=== PATIENT | female | born 1935 | race Caucasian/White ===

== ENCOUNTER 2017-06-25 13:22 | Inpatient (IN) | payer OTHER, MEDICARE ==
[~2017-06-25] VITALS: Ht 165.1 cm; Wt 55.3 kg
[2017-06-25] VITALS (9 sets, daily range): BP systolic 138–202; BP diastolic 65–139; PULSE 56–83; RESP 16–28; TEMP 90.7–97.2; O2SAT 93–99
[~2017-06-25 13:22] MED LIST: ALPR.25 PO; ASPI81 PO; CHLO10 PO; FOLI1 PO; HYDR-3133 PO; LOTE10TA PO; PROP20TA3 PO; SENN8.6T15 PO; SIMV20TA OR; THIA100T PO
[2017-06-25] MEDS ORDERED: SODIUM CHLOR 0.9% 1000 ML INJ 1,000 ML IV SCH (13:44)
[2017-06-25] MEDS ORDERED: DEXTROSE 50% IN WATER 50 ML VIAL(D50) IV PUSH PRN (13:45)
--- NOTE | 2017-06-25 13:46 | PD ---
HPI Chief Complaint: Altered Mental Status Time Seen by Provider: 13:38 Travel History International Travel<30 days: No Contact w/Intl Traveler<30days: No Traveled to known affect area: No History of Present Illness HPI 81-year-old female with history of hypertension, presents emergency department for evaluation of altered mental status worsening over the last 2 days. Patient 's family states she is having difficult time speaking. She is not acting herself. She seems to be more tired than usual. Patient is slow to answer my questions, however she tells me that she thinks that she feels good. Denies any pain. Denies any other focal deficits or weakness. PFSH Past Medical History Hypertension: Yes Social History Alcohol Use: Yes Tobacco Use: No Allergies-Medications (Allergen,Severity, Reaction): Coded Allergies: No Known Allergies (Unverified , 06/25/17) Reported Meds & Prescriptions Reported Meds & Active Scripts Active Reported Aspirin 81 Mg Chew 81 Mg CHEW DAILY Propranolol (Propranolol HCl) 20 Mg Tab 20 Mg PO TID Review of Systems Except as stated in HPI: all other systems reviewed are Neg Physical Exam Narrative GENERAL: Well-nourished female patient, appears in no acute distress. She is very slow to move or respond to my questions. SKIN: Focused skin assessment warm/cool HEAD: Atraumatic. Normocephalic. EYES: Pupils equal and round. No scleral icterus. No injection or drainage. ENT: No nasal bleeding or discharge. Mucous membranes pink and moist. NECK: Trachea midline. No JVD. CARDIOVASCULAR: Regular rate and rhythm. RESPIRATORY: No accessory muscle use. Diminished to auscultation. Breath sounds equal bilaterally. GASTROINTESTINAL: Abdomen soft, non-tender, nondistended. Hepatic and splenic margins not palpable. MUSCULOSKELETAL: No obvious deformities. No clubbing. No cyanosis. No edema. NEUROLOGICAL: Awake and alert. No obvious cranial nerve deficits. Motor grossly within normal limits. Normal speech. Data Data Last Documented VS Vital Signs Date Time Temp Pulse Resp B/P (MAP) Pulse Ox O2 Delivery O2 Flow Rate FiO2 06/25/17 14:39 91.6 58 18 171/81 (111) 96 Room Air Orders Orders Electrocardiogram (06/25/17 13:44) Complete Blood Count With Diff (06/25/17 13:44) Comprehensive Metabolic Panel (06/25/17 13:44) Creatine Kinase (Cpk) (3/30/18 13:44) Prothrombin Time / Inr (Pt) (06/25/17 13:44) Act Partial Throm Time (Ptt) (06/25/17 13:44) Troponin I (06/25/17 13:44) Thyroid Stimulating Hormone (06/25/17 13:44) Urinalysis - C+S If Indicated (06/25/17 13:44) Lactic Acid Sepsis Protocol (06/25/17 13:44) Blood Culture (06/25/17 13:44) Chest, Single Ap (06/25/17 13:44) Ct Brain W/O Iv Contrast(Rout) (06/25/17 13:44) Blood Glucose (06/25/17 13:44) Ecg Monitoring (06/25/17 13:44) Iv Access Insert/Monitor (06/25/17 13:44) Cath For Specimen (06/25/17 13:44) Oximetry (06/25/17 13:44) Sodium Chloride 0.9% Flush (Ns Flush) (06/25/17 13:45) Sodium Chlor 0.9% 1000 Ml Inj (Ns 1000 M (06/25/17 13:44) Drug Screen, Random Urine (06/25/17 13:44) Alcohol (Ethanol) (06/25/17 13:44) Bedside Glucose Q15M (06/25/17 13:44) Hypoglycemia 70 Mg/Dl Or < (06/25/17 13:44) Dextrose 50% In Brooke (Vial) Inj (D50w (Vi (06/25/17 13:45) Insert Temp Sensing Rene Cath (06/25/17 14:21) Vancomycin Inj (Vancomycin Inj) (06/25/17 14:56) Cefepime Inj (Maxipime Inj) (06/25/17 14:56) Labs Laboratory Tests Test 06/25/17 14:15 White Blood Count 6.3 TH/MM3 Red Blood Count 4.23 MIL/MM3 Hemoglobin 13.3 GM/DL Hematocrit 40.7 % Mean Corpuscular Volume 96.1 FL Mean Corpuscular Hemoglobin 31.5 PG Mean Corpuscular Hemoglobin Concent 32.7 % Red Cell Distribution Width 16.0 % Platelet Count 207 TH/MM3 Mean Platelet Volume 9.1 FL Neutrophils (%) (Auto) 83.1 % Lymphocytes (%) (Auto) 13.5 % Monocytes (%) (Auto) 2.8 % Eosinophils (%) (Auto) 0.1 % Basophils (%) (Auto) 0.5 % Neutrophils # (Auto) 5.2 TH/MM3 Lymphocytes # (Auto) 0.9 TH/MM3 Monocytes # (Auto) 0.2 TH/MM3 Eosinophils # (Auto) 0.0 TH/MM3 Basophils # (Auto) 0.0 TH/MM3 CBC Comment DIFF FINAL Differential Comment Prothrombin Time 10.4 SEC Prothromb Time International Ratio 1.0 RATIO Activated Partial Thromboplast Time 22.2 SEC Urine Color YELLOW Urine Turbidity HAZY Urine pH 5.0 Urine Specific [place] 1.011 Urine Protein TRACE mg/dL Urine Glucose (UA) TRACE mg/dL Urine Ketones 10 mg/dL Urine Occult Blood TRACE Urine Nitrite NEG Urine Bilirubin NEG Urine Urobilinogen LESS THAN 2.0 MG/DL Urine Leukocyte Esterase TRACE Urine RBC 2 /hpf Urine WBC 1 /hpf Urine Squamous Epithelial Cells 5 /hpf Urine Bacteria RARE /hpf Urine Hyaline Casts 27 /lpf Urine Mucus FEW /lpf Microscopic Urinalysis Comment CATH-CULT NOT IND Blood Urea Nitrogen 16 MG/DL Creatinine 0.74 MG/DL Random Glucose 30 MG/DL Total Protein 7.7 GM/DL Albumin 3.8 GM/DL Calcium Level 9.6 MG/DL Alkaline Phosphatase 57 U/L Aspartate Amino Transf (AST/SGOT) 136 U/L Alanine Aminotransferase (ALT/SGPT) 67 U/L Total Bilirubin 0.8 MG/DL Sodium Level 133 MEQ/L Potassium Level 4.7 MEQ/L Chloride Level 101 MEQ/L Carbon Dioxide Level 14.5 MEQ/L Anion Gap 18 MEQ/L Estimat Glomerular Filtration Rate 75 ML/MIN Lactic Acid Level 3.4 mmol/L Total Creatine Kinase 72 U/L Troponin I LESS THAN 0.02 NG/ML Thyroid Stimulating Hormone 3rd Gen 0.681 uIU/ML Urine Opiates Screen NEG Urine Barbiturates Screen NEG Urine Amphetamines Screen NEG Urine Benzodiazepines Screen NEG Urine Cocaine Screen NEG Urine Cannabinoids Screen NEG Ethyl Alcohol Level 105 MG/DL MDM Medical Decision Making Medical Screen Exam Complete: Yes Emergency Medical Condition: Yes Medical Record Reviewed: Yes Differential Diagnosis CVA versus electrolyte abnormality versus UTI versus sepsis versus mood disorder Narrative Course 81-year-old female presents emergency department for evaluation of altered mental status. Patient is slow to answer my questions however she does have clear speech. Her skin is very cool to touch. Patient is hypothermic here in the emergency department. Bear hugger is applied. Temp sensing Rene catheter was placed. Patient is also hypoglycemic with a blood glucose of 40 on fingerstick. She is given dextrose IV. Septic workup is initiated. Laboratory Tests Test 06/25/17 14:15 White Blood Count 6.3 TH/MM3 Red Blood Count 4.23 MIL/MM3 Hemoglobin 13.3 GM/DL Hematocrit 40.7 % Mean Corpuscular Volume 96.1 FL Mean Corpuscular Hemoglobin 31.5 PG Mean Corpuscular Hemoglobin Concent 32.7 % Red Cell Distribution Width 16.0 % Platelet Count 207 TH/MM3 Mean Platelet Volume 9.1 FL Neutrophils (%) (Auto) 83.1 % Lymphocytes (%) (Auto) 13.5 % Monocytes (%) (Auto) 2.8 % Eosinophils (%) (Auto) 0.1 % Basophils (%) (Auto) 0.5 % Neutrophils # (Auto) 5.2 TH/MM3 Lymphocytes # (Auto) 0.9 TH/MM3 Monocytes # (Auto) 0.2 TH/MM3 Eosinophils # (Auto) 0.0 TH/MM3 Basophils # (Auto) 0.0 TH/MM3 CBC Comment DIFF FINAL Differential Comment Prothrombin Time 10.4 SEC Prothromb Time International Ratio 1.0 RATIO Activated Partial Thromboplast Time 22.2 SEC Urine Color YELLOW Urine Turbidity HAZY Urine pH 5.0 Urine Specific [place] 1.011 Urine Protein TRACE mg/dL Urine Glucose (UA) TRACE mg/dL Urine Ketones 10 mg/dL Urine Occult Blood TRACE Urine Nitrite NEG Urine Bilirubin NEG Urine Urobilinogen LESS THAN 2.0 MG/DL Urine Leukocyte Esterase TRACE Urine RBC 2 /hpf Urine WBC 1 /hpf Urine Squamous Epithelial Cells 5 /hpf Urine Bacteria RARE /hpf Urine Hyaline Casts 27 /lpf Urine Mucus FEW /lpf Microscopic Urinalysis Comment CATH-CULT NOT IND Blood Urea Nitrogen 16 MG/DL Creatinine 0.74 MG/DL Random Glucose 30 MG/DL Total Protein 7.7 GM/DL Albumin 3.8 GM/DL Calcium Level 9.6 MG/DL Alkaline Phosphatase 57 U/L Aspartate Amino Transf (AST/SGOT) 136 U/L Alanine Aminotransferase (ALT/SGPT) 67 U/L Total Bilirubin 0.8 MG/DL Sodium Level 133 MEQ/L Potassium Level 4.7 MEQ/L Chloride Level 101 MEQ/L Carbon Dioxide Level 14.5 MEQ/L Anion Gap 18 MEQ/L Estimat Glomerular Filtration Rate 75 ML/MIN Lactic Acid Level 3.4 mmol/L Total Creatine Kinase 72 U/L Troponin I LESS THAN 0.02 NG/ML Thyroid Stimulating Hormone 3rd Gen 0.681 uIU/ML Urine Opiates Screen NEG Urine Barbiturates Screen NEG Urine Amphetamines Screen NEG Urine Benzodiazepines Screen NEG Urine Cocaine Screen NEG Urine Cannabinoids Screen NEG Ethyl Alcohol Level 105 MG/DL CBC is without acute concern. CMP is with mild hyponatremia 133, patient's blood glucose on labs is 30, however recheck after dextrose the blood glucose has increased. Patient's liver enzymes are elevated. She has a lactic acidosis of 3.4. Urinalysis is hazy with 10 ketones, trace occult blood, trace leukocyte esterase, rare bacteria, few mucus. Patient was given cefepime and vancomycin IV. Last Impressions Head CT [id number]/[id number] Signed Impressions: Service Date/Time: Sunday, June 25, 2017 15:12 - CONCLUSION: Negative noncontrast CT Nabor Metz MD Chest X-Ray [id number]/[id number] Signed Impressions: Service Date/Time: Sunday, June 25, 2017 14:19 - CONCLUSION: 1. Mild streaky opacity at the left lung base which may represent atelectasis or scarring. Nabor Metz MD Toxicology results EtOH of 105. This could have something to do with patients altered mental status, however family is not at bedside to see if she consumes alcohol regularly. Due to patient's hypoglycemia and hypothermia with a lactic acidosis, patient will be admitted for further evaluation. Sepsis Criteria SIRS Criteria (2 or more): Temp > 100.9 or < 96.8, RR > 20 or PaCO2 < 32 Severe Sepsis (+one): Lactate >2 Diagnosis Primary Impression: Altered mental status Qualified Codes: R41.82 - Altered mental status, unspecified Additional Impressions: Hypoglycemia Hypothermia Qualified Codes: T68.XXXA - Hypothermia, initial encounter Alcohol intoxication Qualified Codes: F10.929 - Alcohol use, unspecified with intoxication, unspecified Admitting Information Admitting Physician Requests: Admit Condition: Stable Iveth Pina 30, 2018 13:46
[2017-06-25] MEDS: SODIUM CHLORIDE 0.9% FLUSH 10 ML FLUSH IV FLUSH PRN ×2 (13:58→21:49)
[2017-06-25] MEDS ORDERED: PROP20TA3 PO (14:04)
[2017-06-25] MEDS ORDERED: ASPI-516 CHEW (14:04)
[2017-06-25 14:31] LABS: AUTOMATED NEUTROPHIL # 5.2 TH/MM3 (1.8-7.7); BASOPHIL % 0.5 % (0.0-2.0); EOSINOPHIL % 0.1 % (0.0-4.0); HEMATOCRIT 40.7 % (35.0-46.0); HEMOGLOBIN 13.3 GM/DL (11.6-15.3); LYMPH % 13.5 % (9.0-44.0); LYMPHOCYTE # 0.9 TH/MM3 (1.0-4.8); MEAN CELL VOLUME 96.1 FL (80.0-100.0); MEAN CORPUSCULAR HEMOGLOBIN 31.5 PG (27.0-34.0); MEAN CORPUSCULAR HGB CONC 32.7 % (32.0-36.0); MEAN PLATELET VOLUME 9.1 FL (7.0-11.0); MONO % 2.8 % (0.0-8.0); MONOCYTE # 0.2 TH/MM3 (0-0.9); NEUT % 83.1 % (16.0-70.0); PLATELET COUNT 207 TH/MM3 (150-450); RED BLOOD COUNT 4.23 MIL/MM3 (4.00-5.30); WHITE BLOOD COUNT 6.3 TH/MM3 (4.0-11.0)
[2017-06-25 14:37] LABS: BACTERIA, URINE RARE /hpf; BILIRUBIN, URINE NEG (NEG); BLOOD, URINE TRACE (NEG); GLUCOSE,URINE TRACE mg/dL (NEG); HYALINE CAST, URINE 27 /lpf (RARE); KETONE, URINE 10 mg/dL (NEG); MUCUS URINE FEW /lpf (OCC); NITRITE,URINE NEG (NEG); SQUAMOUS EPITHELIAL CELL URINE 5 /hpf (0-5); URINE COLOR YELLOW (YELLW/STRAW); URINE LEUKOCYTE ESTERASE TRACE (NEG)
[2017-06-25 14:50] LABS: PROTHROMBIN TIME - PATIENT 10.4 SEC (9.8-11.6)
[2017-06-25 14:51] LABS: LACTIC ACID SEPSIS PROTOCOL 3.4 mmol/L (0.4-2.0)
[2017-06-25] MEDS ORDERED: CEFEPIME INJ 2,000 MG in SODIUM CHLORIDE 0.9% INJ 100 ML IV STA (14:56)
[2017-06-25] MEDS ORDERED: VANCOMYCIN INJ 1,000 MG in SODIUM CHLOR 0.9% 250 ML INJ 250 ML IV STA (14:56)
--- NOTE | 2017-06-25 15:00 | RADRPT ---
EXAM DATE/TIME: 06/25/2017 14:19 [facility] COMPARISON: No previous studies available for comparison. INDICATIONS : Syncope. Low blood sugar per family. MEDICAL HISTORY : None. SURGICAL HISTORY : None. ENCOUNTER: Initial ACUITY: 1 day PAIN SCORE: 0/10 LOCATION: Bilateral chest FINDINGS: A single AP portable erect view of the chest was obtained and demonstrates patchy opacity at the left lung base but no consolidation. Ossification is noted in the mitral valve annulus. There are atheros clerotic calcifications. The right lung is clear. The heart size is within normal limits the bony tho rax is intact. CONCLUSION: 1. Mild streaky opacity at the left lung base which may represent atelectasis or scarring. Nabor Metz MD on June 25, 2017 at 14:55 Board Certified Radiologist. This report was verified electronically.
[2017-06-25 15:09] LABS: ALBUMIN 3.8 GM/DL (3.4-5.0); ALKALINE PHOSPHATASE 57 U/L (45-117); ALT (GPT) 67 U/L (10-53); AST (GOT) 136 U/L (15-37); BICARBONATE 14.5 MEQ/L (21.0-32.0); BLOOD UREA NITROGEN 16 MG/DL (7-18); CALCIUM 9.6 MG/DL (8.5-10.1); CHLORIDE 101 MEQ/L (98-107); CREATININE 0.74 MG/DL (0.50-1.00); GLOMERULAR FILTRATION RATE 75 ML/MIN (>89); SODIUM (NA) 133 MEQ/L (136-145); TOTAL BILIRUBIN ADULT 0.8 MG/DL (0.2-1.0); TOTAL PROTEIN 7.7 GM/DL (6.4-8.2); TROPONIN I LESS THAN 0.02 NG/ML (0.02-0.05)
--- NOTE | 2017-06-25 15:28 | RADRPT ---
EXAM DATE/TIME: 06/25/2017 15:12 [facility] COMPARISON: No previous studies available for comparison. INDICATIONS : Syncope. Lethargic. RADIATION DOSE: 56.41 CTDIvol (mGy) MEDICAL HISTORY : None SURGICAL HISTORY : None. ENCOUNTER: Initial ACUITY: 1 day PAIN SCALE: 2/10 LOCATION: cranial TECHNIQUE: Multiple contiguous axial images were obtained of the head. Using automated exposure control and adj ustment of the mA and/or kV according to patient size, radiation dose was kept as low as reasonably a chievable to obtain optimal diagnostic quality images. DICOM format image data is available electro nically for review and comparison. FINDINGS: CEREBRUM: The ventricles are normal for age with mild to moderate atrophic change. No evidence of midline shift , mass lesion, hemorrhage or acute infarction. No extra-axial fluid collections are seen. POSTERIOR FOSSA: The cerebellum and brainstem are intact. The 4th ventricle is midline. The cerebellopontine angle i s unremarkable. EXTRACRANIAL: The visualized portion of the orbits is intact. SKULL: The calvaria is intact. No evidence of skull fracture. CONCLUSION: Negative noncontrast CT Nabor Metz MD on June 25, 2017 at 15:24 Board Certified Radiologist. This report was verified electronically.
[2017-06-25 15:34] LABS: GLUCOSE,RANDOM 30 MG/DL (74-106)
[2017-06-25] MEDS ORDERED: ENALAPRILAT 1.25 MG/ML VIAL IV PUSH PRN (18:00)
[2017-06-25] MEDS ORDERED: VANCOMYCIN INJ 850 MG in SODIUM CHLOR 0.9% 250 ML INJ 250 ML IV SCH (18:00)
[2017-06-25] MEDS ORDERED: MORPHINE SULFATE 2 MG/ML SYRINGE IV PUSH PRN (18:00)
[2017-06-25] MEDS ORDERED: hydrALAZINE HCL 20 MG/ML VIAL IV PUSH PRN (18:00)
[2017-06-25] MEDS ORDERED: Vancomycin Consult Pharmacy 1 EA OTHER SCH (18:00)
[2017-06-25] MEDS ORDERED: LORazepam 2 MG TAB PO PRN (18:00)
[2017-06-25] MEDS ORDERED: NALOXONE HCL 0.4 MG/ML AMP IV PUSH PRN (18:00)
[2017-06-25] MEDS ORDERED: LORazepam 2 MG/ML VIAL IV PUSH PRN ×4 (18:00)
[2017-06-25] MEDS ORDERED: SENNOSIDES 8.6 MG TAB PO PRN (18:00)
[2017-06-25] MEDS ORDERED: ACETAMINOPHEN/HYDROcodone 325 MG/7.5 MG TAB PO PRN (18:00)
[2017-06-25] MEDS ORDERED: MAGNESIUM HYDROXIDE SUSP 30 ML CUP PO PRN (18:00)
[2017-06-25] MEDS ORDERED: ACETAMINOPHEN 325 MG TAB PO PRN (18:00)
[2017-06-25] MEDS ORDERED: ACETAMINOPHEN/HYDROcodone 325 MG/5 MG TAB PO PRN (18:00)
[2017-06-25] MEDS ORDERED: ONDANSETRON HCL 4 MG/2 ML VIAL IVP PRN (18:00)
[2017-06-25] MEDS ORDERED: FLUMAZENIL 0.5 MG/5 ML VIAL IV PUSH PRN (18:00)
[2017-06-25] MEDS ORDERED: LORazepam 1 MG TAB PO PRN (18:00)
--- NOTE | 2017-06-25 18:05 | HHI.HP ---
[facility] Kong New MD Admission Diagnosis AMS; HYPOGLYCEMIA; HYPOTHERMIA; LACTIC ACIDOSIS Diagnoses: Chief Complaint: I am feeling cold Travel History International Travel<30 Days: No Contact w/Intl Traveler <30 Da: No Traveled to Known Affected Are: No History of Present Illness 81 years old female presented to the ED With worsening mental status over the last 2 days with some difficulty speaking and not acting herself, in ED she was found to have hypothermia and severe hypoglycemia BG 30, temperature 91 Fahrenheit, also she was found to have lactic acidosis above 3 along with alcohol intoxication 105. Patient was laying in bed she was able to answer questions, she is originally [place] speaker, I am assuming she has been sneaking alcohol drinking because she called her water vodka. Family were not at the bedside, in general patient is not a good historian, she reported feeling cold, denied cough diarrhea, denied smoking or drinking alcohol but I am not sure how reliable is this. Patient has history of hypertension. Patient was given a dose of cefepime and Vanco, a liter of IV fluid and she was given an amp of D50 Review of Systems ROS Limitations: Poor Historian Past Family Social History Past Medical History Hypertension Past Surgical History Unobtainable Allergies: Coded Allergies: No Known Allergies (Unverified , 06/25/17) Family History Unobtainable Social History Patient denied tobacco or alcohol or drug habits however her urine toxic screen positive for the low alcohol 105 Physical Exam Vital Signs Vital Signs Date Time Temp Pulse Resp B/P (MAP) Pulse Ox O2 Delivery O2 Flow Rate FiO2 06/25/17 17:42 96.3 68 18 172/139 (150) 99 Room Air 06/25/17 14:39 91.6 58 18 171/81 (111) 96 Room Air 06/25/17 14:19 90.7 57 18 157/75 (102) 96 Room Air 06/25/17 14:18 90.7 06/25/17 13:56 60 28 140/65 (90) 93 Room Air 06/25/17 13:52 95 Room Air 06/25/17 13:50 63 24 96 06/25/17 13:33 95.7 56 16 202/95 (130) 96 Physical Exam GENERAL: This is a frail elderly lady who is awake alert SKIN: No rashes, warm and dry HEAD: Atraumatic. Normocephalic. EYES: Pupils equal round and reactive. Extraocular motions intact. No scleral icterus. ENT: Nose without bleeding, or drainage, Airway patent. NECK: Trachea midline. Supple CARDIOVASCULAR: Regular rate and rhythm without murmurs, gallops, or rubs. RESPIRATORY: Fair air entry bilaterally. No wheezes, rales, or rhonchi. GASTROINTESTINAL: Abdomen soft, non-tender, nondistended. Positive bowel sounds MUSCULOSKELETAL: Extremities without clubbing, cyanosis, or edema. Pedal pulses appreciated NEUROLOGICAL: Awake and alert. Moves all extremity. She is a gentleman speaker , she seems to be able to answer questions no significant neurological focal deficit Laboratory Laboratory Tests Test 06/25/17 14:15 06/25/17 17:10 White Blood Count 6.3 Red Blood Count 4.23 Hemoglobin 13.3 Hematocrit 40.7 Mean Corpuscular Volume 96.1 Mean Corpuscular Hemoglobin 31.5 Mean Corpuscular Hemoglobin Concent 32.7 Red Cell Distribution Width 16.0 Platelet Count 207 Mean Platelet Volume 9.1 Neutrophils (%) (Auto) 83.1 Lymphocytes (%) (Auto) 13.5 Monocytes (%) (Auto) 2.8 Eosinophils (%) (Auto) 0.1 Basophils (%) (Auto) 0.5 Neutrophils # (Auto) 5.2 Lymphocytes # (Auto) 0.9 Monocytes # (Auto) 0.2 Eosinophils # (Auto) 0.0 Basophils # (Auto) 0.0 CBC Comment DIFF FINAL Differential Comment Prothrombin Time 10.4 Prothromb Time International Ratio 1.0 Activated Partial Thromboplast Time 22.2 Urine Color YELLOW Urine Turbidity HAZY Urine pH 5.0 Urine Specific [place] 1.011 Urine Protein TRACE Urine Glucose (UA) TRACE Urine Ketones 10 Urine Occult Blood TRACE Urine Nitrite NEG Urine Bilirubin NEG Urine Urobilinogen LESS THAN 2.0 Urine Leukocyte Esterase TRACE Urine RBC 2 Urine WBC 1 Urine Squamous Epithelial Cells 5 Urine Bacteria RARE Urine Hyaline Casts 27 Urine Mucus FEW Microscopic Urinalysis Comment CATH-CULT NOT IND Blood Urea Nitrogen 16 Creatinine 0.74 Random Glucose 30 Total Protein 7.7 Albumin 3.8 Calcium Level 9.6 Alkaline Phosphatase 57 Aspartate Amino Transf (AST/SGOT) 136 Alanine Aminotransferase (ALT/SGPT) 67 Total Bilirubin 0.8 Sodium Level 133 Potassium Level 4.7 Chloride Level 101 Carbon Dioxide Level 14.5 Anion Gap 18 Estimat Glomerular Filtration Rate 75 Lactic Acid Level 3.4 Total Creatine Kinase 72 Troponin I LESS THAN 0.02 Thyroid Stimulating Hormone 3rd Gen 0.681 Urine Opiates Screen NEG Urine Barbiturates Screen NEG Urine Amphetamines Screen NEG Urine Benzodiazepines Screen NEG Urine Cocaine Screen NEG Urine Cannabinoids Screen NEG Ethyl Alcohol Level 105 Date/Time Source Procedure Growth Status 06/25/17 14:15 Blood Peripheral Aerobic Blood Culture Pending Received 06/25/17 14:15 Blood Peripheral Anaerobic Blood Culture Pending Received Result Diagram: 06/25/17 1415 06/25/17 1415 Imaging Last Impressions Head CT 06/25/17 1344 Signed Impressions: Service Date/Time: Sunday, June 25, 2017 15:12 - CONCLUSION: Negative noncontrast CT Nabor Metz MD Chest X-Ray 06/25/17 1344 Signed Impressions: Service Date/Time: Sunday, June 25, 2017 14:19 - CONCLUSION: 1. Mild streaky opacity at the left lung base which may represent atelectasis or scarring. MD Iram Wallacei VTE Risk Assessment Irami VTE Risk Assessment: Mod/High Risk (score >= 2) Caprini Risk Assessment Model Point Value = 1 Point Value = 2 Point Value = 3 Point Value = 5 Age 41-60 Minor surgery BMI > 25 kg/m2 Swollen legs Varicose veins or History of unexplained or recurrent spontaneous Oral contraceptives or hormone replacement Sepsis (< 1 month) Serious lung disease, including pneumonia (< 1 month) Abnormal pulmonary function Acute myocardial infarction Congestive heart failure (< 1 month) History of inflammatory bowel disease Medical patient at bed rest Age 61-74 Arthroscopic surgery Major open surgery (> 45 min) Laparoscopic surgery (> 45 min) Malignancy Confined to bed (> 72 hours) Immobilizing plaster cast Central venous access Age >= 75 History of VTE Family history of VTE Factor V Leiden Prothrombin [id number] Lupus anticoagulant Anticardiolipin antibodies Elevated serum homocysteine Heparin-induced thrombocytopenia Other congenital or acquired thrombophilia Stroke (< 1 month) Elective arthroplasty Hip, pelvis, or leg fracture Acute spinal cord injury (< 1 month) Prophylaxis Regimen Total Risk Factor Score Risk Level Prophylaxis Regimen 0-1 Low Early ambulation 2 Moderate Order ONE of the following: *Sequential Compression Device (SCD) *Heparin 5000 units SQ BID 3-4 Higher Order ONE of the following medications: *Heparin 5000 units SQ TID *Enoxaparin/Lovenox 40 mg SQ daily (WT < 150 kg, CrCl > 30 mL/min) *Enoxaparin/Lovenox 30 mg SQ daily (WT < 150 kg, CrCl > 10-29 mL/min) *Enoxaparin/Lovenox 30 mg SQ BID (WT < 150 kg, CrCl > 30 mL/min) AND/OR *Sequential Compression Device (SCD) 5 or more Highest Order ONE of the following medications: *Heparin 5000 units SQ TID (Preferred with Epidurals) *Enoxaparin/Lovenox 40 mg SQ daily (WT < 150 kg, CrCl > 30 mL/min) *Enoxaparin/Lovenox 30 mg SQ daily (WT < 150 kg, CrCl > 10-29 mL/min) *Enoxaparin/Lovenox 30 mg SQ BID (WT < 150 kg, CrCl > 30 mL/min) AND *Sequential Compression Device (SCD) Assessment and Plan Assessment and Plan Difficulty speaking hypothermia Severe hypoglycemia Lactic acidosis Anion gap metabolic acidosis possibly mixed acid-base Transaminitis consistent with alcoholism Hypertensive emergency Bradycardia Hyponatremia Bandemia no leukocytosis Alcohol intoxication atrial alcohol 105 DVT prophylaxis Plan: Admit to ICU with close monitoring Patient received 1 L of IV fluid in ED with 1 dose of cefepime and Vanco broad- spectrum Continue with D5 normal saline maintenance at 125 I will give another 2 L of normal saline BMP monitoring every 6 hours Peripheral warming blanket Apply hypoglycemic protocol 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 In the case of services not specified as inpatient-only, they are appropriately provided as inpatient services in accordance with the 2-midnight benchmark. Estimated LOS (days): 3 days is the estimated time the patient will need to remain in the hospital, assuming treatment plan goals are met and no additional complications. Post-Hospital Plan: [facility] Ruddy Allen MD Jun 25, 2017 18:05
[2017-06-25] MEDS ORDERED: DEXT 5%-NACL 0.45% 1000 ML INJ 1,000 ML IV SCH (18:15)
[2017-06-25] MEDS ORDERED: SODIUM CHLOR 0.9% 1000 ML INJ 1,000 ML IV ONE ×2 (18:15)
[2017-06-25] MEDS: SODIUM BICARBONATE 8.4% INJ 50 MEQ in DEXT 5%-NACL 0.45% 1000 ML INJ 1,000 ML IV SCH (21:49)
[2017-06-25] MEDS: DOCUSATE SODIUM 50 MG/SENNA 8.6 MG TAB PO SCH (21:50)
[2017-06-25] MEDS: HEPARIN SODIUM - SQ 10,000 UNITS/ML VIAL SQ SCH (21:50)
[2017-06-25] MEDS: amLODIPine BESYLATE 5 MG TAB PO SCH (21:50)
[2017-06-25 22:34] LABS: BICARBONATE 17.1 MEQ/L (21.0-32.0); CALCIUM 7.8 MG/DL (8.5-10.1); CREATININE 0.57 MG/DL (0.50-1.00)
[2017-06-26] VITALS (7 sets, daily range): BP systolic 99–141; BP diastolic 48–80; PULSE 73–101; RESP 18; TEMP 97.4–99.7; O2SAT 93–97
[2017-06-26] MEDS: SODIUM BICARBONATE 8.4% INJ 50 MEQ in DEXT 5%-NACL 0.45% 1000 ML INJ 1,000 ML IV SCH ×2 (05:00→13:33)
[2017-06-26] MEDS: HEPARIN SODIUM - SQ 10,000 UNITS/ML VIAL SQ SCH ×2 (05:58→13:33)
[2017-06-26] MEDS ORDERED: CEFEPIME INJ 1,000 MG in SODIUM CHLORIDE 0.9% INJ 100 ML IV SCH (06:00)
[2017-06-26 06:28] LABS: AUTOMATED NEUTROPHIL # 6.3 TH/MM3 (1.8-7.7); BASOPHIL % 0.4 % (0.0-2.0); EOSINOPHIL % 0.3 % (0.0-4.0); HEMATOCRIT 33.7 % (35.0-46.0); HEMOGLOBIN 11.2 GM/DL (11.6-15.3); LYMPH % 11.8 % (9.0-44.0); LYMPHOCYTE # 0.9 TH/MM3 (1.0-4.8); MEAN CELL VOLUME 95.6 FL (80.0-100.0); MEAN CORPUSCULAR HEMOGLOBIN 31.6 PG (27.0-34.0); MEAN CORPUSCULAR HGB CONC 33.1 % (32.0-36.0); MEAN PLATELET VOLUME 9.3 FL (7.0-11.0); MONO % 6.3 % (0.0-8.0); MONOCYTE # 0.5 TH/MM3 (0-0.9); NEUT % 81.2 % (16.0-70.0); PLATELET COUNT 166 TH/MM3 (150-450); RED BLOOD COUNT 3.53 MIL/MM3 (4.00-5.30); RED CELL DISTRIBUTION WIDTH 15.5 % (11.6-17.2); WHITE BLOOD COUNT 7.8 TH/MM3 (4.0-11.0)
[2017-06-26 06:55] LABS: ALBUMIN 2.9 GM/DL (3.4-5.0); BICARBONATE 21.1 MEQ/L (21.0-32.0); CALCIUM 8.3 MG/DL (8.5-10.1); CREATININE 0.77 MG/DL (0.50-1.00); DIRECT BILIRUBIN ADULT 0.2 MG/DL (0.0-0.2); INDIRECT BILIRUBIN 0.8 MG/DL (0.0-0.8); TOTAL PROTEIN 5.9 GM/DL (6.4-8.2)
--- NOTE | 2017-06-26 08:29 | HHI.PR ---
Subjective Remarks The patient feels better she is back at her baseline. Says she has essential tremors for a long time she takes propranolol, she was also told alcohol is helping with the tremors. However says she is not drinking much alcohol. She would like to go home. She also says she has a scar in her left lower lung that was followed with a chest x-ray as outpatient and did not show any enlargement. She denies having any chest pain or shortness of breath. No fever or chills. She is not coughing. She is back at her baseline and she wants to go home. at bedside very supportive. Says she has a walker at home however she does very well and uses salt in the walker. Remove Rene. Objective Vitals Vital Signs Date Time Temp Pulse Resp B/P (MAP) Pulse Ox O2 Delivery O2 Flow Rate FiO2 06/26/17 08:25 96 21 06/26/17 08:18 99.7 86 18 118/56 (76) 95 06/26/17 04:00 97.4 73 18 141/70 (93) 97 06/26/17 01:22 86 18 100/50 (67) 93 06/26/17 00:00 98.7 84 18 99/48 (65) 96 06/25/17 23:49 83 06/25/17 18:54 06/25/17 18:13 97.2 74 20 138/67 (90) 98 Room Air 06/25/17 17:42 96.3 68 18 172/139 (150) 99 Room Air 06/25/17 14:39 91.6 58 18 171/81 (111) 96 Room Air 06/25/17 14:19 90.7 57 18 157/75 (102) 96 Room Air 06/25/17 14:18 90.7 06/25/17 13:56 60 28 140/65 (90) 93 Room Air 06/25/17 13:52 95 Room Air 06/25/17 13:50 63 24 96 06/25/17 13:33 95.7 56 16 202/95 (130) 96 I/O 06/25/17 06/25/17 06/25/17 06/26/17 06/26/17 06/26/17 07:00 15:00 23:00 07:00 15:00 23:00 Intake Total 1100 ml 2703 ml Output Total 200 ml Balance 1100 ml 2503 ml Intake IV Total 1100 ml 2703 ml Output Urine Total 200 ml Result Diagram: 06/26/17 0519 06/26/17 0519 Imaging Last Impressions Head CT 06/25/17 1344 Signed Impressions: Service Date/Time: Sunday, June 25, 2017 15:12 - CONCLUSION: Negative noncontrast CT Nabor Metz MD Chest X-Ray 06/25/17 1344 Signed Impressions: Service Date/Time: Sunday, June 25, 2017 14:19 - CONCLUSION: 1. Mild streaky opacity at the left lung base which may represent atelectasis or scarring. Nabor Metz MD Objective Remarks GENERAL: This is a frail elderly lady who is awake alert SKIN: No rashes, warm and dry HEAD: Atraumatic. Normocephalic. EYES: Pupils equal round and reactive. Extraocular motions intact. No scleral icterus. ENT: Nose without bleeding, or drainage, Airway patent. NECK: Trachea midline. Supple CARDIOVASCULAR: Regular rate and rhythm without murmurs, gallops, or rubs. RESPIRATORY: Fair air entry bilaterally. No wheezes, rales, or rhonchi. GASTROINTESTINAL: Abdomen soft, non-tender, nondistended. Positive bowel sounds MUSCULOSKELETAL: Extremities without clubbing, cyanosis, or edema. Pedal pulses appreciated NEUROLOGICAL: Awake and alert. Moves all extremity. She is a gentleman speaker , she seems to be able to answer questions no significant neurological focal deficit A/P Assessment and Plan Difficulty speaking, resolved back at baseline Hypothermia resolved Severe hypoglycemia. Resolved Lactic acidosis. Resolved Anion gap metabolic acidosis possibly mixed acid-base. Resolved Transaminitis consistent with alcoholism. Counseled extensively regarding alcohol use Hypertensive emergency Bradycardia, secondary to use of propranolol, decreased dose Hyponatremia Bandemia no leukocytosis Alcohol intoxication atrial alcohol 105 on admission. History of essential tremors taking propanolol 20 mg 3 times a day however noted bradycardic, will decrease propranolol to 20 mg twice a day. Patient was also advised not to drink alcohol for essential tremors. She expressed understanding. 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 Patient says she has a scar in her left lower lung and was followed as outpatient with chest x-rays by her doctor and was told did not increase in size. She is asymptomatic. Heparin for DVT prophylaxis Patient improved significantly and she is back at her baseline. She has a history of essential tremors takes propranolol and says sometimes she is medicating herself with alcohol. Advised not to consume alcohol to treat essential tremors. She was also noted bradycardic due to high dose of propranolol use. Decrease propranolol to 20 mg twice daily. Patient is back at her baseline. She wants to go home. PT recommends no pain no PT as outpatient or at home. at bedside. Patient is discharged home in stable condition to follow- up with PCP and consultants as outpatient. Makenzie Prince MD Jun 26, 2017 08:29
[2017-06-26] MEDS: DOCUSATE SODIUM 50 MG/SENNA 8.6 MG TAB PO SCH (08:57)
[2017-06-26] MEDS: amLODIPine BESYLATE 5 MG TAB PO SCH (08:57)
[2017-06-26] MEDS ORDERED: ASPIRIN 81 MG CHEW TAB CHEW SCH (09:00)
[2017-06-26] MEDS ORDERED: AMLO5 PO (11:06)
[2017-06-26] MEDS ORDERED: PROP20TA3 PO (11:06)
--- NOTE | 2017-06-26 11:06 | HHI.DS ---
Discharge Summary Admission Date Jun 25, 2017 at 16:40 Discharge Date: Jun 26, 2017 Admitting Diagnosis AMS; HYPOGLYCEMIA; HYPOTHERMIA; LACTIC ACIDOSIS (1) Alcohol intoxication ICD Code: F10.929 - Alcohol use, unspecified with intoxication, unspecified Status: Acute (2) Hypoglycemia ICD Code: E16.2 - Hypoglycemia, unspecified Status: Acute (3) Hypothermia ICD Code: T68.XXXA - Hypothermia, initial encounter Status: Acute (4) Altered mental status ICD Code: R41.82 - Altered mental status, unspecified Status: Acute Procedures No procedures Brief History - From Admission 81 years old female presented to the ED With worsening mental status over the last 2 days with some difficulty speaking and not acting herself, in ED she was found to have hypothermia and severe hypoglycemia BG 30, temperature 91 Fahrenheit, also she was found to have lactic acidosis above 3 along with alcohol intoxication 105. Patient was laying in bed she was able to answer questions, she is originally [place] speaker, I am assuming she has been sneaking alcohol drinking because she called her water vodka. Family were not at the bedside, in general patient is not a good historian, she reported feeling cold, denied cough diarrhea, denied smoking or drinking alcohol but I am not sure how reliable is this. Patient has history of hypertension. Patient was given a dose of cefepime and Vanco, a liter of IV fluid and she was given an amp of D50 CBC/BMP: 06/26/17 0519 06/26/17 0519 Significant Findings Laboratory Tests Test 06/25/17 14:15 06/25/17 17:10 06/25/17 21:36 06/26/17 05:19 Neutrophils (%) (Auto) 83.1 % (16.0-70.0) 81.2 % (16.0-70.0) Lymphocytes # (Auto) 0.9 TH/MM3 (1.0-4.8) 0.9 TH/MM3 (1.0-4.8) Activated Partial Thromboplast Time 22.2 SEC (24.3-30.1) Urine Turbidity HAZY (CLEAR) Urine Ketones 10 mg/dL (NEG) Urine Occult Blood TRACE (NEG) Urine Leukocyte Esterase TRACE (NEG) Urine Bacteria RARE /hpf (NONE) Urine Mucus FEW /lpf (OCC) Random Glucose 30 MG/DL (74-106) 187 MG/DL (74-106) Aspartate Amino Transf (AST/SGOT) 136 U/L (15-37) 57 U/L (15-37) Alanine Aminotransferase (ALT/SGPT) 67 U/L (10-53) Sodium Level 133 MEQ/L (136-145) Carbon Dioxide Level 14.5 MEQ/L (21.0-32.0) 17.1 MEQ/L (21.0-32.0) Anion Gap 18 MEQ/L (5-15) Estimat Glomerular Filtration Rate 75 ML/MIN (>89) 72 ML/MIN (>89) Lactic Acid Level 3.4 mmol/L (0.4-2.0) 3.6 mmol/L (0.4-2.0) Troponin I LESS THAN 0.02 NG/ML Ethyl Alcohol Level 105 MG/DL (0-5) Calcium Level 7.8 MG/DL (8.5-10.1) 8.3 MG/DL (8.5-10.1) Chloride Level 109 MEQ/L (98-107) Red Blood Count 3.53 MIL/MM3 (4.00-5.30) Hemoglobin 11.2 GM/DL (11.6-15.3) Hematocrit 33.7 % (35.0-46.0) Total Protein 5.9 GM/DL (6.4-8.2) Albumin 2.9 GM/DL (3.4-5.0) Alkaline Phosphatase 40 U/L (45-117) Imaging Last Impressions Head CT 06/25/171343 Signed Impressions: Service Date/Time: Sunday, June 25, 2017 15:12 - CONCLUSION: Negative noncontrast CT Nabor Metz MD Chest X-Ray 06/25/171343 Signed Impressions: Service Date/Time: Sunday, June 25, 2017 14:19 - CONCLUSION: 1. Mild streaky opacity at the left lung base which may represent atelectasis or scarring. Nabor Metz MD PE at Discharge GENERAL: This is a frail elderly lady who is awake alert SKIN: No rashes, warm and dry HEAD: Atraumatic. Normocephalic. EYES: Pupils equal round and reactive. Extraocular motions intact. No scleral icterus. ENT: Nose without bleeding, or drainage, Airway patent. NECK: Trachea midline. Supple CARDIOVASCULAR: Regular rate and rhythm without murmurs, gallops, or rubs. RESPIRATORY: Fair air entry bilaterally. No wheezes, rales, or rhonchi. GASTROINTESTINAL: Abdomen soft, non-tender, nondistended. Positive bowel sounds MUSCULOSKELETAL: Extremities without clubbing, cyanosis, or edema. Pedal pulses appreciated NEUROLOGICAL: Awake and alert. Moves all extremity. She is a gentleman speaker , she seems to be able to answer questions no significant neurological focal deficit Hospital Course Difficulty speaking, resolved back at baseline Hypothermia resolved Severe hypoglycemia. Resolved Lactic acidosis. Resolved Anion gap metabolic acidosis possibly mixed acid-base. Resolved Transaminitis consistent with alcoholism. Counseled extensively regarding alcohol use Hypertensive emergency Bradycardia, secondary to use of propranolol, decreased dose Hyponatremia Bandemia no leukocytosis Alcohol intoxication atrial alcohol 105 on admission. History of essential tremors taking propanolol 20 mg 3 times a day however noted bradycardic, will decrease propranolol to 20 mg twice a day. Patient was also advised not to drink alcohol for essential tremors. She expressed understanding. 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 Patient says she has a scar in her left lower lung and was followed as outpatient with chest x-rays by her doctor and was told did not increase in size. She is asymptomatic. Heparin for DVT prophylaxis Patient improved significantly and she is back at her baseline. She has a history of essential tremors takes propranolol and says sometimes she is medicating herself with alcohol. Advised not to consume alcohol to treat essential tremors. She was also noted bradycardic due to high dose of propranolol use. Decrease propranolol to 20 mg twice daily. Patient is back at her baseline. She wants to go home. PT recommends no pain no PT as outpatient or at home. at bedside. Patient is discharged home in stable condition to follow- up with PCP and consultants as outpatient. Pt Condition on Discharge: Stable Discharge Disposition: Discharge Home Discharge Time: > 30 minutes Discharge Instructions DIET: Follow Instructions for: Heart Healthy Diet Activities you can perform: Regular-No Restrictions Follow up Referrals: PCP Follow-up - 2-3 Days New Medications: Amlodipine (Norvasc) 5 Mg Tab 5 MG PO DAILY for Blood Pressure Management, #30 TAB Changed Medications: Propranolol (Propranolol) 20 Mg Tab 20 MG PO BID for essential tremors , #90 TAB 0 Refills (Changed from: TID) Continued Medications: Aspirin (Aspirin) 81 Mg Chew 81 MG CHEW DAILY, TAB 0 Refills Makenzie Prince MD Jun 26, 2017 11:06
--- NOTE | 2017-06-26 13:57 | EKG ---
Date Performed: 06/25/2017 Time Performed: 14:02:45 PTAGE: 81 years EKG: SINUS BRADYCARDIA INFERIOR MYOCARDIAL INFARCTION ABNORMAL ECG NO PREVIOUS TRACING DOCTOR: Dhruv Lomeli Interpretating Date/Time 06/26/2017 13:56:30
--- NOTE | 2017-06-26 14:40 | EKG ---
Date Performed: 06/26/2017 Time Performed: 00:08:44 PTAGE: 81 years EKG: Sinus rhythm Inferior infarct - age undetermined Anterolateral ST-T changes are nonspecific Abnormal ECG Since PREVIOUS TRACING , no significant change noted PREVIOUS TRACIN06/25/2017 14.02 DOCTOR: Dhruv Lomeli Interpretating Date/Time 06/26/2017 14:39:43
[2017-06-26] MEDS ORDERED: VANCOMYCIN 1,000 MG/NS 250 ML IV SCH ×2 (15:00)
[2017-06-29] MEDS ORDERED: PHARMACY ORDERED LAB ONE (14:45)
== END 2017-06-26 16:44 | disposition home or self-care (01) | DRG 897 ==
LOC: NEPE 13:22 → MERGE 16:40 → NEDA 16:40 → N05B 19:03
PROVIDERS: ADMIT Hospitalist; ATTEND Hospitalist
DX: F10.229 Alcohol dependence with intoxication, unspecified (principal); E87.2 Acidosis; T68.XXXA Hypothermia, initial encounter; I16.1 Hypertensive emergency; E87.1 Hypo-osmolality and hyponatremia; I10 Essential (primary) hypertension; E16.2 Hypoglycemia, unspecified; G25.0 Essential tremor; R74.0 Nonspecific elevation of levels of transaminase and lactic acid dehydrogenase [LDH]; R00.1 Bradycardia, unspecified; D72.825 Bandemia; Y90.5 Blood alcohol level of 100-119 mg/100 ml; X58.XXXA Exposure to other specified factors, initial encounter
CPT/HCPCS: 70450; 71045; 80048; 80053; 80076; 80307; 81001; 82550; 82948; 83605; 83690; 84443; 84484; 85025; 85610; 85730; 87040; 93005; 96361; 96365; 96368; 96375; J0692; J1644; J3370; J7030; J7050; P9612

== ENCOUNTER 2018-02-17 19:37 | Inpatient (IN) ==
--- NOTE | 2018-02-17 19:56 | ED ---
HPI General Chief Complaint: Fall Stated Complaint: Back Pain/Fall Time Seen by Provider: 02/17/18 19:46 Source: patient and RN notes reviewed Mode of arrival: EMS Limitations: physical limitation History of Present Illness HPI Narrative: The patient is an 82-year-old female with a past medical history significant for hypertension that was brought in by EMS for evaluation after she experienced a fall around 3:30 PM today. On arrival also evaluated the patient appears that she is not crossing the midline and she has a fixed gaze to the right. She appears confused and her left side is more ataxic on the left upper extremity and cannot see on the left visual field. Pt stated to the Neurologist in CT scanner that she fell yesterday. Family friends are here reporting that they went to check on her around 4:00 and she has stated that she has just fallen in the bathroom 5 minutes prior to arrival. Her also reported that she was sleeping yesterday all day and spent most of the day laying in bed today. Friends that I arrived stated that when they saw her around 4:00 she had told him that she just had fallen in the bathroom and she was laying on her right side and her left leg was hanging off the bed. She was seen by her primary in the beginning of the week because she was not feeling well and she was started on 2 new blood pressure medications because of labile hypertension. Patient is complaining of left hip pain and low back pain Onset (ago): unknown Location: Reports other (Fixed gaze to the right) History of same: No Severity: severe Context: Reports sudden onset On Anticoagulants: No Associated symptoms: Reports confusion; Denies headaches Related Data Home Medications Medication Instructions Recorded Confirmed amlodipine 5 mg PO DAILY 02/17/18 02/17/18 buspirone 5 mg PO DAILY 02/17/18 02/17/18 propranolol 20 mg PO DAILY 02/17/18 02/17/18 Allergies Allergy/AdvReac Type Severity Reaction Status Date / Time No Known Allergies Allergy Uncoded 05/09/12 18:20 Review of Systems ROS: all other systems reviewed are negative PMFSH History History Provided By: Patient, Family Member and Friend Medical History Medical History Anxiety (Acute) Essential hypertension (Acute) Hyperlipidemia (Acute) Medical history unknown (Acute) Throat cancer (Acute) Surgical History Surgical History H/O neck surgery (Acute) Family History Family History Other No pertinent family history Social History Social History Substance History: No History of Abuse Second Hand Smoke Exposure: No Smoking Status: Never smoker How Often Do You Have a Drink Containing Alcohol: Monthly or less Recent Travel in [facility] within the Last 8 Weeks: No Recent Out of Country Travel within the Last 8 Weeks: No Exam Narrative Exam Narrative: GENERAL: Alert and oriented in no distress well-nourished well- developed. SKIN: Focused skin assessment warm/dry. Poor turgor HEAD: Atraumatic. Normocephalic. EYES: Pupils equal and round. No scleral icterus. No injection or drainage. ENT: No nasal bleeding or discharge. Mucous membranes pink and moist. NECK: Trachea midline. No JVD. CARDIOVASCULAR: Regular rate and rhythm. No murmur appreciated. RESPIRATORY: No accessory muscle use. Clear to auscultation. Breath sounds equal bilaterally. GASTROINTESTINAL: Abdomen soft, non-tender, nondistended. Hepatic and splenic margins not palpable. MUSCULOSKELETAL: No obvious deformities. No clubbing. No cyanosis. No edema. NEUROLOGICAL: Patient alert and oriented with fixed gaze to the right no crossing midline. No dysarthria. Cranial nerves otherwise intact. PSYCHIATRIC: Appropriate mood and affect; insight and judgment normal. Neuro General: alert, awake and oriented x3 Cognition: normal cognition Speech: speech normal Motor: strength not 5/5 throughout and other Sensory Exam: lower extremity left light-touch abnormal in the entire distribution and pin-prick abnormal in the entire distribution and decreased DTR's: Rt Brachioradialis: 0, Lt Brachioradialis: 0, Rt Patellar: 0 and Lt Patellar: 0 Plantar Reflexes: Downgoing: bilateral Course Reevaluation(s) Reevaluation #1: Patient is still in the CT suite. Her arrived and we spoke with him with Dr. Hanley neurology online communications specialist. It is unsure exactly what was the onset of her symptoms. Patient has been laying in bed yesterday and today for most of the day she had a fall prior to 4 PM she has been laying in bed since then. She is not on any blood thinners. Time: 20:33 Consultations Consultation #1: Dr Hanley Neuro Cell Feed Department Supervisor recommends CTA Head and Neck Time: 19:58 Initial Documented Vital Signs Temperature 97.0 F L 02/17/18 19:52 Pulse Rate 70 02/17/18 19:52 Respiratory Rate 16 02/17/18 19:52 Blood Pressure 100/50 L 02/17/18 19:52 Pulse Oximetry 99 02/17/18 19:52 Last Documented Vital Signs Temperature 96.8 F L 02/18/18 00:00 Pulse Rate 79 02/18/18 01:30 Respiratory Rate 20 02/18/18 01:30 Blood Pressure 129/58 L 02/18/18 01:30 Pulse Oximetry 100 02/18/18 01:30 Critical Care Time Critical Care Time: Yes Total Critical Care Time: 30 Attestation: Aggregate critical care time was 30 minutes. Time to perform other separately billable procedures was not included in the critical care time. My time did not include minutes spent treating any other patients simultaneously or on activities that did not directly contribute to the patient's treatment. The services I provided to this patient were to treat and/or prevent clinically significant deterioration that could result in: I provided critical care services requiring my management, as noted below: Chart data review, documentation time, medication orders and management, vital sign assessments/reviewing monitor data, ordering and reviewing lab tests, ordering and interpreting/reviewing x-rays and diagnostic studies, care of the patient and discussion of the patient with the admitting physicians. NIH Stroke Scale NIH Stroke Scale Level of Consciousness: 0-Alert Orientation Questions: 0-Answers both correct Responds to Commands: 0-Both tasks correct Gaze Eye Movement: 1-Partial gaze palsy Visual [place]: 1-Partial hemianopia Facial Movement: 0-Normal Motor Functions Arm LEFT: 1-Drift before 10 seconds Motor Functions Arm RIGHT: 0-No drift Motor Functions Leg LEFT: 2-Falls before 5 seconds Motor Functions Leg RIGHT: 0-No drift Limb Ataxia: 1-Ataxia in one limb Sensory Loss: 1-Mild sensory loss Best Language: 0-Normal Articulation: 0-Normal Extinction or Inattention Sensory: 1-Loss 1 sensory modality Total: 8 Quality Measure Queries Stroke Symptom Onset Unknown: No Comment Thrombolytic Contraindications: Unknown onset. Medical Decision Making MDM Narrative Medical decision making narrative: Patient with what appears to be CVA with M2 branch occluded 1 cm distal to the bifurcation. She also has a troponin of 0.35 without complaints of chest pain and EKG not suggestive of acute ischemia. It appears that during her fall she also suffered a left intertrochanteric fracture. Neurology was consulted saw the patient at bedside. She is not a TPA candidate. Also as per neurology not a TPA candidate for any invasive procedure at this time. Instructions were to start on heparin without boluses admitted to the ICU consult orthopedic surgery aspirin 325 p.o. and head of bed flat. Patient is alert and oriented able to protect airway. Hemodynamically stable. She had an episode of hypotension while in the CT suite which was addressed with a liter of fluid bolus. Denies any chest pain shortness of breath. Admitted to the left hip pain for which she is on p.o. narcotics. Patient placed in the ICU. Medical Screen Exam Complete: Yes Emergency Medical Condition: Yes Lab Data Lab results reviewed: Yes I reviewed the patient's lab results. Result diagrams: 02/17/18 19:57 02/17/18 19:57 Lab Results 02/17/18 02/17/18 02/17/18 Range/Units 19:57 19:57 19:57 WBC 13.9 H (4.0-11.0) th/mm3 RBC 3.45 L (4.00-5.30) mil/mm3 Hgb 11.2 L (11.6-15.3) gm/dL POC Hgb (Calc) (11.6-15.3) g/dL Hct 32.4 L (35.0-46.0) % POC Hct (35-46.0) % MCV 93.9 (80.0-100.0) fL MCH 32.6 (27.0-34.0) pg MCHC 34.7 (32.0-36.0) % RDW 14.5 (11.6-17.2) % Plt Count 164 (150-450) th/mm3 MPV 8.9 (7.0-11.0) fL Neut % (Auto) 88.6 H (16.0-70.0) % Lymph % (Auto) 6.1 L (9.0-44.0) % [place] % (Auto) 4.5 (0.0-8.0) % Eos % (Auto) 0.2 (0.0-4.0) % Baso % (Auto) 0.6 (0.0-2.0) % Neut # (Auto) 12.3 H (1.8-7.7) th/mm3 Lymph # (Auto) 0.8 L (1.0-4.8) th/mm3 [place] # (Auto) 0.6 (0.0-0.9) th/mm3 Eos # (Auto) 0.0 (0.0-0.4) th/mm3 Baso # (Auto) 0.1 (0.0-0.2) th/mm3 WBC Differential . Differential Comment Auto diff final ESR (0-30) mm/hr PT 11.4 (9.8-11.6) sec INR 1.1 Ratio APTT 26.0 (23.4-31.7) sec POC Sodium (137-144) mmol/L Sodium 131 L (136-145) meq/L POC Potassium (3.6-5.0) mmol/L Potassium 4.6 (3.5-5.1) meq/L POC Chloride (102-111) mmol/L Chloride 98 (98-107) meq/L Carbon Dioxide 19.5 L (21.0-32.0) meq/L Anion Gap 14 (5-15) meq/L POC BUN (5-21) mg/dL BUN 17 (7-18) mg/dL Creatinine 0.87 (0.50-1.00) mg/dL POC Creatinine (0.6-1.3) mg/dL Estimated GFR 62 L (>89) mL/min POC Glucose (68-110) mg/dL Random Glucose 147 H (74-106) mg/dL Calcium 8.8 (8.5-10.1) mg/dL Phosphorus (2.5-4.9) mg/dL Magnesium (1.5-2.5) mg/dL Total Creatine Kinase 106 (26-192) U/L CK-MB (CK-2) 3.4 (0.5-3.6) ng/mL Troponin I 0.35 H (0.02-0.05) ng/mL Vitamin B12 (193-986) pg/mL TSH (0.358-3.740) uIU/mL Free T4 (0.76-1.46) ng/dL Urine Color (Yellw/Straw) Urine Clarity (Clear) Urine pH (5.0-8.5) Ur Specific [place] (1.002-1.035) Urine Protein (Neg-Trace) mg/dL Urine Glucose (UA) (Negative) mg/dL Urine Ketones (Negative) mg/dL Urine Occult Blood (Negative) Urine Nitrate (Negative) Urine Bilirubin (Negative) Urine Urobilinogen (Less than 2) mg/dL Ur Leukocyte Esterase (Negative) Urine RBC (0-3) /hpf Urine WBC (0-5) /hpf Ur Squamous Epith Cells (0-5) /hpf Urine Mucus (Occasional) /lpf Micro UA Comment Ur Microscopic Review Urine Culture Comments Nasal Screen MRSA (PCR) (Negative) Urine Opiates Screen (Neg) Ur Barbiturates Screen (Neg) Ur Amphetamines Screen (Neg) U Benzodiazepines Scrn (Neg) Urine Cocaine Screen (Neg) U Cannabinoids Screen (Neg) Blood Type Blood Type Recheck Antibody Screen 02/17/18 02/17/18 02/17/18 Range/Units 19:57 19:57 19:57 WBC (4.0-11.0) th/mm3 RBC (4.00-5.30) mil/mm3 Hgb (11.6-15.3) gm/dL POC Hgb (Calc) 11.6 (11.6-15.3) g/dL Hct (35.0-46.0) % POC Hct 34.0 L (35-46.0) % MCV (80.0-100.0) fL MCH (27.0-34.0) pg MCHC (32.0-36.0) % RDW (11.6-17.2) % Plt Count (150-450) th/mm3 MPV (7.0-11.0) fL Neut % (Auto) (16.0-70.0) % Lymph % (Auto) (9.0-44.0) % [place] % (Auto) (0.0-8.0) % Eos % (Auto) (0.0-4.0) % Baso % (Auto) (0.0-2.0) % Neut # (Auto) (1.8-7.7) th/mm3 Lymph # (Auto) (1.0-4.8) th/mm3 [place] # (Auto) (0.0-0.9) th/mm3 Eos # (Auto) (0.0-0.4) th/mm3 Baso # (Auto) (0.0-0.2) th/mm3 WBC Differential Differential Comment ESR 6 (0-30) mm/hr PT (9.8-11.6) sec INR Ratio APTT (23.4-31.7) sec POC Sodium 131 L (137-144) mmol/L Sodium (136-145) meq/L POC Potassium 4.7 (3.6-5.0) mmol/L Potassium (3.5-5.1) meq/L POC Chloride 98 L (102-111) mmol/L Chloride (98-107) meq/L Carbon Dioxide (21.0-32.0) meq/L Anion Gap (5-15) meq/L POC BUN 16 (5-21) mg/dL BUN (7-18) mg/dL Creatinine (0.50-1.00) mg/dL POC Creatinine 0.8 (0.6-1.3) mg/dL Estimated GFR (>89) mL/min POC Glucose 148 H (68-110) mg/dL Random Glucose (74-106) mg/dL Calcium (8.5-10.1) mg/dL Phosphorus (2.5-4.9) mg/dL Magnesium (1.5-2.5) mg/dL Total Creatine Kinase (26-192) U/L CK-MB (CK-2) (0.5-3.6) ng/mL Troponin I (0.02-0.05) ng/mL Vitamin B12 (193-986) pg/mL TSH (0.358-3.740) uIU/mL Free T4 (0.76-1.46) ng/dL Urine Color (Yellw/Straw) Urine Clarity (Clear) Urine pH (5.0-8.5) Ur Specific [place] (1.002-1.035) Urine Protein (Neg-Trace) mg/dL Urine Glucose (UA) (Negative) mg/dL Urine Ketones (Negative) mg/dL Urine Occult Blood (Negative) Urine Nitrate (Negative) Urine Bilirubin (Negative) Urine Urobilinogen (Less than 2) mg/dL Ur Leukocyte Esterase (Negative) Urine RBC (0-3) /hpf Urine WBC (0-5) /hpf Ur Squamous Epith Cells (0-5) /hpf Urine Mucus (Occasional) /lpf Micro UA Comment Ur Microscopic Review Urine Culture Comments Nasal Screen MRSA (PCR) (Negative) Urine Opiates Screen (Neg) Ur Barbiturates Screen (Neg) Ur Amphetamines Screen (Neg) U Benzodiazepines Scrn (Neg) Urine Cocaine Screen (Neg) U Cannabinoids Screen (Neg) Blood Type O Positive Blood Type Recheck Required Antibody Screen Negative 02/17/18 02/17/18 02/17/18 Range/Units 19:57 23:25 23:25 WBC (4.0-11.0) th/mm3 RBC (4.00-5.30) mil/mm3 Hgb (11.6-15.3) gm/dL POC Hgb (Calc) (11.6-15.3) g/dL Hct (35.0-46.0) % POC Hct (35-46.0) % MCV (80.0-100.0) fL MCH (27.0-34.0) pg MCHC (32.0-36.0) % RDW (11.6-17.2) % Plt Count (150-450) th/mm3 MPV (7.0-11.0) fL Neut % (Auto) (16.0-70.0) % Lymph % (Auto) (9.0-44.0) % [place] % (Auto) (0.0-8.0) % Eos % (Auto) (0.0-4.0) % Baso % (Auto) (0.0-2.0) % Neut # (Auto) (1.8-7.7) th/mm3 Lymph # (Auto) (1.0-4.8) th/mm3 [place] # (Auto) (0.0-0.9) th/mm3 Eos # (Auto) (0.0-0.4) th/mm3 Baso # (Auto) (0.0-0.2) th/mm3 WBC Differential Differential Comment ESR (0-30) mm/hr PT (9.8-11.6) sec INR Ratio APTT (23.4-31.7) sec POC Sodium (137-144) mmol/L Sodium (136-145) meq/L POC Potassium (3.6-5.0) mmol/L Potassium (3.5-5.1) meq/L POC Chloride (102-111) mmol/L Chloride (98-107) meq/L Carbon Dioxide (21.0-32.0) meq/L Anion Gap (5-15) meq/L POC BUN (5-21) mg/dL BUN (7-18) mg/dL Creatinine (0.50-1.00) mg/dL POC Creatinine (0.6-1.3) mg/dL Estimated GFR (>89) mL/min POC Glucose (68-110) mg/dL Random Glucose (74-106) mg/dL Calcium (8.5-10.1) mg/dL Phosphorus (2.5-4.9) mg/dL Magnesium (1.5-2.5) mg/dL Total Creatine Kinase (26-192) U/L CK-MB (CK-2) (0.5-3.6) ng/mL Troponin I (0.02-0.05) ng/mL Vitamin B12 514 (193-986) pg/mL TSH 5.320 H (0.358-3.740) uIU/mL Free T4 0.93 (0.76-1.46) ng/dL Urine Color Yellow (Yellw/Straw) Urine Clarity Clear (Clear) Urine pH 5.0 (5.0-8.5) Ur Specific [place] Greater than 1.060 H (1.002-1.035) Urine Protein Negative (Neg-Trace) mg/dL Urine Glucose (UA) Negative (Negative) mg/dL Urine Ketones 20 (Negative) mg/dL Urine Occult Blood Negative (Negative) Urine Nitrate Negative (Negative) Urine Bilirubin Negative (Negative) Urine Urobilinogen Less than 2 (Less than 2) mg/dL Ur Leukocyte Esterase Negative (Negative) Urine RBC 1 (0-3) /hpf Urine WBC Less than 1 (0-5) /hpf Ur Squamous Epith Cells 1 (0-5) /hpf Urine Mucus Few H (Occasional) /lpf Micro UA Comment Cath-culture not ind Ur Microscopic Review Not Reportable Urine Culture Comments Cath-cult not ind Nasal Screen MRSA (PCR) (Negative) Urine Opiates Screen Pos H (Neg) Ur Barbiturates Screen Neg (Neg) Ur Amphetamines Screen Neg (Neg) U Benzodiazepines Scrn Neg (Neg) Urine Cocaine Screen Neg (Neg) U Cannabinoids Screen Neg (Neg) Blood Type Blood Type Recheck Antibody Screen 02/18/18 02/18/18 02/18/18 Range/Units 00:24 00:32 00:32 WBC (4.0-11.0) th/mm3 RBC (4.00-5.30) mil/mm3 Hgb (11.6-15.3) gm/dL POC Hgb (Calc) (11.6-15.3) g/dL Hct (35.0-46.0) % POC Hct (35-46.0) % MCV (80.0-100.0) fL MCH (27.0-34.0) pg MCHC (32.0-36.0) % RDW (11.6-17.2) % Plt Count (150-450) th/mm3 MPV (7.0-11.0) fL Neut % (Auto) (16.0-70.0) % Lymph % (Auto) (9.0-44.0) % [place] % (Auto) (0.0-8.0) % Eos % (Auto) (0.0-4.0) % Baso % (Auto) (0.0-2.0) % Neut # (Auto) (1.8-7.7) th/mm3 Lymph # (Auto) (1.0-4.8) th/mm3 [place] # (Auto) (0.0-0.9) th/mm3 Eos # (Auto) (0.0-0.4) th/mm3 Baso # (Auto) (0.0-0.2) th/mm3 WBC Differential Differential Comment ESR (0-30) mm/hr PT (9.8-11.6) sec INR Ratio APTT 35.8 H D (23.4-31.7) sec POC Sodium (137-144) mmol/L Sodium (136-145) meq/L POC Potassium (3.6-5.0) mmol/L Potassium (3.5-5.1) meq/L POC Chloride (102-111) mmol/L Chloride (98-107) meq/L Carbon Dioxide (21.0-32.0) meq/L Anion Gap (5-15) meq/L POC BUN (5-21) mg/dL BUN (7-18) mg/dL Creatinine (0.50-1.00) mg/dL POC Creatinine (0.6-1.3) mg/dL Estimated GFR (>89) mL/min POC Glucose 140 H (68-110) mg/dL Random Glucose (74-106) mg/dL Calcium (8.5-10.1) mg/dL Phosphorus 3.2 (2.5-4.9) mg/dL Magnesium 1.7 (1.5-2.5) mg/dL Total Creatine Kinase (26-192) U/L CK-MB (CK-2) (0.5-3.6) ng/mL Troponin I 0.28 H (0.02-0.05) ng/mL Vitamin B12 (193-986) pg/mL TSH (0.358-3.740) uIU/mL Free T4 (0.76-1.46) ng/dL Urine Color (Yellw/Straw) Urine Clarity (Clear) Urine pH (5.0-8.5) Ur Specific [place] (1.002-1.035) Urine Protein (Neg-Trace) mg/dL Urine Glucose (UA) (Negative) mg/dL Urine Ketones (Negative) mg/dL Urine Occult Blood (Negative) Urine Nitrate (Negative) Urine Bilirubin (Negative) Urine Urobilinogen (Less than 2) mg/dL Ur Leukocyte Esterase (Negative) Urine RBC (0-3) /hpf Urine WBC (0-5) /hpf Ur Squamous Epith Cells (0-5) /hpf Urine Mucus (Occasional) /lpf Micro UA Comment Ur Microscopic Review Urine Culture Comments Nasal Screen MRSA (PCR) (Negative) Urine Opiates Screen (Neg) Ur Barbiturates Screen (Neg) Ur Amphetamines Screen (Neg) U Benzodiazepines Scrn (Neg) Urine Cocaine Screen (Neg) U Cannabinoids Screen (Neg) Blood Type Blood Type Recheck Antibody Screen 02/18/18 Range/Units 00:32 WBC (4.0-11.0) th/mm3 RBC (4.00-5.30) mil/mm3 Hgb (11.6-15.3) gm/dL POC Hgb (Calc) (11.6-15.3) g/dL Hct (35.0-46.0) % POC Hct (35-46.0) % MCV (80.0-100.0) fL MCH (27.0-34.0) pg MCHC (32.0-36.0) % RDW (11.6-17.2) % Plt Count (150-450) th/mm3 MPV (7.0-11.0) fL Neut % (Auto) (16.0-70.0) % Lymph % (Auto) (9.0-44.0) % [place] % (Auto) (0.0-8.0) % Eos % (Auto) (0.0-4.0) % Baso % (Auto) (0.0-2.0) % Neut # (Auto) (1.8-7.7) th/mm3 Lymph # (Auto) (1.0-4.8) th/mm3 [place] # (Auto) (0.0-0.9) th/mm3 Eos # (Auto) (0.0-0.4) th/mm3 Baso # (Auto) (0.0-0.2) th/mm3 WBC Differential Differential Comment ESR (0-30) mm/hr PT (9.8-11.6) sec INR Ratio APTT (23.4-31.7) sec POC Sodium (137-144) mmol/L Sodium (136-145) meq/L POC Potassium (3.6-5.0) mmol/L Potassium (3.5-5.1) meq/L POC Chloride (102-111) mmol/L Chloride (98-107) meq/L Carbon Dioxide (21.0-32.0) meq/L Anion Gap (5-15) meq/L POC BUN (5-21) mg/dL BUN (7-18) mg/dL Creatinine (0.50-1.00) mg/dL POC Creatinine (0.6-1.3) mg/dL Estimated GFR (>89) mL/min POC Glucose (68-110) mg/dL Random Glucose (74-106) mg/dL Calcium (8.5-10.1) mg/dL Phosphorus (2.5-4.9) mg/dL Magnesium (1.5-2.5) mg/dL Total Creatine Kinase (26-192) U/L CK-MB (CK-2) (0.5-3.6) ng/mL Troponin I (0.02-0.05) ng/mL Vitamin B12 (193-986) pg/mL TSH (0.358-3.740) uIU/mL Free T4 (0.76-1.46) ng/dL Urine Color (Yellw/Straw) Urine Clarity (Clear) Urine pH (5.0-8.5) Ur Specific [place] (1.002-1.035) Urine Protein (Neg-Trace) mg/dL Urine Glucose (UA) (Negative) mg/dL Urine Ketones (Negative) mg/dL Urine Occult Blood (Negative) Urine Nitrate (Negative) Urine Bilirubin (Negative) Urine Urobilinogen (Less than 2) mg/dL Ur Leukocyte Esterase (Negative) Urine RBC (0-3) /hpf Urine WBC (0-5) /hpf Ur Squamous Epith Cells (0-5) /hpf Urine Mucus (Occasional) /lpf Micro UA Comment Ur Microscopic Review Urine Culture Comments Nasal Screen MRSA (PCR) Not detected (Negative) Urine Opiates Screen (Neg) Ur Barbiturates Screen (Neg) Ur Amphetamines Screen (Neg) U Benzodiazepines Scrn (Neg) Urine Cocaine Screen (Neg) U Cannabinoids Screen (Neg) Blood Type Blood Type Recheck Antibody Screen Imaging Data Radiologist's impression: Head CT 02/17/18 19:51 CONCLUSION: 1. No bleed or evidence of an acute ischemic event. 2. Mild chronic white matter changes. Report was called by [Dr. Murillo to Dr. Mcarthur at 8:13 PM ] Head CTA 02/17/18 19:56 CONCLUSION: Focal occlusion distally in the right middle cerebral artery distribution as described. Report was called by [ ] Neck CTA 02/17/18 19:56 CONCLUSION: 1. Bilateral carotid bifurcation atherosclerosis. Associated short segment 30% or less narrowing of the proximal right internal carotid artery. No associated narrowing on the left. No hemodynamically significant stenoses are demonstrated. 2. Patent vertebrobasilar system. CT CAD 02/17/18 20:08 CONCLUSION: RAPID analysis as above. Focal right temporoparietal cortical and subcortical ischemia. The decision for consideration of therapy is multi factorial and multi disciplinary relying on subjective and objective clinical data. This data is not construed or intended to be the sole determinant of treatment eligibility. Hip X-Ray 02/17/18 21:01 CONCLUSION: Acute comminuted intertrochanteric fracture of the left femur as described. ECG Data Attestation: I personally reviewed and interpreted this ECG as follows: Interpretation: Sinus rhythm [address]-T wave abnormalities. Normal axis. [place] interval 154 ms. QTc 459 ms. No signs of acute ischemia Discharge Plan Discharge Disposition Patient Disposition: 30 Still Patient Discharge Condition Condition: Critical Discharge Details Diagnosis: Right-sided cerebrovascular accident (CVA), Fracture, intertrochanteric, left femur Physicians Team ED Provider: Reji Wood Primary Care Provider: UNKNOWN, Attending Provider: Rajesh Brock Other Providers: Angel Carrillo ; Dhruv Hanley ; Donald Coreas ; Dex,Dex Status ED Status: Left Department Discharge Information Discharge Date/Time: 02/17/18 23:01
--- NOTE | 2018-02-17 20:18 | CT ---
EXAM DATE: 02/17/2018 8:10 PM EST AGE/SEX: 82 years / Female INDICATIONS: Stroke alert, visual changes today. CLINICAL DATA: This is the patient's initial encounter. Patient reports that signs and symptoms have been present for 1 day and indicates a pain score of 7/10. MEDICAL/SURGICAL HISTORY: Non-responsive. Non-responsive. RADIATION DOSE: 56.35 CTDI (mGy) COMPARISON: . TECHNIQUE: CT of the head without contrast. Using automated exposure control and adjustment of the mA and/or kV according to patient size, radiation dose was kept as low as reasonably achievable to ob tain optimal diagnostic quality images. DICOM format image data is available electronically for revi ew and comparison. FINDINGS: Cerebrum: The ventricles are normal for age. No evidence of midline shift, mass lesion, hemorrhage or acute infarction. No extraaxial fluid collections are seen. Mild, chronic appearing low-attenuati on seen in the periventricular white matter Posterior Fossa: The cerebellum and brainstem are intact. The 4th ventricle is midline. The cerebe llopontine angle is unremarkable. Extracranial: The visualized portion of the orbits is intact. Skull: The calvaria is intact. No evidence of skull fracture. CONCLUSION: 1. No bleed or evidence of an acute ischemic event. 2. Mild chronic white matter changes. Report was called by [Dr. Murillo to Dr. Mcarthur at 8:13 PM ] Electronically signed by: Chris Murillo MD 02/17/2018 8:16 PM EST
[2018-02-17 20:26] LABS: Baso # (Auto) 0.1 th/mm3 (0.0-0.2); Baso % (Auto) 0.6 % (0.0-2.0); Eos % (Auto) 0.2 % (0.0-4.0); Hematocrit 32.4 % (35.0-46.0); Hemoglobin 11.2 gm/dL (11.6-15.3); Lymph # (Auto) 0.8 th/mm3 (1.0-4.8); Lymph % (Auto) 6.1 % (9.0-44.0); Mean Corpuscular HGB Conc 34.7 % (32.0-36.0); Mean Corpuscular Hemoglobin 32.6 pg (27.0-34.0); Mean Corpuscular Volume 93.9 fL (80.0-100.0); Mean Platelet Volume 8.9 fL (7.0-11.0); Mono # (Auto) 0.6 th/mm3 (0.0-0.9); Mono % (Auto) 4.5 % (0.0-8.0); Neut # (Auto) 12.3 th/mm3 (1.8-7.7); Neut % (Auto) 88.6 % (16.0-70.0); Platelet Count 164 th/mm3 (150-450); Red Blood Count 3.45 mil/mm3 (4.00-5.30); Red Cell Distribution Width 14.5 % (11.6-17.2); White Blood Count 13.9 th/mm3 (4.0-11.0)
[2018-02-17 20:36] LABS: INR 1.1 Ratio; Prothrombin Time 11.4 sec (9.8-11.6)
[2018-02-17] MEDS ORDERED: Sod Chloride 0.9% Inj 1,000 ML IV.SIG ONE (20:37)
--- NOTE | 2018-02-17 20:45 | MB ---
cc: Dhruv Hanley MD DATE: 02/17/2018 REASON FOR CONSULTATION: Stroke alert. HISTORY OF PRESENT ILLNESS: An 82-year-old right-handed woman who has been totally healthy except some kind of cancer remotely. She says she fell yesterday. The story is a little bit confusing. Friends had come over to bring them dinner at 4 o'clock this afternoon and noted that she was apparently looking over to the left and possibly weak on the left side, hanging her leg off to the left. She came in as a stroke alert was called, because initially she came in as back pain, but then turns out the ER doctor noted that she could not see to the left. It is unclear when that started. According to the friends, 2 days ago she was at the doctor's office, had some high blood pressure at that time. She herself denies any headache, chest pain or palpitations. She denied any hypertension, diabetes, hypercholesterolemia, RI, CABG, cardiac arrhythmia, atrial fibrillation, Coumadin, blood thinners, aspirin, renal, hepatic or pulmonary disease, thyroid disease, lupus, ulcer, seizure or stroke. She was seen in May in the [facility] for hypoglycemia, hypothermia, lactic acidosis. Sugar was 30. Temperature was 91. Alcohol was 105. She was apparently admitted to the ICU, at least from a note that has been scanned in, and discharged the next day, improved significantly. She had a history of essential tremors on propranolol. She had been medicating herself with alcohol. They decreased her propranolol to 20 mg twice a day. SOCIAL HISTORY: Nonsmoker or drinker, lives with her . FAMILY HISTORY: Negative for cancer, seizure or stroke. MEDICATIONS: At home, medications are propranolol BuSpar and amlodipine. PHYSICAL EXAMINATION: General: On exam today, afebrile, blood pressure 100/50, respirations 16, pulse 70. Sinus rhythm via the tele. NECK: There are no carotid bruits. HEART: Regular rate and rhythm. I did not detect a murmur. NEUROLOGIC: Pupils are equal. She has a preference for rightward gaze, but can get all the way over to the left. She has got a left homonymous hemianopsia. Face is symmetric with decreased sensation on the left. Tongue was midline. She got left-sided neglect, but moves both upper extremities well. 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 Toes downgoing bilaterally. DTRs absent throughout. Pinprick seem diminished on the left compared to the right face, arm, and leg. She is awake and alert. She knew the month. She gives a good history. She is fluent. She is not aphasic. LABORATORY DATA: CBC was normal in May. Urine drug screen was negative at that time. UA was basically negative. BMP was normal in May. Today's labs are pending. LFTs mildly increased. TSH normal. Coags normal. CAT scan of the brain today preliminary negative. Some diffuse atrophy. No hemorrhage. Calcifications seen in the ventricles bilaterally. CTA and CT perfusion are pending. IMPRESSION: Certainly a stroke, but the time of onset is unclear. Waiting for the to get here to get a better history. Evidently, she may have been in bed most of the day yesterday, so it is unclear how long ago this occurred. Current NIH stroke scale is 5. ADDENDUM: The CTA does not show any definite stenosis. There is some what may be diminished flow distally in the right MCA around the trifurcation. I wait for the official report. The perfusion scan is done. The results are pending. I talked to the . She has not been feeling well for 2 days, was mainly in bed for the last 2 days, was watching some TV, was up earlier, but mainly in her bedroom and had fallen in the bathroom sometime between 4:00 and 7:00 and so , it is really unclear. She was not herself, according to him, for the last 2 days and it is unclear considering this was primarily a vision change and what time the stroke actually started. As such, we did not give her tPA. It is unclear to me even if it happened in the last 24 hours or if it started sometime or what time it could have started yesterday considering it is 9:00 at night. I did talk with Dr. Coleman, who looked at the CTA and he said that there is a M2 branch clot with a small core infarct and a large area of penumbra. We will start her on IV Heparin, IV fluids, keep her head of bed flat, blood pressure up, but he did not feel she was an intraarterial case either. MD PATRIA Rust/agusto , 08:23 PM , 08:32 PM TRISTEN
[2018-02-17 20:50] LABS: Anion Gap 14 meq/L (5-15); Blood Urea Nitrogen 17 mg/dL (7-18); Calcium 8.8 mg/dL (8.5-10.1); Carbon Dioxide 19.5 meq/L (21.0-32.0); Chloride 98 meq/L (98-107); Glomerular Filtration Rate 62 mL/min (>89); Glucose,Random 147 mg/dL (74-106); Potassium 4.6 meq/L (3.5-5.1); Sodium 131 meq/L (136-145)
[2018-02-17 20:54] LABS: Creatine Kinase 106 U/L (26-192); Troponin I 0.35 ng/mL (0.02-0.05)
--- NOTE | 2018-02-17 21:05 | CT ---
EXAM DATE: 02/17/2018 8:55 PM EST AGE/SEX: 82 years / Female INDICATIONS: Stroke alert, visual changes today. CLINICAL DATA: This is the patient's initial encounter. Patient reports that signs and symptoms have been present for 1 day and indicates a pain score of Nonresponsive. MEDICAL/SURGICAL HISTORY: Non-responsive. Non-responsive. RADIATION DOSE: 9.54 CTDI (mGy) ; Combined studies COMPARISON: [facility] [place], CT CEREBRAL PERF W CONTRAST W 3D, 02/17/2018. . TECHNIQUE: Volumetric scanning was performed using a multi-row detector CT scanner during bolus infu gale of 60 ml Visipaque 320 (iodixanol) nonionic water-soluble contrast as a cumulative dose for mul tiple exams. The data was post processed with a variety of visualization algorithms including full volume maximum intensity projection, multi-planar sliding thin slab reformation, curved planar reform ation, and surface rendering techniques. Using automated exposure control and adjustment of the mA a nd/or kV according to patient size, radiation dose was kept as low as reasonably achievable to obtain optimal diagnostic quality images. DICOM format image data is available electronically for review a nd comparison. FINDINGS: M2 branch of the right middle cerebral artery is occluded approximately 1 cm distal to the bifurcatio n, series 303 image 14. There is an associated ischemic area of the right temporoparietal region tera uring approximately 3.3 x 4.8 cm in size. No other evidence of vessel occlusion. CONCLUSION: Focal occlusion distally in the right middle cerebral artery distribution as described. Report was called by [ ] Electronically signed by: Chris Murillo MD 02/17/2018 9:03 PM EST
[2018-02-17 21:06] LABS: Creatine Kinase MB 3.4 ng/mL (0.5-3.6)
--- NOTE | 2018-02-17 21:07 | CT ---
EXAM DATE: 02/17/2018 9:02 PM EST AGE/SEX: 82 years / Female INDICATIONS: Stroke alert, visual changes today. CLINICAL DATA: This is the patient's initial encounter. Patient reports that signs and symptoms have been present for 1 day and indicates a pain score of Nonresponsive. MEDICAL/SURGICAL HISTORY: Non-responsive. Non-responsive. RADIATION DOSE: 217.64 CTDI (mGy) COMPARISON: [facility], CTA HEAD W CONTRAST W 3D, 02/17/2018. . TECHNIQUE: CT of the head after intravenous administration of 40 ml Visipaque 320 (iodixanol) nonio betsy water-soluble contrast as a single exam dose. Using automated exposure control and adjustment of the mA and/or kV according to patient size, radiation dose was kept as low as reasonably achievable to obtain optimal diagnostic quality images. DICOM format image data is available electronically for review and comparison. FINDINGS: 1. CBF (<30%) Volume (ml): 16 2. Perfusion (Tmax>6.0s) Volume (ml): 216 3. Mismatch Volume (ml) (Tmax>6.0 - CBF): 200. Mismatch ratio is 13.5 CONCLUSION: RAPID analysis as above. Focal right temporoparietal cortical and subcortical ischemia. The decision for consideration of therapy is multi factorial and multi disciplinary relying on subjec tive and objective clinical data. This data is not construed or intended to be the sole determinant of treatment eligibility. Electronically signed by: Chris Murillo MD 02/17/2018 9:05 PM EST
--- NOTE | 2018-02-17 21:18 | CT ---
EXAM DATE: 02/17/2018 9:11 PM EST AGE/SEX: 82 years / Female INDICATIONS: Stroke alert, visual changes today. CLINICAL DATA: This is the patient's initial encounter. Patient reports that signs and symptoms have been present for 1 day and indicates a pain score of Nonresponsive. MEDICAL/SURGICAL HISTORY: Non-responsive. Non-responsive. RADIATION DOSE: 9.54 CTDI (mGy) ; Combined studies COMPARISON: [facility], CT SOFT TISSUE NECK W AND W/O CONTRAST, 01/07/2017. . TECHNIQUE: Volumetric scanning was performed using a multirow detector CT scanner during bolus infus ion of 60 ml Visipaque 320 (iodixanol) nonionic water-soluble contrast as a cumulative dose for mult iple exams. The data was postprocessed with a variety of visualization algorithms including full-vo lume maximum intensity projection, multiplanar sliding thin-slab reformation, curved-planar reformati on, and surface-rendering techniques. Using automated exposure control and adjustment of the mA and/ or kV according to patient size, radiation dose was kept as low as reasonably achievable to obtain op timal diagnostic quality images. DICOM format image data is available electronically for review and comparison. Percent stenosis is calculated using the diameter of the stenotic region over the diameter of the nor mal distal internal carotid artery. FINDINGS: Aortic Arch: There is a three-vessel origin of the great vessels from the aorta. The arch is athero sclerotic No evidence of ostial narrowing Right Carotid: The common carotid artery is intact. Short segment plaque contributes to 30% or less narrowing of the bulb and proximal internal carotid artery. The external carotid artery is intact. Left Carotid: The common carotid artery is intact. Mild atherosclerotic plaque involves the bulb and proximal internal carotid artery without measurable narrowing. The internal carotid artery lumen is smooth without stenosis. The external carotid artery is intact. Vertebrals: The vertebral arteries have a symmetric diameter. No stenotic lesions are seen. CONCLUSION: 1. Bilateral carotid bifurcation atherosclerosis. Associated short segment 30% or less narrowing of the proximal right internal carotid artery. No associated narrowing on the left. No hemodynamically s ignificant stenoses are demonstrated. 2. Patent vertebrobasilar system. Electronically signed by: Chris Murillo MD 02/17/2018 9:17 PM EST
[2018-02-17] MEDS: Sod Chloride 0.9% Inj 1,000 ML IV.CONT SCH ×2 (21:24→21:42)
--- NOTE | 2018-02-17 21:30 | XR ---
EXAM DATE: 02/17/2018 9:23 PM EST AGE/SEX: 82 years / Female INDICATIONS: Left hip pain, fell CLINICAL DATA: This is the patient's initial encounter. Patient reports that signs and symptoms have been present for 1 day and indicates a pain score of Nonresponsive. MEDICAL/SURGICAL HISTORY: Non-responsive. Non-responsive. COMPARISON: No prior exams available for comparison. FINDINGS: There is a comminuted intertrochanteric fracture of the left femur. There is medial displacement of t he lesser trochanteric fracture fragment. Displacement is otherwise minimal. Left femoral head is int act. No subluxation. Bony pelvis is intact. CONCLUSION: Acute comminuted intertrochanteric fracture of the left femur as described. Electronically signed by: Chris Murillo MD 02/17/2018 9:29 PM EST
[2018-02-17] MEDS ORDERED: Aspirin 325 MG Tablet PO ONE (21:32)
[2018-02-17] MEDS ORDERED: Bisacodyl 10 MG Supp RECTAL PRN (21:34)
[2018-02-17] MEDS ORDERED: Acetaminophen 325 MG Tablet PO PRN (21:34)
[2018-02-17] MEDS ORDERED: Magnesium Sulfate Inj 2 GM in Sodium Chlor 0.9% Inj 96 ML IV.SIG PRN (21:40)
[2018-02-17] MEDS ORDERED: Potassium Chloride 25 MEQ Effervescent Tablet PO PRN (21:40)
[2018-02-17] MEDS ORDERED: Magnesium Oxide 400 MG Tablet PO PRN (21:40)
[2018-02-17] MEDS ORDERED: Sodium Phosphate Inj 30 MMOL in Sodium Chlor 0.9% Inj 250 ML IV.SIG PRN (21:40)
[2018-02-17] MEDS ORDERED: Potassium Phosphate 500 MG Soluble Tablet PO PRN ×2 (21:40)
[2018-02-17] MEDS ORDERED: Potassium Chlor 40 mEq Premix 40 MEQ/100 ML PIGGYBACK IV.SIG PRN ×2 (21:40)
[2018-02-17] MEDS ORDERED: Potassium Chlor 20 mEq Premix 20 MEQ/100 ML PIGGYBACK IV.SIG PRN ×2 (21:40)
[2018-02-17] MEDS ORDERED: Potassium Phosphate Inj 30 MMOL in Sodium Chlor 0.9% Inj 250 ML IV.SIG PRN (21:40)
[2018-02-17] MEDS ORDERED: Dextrose 50% in Water 50 ML Vial IV.PUSH PRN (21:40)
[2018-02-17] MEDS ORDERED: Magnesium Sulfate Inj 4 GM in Sodium Chlor 0.9% Inj 92 ML IV.SIG PRN (21:40)
[2018-02-17] MEDS: Heparin Drip 25,000 UNIT/250 ML BAG IV.CONT PRN (21:41)
[2018-02-17] MEDS: Morphine Sulfate Inj 2 MG/ML Vial IV.PUSH PRN ×2 (21:43→22:28)
[2018-02-17] MEDS ORDERED: niCARdipine Inj 25 MG in Sodium Chlor 0.9% Inj 240 ML IV.CONT PRN (22:00)
--- NOTE | 2018-02-17 22:01 | P.HPCC ---
History of Present Illness Service: Critical care medicine Primary Care Physician: UNKNOWN Chief Complaint: Status post fall, does not track to the left past midline. History of Present Illness: This is an 82-year-old female. Polish speaking understanding Citizen Of [place]. Date of admission 02/17/2003 past medical includes hypertension, hyperlipidemia, anxiety and low back pain. 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 Patient was seen by her primary care physician on Wednesday according to she was a "stroke waiting to happen". She is currently on propranolol 10 mg and amlodipine 5 mg daily. She is on buspirone 5 mg daily for anxiety. Today, she is brought in by EMS to [facility] status post fall 3:30 PM today. On arrival also evaluated the patient appears that she is not crossing the midline and she has a fixed gaze to the right. She appears confused and her left side is more ataxic on the left upper extremity and cannot see on the left visual field. According to record, family friends are here reporting that they went to check on her around 4:00 and she has stated that she has just fallen in the bathroom 5 minutes prior to arrival. Her also reported that she was sleeping yesterday all day. CT brain revealed no acute intracranial findings. CT Angi0 of the brain revealed M2 branch occluded 1 cm distally to the bifurcation. CT CT revealed right temporoparietal CVA acute. Due to the unknown timing of the stroke she was not considered to be a candidate for stent retrieval. She started on a heparin drip currently at 700 units an hour/lie flat and given aspirin 300 mg p.o. daily. Neurology/Dr. Hanley is following. MRI brain in a.m. 02/18. Patient has a acute comminuted left intertrochanteric fracture. She will be followed by orthopedics and they have been notified. Troponin is slightly elevated 0.35. EKG is currently pending. Echocardiogram is been ordered. - Diagnosis (1) Right-sided cerebrovascular accident (CVA) (2) Essential hypertension (3) Hyperlipidemia (4) Hyperglycemia (5) Hyponatremia (6) Elevated troponin (7) Leukocytosis (8) Fracture, intertrochanteric, left femur Review of Systems unobtainable due to mental condition PMF - History History Provided By: Patient - Medical History Medical History: Medical History (Last Updated 02/17/18 @ 21:58 by Rajesh Brock MD) Anxiety Essential hypertension Hyperlipidemia Medical history unknown Throat cancer - Surgical History Surgical History: Surgical History (Last Updated 02/17/18 @ 21:58 by Rajesh Brock MD) H/O neck surgery - Family History Family History: Family History (Last Updated 02/17/18 @ 21:59 by Rajesh Brock MD) Other No pertinent family history - Tobacco History Second Hand Smoke Exposure: No Tobacco Use In Past 30 Days: No Smoking Status: Never smoker - Alcohol History How Often Do You Have a Drink Containing Alcohol: Monthly or less - Substance Use History Substance History: No History of Abuse - Travel History Recent Travel in the [place] Within the Last 8 Weeks: No Recent Travel Out of the Country Within the Last 8 Weeks: No - Immunization History Tetanus Immunization: <5 Years Hx Influenza Vaccine This Season: Unable to Assess Medications and Allergies Active Medications: Active Medications Acetaminophen (Tylenol) 650 mg PO Q6H PRN PRN Reason: FEVER Hydrocodone Bitart/Acetaminophen ([place] 5/325) 1 tab PO Q4H PRN PRN Reason: PAIN SCALE 1 TO 5 Al Hydroxide/Mg Hydroxide (Milk Of Lora Liq) 30 ml PO Q12H PRN PRN Reason: Mild Constipation Albuterol (Albuterol Neb (Isidoro)) 2.5 mg NEB Q2HR NEB PRN PRN Reason: SHORTNESS OF BREATH/WHEEZING Albuterol (Duoneb Neb (Prn)) 1 ampul NEB Q4HR NEB ISIDORO Aspirin (Aspirin) 325 mg PO DAILY ISIDORO Aspirin (Aspirin Chew) 81 mg PO DAILY ISIDORO Bisacodyl (Dulcolax Supp) 10 mg RECTAL DAILY PRN PRN Reason: SEVERE CONSITIPATION Chlorhexidine Gluconate (Chlorhexidine 2% Cloth) 3 pack TOPICAL DAILY@0400 ISIDORO Stop: 02/23/18 03:59 Chlorhexidine Gluconate (Chlorhexidine 2% Cloth) 3 pack TOPICAL DAILY@0400 PRN PRN Reason: Extra cloth needed Stop: 02/23/18 03:59 Dextrose (D50w Vial) 50 ml IV.PUSH UNSCH PRN PRN Reason: PER HYPOGLYCEMIA PROTOCOL Glucagon (Glucagon Inj) 1 mg OTHER PRN PRN PRN Reason: for Hypoglycemia Protocol Sodium Chloride (Ns Inj) 1,000 mls @ 70 mls/hr IV.CONT .[id number] [facility] Last Admin: 02/17/18 21:24 Dose: Not Given Heparin Sodium/Dextrose (Heparin/D5w 25,000 U/250 Ml) 25,000 unit in 250 mls @ 0 mls/hr IV.CONT TITRATE PRN; Protocol PRN Reason: Per Protocol Last Admin: 02/17/18 21:41 Dose: 700 units/hr, 7 mls/hr Sodium Chloride (Ns Inj) 1,000 mls @ 100 mls/hr IV.CONT .Q10H [facility] Last Admin: 02/17/18 21:42 Dose: 100 mls/hr Magnesium Sulfate 4 gm/ Sodium (Chloride) 100 mls @ 50 mls/hr IV.SIG UNSCH PRN PRN Reason: For Magnesium 0.9 - 1.1 mg/dL Magnesium Sulfate 2 gm/ Sodium (Chloride) 100 mls @ 50 mls/hr IV.SIG UNSCH PRN PRN Reason: For Magnesium 1.2 - 1.6 mg/dL Potassium Chloride (Kcl 40 Meq Premix Inj) 40 meq in 100 mls @ 25 mls/hr IV.SIG Q2H PRN PRN Reason: For Potassium 2.8 - 3.2 mEq/L Potassium Chloride (Kcl 20 Meq Premix Inj) 20 meq in 100 mls @ 50 mls/hr IV.SIG Q2H PRN PRN Reason: For Potassium 3.3 - 3.5 mEq/L Potassium Chloride (Kcl 20 Meq Premix Inj) 20 meq in 100 mls @ 50 mls/hr IV.SIG Q2H PRN PRN Reason: For Potassium 2.8 - 3.2 mEq/L Potassium Phosphate 30 mmol/ (Sodium Chloride) 260 mls @ 42 mls/hr IV.SIG UNSCH PRN PRN Reason: SEE LABEL COMMENTS Sodium Phosphate 30 mmol/ (Sodium Chloride) 260 mls @ 42 mls/hr IV.SIG UNSCH PRN PRN Reason: For Phosphorus < 2.5 mg/dL Potassium Chloride (Kcl 40 Meq Premix Inj) 40 meq in 100 mls @ 25 mls/hr IV.SIG UNSCH PRN PRN Reason: For Potassium 3.3 - 3.5 mEq/L Nicardipine HCl 25 mg/ Sodium (Chloride) 250 mls @ 50 mls/hr IV.CONT TITRATE PRN; Protocol PRN Reason: Per Protocol Insulin Aspart (Novolog Insulin Correctional Sugar Inj) 0 unit SQ Q6HR ISIDORO; Protocol Labetalol HCl (Trandate Inj) 10 mg IV.PUSH Q2H PRN PRN Reason: For SBP > 220 or DBP > 120 Lactulose (Lactulose Liq) 30 ml PO DAILY PRN PRN Reason: SEVERE CONSITIPATION Magnesium Oxide (Mag-Ox) 800 mg PO UNSCH PRN PRN Reason: For Magnesium 1.2 - 1.6 mg/dL Morphine Sulfate (Morphine Inj) 2 mg IV.PUSH Q2H PRN PRN Reason: PAIN SCALE 6 TO 10 Ondansetron HCl (Zofran Inj) 4 mg IV.PUSH Q6H PRN PRN Reason: NAUSEA OR VOMITING Pantoprazole Sodium (Protonix Inj) 40 mg IV.PUSH DAILY ISIDORO Potassium Bicarb/Potassium Chloride (K-Lyte Cl Eff) 50 meq PO UNSCH PRN PRN Reason: For Potassium 3.3 - 3.5 mEq/L Potassium Phosphate (K-Phos Original) 2,000 mg PO Q4H PRN PRN Reason: Phosphorus Less Than 2.5 mg/dL Potassium Phosphate (K-Phos Original) 2,000 mg PO UNSCH PRN PRN Reason: SEE LABEL COMMENTS Pravastatin Sodium (Pravachol) 40 mg PO HS ISIDORO Senna/Docusate Sodium (Janice-Colace) 1 tab PO BID [facility] Sennosides (Senokot) 17.2 mg PO Q12H PRN PRN Reason: Moderate Constipation Sodium Chloride (Ns Flush) 2 ml IV.FLUSH PRN PRN PRN Reason: FLUSH AFTER USING IV ACCESS Sodium Chloride (Ns Flush) 2 ml IV.FLUSH BID [facility] Sodium Chloride (Ns Flush) 2 ml IV.FLUSH PRN PRN PRN Reason: FLUSH AFTER USING IV ACCESS Allergies Allergy/AdvReac Type Severity Reaction Status Date / Time No Known Allergies Allergy Uncoded 05/09/12 18:20 Home Medications Medication Instructions Recorded Confirmed Type amlodipine 5 mg PO DAILY 02/17/18 02/17/18 History buspirone 5 mg PO DAILY 02/17/18 02/17/18 History propranolol 20 mg PO DAILY 02/17/18 02/17/18 History Results - Labs CBC & Chem 7: 02/17/18 19:57 02/17/18 19:57 Labs: Short CBC 02/17/18 Range/Units 19:57 WBC 13.9 H (4.0-11.0) th/mm3 Hgb 11.2 L (11.6-15.3) gm/dL Hct 32.4 L (35.0-46.0) % Plt Count 164 (150-450) th/mm3 [facility] 02/17/18 19:57 Sodium 131 L Potassium 4.6 Chloride 98 Carbon Dioxide 19.5 L BUN 17 Creatinine 0.87 Calcium 8.8 Cardiac Enzymes 02/17/18 Range/Units 19:57 Total Creatine Kinase 106 (26-192) U/L CK-MB (CK-2) 3.4 (0.5-3.6) ng/mL Troponin I 0.35 H (0.02-0.05) ng/mL - Imaging Impressions Head CT 02/17/18 19:51 CONCLUSION: 1. No bleed or evidence of an acute ischemic event. 2. Mild chronic white matter changes. Report was called by [Dr. Murillo to Dr. Mcarthur at 8:13 PM ] Head CTA 02/17/18 19:56 CONCLUSION: Focal occlusion distally in the right middle cerebral artery distribution as described. Report was called by [ ] Neck CTA 02/17/18 19:56 CONCLUSION: 1. Bilateral carotid bifurcation atherosclerosis. Associated short segment 30% or less narrowing of the proximal right internal carotid artery. No associated narrowing on the left. No hemodynamically significant stenoses are demonstrated. 2. Patent vertebrobasilar system. CT CAD 02/17/18 20:08 CONCLUSION: RAPID analysis as above. Focal right temporoparietal cortical and subcortical ischemia. The decision for consideration of therapy is multi factorial and multi disciplinary relying on subjective and objective clinical data. This data is not construed or intended to be the sole determinant of treatment eligibility. Hip X-Ray 02/17/18 21:01 CONCLUSION: Acute comminuted intertrochanteric fracture of the left femur as described. Exam Vital signs: Vital Signs 02/17/18 19:52 02/17/18 20:03 02/17/18 20:35 Temperature 97.0 F L Pulse Rate 70 62 Respiratory Rate 16 14 Blood Pressure 100/50 L 77/51 L Pulse Oximetry 99 99 98 02/17/18 20:42 02/17/18 21:27 Temperature Pulse Rate 64 70 Respiratory Rate 14 16 Blood Pressure 128/63 151/67 H Pulse Oximetry 98 99 Intake & Output 02/17/18 02/17/18 02/18/18 06:59 18:59 06:59 Intake Total 1000 / 1000 Balance 1000 / 1000 Weight 58.967 kg Intake: IV 1000 / 1000 NS Inj 1,000 ML @ Wide Open IV. 1000 / 1000 SIG BOLUS ONE Rx#:[id number] - Constitutional no acute distress - Routine HEENT Exam Head: Present: normocephalic, atraumatic Eye: Present: EOMI, PERRL. Absent: exophthalmos, proptosis ENT: Present: mucous membranes moist - Routine Neck Exam Present: supple, full ROM. Absent: JVD - Routine Chest/Breast/Axilla Exam Chest wall: Absent: tenderness Breast: Absent: tenderness Axillae: Absent: lymphadenopathy - Routine Respiratory Exam Present: CTA bilaterally. Absent: accessory muscle use - Routine Cardiovascular Exam Present: RRR, S1, S2. Absent: murmur - Routine Abdominal Exam Present: soft, normoactive bowel sounds - Routine Extremities Exam Absent: cyanosis, clubbing, edema - Routine Skin Exam Present: intact - Routine Neurological Exam Present: alert, oriented X3, sensory deficit, motor deficit. Absent: CN II-XII intact - Detailed Neurological Exam Brainstem reflexes: Present corneal reflex, Present gag reflex Visual frank: Present: left visual field cut Speech: Present: expressive aphasia Neuro motor strength exam: LUE 4/5, RUE 5/5 Cerebellar function: Abnormal finger to nose, Abnormal heel to de dios, Abnormal left Romberg, Abnormal left central ataxia, Abnormal left dysmetria, Abnormal left dysdiadochokinesia Sensory: Abnormal left lower extremity light touch, Abnormal left lower extremity pin prick DTR: 2+: biceps (L), biceps (R), patellar (L), patellar (R) Septic Shock Reassessment Septic shock perfusion: reassessment completed Caprini VTE Risk Assessment Caprini VTE Risk Assessment: Moderate/High Risk (score >= 2) Caprini Risk Assessment Model: Point Value = 1 Point Value = 2 Point Value = 3 Point Value = 5 Age 41-60 Minor surgery BMI > 25 kg/m2 Swollen legs Varicose veins or History of unexplained or recurrent spontaneous Oral contraceptives or hormone replacement Sepsis (< 1 month) Serious lung disease, including pneumonia (< 1 month) Abnormal pulmonary function Acute myocardial infarction Congestive heart failure (< 1 month) History of inflammatory bowel disease Medical patient at bed rest Age 61-74 Arthroscopic surgery Major open surgery (> 45 min) Laparoscopic surgery (> 45 min) Malignancy Confined to bed (> 72 hours) Immobilizing plaster cast Central venous access Age >= 75 History of VTE Family history of VTE Factor V Leiden Prothrombin [id number] Lupus anticoagulant Anticardiolipin antibodies Elevated serum homocysteine Heparin-induced thrombocytopenia Other congenital or acquired thrombophilia Stroke (< 1 month) Elective arthroplasty Hip, pelvis, or leg fracture Acute spinal cord injury (< 1 month) Prophylaxis Regimen: Total Risk Factor Score Risk Level Prophylaxis Regimen 0-1 Low Early ambulation 2 Moderate Order ONE of the following: *Sequential Compression Device (SCD) *Heparin 5000 units SQ BID 3-4 Higher Order ONE of the following medications: *Heparin 5000 units SQ TID *Enoxaparin/Lovenox 40 mg SQ daily (WT < 150 kg, CrCl > 30 mL/min) *Enoxaparin/Lovenox 30 mg SQ daily (WT < 150 kg, CrCl > 10-29 mL/min) *Enoxaparin/Lovenox 30 mg SQ BID (WT < 150 kg, CrCl > 30 mL/min) AND/OR *Sequential Compression Device (SCD) 5 or more Highest Order ONE of the following medications: *Heparin 5000 units SQ TID (Preferred with Epidurals) *Enoxaparin/Lovenox 40 mg SQ daily (WT < 150 kg, CrCl > 30 mL/min) *Enoxaparin/Lovenox 30 mg SQ daily (WT < 150 kg, CrCl > 10-29 mL/min) *Enoxaparin/Lovenox 30 mg SQ BID (WT < 150 kg, CrCl > 30 mL/min) AND *Sequential Compression Device (SCD) Assessment and Plan - Problem List (1) Right-sided cerebrovascular accident (CVA) Code(s): I63.9 - Cerebral infarction, unspecified Status: Acute (2) Essential hypertension Code(s): I10 - Essential (primary) hypertension Status: Chronic (3) Hyperlipidemia Code(s): E78.5 - Hyperlipidemia, unspecified Status: Chronic (4) Hyperglycemia Code(s): R73.9 - Hyperglycemia, unspecified Status: Acute (5) Hyponatremia Code(s): E87.1 - Hypo-osmolality and hyponatremia Status: Acute (6) Elevated troponin Code(s): R74.8 - Abnormal levels of other serum enzymes Status: Acute (7) Leukocytosis Code(s): D72.829 - Elevated white blood cell count, unspecified Status: Acute (8) Fracture, intertrochanteric, left femur Code(s): S72.142A - Displaced intertrochanteric fracture of left femur, initial encounter for closed fracture Status: Acute - Assessment and Plan Plan: Neuro/Psych: Acute right temporal parietal CVA Occlusion of the M2 branch MCA CT brain on admission no acute intracranial findings. CT angiogram revealed an M2 branch occluded [address] CAD revealed right temporal CVA acute. Size is approximately 3 x [address] Hanley/neurology recommended aspirin and heparin drip. Head of bed flat. MRI of brain in a.m. 02/18 PT/OT/ST evaluate and treat Acetaminophen 650 mg p.o. every 6 hours as needed fever Hydrocodone/acetaminophen 325/5 1 tablet every 4 hours as needed pain 1-5 Morphine sulfate 2 mg IV every 2 hours. Pain 6 - 10 CV: Essential hypertension Hyperlipidemia Elevated troponin Currently on as needed labetalol/nicardipine drip to maintain systolic blood pressure less than 20/diastolic pressure less than 120 Medications are amlodipine 5 mg daily propanolol 20 mg daily. Started on pravastatin 40 mg daily for dyslipidemia. Lipid panel pending EKG pending. Initial troponin 0 0.35. Every 6 hours x2 ordered. Echocardiogram ordered. Resp: Nasal cannula to maintain saturations greater than or equal to 92% Incentive spirometry while awake Albuterol/ipratropium aerosols every 4 hours with albuterol aerosols every 2 hours as needed dyspnea Lung hyperinflation protocol GI: Currently n.p.o. status Pantoprazole for GI prophylaxis Docusate sodium/senna 1 tablet twice daily for bowel regimen : Straight catheterization as needed Endo: Acute hyperglycemia Sliding scale insulin aspart insulin Accu-Cheks every 6 hours to maintain euglycemia/low regimen Check TSH Check hemoglobin A1c Renal: Creatinine currently within normal limits Monitor urine output Accurate I's and O's Heme: Leukocytosis/acute Monitor CBC daily. Follow trends. No indication for transfusion of blood products at this time. ID: Monitor for signs and symptomatology infection MSK: Acute comminuted IT fracture left femur Chronic Low back pain Lumbar spine imaging currently pending X-ray of the hip revealed acute comminuted IT fracture of the left femur. Nondisplaced. Orthopedics consultation FEN: Hyponatremia/acute Replace electrolytes as clinically indicated per ICU electrolyte protocol Access -Utilize peripheral IV. Central line if indicated Prophylaxis -GI -pantoprazole -DVT -SCD/heparin drip Level 3 H&P Code Status: Full code Discussed Condition With: /son/patient. ED physician. Care plan discussed and all questions answered. (3) Hyperlipidemia Qualifiers: Hyperlipidemia type: unspecified Qualified Code(s): E78.5 - Hyperlipidemia, unspecified (7) Leukocytosis Qualifiers: Leukocytosis type: unspecified Qualified Code(s): D72.829 - Elevated white blood cell count, unspecified (8) Fracture, intertrochanteric, left femur Qualifiers: Encounter type: initial encounter Fracture type: closed Fracture alignment: nondisplaced Qualified Code(s): S72.145A - Nondisplaced intertrochanteric fracture of left femur, initial encounter for closed fracture
[2018-02-17 22:19] LABS: Free T4 (Free Thyroxine) 0.93 ng/dL (0.76-1.46); Thyroid Stimulating Hormone 5.32 uIU/mL (0.358-3.740)
[2018-02-18 00:09] LABS: Amphetamine Screen,Urine Neg (Neg); Barbiturate Screen,Urine Neg (Neg); Cannabinoid Screen,Urine Neg (Neg); Cocaine Screen,Urine Neg (Neg); Opiate Screen,Urine Pos (Neg)
[2018-02-18 00:14] LABS: Bilirubin,Urine Negative (Negative); Clarity,Urine Clear (Clear); Color,Urine Yellow (Yellw/Straw); Glucose,Urine (UA) Negative (Negative); Leukocyte Esterase,Urine Negative (Negative); Mucus,Urine Few /lpf (Occasional); Nitrite,Urine Negative (Negative); Squamous Epithelial Cell,Urine 1 /hpf (0-5)
[2018-02-18 01:02] LABS: Troponin I 0.28 ng/mL (0.02-0.05)
[2018-02-18 01:06] LABS: Phosphorus 3.2 mg/dL (2.5-4.9)
[2018-02-18 01:07] LABS: Magnesium 1.7 mg/dL (1.5-2.5)
[2018-02-18] MEDS: Insulin NovoLOG Aspart Correctional Sugar Inj SQ SCH ×5 (01:10→23:50)
[2018-02-18] MEDS: Morphine Sulfate Inj 2 MG/ML Vial IV.PUSH PRN ×2 (02:02→08:58)
[2018-02-18] MEDS ORDERED: Chlorhexidine Gluconate 2% 1 Pack (2 Cloths) TOPICAL PRN (04:00)
[2018-02-18] MEDS: Acetaminophen Inj 650 MG/65 ML VIAL IV.SIG SCH ×4 (04:00→21:17)
[2018-02-18] MEDS: Chlorhexidine Gluconate 2% 1 Pack (2 Cloths) TOPICAL SCH (05:43)
[2018-02-18] MEDS ORDERED: Aspirin 325 MG Tablet PO SCH (09:00)
[2018-02-18] MEDS: Senna/Docusate Sodium 8.6/50 MG Tablet PO SCH ×2 (09:01→21:19)
--- NOTE | 2018-02-18 09:35 | P.PNNEU ---
Subjective Subjective Comments: sr Active Medications: Active Medications Acetaminophen (Tylenol) 650 mg PO Q6H PRN PRN Reason: FEVER Hydrocodone Bitart/Acetaminophen ([place] 5/325) 1 tab PO Q4H PRN PRN Reason: PAIN SCALE 1 TO 5 Al Hydroxide/Mg Hydroxide (Milk Of Magnfabrice Liq) 30 ml PO Q12H PRN PRN Reason: Mild Constipation Albuterol (Albuterol Neb (Prn)) 2.5 mg NEB Q2HR NEB PRN PRN Reason: SHORTNESS OF BREATH/WHEEZING Albuterol (Duoneb Neb (Isidoro)) 1 ampul NEB Q4HR NEB [facility] Last Admin: 02/18/18 07:38 Dose: 1 ampul Aspirin (Aspirin Chew) 81 mg PO DAILY [facility] Last Admin: 02/18/18 09:00 Dose: Not Given Bisacodyl (Dulcolax Supp) 10 mg RECTAL DAILY PRN PRN Reason: SEVERE CONSITIPATION Buspirone HCl (Buspar) 5 mg PO DAILY [facility] Last Admin: 02/18/18 09:00 Dose: Not Given Chlorhexidine Gluconate (Chlorhexidine 2% Cloth) 3 pack TOPICAL DAILY@0400 [facility] Stop: 02/23/18 03:59 Last Admin: 02/18/18 05:43 Dose: 3 pack Chlorhexidine Gluconate (Chlorhexidine 2% Cloth) 3 pack TOPICAL DAILY@0400 PRN PRN Reason: Extra cloth needed Stop: 02/23/18 03:59 Dextrose (D50w Vial) 50 ml IV.PUSH UNSCH PRN PRN Reason: PER HYPOGLYCEMIA PROTOCOL Glucagon (Glucagon Inj) 1 mg OTHER PRN PRN PRN Reason: for Hypoglycemia Protocol Sodium Chloride (Ns Inj) 1,000 mls @ 70 mls/hr IV.CONT .[id number] [facility] Last Admin: 02/17/18 21:24 Dose: Not Given Heparin Sodium/Dextrose (Heparin/D5w 25,000 U/250 Ml) 25,000 unit in 250 mls @ 0 mls/hr IV.CONT TITRATE PRN; Protocol PRN Reason: Per Protocol Last Titration: 02/18/18 01:11 Dose: 80,000 units/hr, 800 mls/hr Sodium Chloride (Ns Inj) 1,000 mls @ 100 mls/hr IV.CONT .Q10H [facility] Last Admin: 02/17/18 21:42 Dose: 100 mls/hr Magnesium Sulfate 4 gm/ Sodium (Chloride) 100 mls @ 50 mls/hr IV.SIG UNSCH PRN PRN Reason: For Magnesium 0.9 - 1.1 mg/dL Magnesium Sulfate 2 gm/ Sodium (Chloride) 100 mls @ 50 mls/hr IV.SIG UNSCH PRN PRN Reason: For Magnesium 1.2 - 1.6 mg/dL Potassium Chloride (Kcl 40 Meq Premix Inj) 40 meq in 100 mls @ 25 mls/hr IV.SIG Q2H PRN PRN Reason: For Potassium 2.8 - 3.2 mEq/L Potassium Chloride (Kcl 20 Meq Premix Inj) 20 meq in 100 mls @ 50 mls/hr IV.SIG Q2H PRN PRN Reason: For Potassium 3.3 - 3.5 mEq/L Potassium Chloride (Kcl 20 Meq Premix Inj) 20 meq in 100 mls @ 50 mls/hr IV.SIG Q2H PRN PRN Reason: For Potassium 2.8 - 3.2 mEq/L Potassium Phosphate 30 mmol/ (Sodium Chloride) 260 mls @ 42 mls/hr IV.SIG UNSCH PRN PRN Reason: SEE LABEL COMMENTS Sodium Phosphate 30 mmol/ (Sodium Chloride) 260 mls @ 42 mls/hr IV.SIG UNSCH PRN PRN Reason: For Phosphorus < 2.5 mg/dL Potassium Chloride (Kcl 40 Meq Premix Inj) 40 meq in 100 mls @ 25 mls/hr IV.SIG UNSCH PRN PRN Reason: For Potassium 3.3 - 3.5 mEq/L Nicardipine HCl 25 mg/ Sodium (Chloride) 250 mls @ 50 mls/hr IV.CONT TITRATE PRN; Protocol PRN Reason: Per Protocol Acetaminophen (Ofirmev Inj) 650 mg in 65 mls @ 400 mls/hr IV.SIG Q6H [facility] Stop: 02/18/18 21:10 Last Admin: 02/18/18 08:58 Dose: 400 mls/hr Insulin Aspart (Novolog Insulin Correctional Sugar Inj) 0 unit SQ Q6HR [place]ID[place]O; Protocol Last Admin: 02/18/18 06:01 Dose: 1 unit Labetalol HCl (Trandate Inj) 10 mg IV.PUSH Q2H PRN PRN Reason: For SBP > 220 or DBP > 120 Lactulose (Lactulose Liq) 30 ml PO DAILY PRN PRN Reason: SEVERE CONSITIPATION Magnesium Oxide (Mag-Ox) 800 mg PO UNSCH PRN PRN Reason: For Magnesium 1.2 - 1.6 mg/dL Morphine Sulfate (Morphine Inj) 1 mg IV.PUSH Q2H PRN PRN Reason: PAIN SCALE 6 TO 10 Last Admin: 02/18/18 08:58 Dose: 1 mg Ondansetron HCl (Zofran Inj) 4 mg IV.PUSH Q6H PRN PRN Reason: NAUSEA OR VOMITING Pantoprazole Sodium (Protonix Inj) 40 mg IV.PUSH DAILY [facility] Potassium Bicarb/Potassium Chloride (K-Lyte Cl Eff) 50 meq PO UNSCH PRN PRN Reason: For Potassium 3.3 - 3.5 mEq/L Potassium Phosphate (K-Phos Original) 2,000 mg PO Q4H PRN PRN Reason: Phosphorus Less Than 2.5 mg/dL Potassium Phosphate (K-Phos Original) 2,000 mg PO UNSCH PRN PRN Reason: SEE LABEL COMMENTS Pravastatin Sodium (Pravachol) 40 mg PO [facility] Senna/Docusate Sodium (Janice-Colace) 1 tab PO BID [facility] Last Admin: 02/18/18 09:01 Dose: Not Given Sennosides (Senokot) 17.2 mg PO Q12H PRN PRN Reason: Moderate Constipation Sodium Chloride (Ns Flush) 2 ml IV.FLUSH BID [facility] Last Admin: 02/18/18 09:00 Dose: 2 ml Sodium Chloride (Ns Flush) 2 ml IV.FLUSH PRN PRN PRN Reason: FLUSH AFTER USING IV ACCESS Allergies/Adverse Reactions: Allergies Allergy/AdvReac Type Severity Reaction Status Date / Time No Known Allergies Allergy Uncoded 05/09/12 18:20 Physical Exam Vital signs: Vital Signs 02/17/18 19:52 02/17/18 20:03 02/17/18 20:35 Temperature 97.0 F L Pulse Rate 70 62 Respiratory Rate 16 14 Blood Pressure 100/50 L 77/51 L Pulse Oximetry 99 99 98 02/17/18 20:42 02/17/18 21:27 02/17/18 22:52 Temperature Pulse Rate 64 70 71 Respiratory Rate 14 16 Blood Pressure 128/63 151/67 H 137/59 L Pulse Oximetry 98 99 99 11/22/18 22:58 02/17/18 23:00 02/17/18 23:30 Temperature 97 F L Pulse Rate 70 75 Respiratory Rate 16 27 H 21 Blood Pressure 126/58 L 126/58 L Pulse Oximetry 99 100 02/18/18 00:00 02/18/18 00:09 02/18/18 00:30 Temperature 96.8 F L Pulse Rate 73 75 74 Respiratory Rate 15 18 14 Blood Pressure 130/63 Pulse Oximetry 98 99 98 02/18/18 01:00 02/18/18 01:30 02/18/18 02:00 Temperature Pulse Rate 74 79 77 Respiratory Rate 11 L 20 23 Blood Pressure 114/53 L 129/58 L 128/60 Pulse Oximetry 98 100 99 02/18/18 02:30 02/18/18 03:00 02/18/18 03:30 Temperature Pulse Rate 77 81 78 Respiratory Rate 16 15 15 Blood Pressure 107/56 L 143/64 H 140/63 Pulse Oximetry 98 98 96 02/18/18 04:00 02/18/18 04:30 02/18/18 05:00 Temperature 97.7 F Pulse Rate 82 82 84 Respiratory Rate 21 13 16 Blood Pressure 161/66 H 152/67 H 149/63 H Pulse Oximetry 98 98 99 02/18/18 05:30 02/18/18 06:00 02/18/18 06:30 Temperature Pulse Rate 86 86 93 H Respiratory Rate 17 16 38 H Blood Pressure 148/62 H 127/60 126/60 Pulse Oximetry 99 98 99 02/18/18 07:41 Temperature Pulse Rate 88 Respiratory Rate 16 Blood Pressure Pulse Oximetry 99 Intake & Output 02/17/18 02/18/18 02/18/18 18:59 06:59 18:59 Intake Total 1125 / 1125 Output Total 500 / 500 Balance 625 / 625 Weight 57.2 kg Intake: IV 1065 / 1065 Ofirmev Inj 650 mg In 65 ml @ 65 / 65 400 mls/hr IV.SIG Q6H ISID[place] Rx#: [id number] NS Inj 1,000 ML @ Wide Open IV. 1000 / 1000 SIG BOLUS ONE Rx#:[id number] Oral 60 / 60 Output: Urine Amount (Catheter) 500 / 500 Straight 500 / 500 Other: Weight On Admission 57.2 kg Narrative: eyes to r cannot tel me fingers number to r moves rue rle well the left leg can berry picker but arm seems weak 4-/5 and left neglects some will not open eyes - Urinary Catheter Management Straight Cath placed during this visit: no Objective Laboratory Results - last 24 hr 02/17/18 02/17/18 02/17/18 19:57 19:57 19:57 WBC 13.9 H RBC 3.45 L Hgb 11.2 L POC Hgb (Calc) Hct 32.4 L POC Hct MCV 93.9 MCH 32.6 MCHC 34.7 RDW 14.5 Plt Count 164 MPV 8.9 Neut % (Auto) 88.6 H Lymph % (Auto) 6.1 L [place] % (Auto) 4.5 Eos % (Auto) 0.2 Baso % (Auto) 0.6 Neut # (Auto) 12.3 H Lymph # (Auto) 0.8 L [place] # (Auto) 0.6 Eos # (Auto) 0.0 Baso # (Auto) 0.1 WBC Differential . Differential Comment Auto diff final ESR PT 11.4 INR 1.1 APTT 26.0 POC Sodium Sodium 131 L POC Potassium Potassium 4.6 POC Chloride Chloride 98 Carbon Dioxide 19.5 L Anion Gap 14 POC BUN BUN 17 Creatinine 0.87 POC Creatinine Estimated GFR 62 L POC Glucose Random Glucose 147 H Calcium 8.8 Phosphorus Magnesium Total Creatine Kinase 106 CK-MB (CK-2) 3.4 Troponin I 0.35 H Vitamin B12 TSH Free T4 Urine Color Urine Clarity Urine pH Ur Specific [place] Urine Protein Urine Glucose (UA) Urine Ketones Urine Occult Blood Urine Nitrate Urine Bilirubin Urine Urobilinogen Ur Leukocyte Esterase Urine RBC Urine WBC Ur Squamous Epith Cells Urine Mucus Micro UA Comment Ur Microscopic Review Urine Culture Comments Nasal Screen MRSA (PCR) Urine Opiates Screen Ur Barbiturates Screen Ur Amphetamines Screen U Benzodiazepines Scrn Urine Cocaine Screen U Cannabinoids Screen Blood Type Blood Type Recheck Antibody Screen 02/17/18 02/17/18 02/17/18 19:57 19:57 19:57 WBC RBC Hgb POC Hgb (Calc) 11.6 Hct POC Hct 34.0 L MCV MCH MCHC RDW Plt Count MPV Neut % (Auto) Lymph % (Auto) [place] % (Auto) Eos % (Auto) Baso % (Auto) Neut # (Auto) Lymph # (Auto) [place] # (Auto) Eos # (Auto) Baso # (Auto) WBC Differential Differential Comment ESR 6 PT INR APTT POC Sodium 131 L Sodium POC Potassium 4.7 Potassium POC Chloride 98 L Chloride Carbon Dioxide Anion Gap POC BUN 16 BUN Creatinine POC Creatinine 0.8 Estimated GFR POC Glucose 148 H Random Glucose Calcium Phosphorus Magnesium Total Creatine Kinase CK-MB (CK-2) Troponin I Vitamin B12 TSH Free T4 Urine Color Urine Clarity Urine pH Ur Specific [place] Urine Protein Urine Glucose (UA) Urine Ketones Urine Occult Blood Urine Nitrate Urine Bilirubin Urine Urobilinogen Ur Leukocyte Esterase Urine RBC Urine WBC Ur Squamous Epith Cells Urine Mucus Micro UA Comment Ur Microscopic Review Urine Culture Comments Nasal Screen MRSA (PCR) Urine Opiates Screen Ur Barbiturates Screen Ur Amphetamines Screen U Benzodiazepines Scrn Urine Cocaine Screen U Cannabinoids Screen Blood Type O Positive Blood Type Recheck Required Antibody Screen Negative 02/17/18 02/17/18 02/17/18 19:57 23:25 23:25 WBC RBC Hgb POC Hgb (Calc) Hct POC Hct MCV MCH MCHC RDW Plt Count MPV Neut % (Auto) Lymph % (Auto) [place] % (Auto) Eos % (Auto) Baso % (Auto) Neut # (Auto) Lymph # (Auto) [place] # (Auto) Eos # (Auto) Baso # (Auto) WBC Differential Differential Comment ESR PT INR APTT POC Sodium Sodium POC Potassium Potassium POC Chloride Chloride Carbon Dioxide Anion Gap POC BUN BUN Creatinine POC Creatinine Estimated GFR POC Glucose Random Glucose Calcium Phosphorus Magnesium Total Creatine Kinase CK-MB (CK-2) Troponin I Vitamin B12 514 TSH 5.320 H Free T4 0.93 Urine Color Yellow Urine Clarity Clear Urine pH 5.0 Ur Specific [place] Greater than 1.060 H Urine Protein Negative Urine Glucose (UA) Negative Urine Ketones 20 Urine Occult Blood Negative Urine Nitrate Negative Urine Bilirubin Negative Urine Urobilinogen Less than 2 Ur Leukocyte Esterase Negative Urine RBC 1 Urine WBC Less than 1 Ur Squamous Epith Cells 1 Urine Mucus Few H Micro UA Comment Cath-culture not ind Ur Microscopic Review Not Reportable Urine Culture Comments Cath-cult not ind Nasal Screen MRSA (PCR) Urine Opiates Screen Pos H Ur Barbiturates Screen Neg Ur Amphetamines Screen Neg U Benzodiazepines Scrn Neg Urine Cocaine Screen Neg U Cannabinoids Screen Neg Blood Type Blood Type Recheck Antibody Screen 02/18/18 02/18/18 02/18/18 00:24 00:32 00:32 WBC RBC Hgb POC Hgb (Calc) Hct POC Hct MCV MCH MCHC RDW Plt Count MPV Neut % (Auto) Lymph % (Auto) [place] % (Auto) Eos % (Auto) Baso % (Auto) Neut # (Auto) Lymph # (Auto) [place] # (Auto) Eos # (Auto) Baso # (Auto) WBC Differential Differential Comment ESR PT INR APTT 35.8 H D POC Sodium Sodium POC Potassium Potassium POC Chloride Chloride Carbon Dioxide Anion Gap POC BUN BUN Creatinine POC Creatinine Estimated GFR POC Glucose 140 H Random Glucose Calcium Phosphorus 3.2 Magnesium 1.7 Total Creatine Kinase CK-MB (CK-2) Troponin I 0.28 H Vitamin B12 TSH Free T4 Urine Color Urine Clarity Urine pH Ur Specific [place] Urine Protein Urine Glucose (UA) Urine Ketones Urine Occult Blood Urine Nitrate Urine Bilirubin Urine Urobilinogen Ur Leukocyte Esterase Urine RBC Urine WBC Ur Squamous Epith Cells Urine Mucus Micro UA Comment Ur Microscopic Review Urine Culture Comments Nasal Screen MRSA (PCR) Urine Opiates Screen Ur Barbiturates Screen Ur Amphetamines Screen U Benzodiazepines Scrn Urine Cocaine Screen U Cannabinoids Screen Blood Type Blood Type Recheck Antibody Screen 02/18/18 02/18/18 00:32 05:54 WBC RBC Hgb POC Hgb (Calc) Hct POC Hct MCV MCH MCHC RDW Plt Count MPV Neut % (Auto) Lymph % (Auto) [place] % (Auto) Eos % (Auto) Baso % (Auto) Neut # (Auto) Lymph # (Auto) [place] # (Auto) Eos # (Auto) Baso # (Auto) WBC Differential Differential Comment ESR PT INR APTT POC Sodium Sodium POC Potassium Potassium POC Chloride Chloride Carbon Dioxide Anion Gap POC BUN BUN Creatinine POC Creatinine Estimated GFR POC Glucose 195 H Random Glucose Calcium Phosphorus Magnesium Total Creatine Kinase CK-MB (CK-2) Troponin I Vitamin B12 TSH Free T4 Urine Color Urine Clarity Urine pH Ur Specific [place] Urine Protein Urine Glucose (UA) Urine Ketones Urine Occult Blood Urine Nitrate Urine Bilirubin Urine Urobilinogen Ur Leukocyte Esterase Urine RBC Urine WBC Ur Squamous Epith Cells Urine Mucus Micro UA Comment Ur Microscopic Review Urine Culture Comments Nasal Screen MRSA (PCR) Not detected Urine Opiates Screen Ur Barbiturates Screen Ur Amphetamines Screen U Benzodiazepines Scrn Urine Cocaine Screen U Cannabinoids Screen Blood Type Blood Type Recheck Antibody Screen Review/Management - Review/Management Plan: imp r mca cva some worse overnoc had large penumbra at risk and robb still does left hip fx unfortunately time of onset too uncertain for tpa yest keep ivf and bp up hob down iv hep on ? mi? have cards see fu echo
[2018-02-18] MEDS ORDERED: Gadobutrol PF 2 MMOL/2 ML Vial (for RAD) IV.SIG ONE (09:37)
--- NOTE | 2018-02-18 10:08 | MR ---
EXAM DATE: 02/18/2018 9:59 AM EST AGE/SEX: 82 years / Female INDICATIONS: Left sided weakness. CLINICAL DATA: This is the patient's subsequent encounter. Patient reports that signs and symptoms h ave been present for 2 days and indicates a pain score of 0/10. MEDICAL/SURGICAL HISTORY: Hypertension. throat cancer Hysterectomy. throat surgery COMPARISON: [facility] [place], CTA HEAD W CONTRAST W 3D, 02/17/2018. . TECHNIQUE: Multiplanar, multisequence examination of the brain was performed without and with 5.5 ml Gadavist (gadobutrol) contrast as a single exam dose. FINDINGS: There is restricted diffusion involving a significant portion of the right temporoparietal and occipi shannon cortex. There is early T2 prolongation indicating parenchymal edema. There are scattered punctate areas of microhemorrhage, including within the infarct in tissue. There is no abnormal parenchymal c ontrast enhancement at present. No evidence of brain mass. 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 Early edema. Electronically signed by: Chris Castro MD 02/18/2018 10:07 AM EST
--- NOTE | 2018-02-18 10:13 | CT ---
EXAM DATE: 02/18/2018 10:05 AM EST AGE/SEX: 82 years / Female INDICATIONS: Back pain. CLINICAL DATA: This is the patient's initial encounter. Patient reports that signs and symptoms have been present for 2 days and indicates a pain score of 10/10. MEDICAL/SURGICAL HISTORY: Stroke. None. RADIATION DOSE: 22.41 CTDI (mGy) COMPARISON: [facility], CT CHEST W AND W/O CONTRAST, 01/07/2017. . TECHNIQUE: Contiguous axial images were acquired with a multirow detector CT scanner without contras t. Multiplanar reconstructions in the sagittal and coronal plane were also performed. Using automate d exposure control and adjustment of the mA and/or kV according to patient size, radiation dose was k ept as low as reasonably achievable to obtain optimal diagnostic quality images. DICOM format image data is available electronically for review and comparison. FINDINGS: Lumbar spine alignment is satisfactory. There is no evidence of lumbar spine fracture. There is an ol d compressive injury at T11. There are degenerative changes present throughout the lumbar spine with disc space narrowing most notably at L4-L5 and L5-S1. Small endplate osteophytes noted. There also mo derate arthritic changes in the posterior facet joints of the low lumbar spine. There is mild broad d orsal disc protrusion at L3-4 contributing to a mild degree of concentric canal stenosis. There is no evidence of paraspinal mass or hematoma. CONCLUSION: Degenerative changes in the lumbar spine. No acute bony findings. Electronically signed by: Chris Castro MD 02/18/2018 10:11 AM EST
[2018-02-18] MEDS: Pantoprazole Inj 40 MG Vial IV.PUSH SCH (10:54)
[2018-02-18 10:56] LABS: ABG Base Excess -16.5 mmol/L (-2-2); ABG PCO2 29 mmHg (38-42); ABG PO2 119 mmHg (61-120)
--- NOTE | 2018-02-18 11:22 | P.PNNEU ---
Subjective Subjective Comments: just had a left sided sz face and left arm obtunded after that but seems a little better now plan [facility] ct r/o bleed eeg Active Medications: Active Medications Acetaminophen (Tylenol) 650 mg PO Q6H PRN PRN Reason: FEVER Hydrocodone Bitart/Acetaminophen ([place] 5/325) 1 tab PO Q4H PRN PRN Reason: PAIN SCALE 1 TO 5 Last Admin: 02/18/18 10:17 Dose: 1 tab Al Hydroxide/Mg Hydroxide (Milk Of Lora Lideclan) 30 ml PO Q12H PRN PRN Reason: Mild Constipation Albuterol (Albuterol Neb (Prn)) 2.5 mg NEB Q2HR NEB PRN PRN Reason: SHORTNESS OF BREATH/WHEEZING Albuterol (Duoneb Neb (Isidoro)) 1 ampul NEB Q4HR NEB [facility] Last Admin: 02/18/18 07:38 Dose: 1 ampul Aspirin (Aspirin Chew) 81 mg PO DAILY [facility] Last Admin: 02/18/18 09:00 Dose: Not Given Bisacodyl (Dulcolax Supp) 10 mg RECTAL DAILY PRN PRN Reason: SEVERE CONSITIPATION Buspirone HCl (Buspar) 5 mg PO DAILY [facility] Last Admin: 02/18/18 09:00 Dose: Not Given Chlorhexidine Gluconate (Chlorhexidine 2% Cloth) 3 pack TOPICAL DAILY@0400 [facility] Stop: 02/23/18 03:59 Last Admin: 02/18/18 05:43 Dose: 3 pack Chlorhexidine Gluconate (Chlorhexidine 2% Cloth) 3 pack TOPICAL DAILY@0400 PRN PRN Reason: Extra cloth needed Stop: 02/23/18 03:59 Dextrose (D50w Vial) 50 ml IV.PUSH UNSCH PRN PRN Reason: PER HYPOGLYCEMIA PROTOCOL Glucagon (Glucagon Inj) 1 mg OTHER PRN PRN PRN Reason: for Hypoglycemia Protocol Sodium Chloride (Ns Inj) 1,000 mls @ 70 mls/hr IV.CONT .[id number] [facility] Last Admin: 02/17/18 21:24 Dose: Not Given Heparin Sodium/Dextrose (Heparin/D5w 25,000 U/250 Ml) 25,000 unit in 250 mls @ 0 mls/hr IV.CONT TITRATE PRN; Protocol PRN Reason: Per Protocol Last Titration: 02/18/18 01:11 Dose: 80,000 units/hr, 800 mls/hr Sodium Chloride (Ns Inj) 1,000 mls @ 100 mls/hr IV.CONT .Q10H ISID[place]O Last Admin: 02/17/18 21:42 Dose: 100 mls/hr Magnesium Sulfate 4 gm/ Sodium (Chloride) 100 mls @ 50 mls/hr IV.SIG UNSCH PRN PRN Reason: For Magnesium 0.9 - 1.1 mg/dL Magnesium Sulfate 2 gm/ Sodium (Chloride) 100 mls @ 50 mls/hr IV.SIG UNSCH PRN PRN Reason: For Magnesium 1.2 - 1.6 mg/dL Potassium Chloride (Kcl 40 Meq Premix Inj) 40 meq in 100 mls @ 25 mls/hr IV.SIG Q2H PRN PRN Reason: For Potassium 2.8 - 3.2 mEq/L Potassium Chloride (Kcl 20 Meq Premix Inj) 20 meq in 100 mls @ 50 mls/hr IV.SIG Q2H PRN PRN Reason: For Potassium 3.3 - 3.5 mEq/L Potassium Chloride (Kcl 20 Meq Premix Inj) 20 meq in 100 mls @ 50 mls/hr IV.SIG Q2H PRN PRN Reason: For Potassium 2.8 - 3.2 mEq/L Potassium Phosphate 30 mmol/ (Sodium Chloride) 260 mls @ 42 mls/hr IV.SIG UNSCH PRN PRN Reason: SEE LABEL COMMENTS Sodium Phosphate 30 mmol/ (Sodium Chloride) 260 mls @ 42 mls/hr IV.SIG UNSCH PRN PRN Reason: For Phosphorus < 2.5 mg/dL Potassium Chloride (Kcl 40 Meq Premix Inj) 40 meq in 100 mls @ 25 mls/hr IV.SIG UNSCH PRN PRN Reason: For Potassium 3.3 - 3.5 mEq/L Nicardipine HCl 25 mg/ Sodium (Chloride) 250 mls @ 50 mls/hr IV.CONT TITRATE PRN; Protocol PRN Reason: Per Protocol Acetaminophen (Ofirmev Inj) 650 mg in 65 mls @ 400 mls/hr IV.SIG Q6H ISIDORO Stop: 02/18/18 21:10 Last Infusion: 02/18/18 09:08 Dose: Infused Insulin Aspart (Novolog Insulin Correctional Sugar Inj) 0 unit SQ Q6HR ISIDORO; Protocol Last Admin: 02/18/18 06:01 Dose: 1 unit Labetalol HCl (Trandate Inj) 10 mg IV.PUSH Q2H PRN PRN Reason: For SBP > 220 or DBP > 120 Lactulose (Lactulose Liq) 30 ml PO DAILY PRN PRN Reason: SEVERE CONSITIPATION Magnesium Oxide (Mag-Ox) 800 mg PO UNSCH PRN PRN Reason: For Magnesium 1.2 - 1.6 mg/dL Morphine Sulfate (Morphine Inj) 1 mg IV.PUSH Q2H PRN PRN Reason: PAIN SCALE 6 TO 10 Last Admin: 02/18/18 08:58 Dose: 1 mg Ondansetron HCl (Zofran Inj) 4 mg IV.PUSH Q6H PRN PRN Reason: NAUSEA OR VOMITING Pantoprazole Sodium (Protonix Inj) 40 mg IV.PUSH DAILY [facility] Last Admin: 02/18/18 10:54 Dose: 40 mg Potassium Bicarb/Potassium Chloride (K-Lyte Cl Eff) 50 meq PO UNSCH PRN PRN Reason: For Potassium 3.3 - 3.5 mEq/L Potassium Phosphate (K-Phos Original) 2,000 mg PO Q4H PRN PRN Reason: Phosphorus Less Than 2.5 mg/dL Potassium Phosphate (K-Phos Original) 2,000 mg PO UNSCH PRN PRN Reason: SEE LABEL COMMENTS Pravastatin Sodium (Pravachol) 40 mg PO [facility] Senna/Docusate Sodium (Janice-Colace) 1 tab PO BID [facility] Last Admin: 02/18/18 09:01 Dose: Not Given Sennosides (Senokot) 17.2 mg PO Q12H PRN PRN Reason: Moderate Constipation Sodium Chloride (Ns Flush) 2 ml IV.FLUSH BID [facility] Last Admin: 02/18/18 09:00 Dose: 2 ml Sodium Chloride (Ns Flush) 2 ml IV.FLUSH PRN PRN PRN Reason: FLUSH AFTER USING IV ACCESS Allergies/Adverse Reactions: Allergies Allergy/AdvReac Type Severity Reaction Status Date / Time No Known Allergies Allergy Uncoded 05/09/12 18:20 Physical Exam Vital signs: Vital Signs 02/17/18 19:52 02/17/18 20:03 02/17/18 20:35 Temperature 97.0 F L Pulse Rate 70 62 Respiratory Rate 16 14 Blood Pressure 100/50 L 77/51 L Pulse Oximetry 99 99 98 02/17/18 20:42 02/17/18 21:27 02/17/18 22:52 Temperature Pulse Rate 64 70 71 Respiratory Rate 14 16 Blood Pressure 128/63 151/67 H 137/59 L Pulse Oximetry 98 99 99 02/17/18 22:58 02/17/18 23:00 02/17/18 23:30 Temperature 97 F L Pulse Rate 70 75 Respiratory Rate 16 27 H 21 Blood Pressure 126/58 L 126/58 L Pulse Oximetry 99 100 02/18/18 00:00 02/18/18 00:09 02/18/18 00:30 Temperature 96.8 F L Pulse Rate 73 75 74 Respiratory Rate 15 18 14 Blood Pressure 130/63 Pulse Oximetry 98 99 98 02/18/18 01:00 02/18/18 01:30 02/18/18 02:00 Temperature Pulse Rate 74 79 77 Respiratory Rate 11 L 20 23 Blood Pressure 114/53 L 129/58 L 128/60 Pulse Oximetry 98 100 99 02/18/18 02:30 02/18/18 03:00 02/18/18 03:30 Temperature Pulse Rate 77 81 78 Respiratory Rate 16 15 15 Blood Pressure 107/56 L 143/64 H 140/63 Pulse Oximetry 98 98 96 02/18/18 04:00 02/18/18 04:30 02/18/18 05:00 Temperature 97.7 F Pulse Rate 82 82 84 Respiratory Rate 21 13 16 Blood Pressure 161/66 H 152/67 H 149/63 H Pulse Oximetry 98 98 99 02/18/18 05:30 02/18/18 06:00 02/18/18 06:30 Temperature Pulse Rate 86 86 93 H Respiratory Rate 17 16 38 H Blood Pressure 148/62 H 127/60 126/60 Pulse Oximetry 99 98 99 02/18/18 07:41 02/18/18 08:00 02/18/18 09:00 Temperature Pulse Rate 88 88 88 Respiratory Rate 16 16 Blood Pressure Pulse Oximetry 99 100 02/18/18 09:13 Temperature Pulse Rate Respiratory Rate 20 Blood Pressure Pulse Oximetry Intake & Output 02/17/18 02/18/18 02/18/18 18:59 06:59 18:59 Intake Total 1125 / 1125 65 / 65 Output Total 500 / 500 Balance 625 / 625 65 / 65 Weight 57.2 kg Intake: IV 1065 / 1065 Ofirmev Inj 650 mg In 65 ml @ 65 / 65 400 mls/hr IV.SIG Q6H ISIDORO Rx#: [id number] NS Inj 1,000 ML @ Wide Open IV. 1000 / 1000 SIG BOLUS ONE Rx#:[id number] Oral 60 / 60 Output: Urine Amount (Catheter) 500 / 500 Straight 500 / 500 Other: Weight On Admission 57.2 kg - Urinary Catheter Management Straight Cath placed during this visit: no Objective Laboratory Results - last 24 hr 02/17/18 02/17/18 02/17/18 19:57 19:57 19:57 WBC 13.9 H RBC 3.45 L Hgb 11.2 L POC Hgb (Calc) Hct 32.4 L POC Hct MCV 93.9 MCH 32.6 MCHC 34.7 RDW 14.5 Plt Count 164 MPV 8.9 Neut % (Auto) 88.6 H Lymph % (Auto) 6.1 L [place] % (Auto) 4.5 Eos % (Auto) 0.2 Baso % (Auto) 0.6 Neut # (Auto) 12.3 H Lymph # (Auto) 0.8 L [place] # (Auto) 0.6 Eos # (Auto) 0.0 Baso # (Auto) 0.1 WBC Differential . Differential Comment Auto diff final ESR PT 11.4 INR 1.1 APTT 26.0 Puncture Site Patient Temperature O2 Saturation ABG pH ABG pCO2 ABG pO2 ABG HCO3 ABG O2 Content ABG Base Excess ABG Methemoglobin Hector Test Hemoglobin Carboxyhemoglobin O2 Delivery Device Liter Flow Critical Value POC Sodium Sodium 131 L POC Potassium Potassium 4.6 POC Chloride Chloride 98 Carbon Dioxide 19.5 L Anion Gap 14 POC BUN BUN 17 Creatinine 0.87 POC Creatinine Estimated GFR 62 L POC Glucose Random Glucose 147 H Calcium 8.8 Phosphorus Magnesium Total Creatine Kinase 106 CK-MB (CK-2) 3.4 Troponin I 0.35 H Vitamin B12 TSH Free T4 Urine Color Urine Clarity Urine pH Ur Specific [place] Urine Protein Urine Glucose (UA) Urine Ketones Urine Occult Blood Urine Nitrate Urine Bilirubin Urine Urobilinogen Ur Leukocyte Esterase Urine RBC Urine WBC Ur Squamous Epith Cells Urine Mucus Micro UA Comment Ur Microscopic Review Urine Culture Comments Nasal Screen MRSA (PCR) Urine Opiates Screen Ur Barbiturates Screen Ur Amphetamines Screen U Benzodiazepines Scrn Urine Cocaine Screen U Cannabinoids Screen Blood Type Blood Type Recheck Antibody Screen 02/17/18 02/17/18 02/17/18 19:57 19:57 19:57 WBC RBC Hgb POC Hgb (Calc) 11.6 Hct POC Hct 34.0 L MCV MCH MCHC RDW Plt Count MPV Neut % (Auto) Lymph % (Auto) [place] % (Auto) Eos % (Auto) Baso % (Auto) Neut # (Auto) Lymph # (Auto) [place] # (Auto) Eos # (Auto) Baso # (Auto) WBC Differential Differential Comment ESR 6 PT INR APTT Puncture Site Patient Temperature O2 Saturation ABG pH ABG pCO2 ABG pO2 ABG HCO3 ABG O2 Content ABG Base Excess ABG Methemoglobin Hector Test Hemoglobin Carboxyhemoglobin O2 Delivery Device Liter Flow Critical Value POC Sodium 131 L Sodium POC Potassium 4.7 Potassium POC Chloride 98 L Chloride Carbon Dioxide Anion Gap POC BUN 16 BUN Creatinine POC Creatinine 0.8 Estimated GFR POC Glucose 148 H Random Glucose Calcium Phosphorus Magnesium Total Creatine Kinase CK-MB (CK-2) Troponin I Vitamin B12 TSH Free T4 Urine Color Urine Clarity Urine pH Ur Specific [place] Urine Protein Urine Glucose (UA) Urine Ketones Urine Occult Blood Urine Nitrate Urine Bilirubin Urine Urobilinogen Ur Leukocyte Esterase Urine RBC Urine WBC Ur Squamous Epith Cells Urine Mucus Micro UA Comment Ur Microscopic Review Urine Culture Comments Nasal Screen MRSA (PCR) Urine Opiates Screen Ur Barbiturates Screen Ur Amphetamines Screen U Benzodiazepines Scrn Urine Cocaine Screen U Cannabinoids Screen Blood Type O Positive Blood Type Recheck Required Antibody Screen Negative 02/17/18 02/17/18 02/17/18 19:57 23:25 23:25 WBC RBC Hgb POC Hgb (Calc) Hct POC Hct MCV MCH MCHC RDW Plt Count MPV Neut % (Auto) Lymph % (Auto) [place] % (Auto) Eos % (Auto) Baso % (Auto) Neut # (Auto) Lymph # (Auto) [place]win # (Auto) Eos # (Auto) Baso # (Auto) WBC Differential Differential Comment ESR PT INR APTT Puncture Site Patient Temperature O2 Saturation ABG pH ABG pCO2 ABG pO2 ABG HCO3 ABG O2 Content ABG Base Excess ABG Methemoglobin Hector Test Hemoglobin Carboxyhemoglobin O2 Delivery Device Liter Flow Critical Value POC Sodium Sodium POC Potassium Potassium POC Chloride Chloride Carbon Dioxide Anion Gap POC BUN BUN Creatinine POC Creatinine Estimated GFR POC Glucose Random Glucose Calcium Phosphorus Magnesium Total Creatine Kinase CK-MB (CK-2) Troponin I Vitamin B12 514 TSH 5.320 H Free T4 0.93 Urine Color Yellow Urine Clarity Clear Urine pH 5.0 Ur Specific [place] Greater than 1.060 H Urine Protein Negative Urine Glucose (UA) Negative Urine Ketones 20 Urine Occult Blood Negative Urine Nitrate Negative Urine Bilirubin Negative Urine Urobilinogen Less than 2 Ur Leukocyte Esterase Negative Urine RBC 1 Urine WBC Less than 1 Ur Squamous Epith Cells 1 Urine Mucus Few H Micro UA Comment Cath-culture not ind Ur Microscopic Review Not Reportable Urine Culture Comments Cath-cult not ind Nasal Screen MRSA (PCR) Urine Opiates Screen Pos H Ur Barbiturates Screen Neg Ur Amphetamines Screen Neg U Benzodiazepines Scrn Neg Urine Cocaine Screen Neg U Cannabinoids Screen Neg Blood Type Blood Type Recheck Antibody Screen 02/18/18 02/18/18 02/18/18 00:24 00:32 00:32 WBC RBC Hgb POC Hgb (Calc) Hct POC Hct MCV MCH MCHC RDW Plt Count MPV Neut % (Auto) Lymph % (Auto) [place] % (Auto) Eos % (Auto) Baso % (Auto) Neut # (Auto) Lymph # (Auto) [place]win # (Auto) Eos # (Auto) Baso # (Auto) WBC Differential Differential Comment ESR PT INR APTT 35.8 H D Puncture Site Patient Temperature O2 Saturation ABG pH ABG pCO2 ABG pO2 ABG HCO3 ABG O2 Content ABG Base Excess ABG Methemoglobin Hector Test Hemoglobin Carboxyhemoglobin O2 Delivery Device Liter Flow Critical Value POC Sodium Sodium POC Potassium Potassium POC Chloride Chloride Carbon Dioxide Anion Gap POC BUN BUN Creatinine POC Creatinine Estimated GFR POC Glucose 140 H Random Glucose Calcium Phosphorus 3.2 Magnesium 1.7 Total Creatine Kinase CK-MB (CK-2) Troponin I 0.28 H Vitamin B12 TSH Free T4 Urine Color Urine Clarity Urine pH Ur Specific [place] Urine Protein Urine Glucose (UA) Urine Ketones Urine Occult Blood Urine Nitrate Urine Bilirubin Urine Urobilinogen Ur Leukocyte Esterase Urine RBC Urine WBC Ur Squamous Epith Cells Urine Mucus Micro UA Comment Ur Microscopic Review Urine Culture Comments Nasal Screen MRSA (PCR) Urine Opiates Screen Ur Barbiturates Screen Ur Amphetamines Screen U Benzodiazepines Scrn Urine Cocaine Screen U Cannabinoids Screen Blood Type Blood Type Recheck Antibody Screen 02/18/18 02/18/18 02/18/18 00:32 05:54 10:50 WBC RBC Hgb POC Hgb (Calc) Hct POC Hct MCV MCH MCHC RDW Plt Count MPV Neut % (Auto) Lymph % (Auto) [place] % (Auto) Eos % (Auto) Baso % (Auto) Neut # (Auto) Lymph # (Auto) [place] # (Auto) Eos # (Auto) Baso # (Auto) WBC Differential Differential Comment ESR PT INR APTT Puncture Site Left radial Patient Temperature 98.6 O2 Saturation 95 ABG pH 7.18 L* ABG pCO2 29 L ABG pO2 119 ABG HCO3 10 L* ABG O2 Content 10.8 L ABG Base Excess -16.5 L ABG Methemoglobin 1.2 Hector Test Present Hemoglobin 7.9 L* Carboxyhemoglobin 1.1 O2 Delivery Device Nasal cannula Liter Flow 2.00 Critical Value Yes POC Sodium Sodium POC Potassium Potassium POC Chloride Chloride Carbon Dioxide Anion Gap POC BUN BUN Creatinine POC Creatinine Estimated GFR POC Glucose 195 H Random Glucose Calcium Phosphorus Magnesium Total Creatine Kinase CK-MB (CK-2) Troponin I Vitamin B12 TSH Free T4 Urine Color Urine Clarity Urine pH Ur Specific [place] Urine Protein Urine Glucose (UA) Urine Ketones Urine Occult Blood Urine Nitrate Urine Bilirubin Urine Urobilinogen Ur Leukocyte Esterase Urine RBC Urine WBC Ur Squamous Epith Cells Urine Mucus Micro UA Comment Ur Microscopic Review Urine Culture Comments Nasal Screen MRSA (PCR) Not detected Urine Opiates Screen Ur Barbiturates Screen Ur Amphetamines Screen U Benzodiazepines Scrn Urine Cocaine Screen U Cannabinoids Screen Blood Type Blood Type Recheck Antibody Screen Review/Management - Review/Management Plan: imp r mca cva some worse overnoc had large penumbra at risk and robb still does left hip fx unfortunately time of onset too uncertain for tpa yest keep ivf and bp up hob down iv hep on ? mi? have cards see fu echo
[2018-02-18 11:37] LABS: Hematocrit 25.3 % (35.0-46.0); Hemoglobin 8.5 gm/dL (11.6-15.3); Mean Corpuscular HGB Conc 33.4 % (32.0-36.0); Mean Corpuscular Hemoglobin 32.9 pg (27.0-34.0); Mean Corpuscular Volume 98.4 fL (80.0-100.0); Mean Platelet Volume 8.9 fL (7.0-11.0); Platelet Count 111 th/mm3 (150-450); Red Blood Count 2.57 mil/mm3 (4.00-5.30); Red Cell Distribution Width 14.4 % (11.6-17.2); White Blood Count 11.2 th/mm3 (4.0-11.0)
--- NOTE | 2018-02-18 11:52 | OTSOAPIP ---
[place] [facility] REQUESTS TO HOLD DUE TO STAT CT SCAN SECONDARY TO SEIZURE. WILL REATTEMPT ONCE MD HAS REVIEWED. Therapist: Anne Lopez Signature on file
[2018-02-18 11:56] LABS: Chol/HDL Ratio 1.74 Ratio; HDL Cholesterol 87.8 mg/dL (40.0-60.0); Troponin I 0.21 ng/mL (0.02-0.05)
--- NOTE | 2018-02-18 12:20 | CT ---
EXAM DATE: 02/18/2018 12:06 PM EST AGE/SEX: 82 years / Female INDICATIONS: Intracranial hemorrhage, seizure today CLINICAL DATA: This is the patient's initial encounter. Patient reports that signs and symptoms have been present for 3 days and indicates a pain score of Nonresponsive. MEDICAL/SURGICAL HISTORY: Hypertension. Carcinoma, head and neck. Anxiety, . Neck surgery RADIATION DOSE: 41.09 CTDI (mGy) [place] [facility] [place] W 3D, 02/17/2018. . TECHNIQUE: CT of the head without contrast. Using automated exposure control and adjustment of the mA and/or kV according to patient size, radiation dose was kept as low as reasonably achievable to ob tain optimal diagnostic quality images. DICOM format image data is available electronically for revi ew and comparison. FINDINGS: Cerebrum: A discrete area of hypodensity with sulcal effacement has developed in the right temporal and occipital lobes. This corresponds to an acute nonhemorrhagic infarct. Size of the infarct is slig htly greater than that seen on patient perfusion imaging which indicated a core predominantly involvi ng the temporal lobe. There is no shift of midline structures. Left surgical history is unremarkable. Posterior Fossa: The cerebellum and brainstem are intact. The 4th ventricle is midline. The cerebe llopontine angle is unremarkable. Extracranial: The visualized portion of the orbits is intact. Skull: The calvaria is intact. No evidence of skull fracture. CONCLUSION: 1. 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 2. No evidence of hemorrhage or significant mass effect. . Electronically signed by: Tito Whaley MD 02/18/2018 12:19 PM EST
[2018-02-18 12:40] LABS: Hemoglobin A1c 5.7 % (4.3-6.0)
[2018-02-18] MEDS: levETIRAcetam 1000mg/100mL Inj 100 ML IV.SIG SCH (13:00)
[2018-02-18] MEDS: Sod Chloride 0.9% Inj 1,000 ML IV.CONT SCH ×3 (13:00→19:19)
--- NOTE | 2018-02-18 14:10 | P.PNCC ---
Subjective Subjective Remarks/Hospital Course: 02/17: This is an 82-year-old female. Uzbek speaking understanding Dominican. Date of admission 02/17/2003 past medical includes hypertension, hyperlipidemia, anxiety and low back pain. 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 Patient was seen by her primary care physician on Wednesday according to she was a "stroke waiting to happen". She is currently on propranolol 10 mg and amlodipine 5 mg daily. She is on buspirone 5 mg daily for anxiety. Today, she is brought in by EMS to [facility] post fall 3:30 PM today. On arrival also evaluated the patient appears that she is not crossing the midline and she has a fixed gaze to the right. She appears confused and her left side is more ataxic on the left upper extremity and cannot see on the left visual field. According to record, family friends are here reporting that they went to check on her around 4:00 and she has stated that she has just fallen in the bathroom 5 minutes prior to arrival. Her also reported that she was sleeping yesterday all day. CT brain revealed no acute intracranial findings. CT Angi0 of the brain revealed M2 branch occluded 1 cm distally to the bifurcation. CT CT revealed right temporoparietal CVA acute. Due to the unknown timing of the stroke she was not considered to be a candidate for stent retrieval. She started on a heparin drip currently at 700 units an hour/lie flat and given aspirin 300 mg p.o. daily. Neurology/Dr. Hanley is following. MRI brain in a.m. 02/18. Patient has a acute comminuted left intertrochanteric fracture. She will be followed by orthopedics and they have been notified. Troponin is slightly elevated 0.35. EKG is currently pending. Echocardiogram is been ordered. 02/18: Resting comfortably in bed. Had a seizure earlier. Follows commands. Opens her mouth and sticks out her tongue. Keeping her eyes closed. Objective Vital Signs / I&O: Vital Signs 02/17/18 19:52 02/17/18 20:03 02/17/18 20:35 Temperature 97.0 F L Pulse Rate 70 62 Respiratory Rate 16 14 Blood Pressure 100/50 L 77/51 L Pulse Oximetry 99 99 98 02/17/18 20:42 02/17/18 21:27 02/17/18 22:52 Temperature Pulse Rate 64 70 71 Respiratory Rate 14 16 Blood Pressure 128/63 151/67 H 137/59 L Pulse Oximetry 98 99 99 02/17/18 22:58 02/17/18 23:00 02/17/18 23:30 Temperature 97 F L Pulse Rate 70 75 Respiratory Rate 16 27 H 21 Blood Pressure 126/58 L 126/58 L Pulse Oximetry 99 100 02/18/18 00:00 02/18/18 00:09 02/18/18 00:30 Temperature 96.8 F L Pulse Rate 73 75 74 Respiratory Rate 15 18 14 Blood Pressure 130/63 Pulse Oximetry 98 99 98 02/18/18 01:00 02/18/18 01:30 02/18/18 02:00 Temperature Pulse Rate 74 79 77 Respiratory Rate 11 L 20 23 Blood Pressure 114/53 L 129/58 L 128/60 Pulse Oximetry 98 100 99 02/18/18 02:30 02/18/18 03:00 02/18/18 03:30 Temperature Pulse Rate 77 81 78 Respiratory Rate 16 15 15 Blood Pressure 107/56 L 143/64 H 140/63 Pulse Oximetry 98 98 96 02/18/18 04:00 02/18/18 04:30 02/18/18 05:00 Temperature 97.7 F Pulse Rate 82 82 84 Respiratory Rate 21 13 16 Blood Pressure 161/66 H 152/67 H 149/63 H Pulse Oximetry 98 98 99 02/18/18 05:30 02/18/18 06:00 02/18/18 06:30 Temperature Pulse Rate 86 86 93 H Respiratory Rate 17 16 38 H Blood Pressure 148/62 H 127/60 126/60 Pulse Oximetry 99 98 99 02/18/18 07:00 02/18/18 07:30 02/18/18 07:41 Temperature Pulse Rate 94 H 80 88 Respiratory Rate 38 H 14 16 Blood Pressure 124/59 L 121/58 L Pulse Oximetry 100 99 99 02/18/18 08:00 02/18/18 08:30 02/18/18 09:00 Temperature Pulse Rate 92 H 87 94 H Respiratory Rate 26 H 33 H Blood Pressure 99/49 L 81/42 L Pulse Oximetry 99 99 99 02/18/18 09:08 02/18/18 09:12 02/18/18 09:13 Temperature Pulse Rate 90 89 Respiratory Rate 20 Blood Pressure 81/44 L Pulse Oximetry 99 100 02/18/18 09:55 02/18/18 10:00 02/18/18 10:41 Temperature Pulse Rate 85 87 Respiratory Rate 29 H Blood Pressure 108/55 L 102/49 L Pulse Oximetry 72 L 82 L 02/18/18 10:59 02/18/18 11:00 02/18/18 11:14 Temperature Pulse Rate 83 87 87 Respiratory Rate 81 H 140 H Blood Pressure 94/52 L 86/44 L Pulse Oximetry 88 L 90 L 90 L 02/18/18 11:29 02/18/18 11:44 02/18/18 11:51 Temperature Pulse Rate 83 86 86 Respiratory Rate 123 H 136 H 12 Blood Pressure 86/51 L 90/52 L Pulse Oximetry 85 L 95 89 L 02/18/18 11:59 02/18/18 12:00 02/18/18 12:14 Temperature 99.6 F Pulse Rate 88 86 Respiratory Rate 16 Blood Pressure 95/53 L 95/53 L 88/48 L Pulse Oximetry 94 L 90 L 02/18/18 12:29 Temperature Pulse Rate 83 Respiratory Rate Blood Pressure 83/44 L Pulse Oximetry 88 L Intake & Output 02/17/18 02/18/18 02/18/18 18:59 06:59 18:59 Intake Total 1125 / 1125 1065 / 1065 Output Total 500 / 500 Balance 625 / 625 1065 / 1065 Weight 57.2 kg Intake: IV 1065 / 1065 1065 / 1065 NS Inj 1,000 ML @ 100 mls/hr IV 1000 / 1000 .CONT .Q10H K[facility]ALL Rx#:[id number] Ofirmev Inj 650 mg In 65 ml @ 65 / 65 65 / 65 400 mls/hr IV.SIG Q6H KENDALL Rx#: [id number] NS Inj 1,000 ML @ Wide Open IV. 1000 / 1000 SIG BOLUS ONE Rx#:[id number] Oral 60 / 60 Output: Urine Amount (Catheter) 500 / 500 Straight 500 / 500 Other: Weight On Admission 57.2 kg Result Diagrams: 02/18/18 11:25 02/17/18 19:57 Objective Remarks: HEENT/Neuro: No pallor or icterus, tongue moist, MICHAEL, drowsy, arousable. Occasionally responds by answering yes or no. Opens her mouth, sticks her tongue out. Right approximately weakness. Limited mobility left lower extremity secondary to hip fracture. Neck: No JVD Chest/pulmonary: CTA bilaterally Cardiovascular: S1-S2 regular no gallop or murmur GI/abdomen: Soft, nontender, bowel sounds present Extremities: Warm bilaterally, no edema Assessment and Plan - Problem List (1) Right-sided cerebrovascular accident (CVA) Code(s): I63.9 - Cerebral infarction, unspecified Status: Acute (2) Essential hypertension Code(s): I10 - Essential (primary) hypertension Status: Chronic (3) Hyperlipidemia Code(s): E78.5 - Hyperlipidemia, unspecified Status: Chronic (4) Hyperglycemia Code(s): R73.9 - Hyperglycemia, unspecified Status: Acute (5) Hyponatremia Code(s): E87.1 - Hypo-osmolality and hyponatremia Status: Acute (6) Elevated troponin Code(s): R74.8 - Abnormal levels of other serum enzymes Status: Acute (7) Leukocytosis Code(s): D72.829 - Elevated white blood cell count, unspecified Status: Acute (8) Fracture, intertrochanteric, left femur Code(s): S72.142A - Displaced intertrochanteric fracture of left femur, initial encounter for closed fracture Status: Acute - Assessment and Plan Plan: Neuro/Psych: Acute right temporal parietal CVA Occlusion of the M2 branch MCA CT brain on admission no acute intracranial findings. CT angiogram revealed an M2 branch occluded [address] CAD revealed right temporal CVA acute. Size is approximately 3 x [address] Hanley/neurology recommended aspirin and heparin drip. Head of bed flat. MRI of brain in a.m. 02/18 PT/OT/ST evaluate and treat Acetaminophen 650 mg p.o. every 6 hours as needed fever Hydrocodone/acetaminophen 325/5 1 tablet every 4 hours as needed pain 1-5 Morphine sulfate 2 mg IV every 2 hours. Pain 6 - 10 CV: Essential hypertension Hyperlipidemia Elevated troponin Currently on as needed labetalol/nicardipine drip to maintain systolic blood pressure less than 20/diastolic pressure less than 120 Medications are amlodipine 5 mg daily propanolol 20 mg daily. Started on pravastatin 40 mg daily for dyslipidemia. Lipid panel pending EKG pending. Initial troponin 0 0.35. Every 6 hours x2 ordered. Echocardiogram ordered. Cardiology consulted. On anticoagulation with heparin. Continue aspirin Resp: Nasal cannula to maintain saturations greater than or equal to 92% Incentive spirometry while awake Albuterol/ipratropium aerosols every 4 hours with albuterol aerosols every 2 hours as needed dyspnea Lung hyperinflation protocol GI: Currently n.p.o. status Pantoprazole for GI prophylaxis Docusate sodium/senna 1 tablet twice daily for bowel regimen : Straight catheterization as needed Endo: Acute hyperglycemia Sliding scale insulin aspart insulin Accu-Cheks every 6 hours to maintain euglycemia/low regimen Check TSH Check hemoglobin A1c Renal: Creatinine currently within normal limits Monitor urine output Accurate I's and O's Heme: Leukocytosis/acute Monitor CBC daily. Follow trends. No indication for transfusion of blood products at this time. ID: Monitor for signs and symptomatology infection MSK: Acute comminuted IT fracture left femur Chronic Low back pain Lumbar spine imaging currently pending X-ray of the hip revealed acute comminuted IT fracture of the left femur. Nondisplaced. Orthopedics consultation-discussed with Dr. Berger. Deferred surgery for hip fracture to Wednesday following discussion with Dr. Hanley due to acute stroke/ seizure. FEN: Hyponatremia/acute Replace electrolytes as clinically indicated per ICU electrolyte protocol Access -Utilize peripheral IV. Central line if indicated Prophylaxis -GI -pantoprazole -DVT -SCD/heparin drip (3) Hyperlipidemia Qualifiers: Hyperlipidemia type: unspecified Qualified Code(s): E78.5 - Hyperlipidemia, unspecified (7) Leukocytosis Qualifiers: Leukocytosis type: unspecified Qualified Code(s): D72.829 - Elevated white blood cell count, unspecified (8) Fracture, intertrochanteric, left femur Qualifiers: Encounter type: initial encounter Fracture type: closed Fracture alignment: nondisplaced Qualified Code(s): S72.145A - Nondisplaced intertrochanteric fracture of left femur, initial encounter for closed fracture
--- NOTE | 2018-02-18 15:39 | MB ---
cc: ,Chandler Carrillo DATE: 02/18/2018 REQUESTING PHYSICIAN: CONSULTING PHYSICIAN: Chandler Carrillo MD HISTORY OF PRESENT ILLNESS: Mrs. Urban is an 82-year-old female with a past medical history significant for hypertension. She sustained a fall around 3:30 on , resulting in a left intertrochanteric femur fracture. The fall was unwitnessed and occurred in the bathroom. She was surrounded by family members. She [place] [facility] [place] Evaluation to date has been significant for a middle cerebral artery cerebrovascular accident. On my evaluation at bedside, the patient is resting comfortably. She is arousable. She is not oriented to person, place or time. Her son is at bedside who assists with obtaining the HPI. REVIEW OF SYSTEMS: Unable to obtain secondary to altered mental status. PAST MEDICAL HISTORY: Significant for hypertension. PAST SURGICAL HISTORY: History of cervical neck surgery. FAMILY HISTORY: Noncontributory. MEDICATIONS: Per hospitalist chart. ALLERGIES: NO KNOWN DRUG ALLERGIES. SOCIAL HISTORY: Social alcohol use. Denies tobacco use. PHYSICAL EXAMINATION: GENERAL: She is somnolent, resting comfortably in bed. She is not oriented to person, place or time. MUSCULOSKELETAL: Focused evaluation of the left lower extremity demonstrates a positive log roll of the hip. There is no tenderness to palpation about the knee, ankle or foot. Sensory exam cannot be determined, given the patient's current altered mental status. She does have gross motor movement of the left lower extremity with positive EHL/FHL. Screening evaluation of the right lower and bilateral upper extremities demonstrates no evidence of pain with passive range of motion of the joints. IMAGING: Two views of the left hip demonstrate a comminuted intertrochanteric femur fracture on the left. ASSESSMENT: An 82-year-old female, status post fall with a left intertrochanteric femur fracture. [place] [facility] [place] for workup of cerebrovascular accident involving the right middle cerebral artery. PLAN: I had a thorough discussion with her son at bedside regarding our recommendations for a left hip open reduction internal fixation with intramedullary nail implant. Given that the patient is unable to sign consent, consent will be obtained from her next of kin, which is her . Relative risks, benefits and expected postoperative course of surgical management were reviewed. We will await medical clearance pending treatment for a CVA. She is currently on a heparin drip. We will await neurology and primary team recommendations regarding when to pause the heparin in order to take care of her left femur. Nonweightbearing to left lower to the left lower extremity in the interim. Orthopedic surgery to continue to follow the patient's progress and will await medical clearance and plan for left hip open reduction internal fixation at the earliest available surgical opportunity. Chandler Carrillo MD, CM/agusto/clemente , 01:13 PM , 01:22 PM
--- NOTE | 2018-02-18 16:10 | ECHRPT ---
Indication: CVA/TIA CONCLUSIONS Technically difficult study, difficult to confirm findings Normal left ventricular size. Wall thickness is normal. There is normal left ventricular size and the ejection fraction is 60-65%. The left atrial size is mildly dilated. No atrial level shunt is demonstrated by color flow Doppler interrogation. BP: / HR: Rhythm: Sinus MEASUREMENTS (Male / Female) Normal Values Technical Quality:Very technically difficult study 2D ECHO LV Diastolic Diameter PLAX 2.6 cm 4.2 - 5.9 / 3.9 - 5.3 cm LV Systolic Diameter PLAX 1.9 cm IVS Diastolic Thickness 1.0 cm 0.6 - 1.0 / 0.6 - 0.9 cm LVPW Diastolic Thickness 1.0 cm 0.6 - 1.0 / 0.6 - 0.9 cm LV Relative Wall Thickness 0.7 RV Internal Dim ED PLAX 2.0 cm LVOT Diameter 1.9 cm Aortic Root Diameter 3.3 cm DOPPLER AV Peak Velocity 193.0 cm/s AV Peak Gradient 14.9 mmHg AV Mean Gradient 7.0 mmHg AV Velocity Time Integral 29.1 cm LVOT Peak Velocity 189.0 cm/s LVOT Peak Gradient 14.3 mmHg LVOT Velocity Time Integral 22.0 cm AV Area Cont Eq vti 2.1 cm AV Area Cont Eq pk 2.8 cm PV Peak Velocity 145.0 cm/s PV Peak Gradient 8.4 mmHg FINDINGS LEFT VENTRICLE Normal left ventricular size. Wall thickness is normal. The left ventricular systolic function is normal with an estimated ejection fraction in the range of 60-65%. RIGHT VENTRICLE Normal right ventricular size and systolic function. LEFT ATRIUM The left atrial size is mildly dilated. RIGHT ATRIUM The right atrial size is normal. ATRIAL SEPTUM No atrial level shunt is demonstrated by color flow Doppler interrogation. PULMONARY VALVE No pulmonary valve regurgitation or stenosis. VESSELS The inferior vena cava is normal in size. PERICARDIUM No pericardial effusion. Michele Cummings MD, FACC, FSCAI (Electronically Signed) Final Date:18 February 2018 16:09
--- NOTE | 2018-02-18 17:56 | MB ---
cc: Patric Dunbar MD DATE: 02/18/2018 REASON FOR CONSULTATION: Evaluation of elevated troponin. HISTORY OF PRESENT ILLNESS: This is an 82-year-old white female with history of hypertension, elevated cholesterol, and essential tremor. She was brought in for a right middle cerebral artery stroke. Troponin has gone from 0.35 to 0.28 to 0.21. The patient right now is somnolent and I cannot obtain any history from her as to whether she has had any chest pain. She has chronic inferior Q-waves on her EKG that are not that pronounced. She had a normal nuclear stress test here 01/07/2011 when she had that same EKG. She also has a left femur fracture. She had been seen by neurology as well as orthopedic surgery. PAST MEDICAL HISTORY: Includes anxiety, hypertension, hyperlipidemia, throat cancer, status post surgery, and radiation therapy. PAST SURGICAL HISTORY: Includes neck surgery. SOCIAL HISTORY: There is no definite history of alcohol abuse, but she has had 2 admissions with an elevated alcohol level, but not this time. REVIEW OF SYSTEMS: Unobtainable. PHYSICAL EXAMINATION: GENERAL: Elderly white female. She is supine in bed. She is somnolent. NECK: Negative for bruits or JVD. CARDIAC: Shows normal S1, S2. Regular rate and rhythm with a 1/6 systolic ejection murmur. ABDOMEN: Soft. EXTREMITIES: Reveal intact distal pulses with no edema. LABORATORY DATA: EKG shows sinus rhythm with small Q-waves inferiorly and a QT corrected at 456 Msec. Echo has limited views, but shows preserved LV systolic function. IMPRESSION: Troponin was elevated on admission as declining. The values are indeterminate. She has an abnormal EKG, but it is unchanged from her old tracings. Her overall LV function is preserved. She is being treated with aspirin and IV heparin. RECOMMENDATIONS: Conservative management for her heart condition at the present time. She is already on anticoagulation. Blood pressure is low and she is not receiving any antihypertensives at the present time. Patric Dunbar MD VEW/anne-marie , 04:37 PM , 04:44 PM
--- NOTE | 2018-02-18 19:59 | ECG ---
Date Performed: 02/17/2018 Time Performed: 21:55:31 PTAGE: 82 years EKG: Sinus rhythm POSSIBLE OLD INFERIOR MYOCARDIAL INFARCTION Compared to previous tracing, ST ABNORMALITIES RESOLVED ABNORMAL ECG PREVIOUS TRACING : 06/26/2017 00.08 DOCTOR: Patric Dunbar Interpretating Date/Time 02/18/2018 19:58:29
--- NOTE | 2018-02-18 20:09 | MG ---
cc: Dhruv Hanley MD ELECTROENCEPHALOGRAM NUMBER: [id number]. CLINICAL HISTORY: Right MCA infarct, seizure. DESCRIPTION: Diffuse 7 Hz slowing is noted. Slight attenuation seen over the right temporal head leads compared to the left. I do not, however, see any epileptiform or seizure activity coming out of the right temporal lobe. Hyperventilation not performed. Photic stimulation performed without significant posterior driving. IMPRESSION: Generally unremarkable electroencephalogram. No epileptiform or seizure activity. Mild attenuation in the area of the stroke. Dhruv Hanley MD DJM/ts , 07:14 PM , 07:18 PM
[2018-02-19] MEDS: levETIRAcetam 1000mg/100mL Inj 100 ML IV.SIG SCH ×2 (00:03→13:00)
[2018-02-19] MEDS: Heparin Drip 25,000 UNIT/250 ML BAG IV.CONT PRN (02:41)
[2018-02-19 04:07] LABS: Mean Corpuscular HGB Conc 33.6 % (32.0-36.0); Mean Corpuscular Hemoglobin 32.6 pg (27.0-34.0); Mean Corpuscular Volume 97.2 fL (80.0-100.0); Platelet Count 94 th/mm3 (150-450); Red Blood Count 1.79 mil/mm3 (4.00-5.30); Red Cell Distribution Width 13.9 % (11.6-17.2); White Blood Count 13.5 th/mm3 (4.0-11.0)
[2018-02-19] MEDS: Sod Chloride 0.9% Inj 1,000 ML IV.CONT SCH ×4 (04:27→15:38)
[2018-02-19 04:42] LABS: Alanine Aminotransferase 62 U/L (10-53); Albumin 2.7 g/dL (3.4-5.0); Alkaline Phosphatase 32 U/L (45-117); Anion Gap 12 meq/L (5-15); Aspartate Aminotransferase 146 U/L (15-37); Blood Urea Nitrogen 31 mg/dL (7-18); Calcium 7.8 mg/dL (8.5-10.1); Carbon Dioxide 18.9 meq/L (21.0-32.0); Chloride 104 meq/L (98-107); Glomerular Filtration Rate 28 mL/min (>89); Glucose,Random 170 mg/dL (74-106); Sodium 135 meq/L (136-145); Total Protein 4.9 g/dL (6.4-8.2)
[2018-02-19 04:47] LABS: Hematocrit 17.4 % (35.0-46.0); Hemoglobin 5.8 gm/dL (11.6-15.3)
[2018-02-19] MEDS: Chlorhexidine Gluconate 2% 1 Pack (2 Cloths) TOPICAL SCH (07:54)
--- NOTE | 2018-02-19 08:32 | P.PNCA ---
Subjective Interval history: not talking this AM Medications and Allergies Active Medications: Active Medications Acetaminophen (Tylenol) 650 mg PO Q6H PRN PRN Reason: FEVER Hydrocodone Bitart/Acetaminophen (Brimson 5/325) 1 tab PO Q4H PRN PRN Reason: PAIN SCALE 1 TO 5 Last Admin: 02/18/18 10:17 Dose: 1 tab Al Hydroxide/Mg Hydroxide (Milk Of Magnfabrice Liq) 30 ml PO Q12H PRN PRN Reason: Mild Constipation Albuterol (Albuterol Neb (Prn)) 2.5 mg NEB Q2HR NEB PRN PRN Reason: SHORTNESS OF BREATH/WHEEZING Albuterol (Duoneb Neb (Isidoro)) 1 ampul NEB Q4HR NEB [facility] Last Admin: 02/19/18 03:17 Dose: 1 ampul Aspirin (Aspirin Chew) 81 mg PO DAILY [facility] Last Admin: 02/18/18 09:00 Dose: Not Given Bisacodyl (Dulcolax Supp) 10 mg RECTAL DAILY PRN PRN Reason: SEVERE CONSITIPATION Buspirone HCl (Buspar) 5 mg PO DAILY [facility] Last Admin: 02/18/18 09:00 Dose: Not Given Chlorhexidine Gluconate (Chlorhexidine 2% Cloth) 3 pack TOPICAL DAILY@0400 [facility] Stop: 02/23/18 03:59 Last Admin: 02/19/18 07:54 Dose: Not Given Chlorhexidine Gluconate (Chlorhexidine 2% Cloth) 3 pack TOPICAL DAILY@0400 PRN PRN Reason: Extra cloth needed Stop: 02/23/18 03:59 Dextrose (D50w Vial) 50 ml IV.PUSH UNSCH PRN PRN Reason: PER HYPOGLYCEMIA PROTOCOL Glucagon (Glucagon Inj) 1 mg OTHER PRN PRN PRN Reason: for Hypoglycemia Protocol Sodium Chloride (Ns Inj) 1,000 mls @ 70 mls/hr IV.CONT .[id number] [facility] Last Admin: 02/19/18 07:53 Dose: Not Given Heparin Sodium/Dextrose (Heparin/D5w 25,000 U/250 Ml) 25,000 unit in 250 mls @ 0 mls/hr IV.CONT TITRATE PRN; Protocol PRN Reason: Per Protocol Last Titration: 02/19/18 06:00 Dose: 500 units/hr, 5 mls/hr Sodium Chloride (Ns Inj) 1,000 mls @ 100 mls/hr IV.CONT .Q10H [place] Last Admin: 02/19/18 04:27 Dose: Not Given Magnesium Sulfate 4 gm/ Sodium (Chloride) 100 mls @ 50 mls/hr IV.SIG UNSCH PRN PRN Reason: For Magnesium 0.9 - 1.1 mg/dL Magnesium Sulfate 2 gm/ Sodium (Chloride) 100 mls @ 50 mls/hr IV.SIG UNSCH PRN PRN Reason: For Magnesium 1.2 - 1.6 mg/dL Potassium Chloride (Kcl 40 Meq Premix Inj) 40 meq in 100 mls @ 25 mls/hr IV.SIG Q2H PRN PRN Reason: For Potassium 2.8 - 3.2 mEq/L Potassium Chloride (Kcl 20 Meq Premix Inj) 20 meq in 100 mls @ 50 mls/hr IV.SIG Q2H PRN PRN Reason: For Potassium 3.3 - 3.5 mEq/L Potassium Chloride (Kcl 20 Meq Premix Inj) 20 meq in 100 mls @ 50 mls/hr IV.SIG Q2H PRN PRN Reason: For Potassium 2.8 - 3.2 mEq/L Potassium Phosphate 30 mmol/ (Sodium Chloride) 260 mls @ 42 mls/hr IV.SIG UNSCH PRN PRN Reason: SEE LABEL COMMENTS Sodium Phosphate 30 mmol/ (Sodium Chloride) 260 mls @ 42 mls/hr IV.SIG UNSCH PRN PRN Reason: For Phosphorus < 2.5 mg/dL Potassium Chloride (Kcl 40 Meq Premix Inj) 40 meq in 100 mls @ 25 mls/hr IV.SIG UNSCH PRN PRN Reason: For Potassium 3.3 - 3.5 mEq/L Nicardipine HCl 25 mg/ Sodium (Chloride) 250 mls @ 50 mls/hr IV.CONT TITRATE PRN; Protocol PRN Reason: Per Protocol Levetiracetam (Keppra 1000 Mg/100 Ml Premix) 100 mls @ 400 mls/hr IV.SIG Q12H [place]O Last Infusion: 02/19/18 00:18 Dose: Infused Insulin Aspart (Novolog Insulin Correctional Sugar Inj) 0 unit SQ Q6HR ISIDORO; Protocol Last Admin: 02/18/18 23:50 Dose: 3 unit Labetalol HCl (Trandate Inj) 10 mg IV.PUSH Q2H PRN PRN Reason: For SBP > 220 or DBP > 120 Lactulose (Lactulose Liq) 30 ml PO DAILY PRN PRN Reason: SEVERE CONSITIPATION Magnesium Oxide (Mag-Ox) 800 mg PO UNSCH PRN PRN Reason: For Magnesium 1.2 - 1.6 mg/dL Morphine Sulfate (Morphine Inj) 1 mg IV.PUSH Q2H PRN PRN Reason: PAIN SCALE 6 TO 10 Last Admin: 02/18/18 08:58 Dose: 1 mg Ondansetron HCl (Zofran Inj) 4 mg IV.PUSH Q6H PRN PRN Reason: NAUSEA OR VOMITING Pantoprazole Sodium (Protonix Inj) 40 mg IV.PUSH DAILY [facility] Last Admin: 02/18/18 10:54 Dose: 40 mg Potassium Bicarb/Potassium Chloride (K-Lyte Cl Eff) 50 meq PO UNSCH PRN PRN Reason: For Potassium 3.3 - 3.5 mEq/L Potassium Phosphate (K-Phos Original) 2,000 mg PO Q4H PRN PRN Reason: Phosphorus Less Than 2.5 mg/dL Potassium Phosphate (K-Phos Original) 2,000 mg PO UNSCH PRN PRN Reason: SEE LABEL COMMENTS Pravastatin Sodium (Pravachol) [address] [facility] Last Admin: 02/18/18 21:19 Dose: Not Given Senna/Docusate Sodium (Janice-Colace) 1 tab PO BID [facility] Last Admin: 02/18/18 21:19 Dose: Not Given Sennosides (Senokot) 17.2 mg PO Q12H PRN PRN Reason: Moderate Constipation Sodium Chloride (Ns Flush) 2 ml IV.FLUSH BID [facility] Last Admin: 02/18/18 21:19 Dose: Not Given Sodium Chloride (Ns Flush) 2 ml IV.FLUSH PRN PRN PRN Reason: FLUSH AFTER USING IV ACCESS Allergies Allergy/AdvReac Type Severity Reaction Status Date / Time No Known Allergies Allergy Uncoded 05/09/12 18:20 Home Medications Medication Instructions Recorded Confirmed Type amlodipine 5 mg PO DAILY 02/17/18 02/17/18 History buspirone 5 mg PO DAILY 02/17/18 02/17/18 History propranolol 20 mg PO DAILY 02/17/18 02/17/18 History Physical Exam Vital signs: Vital Signs 02/18/18 08:30 02/18/18 09:00 02/18/18 09:08 Temperature Pulse Rate 87 94 H 90 Respiratory Rate 33 H Blood Pressure 99/49 L 81/42 L 81/44 L Pulse Oximetry 99 99 99 02/18/18 09:12 02/18/18 09:13 02/18/18 09:55 Temperature Pulse Rate 89 Respiratory Rate 20 Blood Pressure 108/55 L Pulse Oximetry 100 02/18/18 10:00 02/18/18 10:41 02/18/18 10:59 Temperature Pulse Rate 85 87 83 Respiratory Rate 29 H Blood Pressure 102/49 L 94/52 L Pulse Oximetry 72 L 82 L 88 L 02/18/18 11:00 02/18/18 11:14 02/18/18 11:29 Temperature Pulse Rate 87 87 83 Respiratory Rate 81 H 140 H 123 H Blood Pressure 86/44 L 86/51 L Pulse Oximetry 90 L 90 L 85 L 02/18/18 11:44 02/18/18 11:51 02/18/18 11:59 Temperature Pulse Rate 86 86 Respiratory Rate 136 H 12 Blood Pressure 90/52 L 95/53 L Pulse Oximetry 95 89 L 02/18/18 12:00 02/18/18 12:14 02/18/18 12:29 Temperature 99.6 F Pulse Rate 88 86 83 Respiratory Rate 16 Blood Pressure 95/53 L 88/48 L 83/44 L Pulse Oximetry 94 L 90 L 88 L 02/18/18 12:44 02/18/18 12:59 02/18/18 13:00 Temperature Pulse Rate 84 86 86 Respiratory Rate 23 20 18 Blood Pressure 97/50 L 88/47 L Pulse Oximetry 70 L 77 L 78 L 02/18/18 13:14 02/18/18 13:29 02/18/18 13:44 Temperature Pulse Rate 83 81 84 Respiratory Rate 23 16 20 Blood Pressure 93/44 L 88/49 L 92/44 L Pulse Oximetry 96 02/18/18 13:59 02/18/18 14:00 02/18/18 14:14 Temperature Pulse Rate 83 84 81 Respiratory Rate 16 21 17 Blood Pressure 88/50 L 88/45 L Pulse Oximetry 02/18/18 14:29 02/18/18 14:44 02/18/18 14:59 Temperature Pulse Rate 83 85 95 H Respiratory Rate 17 20 41 H Blood Pressure 98/50 L 91/46 L 70/47 L Pulse Oximetry 92 L 96 93 L 02/18/18 15:00 02/18/18 15:02 02/18/18 15:14 Temperature Pulse Rate 97 H 89 80 Respiratory Rate 33 H 33 H 14 Blood Pressure 108/51 L 101/44 L Pulse Oximetry 98 98 76 L 02/18/18 15:29 02/18/18 15:44 02/18/18 15:47 Temperature Pulse Rate 88 86 93 H Respiratory Rate 17 15 20 Blood Pressure 91/46 L 88/40 L 94/49 L Pulse Oximetry 86 L 89 L 02/18/18 15:59 02/18/18 16:00 02/18/18 18:59 Temperature 98.9 F Pulse Rate 92 H 91 H 89 Respiratory Rate 19 19 13 Blood Pressure 93/47 L 93/47 L 92/44 L Pulse Oximetry 95 94 L 95 02/18/18 19:00 02/18/18 19:14 02/18/18 19:29 Temperature Pulse Rate 88 90 93 H Respiratory Rate 13 15 16 Blood Pressure 98/47 L 94/46 L Pulse Oximetry 94 L 95 95 02/18/18 19:44 02/18/18 19:46 02/18/18 19:59 Temperature Pulse Rate 97 H 99 H 93 H Respiratory Rate 24 24 16 Blood Pressure 98/47 L 92/43 L Pulse Oximetry 93 L 97 95 02/18/18 20:00 02/18/18 20:14 02/18/18 20:29 Temperature 99.0 F Pulse Rate 95 H 99 H 96 H Respiratory Rate 17 20 16 Blood Pressure 100/50 L 102/52 L 103/50 L Pulse Oximetry 94 L 89 L 88 L 02/18/18 20:41 02/18/18 21:00 02/18/18 21:30 Temperature Pulse Rate 107 H 101 H 101 H Respiratory Rate 20 19 17 Blood Pressure 89/45 L 99/51 L 92/49 L Pulse Oximetry 90 L 90 L 92 L 02/18/18 22:00 02/18/18 22:30 02/18/18 23:00 Temperature Pulse Rate 101 H 104 H 102 H Respiratory Rate 17 19 13 Blood Pressure 100/50 L 92/48 L 99/52 L Pulse Oximetry 97 99 100 02/18/18 23:22 02/18/18 23:30 02/19/18 00:00 Temperature Pulse Rate 98 H 98 H 103 H Respiratory Rate 18 15 14 Blood Pressure 102/49 L 116/56 L Pulse Oximetry 99 97 02/19/18 00:30 02/19/18 01:00 02/19/18 01:30 Temperature Pulse Rate 110 H 105 H 106 H Respiratory Rate 17 17 15 Blood Pressure 99/49 L 111/54 L 99/55 L Pulse Oximetry 94 L 94 L 95 02/19/18 02:00 02/19/18 02:30 02/19/18 02:32 Temperature Pulse Rate 108 H 111 H 111 H Respiratory Rate 14 27 H 30 H Blood Pressure 92/55 L 83/49 L 79/43 L Pulse Oximetry 97 97 97 02/19/18 02:33 02/19/18 02:34 02/19/18 03:00 Temperature Pulse Rate 111 H 112 H 118 H Respiratory Rate 35 H 34 H 39 H Blood Pressure 76/41 L 109/55 L 104/51 L Pulse Oximetry 98 96 95 02/19/18 03:17 02/19/18 04:00 02/19/18 08:11 Temperature 98.9 F 98 F Pulse Rate 101 H 102 H 113 H Respiratory Rate 16 26 H Blood Pressure 92/44 L 98/56 L Pulse Oximetry 95 Intake & Output 02/18/18 02/19/18 02/19/18 18:59 06:59 18:59 Intake Total 1290 / 1290 415 / 415 0 / 0 Output Total 500 / 500 Balance 790 / 790 415 / 415 0 / 0 Weight 61.8 kg Intake: IV 1230 / 1230 415 / 415 Heparin/D5W 25,000 U/250 mL 25, 250 / 250 000 unit In 250 ml @ Per Protocol IV.CONT TITRATE PRN Rx #:[id number] NS Inj 1,000 ML @ 100 mls/hr IV 1000 / 1000 .CONT .Q10H ISIDORO Rx#:[id number] Ofirmev Inj 650 mg In 65 ml @ 130 / 130 65 / 65 400 mls/hr IV.SIG Q6H [place]ID[place]O Rx#: [id number] Keppra 1000 mg/100 mL Premix 100 / 100 100 / 100 100 ML @ 400 mls/hr IV.SIG Q12H [place]O Rx#:[id number] Oral 60 / 60 Intake (Blood Product) Amt 0 / 0 Rbc As-3 Leukoreduced Unit 0 / 0 [id number] Output: Urine Amount (Catheter) 500 / 500 Straight 500 / 500 Other: # Incontinent Voids 3 Narrative: lethargic Very anemic, mild increased HR but not in acute distress. transfusion ongoing Chest clear anteriorly CV S1S2 RRR 1/6 ENRICO no edema - Urinary Catheter Management Straight Cath placed during this visit: no Results 02/19/18 03:50 02/19/18 03:50 Cardiac Enzymes 02/17/18 02/18/18 02/18/18 Range/Units 19:57 00:32 11:25 AST (15-37) U/L CK-MB (CK-2) 3.4 (0.5-3.6) ng/mL Troponin I 0.35 H 0.28 H 0.21 H (0.02-0.05) ng/mL 02/19/18 Range/Units 03:50 AST 146 H (15-37) U/L CK-MB (CK-2) (0.5-3.6) ng/mL Troponin I (0.02-0.05) ng/mL Coagulation 02/17/18 02/18/18 02/18/18 Range/Units 19:57 00:32 11:25 PT 11.4 (9.8-11.6) sec APTT 26.0 35.8 H D 60.6 H D (23.4-31.7) sec 02/18/18 02/19/18 Range/Units 21:59 03:50 PT (9.8-11.6) sec APTT 69.7 H 100.3 H* D (23.4-31.7) sec Lipids 02/18/18 Range/Units 11:25 Triglycerides 72 (42-150) mg/dL Cholesterol 153 (120-200) mg/dL HDL Cholesterol 87.8 H (40.0-60.0) mg/dL Cholesterol/HDL Ratio 1.74 Ratio CBC 02/17/18 02/18/18 02/19/18 Range/Units 19:57 11:25 03:50 WBC 13.9 H 11.2 H 13.5 H (4.0-11.0) th/mm3 RBC 3.45 L 2.57 L 1.79 L (4.00-5.30) mil/mm3 Hgb 11.2 L 8.5 L D 5.8 L* D (11.6-15.3) gm/dL Hct 32.4 L 25.3 L 17.4 L* (35.0-46.0) % Plt Count 164 111 L D 94 L (150-450) th/mm3 Neut # (Auto) 12.3 H (1.8-7.7) th/mm3 Lymph # (Auto) 0.8 L (1.0-4.8) th/mm3 Yell # (Auto) 0.6 (0.0-0.9) th/mm3 Eos # (Auto) 0.0 (0.0-0.4) th/mm3 Baso # (Auto) 0.1 (0.0-0.2) th/mm3 Comprehensive Metabolic Panel 02/17/18 02/19/18 Range/Units 19:57 03:50 Sodium 131 L 135 L (136-145) meq/L Potassium 4.6 4.0 (3.5-5.1) meq/L Chloride 98 104 (98-107) meq/L Carbon Dioxide 19.5 L 18.9 L (21.0-32.0) meq/L BUN 17 31 H (7-18) mg/dL Creatinine 0.87 1.74 H (0.50-1.00) mg/dL Calcium 8.8 7.8 L D (8.5-10.1) mg/dL AST 146 H (15-37) U/L ALT 62 H (10-53) U/L Alkaline Phosphatase 32 L (45-117) U/L Total Protein 4.9 L (6.4-8.2) g/dL Albumin 2.7 L (3.4-5.0) g/dL Intake and Output 02/18/18 02/19/18 02/19/18 22:59 06:59 14:59 Intake Total 375 / 375 100 / 100 0 / 0 Output Total 500 / 500 Balance -125 / -125 100 / 100 0 / 0 Intake: IV 315 / 315 100 / 100 Heparin/D5W 25,000 U/250 mL 25, 250 / 250 000 unit In 250 ml @ Per Protocol IV.CONT TITRATE PRN Rx #:[id number] Ofirmev Inj 650 mg In 65 ml @ 65 / 65 400 mls/hr IV.SIG Q6H [place] Rx#: [id number] Keppra 1000 mg/100 mL Premix 100 / 100 100 ML @ 400 mls/hr IV.SIG Q12H [place] Rx#:[id number] Oral 60 / 60 Intake (Blood Product) Amt 0 / 0 Rbc As-3 Leukoreduced Unit 0 / 0 [id number] Output: Urine Amount (Catheter) 500 / 500 Straight 500 / 500 Other: # Incontinent Voids 3 Weight 61.8 kg - Imaging and Cardiology Imaging: Impressions Head CT 02/17/18 19:51 CONCLUSION: 1. No bleed or evidence of an acute ischemic event. 2. Mild chronic white matter changes. Report was called by [Dr. Murillo to Dr. Mcarthur at 8:13 PM ] Head CTA 02/17/18 19:56 CONCLUSION: Focal occlusion distally in the right middle cerebral artery distribution as described. Report was called by [ ] Neck CTA 02/17/18 19:56 CONCLUSION: 1. Bilateral carotid bifurcation atherosclerosis. Associated short segment 30% or less narrowing of the proximal right internal carotid artery. No associated narrowing on the left. No hemodynamically significant stenoses are demonstrated. 2. Patent vertebrobasilar system. CT CAD 02/17/18 20:08 CONCLUSION: RAPID analysis as above. Focal right temporoparietal cortical and subcortical ischemia. The decision for consideration of therapy is multi factorial and multi disciplinary relying on subjective and objective clinical data. This data is not construed or intended to be the sole determinant of treatment eligibility. Hip X-Ray 02/17/18 21:01 CONCLUSION: Acute comminuted intertrochanteric fracture of the left femur as described. Lumbar Spine CT 02/18/18 00:02 CONCLUSION: Degenerative changes in the lumbar spine. No acute bony findings. Head CT 02/18/18 11:19 CONCLUSION: 1. 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 2. No evidence of hemorrhage or significant mass effect. . Head MRI 02/18/18 20:22 CONCLUSION: Subacute right hemispheric infarction with scattered punctate areas of microhemorrhage. Early edema. Assessment and Plan - Assessment (1) Anemia Code(s): D64.9 - Anemia, unspecified Status: Acute Plan: IV heparin per Dr. Hanley (2) Right-sided cerebrovascular accident (CVA) Code(s): I63.9 - Cerebral infarction, unspecified Status: Acute (3) Elevated troponin Code(s): R74.8 - Abnormal levels of other serum enzymes Status: Acute Plan: Most likely from CVA. Repeat EKG but no evidence so far of NM
[2018-02-19] MEDS: Insulin NovoLOG Aspart Correctional Sugar Inj SQ SCH ×3 (08:39→18:05)
[2018-02-19] MEDS: Senna/Docusate Sodium 8.6/50 MG Tablet PO SCH ×3 (08:40→20:20)
[2018-02-19] MEDS: Pantoprazole Inj 40 MG Vial IV.PUSH SCH (08:40)
--- NOTE | 2018-02-19 08:54 | P.PNCC ---
Subjective Subjective Remarks/Hospital Course: 02/17: This is an 82-year-old female. English speaking understanding [place]. Date of admission 02/17/2003 past medical includes hypertension, hyperlipidemia, anxiety and low back pain. 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 Patient was seen by her primary care physician on Wednesday according to she was a "stroke waiting to happen". She is currently on propranolol 10 mg and amlodipine 5 mg daily. She is on buspirone 5 mg daily for anxiety. Today, she is brought in by EMS to [facility] post fall 3:30 PM today. On arrival also evaluated the patient appears that she is not crossing the midline and she has a fixed gaze to the right. She appears confused and her left side is more ataxic on the left upper extremity and cannot see on the left visual field. According to record, family friends are here reporting that they went to check on her around 4:00 and she has stated that she has just fallen in the bathroom 5 minutes prior to arrival. Her also reported that she was sleeping yesterday all day. CT brain revealed no acute intracranial findings. CT Angi0 of the brain revealed M2 branch occluded 1 cm distally to the bifurcation. CT CT revealed right temporoparietal CVA acute. Due to the unknown timing of the stroke she was not considered to be a candidate for stent retrieval. She started on a heparin drip currently at 700 units an hour/lie flat and given aspirin 300 mg p.o. daily. Neurology/Dr. Hanley is following. MRI brain in a.m. 02/18. Patient has a acute comminuted left intertrochanteric fracture. She will be followed by orthopedics and they have been notified. Troponin is slightly elevated 0.35. EKG is currently pending. Echocardiogram is been ordered. 02/18: Resting comfortably in bed. Had a seizure earlier. Follows commands. Opens her mouth and sticks out her tongue. Keeping her eyes closed. 02/19: Patient has tachycardia with decreasing blood pressure. Hemoglobin this morning is 5.8, a decline of almost 2 g. I suspect she has bled around the fracture site, hopefully stopped. We will start by transfusing 2 units of packed cells but need to consider discontinuing her systemic anticoagulation if this trend continues. Objective Vital Signs / I&O: Vital Signs 02/18/18 09:00 02/18/18 09:08 02/18/18 09:12 Temperature Pulse Rate 94 H 90 89 Respiratory Rate Blood Pressure 81/42 L 81/44 L Pulse Oximetry 99 99 100 02/18/18 09:13 02/18/18 09:55 02/18/18 10:00 Temperature Pulse Rate 85 Respiratory Rate 20 Blood Pressure 108/55 L Pulse Oximetry 72 L 02/18/18 10:41 02/18/18 10:59 02/18/18 11:00 Temperature Pulse Rate 87 83 87 Respiratory Rate 29 H 81 H Blood Pressure 102/49 L 94/52 L Pulse Oximetry 82 L 88 L 90 L 02/18/18 11:14 02/18/18 11:29 02/18/18 11:44 Temperature Pulse Rate 87 83 86 Respiratory Rate 140 H 123 H 136 H Blood Pressure 86/44 L 86/51 L 90/52 L Pulse Oximetry 90 L 85 L 95 02/18/18 11:51 02/18/18 11:59 02/18/18 12:00 Temperature 99.6 F Pulse Rate 86 88 Respiratory Rate 12 16 Blood Pressure 95/53 L 95/53 L Pulse Oximetry 89 L 94 L 02/18/18 12:14 02/18/18 12:29 02/18/18 12:44 Temperature Pulse Rate 86 83 84 Respiratory Rate 23 Blood Pressure 88/48 L 83/44 L 97/50 L Pulse Oximetry 90 L 88 L 70 L 02/18/18 12:59 02/18/18 13:00 02/18/18 13:14 Temperature Pulse Rate 86 86 83 Respiratory Rate 20 18 23 Blood Pressure 88/47 L 93/44 L Pulse Oximetry 77 L 78 L 96 02/18/18 13:29 02/18/18 13:44 02/18/18 13:59 Temperature Pulse Rate 81 84 83 Respiratory Rate 16 20 16 Blood Pressure 88/49 L 92/44 L 88/50 L Pulse Oximetry 02/18/18 14:00 02/18/18 14:14 02/18/18 14:29 Temperature Pulse Rate 84 81 83 Respiratory Rate 21 17 17 Blood Pressure 88/45 L 98/50 L Pulse Oximetry 92 L 02/18/18 14:44 02/18/18 14:59 02/18/18 15:00 Temperature Pulse Rate 85 95 H 97 H Respiratory Rate 20 41 H 33 H Blood Pressure 91/46 L 70/47 L Pulse Oximetry 96 93 L 98 02/18/18 15:02 02/18/18 15:14 02/18/18 15:29 Temperature Pulse Rate 89 80 88 Respiratory Rate 33 H 14 17 Blood Pressure 108/51 L 101/44 L 91/46 L Pulse Oximetry 98 76 L 02/18/18 15:44 02/18/18 15:47 02/18/18 15:59 Temperature Pulse Rate 86 93 H 92 H Respiratory Rate 15 20 19 Blood Pressure 88/40 L 94/49 L 93/47 L Pulse Oximetry 86 L 89 L 95 02/18/18 16:00 02/18/18 18:59 02/18/18 19:00 Temperature 98.9 F Pulse Rate 91 H 89 88 Respiratory Rate 19 13 13 Blood Pressure 93/47 L 92/44 L Pulse Oximetry 94 L 95 94 L 02/18/18 19:14 02/18/18 19:29 02/18/18 19:44 Temperature Pulse Rate 90 93 H 97 H Respiratory Rate 15 16 24 Blood Pressure 98/47 L 94/46 L 98/47 L Pulse Oximetry 95 95 93 L 02/18/18 19:46 02/18/18 19:59 02/18/18 20:00 Temperature 99.0 F Pulse Rate 99 H 93 H 95 H Respiratory Rate 24 16 17 Blood Pressure 92/43 L 100/50 L Pulse Oximetry 97 95 94 L 02/18/18 20:14 02/18/18 20:29 02/18/18 20:41 Temperature Pulse Rate 99 H 96 H 107 H Respiratory Rate 20 16 20 Blood Pressure 102/52 L 103/50 L 89/45 L Pulse Oximetry 89 L 88 L 90 L 02/18/18 21:00 02/18/18 21:30 02/18/18 22:00 Temperature Pulse Rate 101 H 101 H 101 H Respiratory Rate 19 17 17 Blood Pressure 99/51 L 92/49 L 100/50 L Pulse Oximetry 90 L 92 L 97 02/18/18 22:30 02/18/18 23:00 02/18/18 23:22 Temperature Pulse Rate 104 H 102 H 98 H Respiratory Rate 19 13 18 Blood Pressure 92/48 L 99/52 L Pulse Oximetry 99 100 02/18/18 23:30 02/19/18 00:00 02/19/18 00:30 Temperature Pulse Rate 98 H 103 H 110 H Respiratory Rate 15 14 17 Blood Pressure 102/49 L 116/56 L 99/49 L Pulse Oximetry 99 97 94 L 02/19/18 01:00 02/19/18 01:30 02/19/18 02:00 Temperature Pulse Rate 105 H 106 H 108 H Respiratory Rate 17 15 14 Blood Pressure 111/54 L 99/55 L 92/55 L Pulse Oximetry 94 L 95 97 02/19/18 02:30 02/19/18 02:32 02/19/18 02:33 Temperature Pulse Rate 111 H 111 H 111 H Respiratory Rate 27 H 30 H 35 H Blood Pressure 83/49 L 79/43 L 76/41 L Pulse Oximetry 97 97 98 02/19/18 02:34 02/19/18 03:00 02/19/18 03:17 Temperature Pulse Rate 112 H 118 H 101 H Respiratory Rate 34 H 39 H 16 Blood Pressure 109/55 L 104/51 L Pulse Oximetry 96 95 02/19/18 04:00 02/19/18 08:11 02/19/18 08:30 Temperature 98.9 F 98 F 98.1 F Pulse Rate 102 H 113 H 97 H Respiratory Rate 26 H 18 Blood Pressure 92/44 L 98/56 L 104/58 L Pulse Oximetry 95 02/19/18 08:39 Temperature Pulse Rate 96 H Respiratory Rate 22 Blood Pressure Pulse Oximetry 100 Intake & Output 02/18/18 02/19/18 02/19/18 18:59 06:59 18:59 Intake Total 1290 / 1290 415 / 415 0 / 0 Output Total 500 / 500 Balance 790 / 790 415 / 415 0 / 0 Weight 61.8 kg Intake: IV 1230 / 1230 415 / 415 Heparin/D5W 25,000 U/250 mL 25, 250 / 250 000 unit In 250 ml @ Per Protocol IV.CONT TITRATE PRN Rx #:[id number] NS Inj 1,000 ML @ 100 mls/hr IV 1000 / 1000 .CONT .Q10H [facility] Rx#:[id number] Ofirmev Inj 650 mg In 65 ml @ 130 / 130 65 / 65 400 mls/hr IV.SIG Q6H [facility] Rx#: [id number] Keppra 1000 mg/100 mL Premix 100 / 100 100 / 100 100 ML @ 400 mls/hr IV.SIG Q12H [facility] Rx#:[id number] Oral 60 / 60 Intake (Blood Product) Amt 0 / 0 Rbc As-3 Leukoreduced Unit 0 / 0 [id number] Output: Urine Amount (Catheter) 500 / 500 Straight 500 / 500 Other: # Incontinent Voids 3 Result Diagrams: 02/19/18 03:50 02/19/18 03:50 Objective Remarks: HEENT/Neuro: No pallor or icterus, tongue moist, MICHAEL, drowsy, arousable. Occasionally responds by answering yes or no. Opens her mouth, sticks her tongue out. Right approximately weakness. Limited mobility left lower extremity secondary to hip fracture. Neck: Airway widely patent, no obstructive noises. Chest/pulmonary: Clear, comfortable respiratory pattern, no adventitious sounds. Cardiovascular: S1-S2 regular no gallop or murmur, no JVD. GI/abdomen: Soft, nontender, bowel sounds present. No guarding. Extremities: Tepid bilaterally, no edema Assessment and Plan - Problem List (1) Right-sided cerebrovascular accident (CVA) Code(s): I63.9 - Cerebral infarction, unspecified Status: Acute (2) Essential hypertension Code(s): I10 - Essential (primary) hypertension Status: Chronic (3) Hyperlipidemia Code(s): E78.5 - Hyperlipidemia, unspecified Status: Chronic (4) Hyperglycemia Code(s): R73.9 - Hyperglycemia, unspecified Status: Acute (5) Hyponatremia Code(s): E87.1 - Hypo-osmolality and hyponatremia Status: Acute (6) Elevated troponin Code(s): R74.8 - Abnormal levels of other serum enzymes Status: Acute (7) Leukocytosis Code(s): D72.829 - Elevated white blood cell count, unspecified Status: Acute (8) Fracture, intertrochanteric, left femur Code(s): S72.142A - Displaced intertrochanteric fracture of left femur, initial encounter for closed fracture Status: Acute - Assessment and Plan Plan: Neuro/Psych: Acute right temporal parietal CVA Occlusion of the M2 branch MCA CT brain on admission no acute intracranial findings. CT angiogram revealed an M2 branch occluded [address] CAD revealed right temporal CVA acute. Size is approximately 3 x [address] Hanley/neurology recommended aspirin and heparin drip. Head of bed flat. MRI of brain in a.m. 02/18 PT/OT/ST evaluate and treat Acetaminophen 650 mg p.o. every 6 hours as needed fever Hydrocodone/acetaminophen 325/5 1 tablet every 4 hours as needed pain 1-5 Morphine sulfate 2 mg IV every 2 hours. Pain 6 - 10 Decreasing hemoglobin, may need to hold anticoagulation. CV: Essential hypertension Hyperlipidemia Elevated troponin Currently on as needed labetalol/nicardipine drip to maintain systolic blood pressure less than 20/diastolic pressure less than 120 Medications are amlodipine 5 mg daily propanolol 20 mg daily. Started on pravastatin 40 mg daily for dyslipidemia. Lipid panel pending EKG pending. Initial troponin 0 0.35. Every 6 hours x2 ordered. Echocardiogram ordered. Cardiology consulted. On anticoagulation with heparin. Continue aspirin Resp: Nasal cannula to maintain saturations greater than or equal to 92% Incentive spirometry while awake Albuterol/ipratropium aerosols every 4 hours with albuterol aerosols every 2 hours as needed dyspnea Lung hyperinflation protocol GI: Currently n.p.o. status Pantoprazole for GI prophylaxis Docusate sodium/senna 1 tablet twice daily for bowel regimen : Straight catheterization as needed Endo: Acute hyperglycemia Sliding scale insulin aspart insulin Accu-Cheks every 6 hours to maintain euglycemia/low regimen Check TSH Check hemoglobin A1c Renal: Creatinine currently within normal limits Monitor urine output Accurate I's and O's Heme: Leukocytosis/acute Monitor CBC daily. Follow trends. No indication for transfusion of blood products at this time. Hemoglobin 5.8 this morning, acute change, likely reflects blood loss. ID: Monitor for signs and symptomatology infection MSK: Acute comminuted IT fracture left femur Chronic Low back pain Lumbar spine imaging currently pending X-ray of the hip revealed acute comminuted IT fracture of the left femur. Nondisplaced. Orthopedics consultation-discussed with Dr. Berger. Deferred surgery for hip fracture to Wednesday following discussion with Dr. Hanley due to acute stroke/ seizure. FEN: Hyponatremia/acute Replace electrolytes as clinically indicated per ICU electrolyte protocol Access -Utilize peripheral IV. Central line if indicated Prophylaxis -GI -pantoprazole -DVT -SCD/heparin drip Overall impression: This woman is critically ill having become hypotensive and tachycardic. Her hemoglobin has declined almost 2 g overnight, likely reflecting acute blood loss from the hip. She is receiving urgent blood transfusions now. We will need to reassess her need for anticoagulation Critical care time 40 minutes aside from procedures. (3) Hyperlipidemia Qualifiers: Hyperlipidemia type: unspecified Qualified Code(s): E78.5 - Hyperlipidemia, unspecified (7) Leukocytosis Qualifiers: Leukocytosis type: unspecified Qualified Code(s): D72.829 - Elevated white blood cell count, unspecified (8) Fracture, intertrochanteric, left femur Qualifiers: Encounter type: initial encounter Fracture type: closed Fracture alignment: nondisplaced Qualified Code(s): S72.145A - Nondisplaced intertrochanteric fracture of left femur, initial encounter for closed fracture
[2018-02-19] MEDS ORDERED: Phenylephrine Inj 40 MG in Sodium Chlor 0.9% Inj 496 ML IV.CONT PRN (09:00)
--- NOTE | 2018-02-19 09:53 | P.PNOP ---
Subjective Interval history: s/p left intertroch hip fx no changes Physical Exam Vital signs: Vital Signs 02/18/18 09:55 02/18/18 10:00 02/18/18 10:41 Temperature Pulse Rate 85 87 Respiratory Rate 29 H Blood Pressure 108/55 L 102/49 L Pulse Oximetry 72 L 82 L 02/18/18 10:59 02/18/18 11:00 02/18/18 11:14 Temperature Pulse Rate 83 87 87 Respiratory Rate 81 H 140 H Blood Pressure 94/52 L 86/44 L Pulse Oximetry 88 L 90 L 90 L 02/18/18 11:29 02/18/18 11:44 02/18/18 11:51 Temperature Pulse Rate 83 86 86 Respiratory Rate 123 H 136 H 12 Blood Pressure 86/51 L 90/52 L Pulse Oximetry 85 L 95 89 L 02/18/18 11:59 02/18/18 12:00 02/18/18 12:14 Temperature 99.6 F Pulse Rate 88 86 Respiratory Rate 16 Blood Pressure 95/53 L 95/53 L 88/48 L Pulse Oximetry 94 L 90 L 02/18/18 12:29 02/18/18 12:44 02/18/18 12:59 Temperature Pulse Rate 83 84 86 Respiratory Rate 23 20 Blood Pressure 83/44 L 97/50 L 88/47 L Pulse Oximetry 88 L 70 L 77 L 02/18/18 13:00 02/18/18 13:14 02/18/18 13:29 Temperature Pulse Rate 86 83 81 Respiratory Rate 18 23 16 Blood Pressure 93/44 L 88/49 L Pulse Oximetry 78 L 96 02/18/18 13:44 02/18/18 13:59 02/18/18 14:00 Temperature Pulse Rate 84 83 84 Respiratory Rate 20 16 21 Blood Pressure 92/44 L 88/50 L Pulse Oximetry 02/18/18 14:14 02/18/18 14:29 02/18/18 14:44 Temperature Pulse Rate 81 83 85 Respiratory Rate 17 17 20 Blood Pressure 88/45 L 98/50 L 91/46 L Pulse Oximetry 92 L 96 02/18/18 14:59 02/18/18 15:00 02/18/18 15:02 Temperature Pulse Rate 95 H 97 H 89 Respiratory Rate 41 H 33 H 33 H Blood Pressure 70/47 L 108/51 L Pulse Oximetry 93 L 98 98 02/18/18 15:14 02/18/18 15:29 02/18/18 15:44 Temperature Pulse Rate 80 88 86 Respiratory Rate 14 17 15 Blood Pressure 101/44 L 91/46 L 88/40 L Pulse Oximetry 76 L 86 L 02/18/18 15:47 02/18/18 15:59 02/18/18 16:00 Temperature 98.9 F Pulse Rate 93 H 92 H 91 H Respiratory Rate 20 19 19 Blood Pressure 94/49 L 93/47 L 93/47 L Pulse Oximetry 89 L 95 94 L 02/18/18 18:59 02/18/18 19:00 02/18/18 19:14 Temperature Pulse Rate 89 88 90 Respiratory Rate 13 13 15 Blood Pressure 92/44 L 98/47 L Pulse Oximetry 95 94 L 95 02/18/18 19:29 02/18/18 19:44 02/18/18 19:46 Temperature Pulse Rate 93 H 97 H 99 H Respiratory Rate 16 24 24 Blood Pressure 94/46 L 98/47 L Pulse Oximetry 95 93 L 97 02/18/18 19:59 02/18/18 20:00 02/18/18 20:14 Temperature 99.0 F Pulse Rate 93 H 95 H 99 H Respiratory Rate 16 17 20 Blood Pressure 92/43 L 100/50 L 102/52 L Pulse Oximetry 95 94 L 89 L 02/18/18 20:29 02/18/18 20:41 02/18/18 21:00 Temperature Pulse Rate 96 H 107 H 101 H Respiratory Rate 16 20 19 Blood Pressure 103/50 L 89/45 L 99/51 L Pulse Oximetry 88 L 90 L 90 L 02/18/18 21:30 02/18/18 22:00 02/18/18 22:30 Temperature Pulse Rate 101 H 101 H 104 H Respiratory Rate 17 17 19 Blood Pressure 92/49 L 100/50 L 92/48 L Pulse Oximetry 92 L 97 99 02/18/18 23:00 02/18/18 23:22 02/18/18 23:30 Temperature Pulse Rate 102 H 98 H 98 H Respiratory Rate 13 18 15 Blood Pressure 99/52 L 102/49 L Pulse Oximetry 100 99 02/19/18 00:00 02/19/18 00:30 02/19/18 01:00 Temperature Pulse Rate 103 H 110 H 105 H Respiratory Rate 14 17 17 Blood Pressure 116/56 L 99/49 L 111/54 L Pulse Oximetry 97 94 L 94 L 02/19/18 01:30 02/19/18 02:00 02/19/18 02:30 Temperature Pulse Rate 106 H 108 H 111 H Respiratory Rate 15 14 27 H Blood Pressure 99/55 L 92/55 L 83/49 L Pulse Oximetry 95 97 97 02/19/18 02:32 02/19/18 02:33 02/19/18 02:34 Temperature Pulse Rate 111 H 111 H 112 H Respiratory Rate 30 H 35 H 34 H Blood Pressure 79/43 L 76/41 L 109/55 L Pulse Oximetry 97 98 96 02/19/18 03:00 02/19/18 03:17 02/19/18 04:00 Temperature 98.9 F Pulse Rate 118 H 101 H 102 H Respiratory Rate 39 H 16 Blood Pressure 104/51 L 92/44 L Pulse Oximetry 95 95 02/19/18 08:11 02/19/18 08:30 02/19/18 08:39 Temperature 98 F 98.1 F Pulse Rate 113 H 97 H 96 H Respiratory Rate 26 H 18 22 Blood Pressure 98/56 L 104/58 L Pulse Oximetry 100 Intake & Output 02/18/18 02/19/18 02/19/18 18:59 06:59 18:59 Intake Total 1290 / 1290 415 / 415 0 / 0 Output Total 500 / 500 Balance 790 / 790 415 / 415 0 / 0 Weight 61.8 kg Intake: IV 1230 / 1230 415 / 415 Heparin/D5W 25,000 U/250 mL 25, 250 / 250 000 unit In 250 ml @ Per Protocol IV.CONT TITRATE PRN Rx #:[id number] NS Inj 1,000 ML @ 100 mls/hr IV 1000 / 1000 .CONT .Q10H [facility] Rx#:[id number] Ofirmev Inj 650 mg In 65 ml @ 130 / 130 65 / 65 400 mls/hr IV.SIG Q6H [facility] Rx#: [id number] Keppra 1000 mg/100 mL Premix 100 / 100 100 / 100 100 ML @ 400 mls/hr IV.SIG Q12H [facility] Rx#:[id number] Oral 60 / 60 Intake (Blood Product) Amt 0 / 0 Rbc As-3 Leukoreduced Unit 0 / 0 [id number] Output: Urine Amount (Catheter) 500 / 500 Straight 500 / 500 Other: # Incontinent Voids 3 Narrative: LLE: pain in hip with movement. nvi. 3+ swelling of thigh. compartments soft - Urinary Catheter Management Straight Cath placed during this visit: no Results - Labs CBC & Chem 7: 02/19/18 03:50 02/19/18 03:50 Laboratory Results - last 24 hr 02/18/18 02/18/18 02/18/18 10:50 11:25 11:25 WBC 11.2 H RBC 2.57 L Hgb 8.5 L D Hct 25.3 L MCV 98.4 D MCH 32.9 MCHC 33.4 RDW 14.4 Plt Count 111 L D MPV 8.9 APTT Puncture Site Left radial Patient Temperature 98.6 O2 Saturation 95 ABG pH 7.18 L* ABG pCO2 29 L ABG pO2 119 ABG HCO3 10 L* ABG O2 Content 10.8 L ABG Base Excess -16.5 L ABG Methemoglobin 1.2 Hector Test Present Hemoglobin 7.9 L* Carboxyhemoglobin 1.1 O2 Delivery Device Nasal cannula Liter Flow 2.00 Critical Value Yes Sodium Potassium Chloride Carbon Dioxide Anion Gap BUN Creatinine Estimated GFR POC Glucose Random Glucose Hemoglobin A1c Lactic Acid Calcium Total Bilirubin AST ALT Alkaline Phosphatase Troponin I 0.21 H Total Protein Albumin Triglycerides 72 Cholesterol 153 LDL Cholesterol, Calc 51 HDL Cholesterol 87.8 H Cholesterol/HDL Ratio 1.74 MTS Gel Crossmatch 02/18/18 02/18/18 02/18/18 11:25 11:25 11:25 WBC RBC Hgb Hct MCV MCH MCHC RDW Plt Count MPV APTT 60.6 H D Puncture Site Patient Temperature O2 Saturation ABG pH ABG pCO2 ABG pO2 ABG HCO3 ABG O2 Content ABG Base Excess ABG Methemoglobin Hector Test Hemoglobin Carboxyhemoglobin O2 Delivery Device Liter Flow Critical Value Sodium Potassium Chloride Carbon Dioxide Anion Gap BUN Creatinine Estimated GFR POC Glucose Random Glucose Hemoglobin A1c 5.7 Lactic Acid 7.2 H* Calcium Total Bilirubin AST ALT Alkaline Phosphatase Troponin I Total Protein Albumin Triglycerides Cholesterol LDL Cholesterol, Calc HDL Cholesterol Cholesterol/HDL Ratio MTS Gel Crossmatch 02/18/18 02/18/18 02/18/18 12:53 21:59 21:59 WBC RBC Hgb Hct MCV MCH MCHC RDW Plt Count MPV APTT 69.7 H Puncture Site Patient Temperature O2 Saturation ABG pH ABG pCO2 ABG pO2 ABG HCO3 ABG O2 Content ABG Base Excess ABG Methemoglobin Hector Test Hemoglobin Carboxyhemoglobin O2 Delivery Device Liter Flow Critical Value Sodium Potassium Chloride Carbon Dioxide Anion Gap BUN Creatinine Estimated GFR POC Glucose 207 H Random Glucose Hemoglobin A1c Lactic Acid 2.4 H Calcium Total Bilirubin AST ALT Alkaline Phosphatase Troponin I Total Protein Albumin Triglycerides Cholesterol LDL Cholesterol, Calc HDL Cholesterol Cholesterol/HDL Ratio MTS Gel Crossmatch 02/18/18 02/18/18 02/19/18 23:20 23:41 03:50 WBC 13.5 H RBC 1.79 L Hgb 5.8 L* D Hct 17.4 L* MCV 97.2 MCH 32.6 MCHC 33.6 RDW 13.9 Plt Count 94 L MPV 9.0 APTT Puncture Site Patient Temperature O2 Saturation ABG pH ABG pCO2 ABG pO2 ABG HCO3 ABG O2 Content ABG Base Excess ABG Methemoglobin Hector Test Hemoglobin Carboxyhemoglobin O2 Delivery Device Liter Flow Critical Value Sodium Potassium Chloride Carbon Dioxide Anion Gap BUN Creatinine Estimated GFR POC Glucose 140 H 208 H Random Glucose Hemoglobin A1c Lactic Acid Calcium Total Bilirubin AST ALT Alkaline Phosphatase Troponin I Total Protein Albumin Triglycerides Cholesterol LDL Cholesterol, Calc HDL Cholesterol Cholesterol/HDL Ratio MTS Gel Crossmatch 02/19/18 02/19/18 02/19/18 03:50 03:50 03:50 WBC RBC Hgb Hct MCV MCH MCHC RDW Plt Count MPV APTT 100.3 H* D Puncture Site Patient Temperature O2 Saturation ABG pH ABG pCO2 ABG pO2 ABG HCO3 ABG O2 Content ABG Base Excess ABG Methemoglobin Hector Test Hemoglobin Carboxyhemoglobin O2 Delivery Device Liter Flow Critical Value Sodium 135 L Potassium 4.0 Chloride 104 Carbon Dioxide 18.9 L Anion Gap 12 BUN 31 H Creatinine 1.74 H Estimated GFR 28 L POC Glucose Random Glucose 170 H Hemoglobin A1c Lactic Acid 3.8 H Calcium 7.8 L D Total Bilirubin 1.0 AST 146 H ALT 62 H Alkaline Phosphatase 32 L Troponin I Total Protein 4.9 L Albumin 2.7 L Triglycerides Cholesterol LDL Cholesterol, Calc HDL Cholesterol Cholesterol/HDL Ratio MTS Gel Crossmatch 02/19/18 02/19/18 02/19/18 05:14 05:55 08:44 WBC RBC Hgb Hct MCV MCH MCHC RDW Plt Count MPV APTT Puncture Site Patient Temperature O2 Saturation ABG pH ABG pCO2 ABG pO2 ABG HCO3 ABG O2 Content ABG Base Excess ABG Methemoglobin Hector Test Hemoglobin Carboxyhemoglobin O2 Delivery Device Liter Flow Critical Value Sodium Potassium Chloride Carbon Dioxide Anion Gap BUN Creatinine Estimated GFR POC Glucose 157 H Random Glucose Hemoglobin A1c Lactic Acid Calcium Total Bilirubin AST ALT Alkaline Phosphatase Troponin I Total Protein Albumin Triglycerides Cholesterol LDL Cholesterol, Calc HDL Cholesterol Cholesterol/HDL Ratio MTS Gel Crossmatch See Detail See Detail - Imaging Impressions Lumbar Spine CT 02/18/18 00:02 CONCLUSION: Degenerative changes in the lumbar spine. No acute bony findings. Head CT 02/18/18 11:19 CONCLUSION: 1. 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 2. No evidence of hemorrhage or significant mass effect. . Head MRI 02/18/18 20:22 CONCLUSION: Subacute right hemispheric infarction with scattered punctate areas of microhemorrhage. Early edema. Assessment and Plan - Assessment and Plan 1) Left Intertroch Hip Fx -patient not stable yet for surgery -plan for surgery potentially wednesday with either Dr Carrillo or Dr Avalos
--- NOTE | 2018-02-19 10:03 | P.PNNEU ---
Subjective Subjective Comments: no more sz Active Medications: Active Medications Acetaminophen (Tylenol) 650 mg PO Q6H PRN PRN Reason: FEVER Hydrocodone Bitart/Acetaminophen ([place] 5/325) 1 tab PO Q4H PRN PRN Reason: PAIN SCALE 1 TO 5 Last Admin: 02/18/18 10:17 Dose: 1 tab Al Hydroxide/Mg Hydroxide (Milk Of Magnfabrice Liq) 30 ml PO Q12H PRN PRN Reason: Mild Constipation Albuterol (Albuterol Neb (Prn)) 2.5 mg NEB Q2HR NEB PRN PRN Reason: SHORTNESS OF BREATH/WHEEZING Albuterol (Duoneb Neb (Isidoro)) 1 ampul NEB Q4HR NEB [facility] Last Admin: 02/19/18 08:35 Dose: 1 ampul Aspirin (Aspirin Chew) 81 mg PO DAILY [facility] Last Admin: 02/19/18 08:39 Dose: Not Given Bisacodyl (Dulcolax Supp) 10 mg RECTAL DAILY PRN PRN Reason: SEVERE CONSITIPATION Buspirone HCl (Buspar) 5 mg PO DAILY [facility] Last Admin: 02/19/18 08:39 Dose: Not Given Chlorhexidine Gluconate (Chlorhexidine 2% Cloth) 3 pack TOPICAL DAILY@0400 [facility] Stop: 02/23/18 03:59 Last Admin: 02/19/18 07:54 Dose: Not Given Chlorhexidine Gluconate (Chlorhexidine 2% Cloth) 3 pack TOPICAL DAILY@0400 PRN PRN Reason: Extra cloth needed Stop: 02/23/18 03:59 Dextrose (D50w Vial) 50 ml IV.PUSH UNSCH PRN PRN Reason: PER HYPOGLYCEMIA PROTOCOL Glucagon (Glucagon Inj) 1 mg OTHER PRN PRN PRN Reason: for Hypoglycemia Protocol Sodium Chloride (Ns Inj) 1,000 mls @ 70 mls/hr IV.CONT .[id number] [facility] Last Admin: 02/19/18 07:53 Dose: Not Given Heparin Sodium/Dextrose (Heparin/D5w 25,000 U/250 Ml) 25,000 unit in 250 mls @ 0 mls/hr IV.CONT TITRATE PRN; Protocol PRN Reason: Per Protocol Last Titration: 02/19/18 06:00 Dose: 500 units/hr, 5 mls/hr Sodium Chloride (Ns Inj) 1,000 mls @ 100 mls/hr IV.CONT .Q10H [place] Last Admin: 02/19/18 04:27 Dose: Not Given Magnesium Sulfate 4 gm/ Sodium (Chloride) 100 mls @ 50 mls/hr IV.SIG UNSCH PRN PRN Reason: For Magnesium 0.9 - 1.1 mg/dL Magnesium Sulfate 2 gm/ Sodium (Chloride) 100 mls @ 50 mls/hr IV.SIG UNSCH PRN PRN Reason: For Magnesium 1.2 - 1.6 mg/dL Potassium Chloride (Kcl 40 Meq Premix Inj) 40 meq in 100 mls @ 25 mls/hr IV.SIG Q2H PRN PRN Reason: For Potassium 2.8 - 3.2 mEq/L Potassium Chloride (Kcl 20 Meq Premix Inj) 20 meq in 100 mls @ 50 mls/hr IV.SIG Q2H PRN PRN Reason: For Potassium 3.3 - 3.5 mEq/L Potassium Chloride (Kcl 20 Meq Premix Inj) 20 meq in 100 mls @ 50 mls/hr IV.SIG Q2H PRN PRN Reason: For Potassium 2.8 - 3.2 mEq/L Potassium Phosphate 30 mmol/ (Sodium Chloride) 260 mls @ 42 mls/hr IV.SIG UNSCH PRN PRN Reason: SEE LABEL COMMENTS Sodium Phosphate 30 mmol/ (Sodium Chloride) 260 mls @ 42 mls/hr IV.SIG UNSCH PRN PRN Reason: For Phosphorus < 2.5 mg/dL Potassium Chloride (Kcl 40 Meq Premix Inj) 40 meq in 100 mls @ 25 mls/hr IV.SIG UNSCH PRN PRN Reason: For Potassium 3.3 - 3.5 mEq/L Nicardipine HCl 25 mg/ Sodium (Chloride) 250 mls @ 50 mls/hr IV.CONT TITRATE PRN; Protocol PRN Reason: Per Protocol Levetiracetam (Keppra 1000 Mg/100 Ml Premix) 100 mls @ 400 mls/hr IV.SIG Q12H [place] Last Infusion: 02/19/18 00:18 Dose: Infused Phenylephrine HCl 40 mg/ (Sodium Chloride) 500 mls @ 30 mls/hr IV.CONT TITRATE PRN; Protocol PRN Reason: See Protocol Insulin Aspart (Novolog Insulin Correctional Sugar Inj) 0 unit SQ Q6HR [place]; Protocol Last Admin: 02/19/18 08:39 Dose: Not Given Labetalol HCl (Trandate Inj) 10 mg IV.PUSH Q2H PRN PRN Reason: For SBP > 220 or DBP > 120 Lactulose (Lactulose Liq) 30 ml PO DAILY PRN PRN Reason: SEVERE CONSITIPATION Magnesium Oxide (Mag-Ox) 800 mg PO UNSCH PRN PRN Reason: For Magnesium 1.2 - 1.6 mg/dL Morphine Sulfate (Morphine Inj) 1 mg IV.PUSH Q2H PRN PRN Reason: PAIN SCALE 6 TO 10 Last Admin: 02/18/18 08:58 Dose: 1 mg Ondansetron HCl (Zofran Inj) 4 mg IV.PUSH Q6H PRN PRN Reason: NAUSEA OR VOMITING Pantoprazole Sodium (Protonix Inj) 40 mg IV.PUSH DAILY [facility] Last Admin: 02/19/18 08:40 Dose: 40 mg Potassium Bicarb/Potassium Chloride (K-Lyte Cl Eff) 50 meq PO UNSCH PRN PRN Reason: For Potassium 3.3 - 3.5 mEq/L Potassium Phosphate (K-Phos Original) 2,000 mg PO Q4H PRN PRN Reason: Phosphorus Less Than 2.5 mg/dL Potassium Phosphate (K-Phos Original) 2,000 mg PO UNSCH PRN PRN Reason: SEE LABEL COMMENTS Pravastatin Sodium (Pravachol) 40 mg PO HS [facility] Last Admin: 02/18/18 21:19 Dose: Not Given Senna/Docusate Sodium (Janice-Colace) 1 tab PO BID [facility] Last Admin: 02/19/18 08:40 Dose: Not Given Sennosides (Senokot) 17.2 mg PO Q12H PRN PRN Reason: Moderate Constipation Sodium Chloride (Ns Flush) 2 ml IV.FLUSH BID [facility] Last Admin: 02/19/18 08:39 Dose: 2 ml Sodium Chloride (Ns Flush) 2 ml IV.FLUSH PRN PRN PRN Reason: FLUSH AFTER USING IV ACCESS Terbutaline Sulfate (Brethine Inj) 1 mg SQ UNSCH PRN PRN Reason: For Extravasation Allergies/Adverse Reactions: Allergies Allergy/AdvReac Type Severity Reaction Status Date / Time No Known Allergies Allergy Uncoded 05/09/12 18:20 Physical Exam Vital signs: Vital Signs 02/18/18 10:00 02/18/18 10:41 02/18/18 10:59 Temperature Pulse Rate 85 87 83 Respiratory Rate 29 H Blood Pressure 102/49 L 94/52 L Pulse Oximetry 72 L 82 L 88 L 02/18/18 11:00 02/18/18 11:14 02/18/18 11:29 Temperature Pulse Rate 87 87 83 Respiratory Rate 81 H 140 H 123 H Blood Pressure 86/44 L 86/51 L Pulse Oximetry 90 L 90 L 85 L 02/18/18 11:44 02/18/18 11:51 02/18/18 11:59 Temperature Pulse Rate 86 86 Respiratory Rate 136 H 12 Blood Pressure 90/52 L 95/53 L Pulse Oximetry 95 89 L 02/18/18 12:00 02/18/18 12:14 02/18/18 12:29 Temperature 99.6 F Pulse Rate 88 86 83 Respiratory Rate 16 Blood Pressure 95/53 L 88/48 L 83/44 L Pulse Oximetry 94 L 90 L 88 L 02/18/18 12:44 02/18/18 12:59 02/18/18 13:00 Temperature Pulse Rate 84 86 86 Respiratory Rate 23 20 18 Blood Pressure 97/50 L 88/47 L Pulse Oximetry 70 L 77 L 78 L 02/18/18 13:14 02/18/18 13:29 02/18/18 13:44 Temperature Pulse Rate 83 81 84 Respiratory Rate 23 16 20 Blood Pressure 93/44 L 88/49 L 92/44 L Pulse Oximetry 96 02/18/18 13:59 02/18/18 14:00 02/18/18 14:14 Temperature Pulse Rate 83 84 81 Respiratory Rate 16 21 17 Blood Pressure 88/50 L 88/45 L Pulse Oximetry 02/18/18 14:29 02/18/18 14:44 02/18/18 14:59 Temperature Pulse Rate 83 85 95 H Respiratory Rate 17 20 41 H Blood Pressure 98/50 L 91/46 L 70/47 L Pulse Oximetry 92 L 96 93 L 02/18/18 15:00 02/18/18 15:02 02/18/18 15:14 Temperature Pulse Rate 97 H 89 80 Respiratory Rate 33 H 33 H 14 Blood Pressure 108/51 L 101/44 L Pulse Oximetry 98 98 76 L 02/18/18 15:29 02/18/18 15:44 02/18/18 15:47 Temperature Pulse Rate 88 86 93 H Respiratory Rate 17 15 20 Blood Pressure 91/46 L 88/40 L 94/49 L Pulse Oximetry 86 L 89 L 02/18/18 15:59 02/18/18 16:00 02/18/18 18:59 Temperature 98.9 F Pulse Rate 92 H 91 H 89 Respiratory Rate 19 19 13 Blood Pressure 93/47 L 93/47 L 92/44 L Pulse Oximetry 95 94 L 95 02/18/18 19:00 02/18/18 19:14 02/18/18 19:29 Temperature Pulse Rate 88 90 93 H Respiratory Rate 13 15 16 Blood Pressure 98/47 L 94/46 L Pulse Oximetry 94 L 95 95 02/18/18 19:44 02/18/18 19:46 02/18/18 19:59 Temperature Pulse Rate 97 H 99 H 93 H Respiratory Rate 24 24 16 Blood Pressure 98/47 L 92/43 L Pulse Oximetry 93 L 97 95 02/18/18 20:00 02/18/18 20:14 02/18/18 20:29 Temperature 99.0 F Pulse Rate 95 H 99 H 96 H Respiratory Rate 17 20 16 Blood Pressure 100/50 L 102/52 L 103/50 L Pulse Oximetry 94 L 89 L 88 L 02/18/18 20:41 02/18/18 21:00 02/18/18 21:30 Temperature Pulse Rate 107 H 101 H 101 H Respiratory Rate 20 19 17 Blood Pressure 89/45 L 99/51 L 92/49 L Pulse Oximetry 90 L 90 L 92 L 02/18/18 22:00 02/18/18 22:30 02/18/18 23:00 Temperature Pulse Rate 101 H 104 H 102 H Respiratory Rate 17 19 13 Blood Pressure 100/50 L 92/48 L 99/52 L Pulse Oximetry 97 99 100 02/18/18 23:22 02/18/18 23:30 02/19/18 00:00 Temperature Pulse Rate 98 H 98 H 103 H Respiratory Rate 18 15 14 Blood Pressure 102/49 L 116/56 L Pulse Oximetry 99 97 02/19/18 00:30 02/19/18 01:00 02/19/18 01:30 Temperature Pulse Rate 110 H 105 H 106 H Respiratory Rate 17 17 15 Blood Pressure 99/49 L 111/54 L 99/55 L Pulse Oximetry 94 L 94 L 95 02/19/18 02:00 02/19/18 02:30 02/19/18 02:32 Temperature Pulse Rate 108 H 111 H 111 H Respiratory Rate 14 27 H 30 H Blood Pressure 92/55 L 83/49 L 79/43 L Pulse Oximetry 97 97 97 02/19/18 02:33 02/19/18 02:34 02/19/18 03:00 Temperature Pulse Rate 111 H 112 H 118 H Respiratory Rate 35 H 34 H 39 H Blood Pressure 76/41 L 109/55 L 104/51 L Pulse Oximetry 98 96 95 02/19/18 03:17 02/19/18 04:00 02/19/18 08:11 Temperature 98.9 F 98 F Pulse Rate 101 H 102 H 113 H Respiratory Rate 16 26 H Blood Pressure 92/44 L 98/56 L Pulse Oximetry 95 02/19/18 08:30 02/19/18 08:39 Temperature 98.1 F Pulse Rate 97 H 96 H Respiratory Rate 18 22 Blood Pressure 104/58 L Pulse Oximetry 100 Intake & Output 02/18/18 02/19/18 02/19/18 18:59 06:59 18:59 Intake Total 1290 / 1290 415 / 415 0 / 0 Output Total 500 / 500 Balance 790 / 790 415 / 415 0 / 0 Weight 61.8 kg Intake: IV 1230 / 1230 415 / 415 Heparin/D5W 25,000 U/250 mL 25, 250 / 250 000 unit In 250 ml @ Per Protocol IV.CONT TITRATE PRN Rx #:[id number] NS Inj 1,000 ML @ 100 mls/hr IV 1000 / 1000 .CONT .Q10H [facility] Rx#:[id number] Ofirmev Inj 650 mg In 65 ml @ 130 / 130 65 / 65 400 mls/hr IV.SIG Q6H [place] Rx#: [id number] Keppra 1000 mg/100 mL Premix 100 / 100 100 / 100 100 ML @ 400 mls/hr IV.SIG Q12H [facility] Rx#:[id number] Oral 60 / 60 Intake (Blood Product) Amt 0 / 0 Rbc As-3 Leukoreduced Unit 0 / 0 [id number] Output: Urine Amount (Catheter) 500 / 500 Straight 500 / 500 Other: # Incontinent Voids 3 Narrative: awake speech strong sticks out gautam well still severe left neglect with eys can get to just past midline on left but left HH can picker/puller lue and seems to have+ there wiggle left toes left thigh very swollen good left dp pulse and left foot warm - Urinary Catheter Management Straight Cath placed during this visit: no Objective Laboratory Results - last 24 hr 02/18/18 02/18/18 02/18/18 10:50 11:25 11:25 WBC 11.2 H RBC 2.57 L Hgb 8.5 L D Hct 25.3 L MCV 98.4 D MCH 32.9 MCHC 33.4 RDW 14.4 Plt Count 111 L D MPV 8.9 APTT Puncture Site Left radial Patient Temperature 98.6 O2 Saturation 95 ABG pH 7.18 L* ABG pCO2 29 L ABG pO2 119 ABG HCO3 10 L* ABG O2 Content 10.8 L ABG Base Excess -16.5 L ABG Methemoglobin 1.2 Hector Test Present Hemoglobin 7.9 L* Carboxyhemoglobin 1.1 O2 Delivery Device Nasal cannula Liter Flow 2.00 Critical Value Yes Sodium Potassium Chloride Carbon Dioxide Anion Gap BUN Creatinine Estimated GFR POC Glucose Random Glucose Hemoglobin A1c Lactic Acid Calcium Total Bilirubin AST ALT Alkaline Phosphatase Troponin I 0.21 H Total Protein Albumin Triglycerides 72 Cholesterol 153 LDL Cholesterol, Calc 51 HDL Cholesterol 87.8 H Cholesterol/HDL Ratio 1.74 MTS Gel Crossmatch 02/18/18 02/18/18 02/18/18 11:25 11:25 11:25 WBC RBC Hgb Hct MCV MCH MCHC RDW Plt Count MPV APTT 60.6 H D Puncture Site Patient Temperature O2 Saturation ABG pH ABG pCO2 ABG pO2 ABG HCO3 ABG O2 Content ABG Base Excess ABG Methemoglobin Hector Test Hemoglobin Carboxyhemoglobin O2 Delivery Device Liter Flow Critical Value Sodium Potassium Chloride Carbon Dioxide Anion Gap BUN Creatinine Estimated GFR POC Glucose Random Glucose Hemoglobin A1c 5.7 Lactic Acid 7.2 H* Calcium Total Bilirubin AST ALT Alkaline Phosphatase Troponin I Total Protein Albumin Triglycerides Cholesterol LDL Cholesterol, Calc HDL Cholesterol Cholesterol/HDL Ratio MTS Gel Crossmatch 02/18/18 02/18/18 02/18/18 12:53 21:59 21:59 WBC RBC Hgb Hct MCV MCH MCHC RDW Plt Count MPV APTT 69.7 H Puncture Site Patient Temperature O2 Saturation ABG pH ABG pCO2 ABG pO2 ABG HCO3 ABG O2 Content ABG Base Excess ABG Methemoglobin Hector Test Hemoglobin Carboxyhemoglobin O2 Delivery Device Liter Flow Critical Value Sodium Potassium Chloride Carbon Dioxide Anion Gap BUN Creatinine Estimated GFR POC Glucose 207 H Random Glucose Hemoglobin A1c Lactic Acid 2.4 H Calcium Total Bilirubin AST ALT Alkaline Phosphatase Troponin I Total Protein Albumin Triglycerides Cholesterol LDL Cholesterol, Calc HDL Cholesterol Cholesterol/HDL Ratio MTS Gel Crossmatch 02/18/18 02/18/18 02/19/18 23:20 23:41 03:50 WBC 13.5 H RBC 1.79 L Hgb 5.8 L* D Hct 17.4 L* MCV 97.2 MCH 32.6 MCHC 33.6 RDW 13.9 Plt Count 94 L MPV 9.0 APTT Puncture Site Patient Temperature O2 Saturation ABG pH ABG pCO2 ABG pO2 ABG HCO3 ABG O2 Content ABG Base Excess ABG Methemoglobin Hector Test Hemoglobin Carboxyhemoglobin O2 Delivery Device Liter Flow Critical Value Sodium Potassium Chloride Carbon Dioxide Anion Gap BUN Creatinine Estimated GFR POC Glucose 140 H 208 H Random Glucose Hemoglobin A1c Lactic Acid Calcium Total Bilirubin AST ALT Alkaline Phosphatase Troponin I Total Protein Albumin Triglycerides Cholesterol LDL Cholesterol, Calc HDL Cholesterol Cholesterol/HDL Ratio [facility] Gel Crossmatch 02/19/18 02/19/18 02/19/18 03:50 03:50 03:50 WBC RBC Hgb Hct MCV MCH MCHC RDW Plt Count MPV APTT 100.3 H* D Puncture Site Patient Temperature O2 Saturation ABG pH ABG pCO2 ABG pO2 ABG HCO3 ABG O2 Content ABG Base Excess ABG Methemoglobin Hector Test Hemoglobin Carboxyhemoglobin O2 Delivery Device Liter Flow Critical Value Sodium 135 L Potassium 4.0 Chloride 104 Carbon Dioxide 18.9 L Anion Gap 12 BUN 31 H Creatinine 1.74 H Estimated GFR 28 L POC Glucose Random Glucose 170 H Hemoglobin A1c Lactic Acid 3.8 H Calcium 7.8 L D Total Bilirubin 1.0 AST 146 H ALT 62 H Alkaline Phosphatase 32 L Troponin I Total Protein 4.9 L Albumin 2.7 L Triglycerides Cholesterol LDL Cholesterol, Calc HDL Cholesterol Cholesterol/HDL Ratio MTS Gel Crossmatch 02/19/18 02/19/18 02/19/18 05:14 05:55 08:44 WBC RBC Hgb Hct MCV MCH MCHC RDW Plt Count MPV APTT Puncture Site Patient Temperature O2 Saturation ABG pH ABG pCO2 ABG pO2 ABG HCO3 ABG O2 Content ABG Base Excess ABG Methemoglobin Hector Test Hemoglobin Carboxyhemoglobin O2 Delivery Device Liter Flow Critical Value Sodium Potassium Chloride Carbon Dioxide Anion Gap BUN Creatinine Estimated GFR POC Glucose 157 H Random Glucose Hemoglobin A1c Lactic Acid Calcium Total Bilirubin AST ALT Alkaline Phosphatase Troponin I Total Protein Albumin Triglycerides Cholesterol LDL Cholesterol, Calc HDL Cholesterol Cholesterol/HDL Ratio MTS Gel Crossmatch See Detail See Detail Review/Management - Review/Management Plan: imp r mca cva some worse overnoc had large penumbra at risk and robb still does left hip fx unfortunately time of onset too uncertain for tpa yest keep ivf and bp up hob down iv hep on ? mi? have cards see echo 02/19/18 echo neg no valves noted however dr veliz clears her for surgery i dw him hep dced due to anemia and apparent bleeding inot left thigh robb completed her cva an dcould go to or tomorrow but need bp kept up over 110/ watch renal fx it has doubled since admission ok hob 30 degrees ok to eat check repeat mr today
--- NOTE | 2018-02-19 12:12 | MR ---
EXAM DATE: 02/19/2018 12:01 PM EST AGE/SEX: 82 years / Female INDICATIONS: CVA. Left side weakness. CLINICAL DATA: This is the patient's initial encounter. Patient reports that signs and symptoms have been present for 3 days and indicates a pain score of 0/10. MEDICAL/SURGICAL HISTORY: Carcinoma, head and neck. Hypertension. Hysterectomy. Throat cancer surgery. [place] [facility] [place]. . TECHNIQUE: Multiplanar, multisequence examination of the brain was performed without contrast. FINDINGS: Cerebrum: The ventricles are normal for age. No significant midline shift. Scattered susceptibility artifact on gradient echo sequences throughout the region of acute infarction. The pituitary gland an d suprasellar cistern are normal in configuration. White Matter: Mild to moderate periventricular white matter T2 prolongation. Posterior Fossa: The cerebellum and brainstem are intact. The 4th ventricle is midline. The cerebel lopontine angle is unremarkable. The cerebellar tonsils are normal in position. Diffusion Imaging: Large area of restricted diffusion involving the right temporal and occipital mid to high convexities. Very small focal regions of restricted diffusion in the anterior left parietal mid convexities. Extracranial: The visualized portions of the orbits and paranasal sinuses are unremarkable. CONCLUSION: 1. Large area of acute infarction involving the right temporal and occipital mid to high convexities corresponding to the inferior posterior right MCA territories. Scattered susceptibility artifact may reflect evolving infarct versus focal hemorrhage. 2. Very small focal acute infarctions in the anterior left parietal mid convexities. Electronically signed by: Rico Coleman MD 02/19/2018 12:11 PM EST
--- NOTE | 2018-02-19 12:22 | MR ---
EXAM DATE: 02/19/2018 12:02 PM EST AGE/SEX: 82 years / Female INDICATIONS: CVA. Left side weakness. CLINICAL DATA: This is the patient's initial encounter. Patient reports that signs and symptoms have been present for 3 days and indicates a pain score of 0/10. MEDICAL/SURGICAL HISTORY: Carcinoma, head and neck. Hypertension. Hysterectomy. Throat cancer. COMPARISON: [facility] – [place], [place] HEAD W/O CONTRAST, 02/19/2018. . TECHNIQUE: 3D [id number] MRA was performed. Source images, multiplanar STS MIP, and 3D volum e MIP reconstructions were reviewed. FINDINGS: There is severely diminished flow seen in the right M2 segments. The anterior division showed severel y decreased flow. There appears to be occlusion at the proximal posterior division. The distal flow i s severely decreased in the right middle cerebral artery territory. The right internal carotid artery primarily ends as the right middle cerebral artery. The left internal cerebral artery is normal. It is seen to normally bifurcate into the anterior and m iddle cerebral arteries. Both the right and left A2 segments of the anterior cerebral arteries fill t hrough the left side through a patent anterior communicating artery. The vertebral arteries are paten t bilaterally. There are seen to combined to form the basilar artery. The basilar artery primarily en ds as the right posterior cerebral artery. The left posterior cerebral artery arises from the left in ternal carotid artery. No aneurysm is seen. CONCLUSION: Diminished flow including their thrombosis at the right M2 cerebral arteries. The patient has a right MCA infarct seen on the MRI. Electronically signed by: Chris Saenz MD 02/19/2018 12:20 PM EST
--- NOTE | 2018-02-19 12:53 | OTSOAPIP ---
PATIENT IS HOLD DUE TO BLOOD TRANSFUSION. POSSIBLE LEFT LE SURGERY WEDNESDAY WILL REASSESS POST SURGERY. JT Therapist: Anne Lopez Signature on file
--- NOTE | 2018-02-19 14:00 | ECG ---
Date Performed: 02/19/2018 Time Performed: 12:13:36 PTAGE: 82 years EKG: SINUS TACHYCARDIA POSSIBLE INFERIOR MYOCARDIAL INFARCTION , PROBABLY OLD WITH POSTERIOR EXT ENSION ABNORMAL RHYTHM ECG PREVIOUS TRACING : 02/17/2018 21.55 Since the previous tracing, no significant change noted DOCTOR: Michele Cummings Interpretating Date/Time 02/19/2018 13:59:49
[2018-02-19 14:56] LABS: Calcium 7.8 mg/dL (8.5-10.1); Carbon Dioxide 17.2 meq/L (21.0-32.0); Potassium 4.3 meq/L (3.5-5.1)
[2018-02-20 01:56] LABS: Hematocrit 22.5 % (35.0-46.0); Hemoglobin 7.6 gm/dL (11.6-15.3); Mean Corpuscular Hemoglobin 30.1 pg (27.0-34.0); Mean Corpuscular Volume 88.5 fL (80.0-100.0); Mean Platelet Volume 8.8 fL (7.0-11.0); Platelet Count 76 th/mm3 (150-450); Red Blood Count 2.54 mil/mm3 (4.00-5.30); Red Cell Distribution Width 19.5 % (11.6-17.2); White Blood Count 16.7 th/mm3 (4.0-11.0)
[2018-02-20] MEDS: levETIRAcetam 1000mg/100mL Inj 100 ML IV.SIG SCH ×2 (02:15→12:49)
[2018-02-20 02:24] LABS: Calcium 7.3 mg/dL (8.5-10.1); Carbon Dioxide 19.9 meq/L (21.0-32.0); Potassium 4.1 meq/L (3.5-5.1)
[2018-02-20 02:45] LABS: Calcium-Albumin Corrected 8.6 mg/dL (8.5-10.1); Total Protein 4.8 g/dL (6.4-8.2)
[2018-02-20] MEDS: Sod Chloride 0.9% Inj 1,000 ML IV.CONT SCH ×5 (03:50→21:40)
--- NOTE | 2018-02-20 06:48 | P.PNCC ---
Subjective Subjective Remarks/Hospital Course: 02/17: This is an 82-year-old female. Thai speaking understanding [place]ian. Date of admission 02/17/2003 past medical includes hypertension, hyperlipidemia, anxiety and low back pain. 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 Patient was seen by her primary care physician on Wednesday according to she was a "stroke waiting to happen". She is currently on propranolol 10 mg and amlodipine 5 mg daily. She is on buspirone 5 mg daily for anxiety. Today, she is brought in by EMS to [facility] post fall 3:30 PM today. On arrival also evaluated the patient appears that she is not crossing the midline and she has a fixed gaze to the right. She appears confused and her left side is more ataxic on the left upper extremity and cannot see on the left visual field. According to record, family friends are here reporting that they went to check on her around 4:00 and she has stated that she has just fallen in the bathroom 5 minutes prior to arrival. Her also reported that she was sleeping yesterday all day. CT brain revealed no acute intracranial findings. CT Angi0 of the brain revealed M2 branch occluded 1 cm distally to the bifurcation. CT CT revealed right temporoparietal CVA acute. Due to the unknown timing of the stroke she was not considered to be a candidate for stent retrieval. She started on a heparin drip currently at 700 units an hour/lie flat and given aspirin 300 mg p.o. daily. Neurology/Dr. Hanley is following. MRI brain in a.m. 02/18. Patient has a acute comminuted left intertrochanteric fracture. She will be followed by orthopedics and they have been notified. Troponin is slightly elevated 0.35. EKG is currently pending. Echocardiogram is been ordered. 02/18: Resting comfortably in bed. Had a seizure earlier. Follows commands. Opens her mouth and sticks out her tongue. Keeping her eyes closed. 02/19: Patient has tachycardia with decreasing blood pressure. Hemoglobin this morning is 5.8, a decline of almost 2 g. I suspect she has bled around the fracture site, hopefully stopped. We will start by transfusing 2 units of packed cells but need to consider discontinuing her systemic anticoagulation if this trend continues. 02/20: Patient has considerable swelling in left hip. Bleeding into fracture site greater than normal because she was on heparin simultaneously for treatment of her acute ischemic stroke. Heparin has been stopped for about 20 hours now and her vital signs have been acceptable. Renal function continues to improve and urine output is acceptable. She is a reasonable risk for surgery today from a critical care standpoint, albeit increased because of her age, recent stroke, acute blood loss from fracture. Objective Vital Signs / I&O: Vital Signs 02/19/18 07:00 02/19/18 07:36 02/19/18 08:00 Temperature 98.6 F Pulse Rate 108 H 109 H 112 H Respiratory Rate 14 22 16 Blood Pressure 95/53 L Pulse Oximetry 96 98 96 02/19/18 08:11 02/19/18 08:21 02/19/18 08:30 Temperature 98 F 98.1 F Pulse Rate 113 H 112 H 97 H Respiratory Rate 26 H 26 H 18 Blood Pressure 98/56 L 98/56 L 104/58 L Pulse Oximetry 96 02/19/18 08:36 02/19/18 08:39 02/19/18 09:00 Temperature Pulse Rate 106 H 96 H 102 H Respiratory Rate 100 H 22 Blood Pressure 104/58 L Pulse Oximetry 99 100 97 02/19/18 09:36 02/19/18 10:00 02/19/18 10:28 Temperature 98.9 F Pulse Rate 113 H 107 H 110 H Respiratory Rate 22 Blood Pressure 117/57 L 130/60 126/59 L Pulse Oximetry 100 99 02/19/18 10:30 02/19/18 10:45 02/19/18 11:00 Temperature Pulse Rate 110 H 102 H 100 H Respiratory Rate Blood Pressure 131/57 L 115/57 L 115/55 L Pulse Oximetry 100 100 100 02/19/18 11:15 02/19/18 11:30 02/19/18 12:16 Temperature 98.9 F Pulse Rate 90 100 H 96 H Respiratory Rate 14 Blood Pressure 119/57 L 141/58 H Pulse Oximetry 99 86 L 02/19/18 12:27 02/19/18 12:49 02/19/18 13:00 Temperature Pulse Rate 96 H 97 H 95 H Respiratory Rate 14 13 14 Blood Pressure 93/56 L 104/82 Pulse Oximetry 02/19/18 13:30 02/19/18 14:00 02/19/18 14:30 Temperature Pulse Rate 99 H 101 H 100 H Respiratory Rate 14 15 13 Blood Pressure 120/54 L 103/53 L 108/52 L Pulse Oximetry 02/19/18 15:00 02/19/18 15:30 02/19/18 16:00 Temperature 98.6 F Pulse Rate 98 H 100 H 96 H Respiratory Rate 14 13 13 Blood Pressure 102/50 L 119/54 L 111/51 L Pulse Oximetry 93 L 95 02/19/18 16:30 02/19/18 16:37 02/19/18 17:00 Temperature Pulse Rate 102 H 98 H 101 H Respiratory Rate 13 12 15 Blood Pressure 127/58 L 114/49 L Pulse Oximetry 84 L 02/19/18 17:30 02/19/18 18:00 02/19/18 18:30 Temperature Pulse Rate 105 H 107 H 110 H Respiratory Rate 15 15 33 H Blood Pressure 117/52 L 109/51 L 122/56 L Pulse Oximetry 100 88 L 02/19/18 19:00 02/19/18 19:30 02/19/18 20:00 Temperature Pulse Rate 109 H 96 H 93 H Respiratory Rate 31 H 15 14 Blood Pressure 113/59 L 105/49 L 108/53 L Pulse Oximetry 02/19/18 20:38 02/19/18 21:00 02/19/18 21:30 Temperature Pulse Rate 93 H 98 H 94 H Respiratory Rate 24 20 13 Blood Pressure 96/50 L 111/56 L 110/54 L Pulse Oximetry 02/19/18 22:00 02/19/18 22:30 02/20/18 00:00 Temperature 97.9 F Pulse Rate 94 H 96 H 90 Respiratory Rate 23 17 20 Blood Pressure 109/54 L 122/59 L 106/53 L Pulse Oximetry 93 L 95 02/20/18 04:00 02/20/18 04:25 02/20/18 06:33 Temperature 98.2 F 98.2 F 98.6 F Pulse Rate 100 H 100 H 92 H Respiratory Rate 22 16 Blood Pressure 114/56 L 100/65 119/60 Pulse Oximetry 95 95 Intake & Output 02/19/18 02/19/18 02/20/18 06:59 18:59 06:59 Intake Total 415 / 415 780 / 780 1500 / 1500 Output Total 500 / 500 Balance 415 / 415 780 / 780 1000 / 1000 Weight 61.8 kg 60.2 kg Intake: IV 415 / 415 140 / 140 1000 / 1000 Heparin/D5W 25,000 U/250 mL 25, 250 / 250 000 unit In 250 ml @ Per Protocol IV.CONT TITRATE PRN Rx #:[id number] NS Inj 1,000 ML @ 100 mls/hr IV 1000 / 1000 .CONT .Q10H [facility] Rx#:[id number] Ofirmev Inj 650 mg In 65 ml @ 65 / 65 400 mls/hr IV.SIG Q6H [facility] Rx#: [id number] Keppra 1000 mg/100 mL Premix 100 / 100 100 / 100 100 ML @ 400 mls/hr IV.SIG Q12H [facility] Rx#:[id number] Oral 240 / 240 Other 100 / 100 Rbc As-3 Leukoreduced Unit 100 / 100 [id number] Intake (Blood Product) Amt 400 / 400 0 / 0 Rbc As-3 Leukoreduced Unit 0 / 0 [id number] Rbc As-3 Leukoreduced Unit 400 / 400 [id number] Rbc As-3 Leukoreduced Unit 0 / 0 [id number] SureTrans Amount 400 / 400 Output: Urine 500 / 500 Other: # Incontinent Voids 3 3 Result Diagrams: 02/20/18 01:45 02/20/18 01:45 Objective Remarks: HEENT/Neuro: No pallor or icterus, tongue moist, MICHAEL, drowsy, easily arousable. Occasionally responds by answering yes or no. Opens her mouth, sticks her tongue out. Right approximately weakness. Limited mobility left lower extremity secondary to hip fracture. Neck: Airway widely patent, no obstructive noises. Chest/pulmonary: Clear, comfortable respiratory pattern, no adventitious sounds. Cardiovascular: S1-S2 regular no gallop or murmur, no JVD. GI/abdomen: Soft, nontender, bowel sounds present. No guarding. Extremities: Warm bilaterally, no edema. Generalized swelling left hip. Assessment and Plan - Problem List (1) Right-sided cerebrovascular accident (CVA) Code(s): I63.9 - Cerebral infarction, unspecified Status: Acute (2) Essential hypertension Code(s): I10 - Essential (primary) hypertension Status: Chronic (3) Hyperlipidemia Code(s): E78.5 - Hyperlipidemia, unspecified Status: Chronic (4) Hyperglycemia Code(s): R73.9 - Hyperglycemia, unspecified Status: Acute (5) Hyponatremia Code(s): E87.1 - Hypo-osmolality and hyponatremia Status: Acute (6) Elevated troponin Code(s): R74.8 - Abnormal levels of other serum enzymes Status: Acute (7) Leukocytosis Code(s): D72.829 - Elevated white blood cell count, unspecified Status: Acute (8) Fracture, intertrochanteric, left femur Code(s): S72.142A - Displaced intertrochanteric fracture of left femur, initial encounter for closed fracture Status: Acute - Assessment and Plan Plan: Neuro/Psych: Acute right temporal parietal CVA Occlusion of the M2 branch MCA CT brain on admission no acute intracranial findings. CT angiogram revealed an M2 branch occluded [address] CAD revealed right temporal CVA acute. Size is approximately 3 x [address] Hanley/neurology recommended aspirin and heparin drip. Head of bed flat. MRI of brain in a.m. 02/18 PT/OT/ST evaluate and treat Acetaminophen 650 mg p.o. every 6 hours as needed fever Hydrocodone/acetaminophen 325/5 1 tablet every 4 hours as needed pain 1-5 Morphine sulfate 2 mg IV every 2 hours. Pain 6 - 10 Decreasing hemoglobin, hold anticoagulation 02/19 and transfused 2 units packed red blood cells Transfuse 1 additional unit packed red blood cells 02/20 CV: Essential hypertension Hyperlipidemia Elevated troponin Currently on as needed labetalol/nicardipine drip to maintain systolic blood pressure less than 20/diastolic pressure less than 120 Medications are amlodipine 5 mg daily propanolol 20 mg daily. Started on pravastatin 40 mg daily for dyslipidemia. Lipid panel pending EKG pending. Initial troponin 0 0.35. Every 6 hours x2 ordered. Echocardiogram ordered. Cardiology consulted. Holding anticoagulation with heparin. Continue aspirin Resp: Nasal cannula to maintain saturations greater than or equal to 92% Incentive spirometry while awake Albuterol/ipratropium aerosols every 4 hours with albuterol aerosols every 2 hours as needed dyspnea Lung hyperinflation protocol GI: Currently n.p.o. status Pantoprazole for GI prophylaxis Docusate sodium/senna 1 tablet twice daily for bowel regimen : Straight catheterization as needed Endo: Acute hyperglycemia Sliding scale insulin aspart insulin Accu-Cheks every 6 hours to maintain euglycemia/low regimen Check TSH Check hemoglobin A1c Renal: Creatinine currently within normal limits Monitor urine output Accurate I's and O's Heme: Leukocytosis/acute Monitor CBC daily. Follow trends. No indication for transfusion of blood products at this time. Hemoglobin 5.8 this morning, acute change, likely reflects blood loss. Corrected yesterday. Down again today mostly to dilution. ID: Monitor for signs and symptomatology infection MSK: Acute comminuted IT fracture left femur Chronic Low back pain Lumbar spine imaging currently pending X-ray of the hip revealed acute comminuted IT fracture of the left femur. Nondisplaced. Orthopedics consultation-discussed with Dr. Berger. Deferred surgery for hip fracture to Wednesday following discussion with Dr. Hanley due to acute stroke/ seizure. FEN: Hyponatremia/acute Replace electrolytes as clinically indicated per ICU electrolyte protocol Access -Utilize peripheral IV. Central line if indicated Prophylaxis -GI -pantoprazole -DVT -SCD/holding heparin drip starting 02/19 Overall impression: This woman is critically ill following a recent ischemic stroke and left hip fracture. Heparin anticoagulation instituted for treatment of the stroke has produced larger than normal bleeding in the left hip. The heparin was stopped yesterday and her hemodynamics have improved. She will receive an additional unit of blood this morning prior to surgery. Although her risks are greatly increased due to co- morbidities she remains an acceptable risk for hip repair today. Critical care time 42 minutes aside from procedures. (3) Hyperlipidemia Qualifiers: Hyperlipidemia type: unspecified Qualified Code(s): E78.5 - Hyperlipidemia, unspecified (7) Leukocytosis Qualifiers: Leukocytosis type: unspecified Qualified Code(s): D72.829 - Elevated white blood cell count, unspecified (8) Fracture, intertrochanteric, left femur Qualifiers: Encounter type: initial encounter Fracture type: closed Fracture alignment: nondisplaced Qualified Code(s): S72.145A - Nondisplaced intertrochanteric fracture of left femur, initial encounter for closed fracture
[2018-02-20] MEDS: Insulin NovoLOG Aspart Correctional Sugar Inj SQ SCH ×5 (06:56→23:44)
[2018-02-20] MEDS: Chlorhexidine Gluconate 2% 1 Pack (2 Cloths) TOPICAL SCH (06:57)
[2018-02-20] MEDS ORDERED: ceFAZolin 1 GM Premix Inj 2 GM/100 ML FROZ.PIGGY IV.SIG ONE (07:04)
[2018-02-20] MEDS ORDERED: Phenylephrine/NS 1000 MCG/10ML Syringe IV.PUSH ONE (07:54)
[2018-02-20] MEDS ORDERED: Neostigmine Inj 5 MG/5 ML Syringe IV.PUSH ONE (07:54)
[2018-02-20] MEDS ORDERED: fentaNYL Citrate Inj 250 MCG/5 ML Ampul ONE (07:54)
[2018-02-20] MEDS ORDERED: Glycopyrrolate Inj 1 MG/5 ML Syringe IV.PUSH ONE (07:54)
[2018-02-20] MEDS ORDERED: Lidocaine PF 1% Inj 5 ML Syringe OTHER ONE (07:54)
[2018-02-20 10:53] LABS: Baso % (Auto) 0.1 % (0.0-2.0); Eos % (Auto) 0.1 % (0.0-4.0); Hematocrit 26.2 % (35.0-46.0); Hemoglobin 9.2 gm/dL (11.6-15.3); Lymph # (Auto) 0.9 th/mm3 (1.0-4.8); Mean Corpuscular Hemoglobin 31.1 pg (27.0-34.0); Mean Corpuscular Volume 88.8 fL (80.0-100.0); Mean Platelet Volume 8.8 fL (7.0-11.0); Mono # (Auto) 0.6 th/mm3 (0.0-0.9); Mono % (Auto) 3.9 % (0.0-8.0); Neut # (Auto) 14.3 th/mm3 (1.8-7.7); Neut % (Auto) 89.9 % (16.0-70.0); Platelet Count 77 th/mm3 (150-450); Red Blood Count 2.95 mil/mm3 (4.00-5.30); Red Cell Distribution Width 17.6 % (11.6-17.2); White Blood Count 15.9 th/mm3 (4.0-11.0)
--- NOTE | 2018-02-20 11:18 | P.PNNEU ---
Subjective Active Medications: Active Medications Acetaminophen (Tylenol) 650 mg PO Q6H PRN PRN Reason: FEVER Hydrocodone Bitart/Acetaminophen ([place] 5/325) 1 tab PO Q4H PRN PRN Reason: PAIN SCALE 1 TO 5 Last Admin: 02/19/18 18:31 Dose: 1 tab Al Hydroxide/Mg Hydroxide (Milk Of Magnfabrice Liq) 30 ml PO Q12H PRN PRN Reason: Mild Constipation Albuterol (Albuterol Neb (Prn)) 2.5 mg NEB Q2HR NEB PRN PRN Reason: SHORTNESS OF BREATH/WHEEZING Albuterol (Duoneb Neb (Isidoro)) 1 ampul NEB Q4HR NEB [facility] Last Admin: 02/20/18 08:35 Dose: Not Given Aspirin (Aspirin Chew) 81 mg PO DAILY [facility] Last Admin: 02/19/18 08:39 Dose: Not Given Bisacodyl (Dulcolax Supp) 10 mg RECTAL DAILY PRN PRN Reason: SEVERE CONSITIPATION Buspirone HCl (Buspar) 5 mg PO DAILY [facility] Last Admin: 02/19/18 10:06 Dose: 5 mg Chlorhexidine Gluconate (Chlorhexidine 2% Cloth) 3 pack TOPICAL DAILY@0400 [facility] Stop: 02/23/18 03:59 Last Admin: 02/20/18 06:57 Dose: 3 pack Chlorhexidine Gluconate (Chlorhexidine 2% Cloth) 3 pack TOPICAL DAILY@0400 PRN PRN Reason: Extra cloth needed Stop: 02/23/18 03:59 Dextrose (D50w Vial) 50 ml IV.PUSH UNSCH PRN PRN Reason: PER HYPOGLYCEMIA PROTOCOL Glucagon (Glucagon Inj) 1 mg OTHER PRN PRN PRN Reason: for Hypoglycemia Protocol Sodium Chloride (Ns Inj) 1,000 mls @ 70 mls/hr IV.CONT .[id number] [facility] Last Admin: 02/20/18 06:58 Dose: Not Given Heparin Sodium/Dextrose (Heparin/D5w 25,000 U/250 Ml) 25,000 unit in 250 mls @ 0 mls/hr IV.CONT TITRATE PRN; Protocol PRN Reason: Per Protocol Last Titration: 02/19/18 18:51 Dose: Infused Sodium Chloride (Ns Inj) 1,000 mls @ 100 mls/hr IV.CONT .Q10H [facility] Last Admin: 02/20/18 09:53 Dose: Not Given Magnesium Sulfate 4 gm/ Sodium (Chloride) 100 mls @ 50 mls/hr IV.SIG UNSCH PRN PRN Reason: For Magnesium 0.9 - 1.1 mg/dL Magnesium Sulfate 2 gm/ Sodium (Chloride) 100 mls @ 50 mls/hr IV.SIG UNSCH PRN PRN Reason: For Magnesium 1.2 - 1.6 mg/dL Potassium Chloride (Kcl 40 Meq Premix Inj) 40 meq in 100 mls @ 25 mls/hr IV.SIG Q2H PRN PRN Reason: For Potassium 2.8 - 3.2 mEq/L Potassium Chloride (Kcl 20 Meq Premix Inj) 20 meq in 100 mls @ 50 mls/hr IV.SIG Q2H PRN PRN Reason: For Potassium 3.3 - 3.5 mEq/L Potassium Chloride (Kcl 20 Meq Premix Inj) 20 meq in 100 mls @ 50 mls/hr IV.SIG Q2H PRN PRN Reason: For Potassium 2.8 - 3.2 mEq/L Potassium Phosphate 30 mmol/ (Sodium Chloride) 260 mls @ 42 mls/hr IV.SIG UNSCH PRN PRN Reason: SEE LABEL COMMENTS Sodium Phosphate 30 mmol/ (Sodium Chloride) 260 mls @ 42 mls/hr IV.SIG UNSCH PRN PRN Reason: For Phosphorus < 2.5 mg/dL Potassium Chloride (Kcl 40 Meq Premix Inj) 40 meq in 100 mls @ 25 mls/hr IV.SIG UNSCH PRN PRN Reason: For Potassium 3.3 - 3.5 mEq/L Nicardipine HCl 25 mg/ Sodium (Chloride) 250 mls @ 50 mls/hr IV.CONT TITRATE PRN; Protocol PRN Reason: Per Protocol Levetiracetam (Keppra 1000 Mg/100 Ml Premix) 100 mls @ 400 mls/hr IV.SIG Q12H [facility] Last Infusion: 02/20/18 02:30 Dose: Infused Phenylephrine HCl 40 mg/ (Sodium Chloride) 500 mls @ 30 mls/hr IV.CONT TITRATE PRN; Protocol PRN Reason: See Protocol Cefazolin Sodium/Dextrose (Ancef 2 Gm Premix Inj) 2 gm in 50 mls @ 100 mls/hr IV.SIG Q8H [facility] Stop: 02/21/18 08:29 Insulin Aspart (Novolog Insulin Correctional Sugar Inj) 0 unit SQ Q6HR [facility]; Protocol Last Admin: 02/20/18 09:44 Dose: Not Given Labetalol HCl (Trandate Inj) 10 mg IV.PUSH Q2H PRN PRN Reason: For SBP > 220 or DBP > 120 Lactulose (Lactulose Liq) 30 ml PO DAILY PRN PRN Reason: SEVERE CONSITIPATION Magnesium Oxide (Mag-Ox) 800 mg PO UNSCH PRN PRN Reason: For Magnesium 1.2 - 1.6 mg/dL Miscellaneous Information ([facility] Nursing Information) 1 each OTHER UNSCH PRN PRN Reason: SEE LABEL COMMENTS Stop: 02/21/18 10:17 Morphine Sulfate (Morphine Inj) 1 mg IV.PUSH Q2H PRN PRN Reason: PAIN SCALE 6 TO 10 Last Admin: 02/18/18 08:58 Dose: 1 mg Ondansetron HCl (Zofran Inj) 4 mg IV.PUSH Q6H PRN PRN Reason: NAUSEA OR VOMITING Pantoprazole Sodium (Protonix Inj) 40 mg IV.PUSH DAILY [facility] Last Admin: 02/19/18 08:40 Dose: 40 mg Potassium Bicarb/Potassium Chloride (K-Lyte Cl Eff) 50 meq PO UNSCH PRN PRN Reason: For Potassium 3.3 - 3.5 mEq/L Potassium Phosphate (K-Phos Original) 2,000 mg PO Q4H PRN PRN Reason: Phosphorus Less Than 2.5 mg/dL Potassium Phosphate (K-Phos Original) 2,000 mg PO UNSCH PRN PRN Reason: SEE LABEL COMMENTS Pravastatin Sodium (Pravachol) 40 mg PO HS [facility] Last Admin: 02/19/18 20:20 Dose: 40 mg Senna/Docusate Sodium (Janice-Colace) 1 tab PO BID [facility] Last Admin: 02/19/18 20:20 Dose: Not Given Sennosides (Senokot) 17.2 mg PO Q12H PRN PRN Reason: Moderate Constipation Sodium Chloride (Ns Flush) 2 ml IV.FLUSH BID [facility] Last Admin: 02/19/18 20:20 Dose: Not Given Sodium Chloride (Ns Flush) 2 ml IV.FLUSH PRN PRN PRN Reason: FLUSH AFTER USING IV ACCESS Terbutaline Sulfate (Brethine Inj) 1 mg SQ UNSCH PRN PRN Reason: For Extravasation Allergies/Adverse Reactions: Allergies Allergy/AdvReac Type Severity Reaction Status Date / Time No Known Allergies Allergy Uncoded 05/09/12 18:20 Physical Exam Vital signs: Vital Signs 02/19/18 11:15 02/19/18 11:30 02/19/18 12:16 Temperature 98.9 F Pulse Rate 90 100 H 96 H Respiratory Rate 14 Blood Pressure 119/57 L 141/58 H Pulse Oximetry 99 86 L 02/19/18 12:27 02/19/18 12:49 02/19/18 13:00 Temperature Pulse Rate 96 H 97 H 95 H Respiratory Rate 14 13 14 Blood Pressure 93/56 L 104/82 Pulse Oximetry 02/19/18 13:30 02/19/18 14:00 02/19/18 14:30 Temperature Pulse Rate 99 H 101 H 100 H Respiratory Rate 14 15 13 Blood Pressure 120/54 L 103/53 L 108/52 L Pulse Oximetry 02/19/18 15:00 02/19/18 15:30 02/19/18 16:00 Temperature 98.6 F Pulse Rate 98 H 100 H 96 H Respiratory Rate 14 13 13 Blood Pressure 102/50 L 119/54 L 111/51 L Pulse Oximetry 93 L 95 02/19/18 16:30 02/19/18 16:37 02/19/18 17:00 Temperature Pulse Rate 102 H 98 H 101 H Respiratory Rate 13 12 15 Blood Pressure 127/58 L 114/49 L Pulse Oximetry 84 L 02/19/18 17:30 02/19/18 18:00 02/19/18 18:30 Temperature Pulse Rate 105 H 107 H 110 H Respiratory Rate 15 15 33 H Blood Pressure 117/52 L 109/51 L 122/56 L Pulse Oximetry 100 88 L 02/19/18 19:00 02/19/18 19:30 02/19/18 20:00 Temperature Pulse Rate 109 H 96 H 93 H Respiratory Rate 31 H 15 14 Blood Pressure 113/59 L 105/49 L 108/53 L Pulse Oximetry 02/19/18 20:38 02/19/18 21:00 02/19/18 21:30 Temperature Pulse Rate 93 H 98 H 94 H Respiratory Rate 24 20 13 Blood Pressure 96/50 L 111/56 L 110/54 L Pulse Oximetry 02/19/18 22:00 11/24/18 22:30 02/20/18 00:00 Temperature 97.9 F Pulse Rate 94 H 96 H 90 Respiratory Rate 23 17 20 Blood Pressure 109/54 L 122/59 L 106/53 L Pulse Oximetry 93 L 95 02/20/18 04:00 02/20/18 04:25 02/20/18 06:33 Temperature 98.2 F 98.2 F 98.6 F Pulse Rate 100 H 100 H 92 H Respiratory Rate 22 16 Blood Pressure 114/56 L 100/65 119/60 Pulse Oximetry 95 95 02/20/18 10:15 Temperature 97.1 F L Pulse Rate 98 H Respiratory Rate 16 Blood Pressure 123/64 Pulse Oximetry 93 L Intake & Output 02/19/18 02/20/18 02/20/18 18:59 06:59 18:59 Intake Total 780 / 780 2000 / 2000 1000 / 1000 Output Total 500 / 500 100 / 100 Balance 780 / 780 1500 / 1500 900 / 900 Weight 60.2 kg Intake: IV 140 / 140 1100 / 1100 100 / 100 NS Inj 1,000 ML @ 100 mls/hr IV 1000 / 1000 .CONT .Q10H [facility] Rx#:[id number] Ancef 1 GM Premix Inj 2 gm In 100 / 100 100 ml @ 0 mls/hr IV.SIG .STK- [facility] Rx#:[id number] Keppra 1000 mg/100 mL Premix 100 / 100 100 / 100 100 ML @ 400 mls/hr IV.SIG Q12H [facility] Rx#:[id number] Oral 240 / 240 Anesthesia Amount 900 / 900 Other 100 / 100 Rbc As-3 Leukoreduced Unit 100 / 100 [id number] Intake (Blood Product) Amt 400 / 400 400 / 400 Rbc As-3 Leukoreduced Unit 400 / 400 [id number] Rbc As-3 Leukoreduced Unit 400 / 400 [id number] Rbc As-3 Leukoreduced Unit 0 / 0 [id number] SureTrans Amount 400 / 400 Output: Urine 500 / 500 Estimated Blood Loss 100 / 100 Other: # Incontinent Voids 3 Narrative: awake moving lue well and wiggle left foot still lhh - Urinary Catheter Management Straight Cath placed during this visit: no Objective Laboratory Results - last 24 hr 02/19/18 02/19/1818 05:14 08:44 10:30 WBC RBC Hgb Hct MCV MCH MCHC RDW Plt Count MPV Prelim Diff (Auto) Neut % (Auto) Lymph % (Auto) [place] % (Auto) Eos % (Auto) Baso % (Auto) Neut # (Auto) Lymph # (Auto) [place] # (Auto) Eos # (Auto) Baso # (Auto) Differential Comment APTT 24.4 D Sodium Potassium Chloride Carbon Dioxide Anion Gap BUN Creatinine Estimated GFR POC Glucose Random Glucose Calcium Prot Corrected Calcium Total Protein Blood Type Antibody Screen MTS Gel Crossmatch See Detail See Detail 02/19/18 02/19/18 02/19/18 12:45 14:28 14:28 WBC RBC Hgb 10.0 L D Hct MCV MCH MCHC RDW Plt Count MPV Prelim Diff (Auto) Neut % (Auto) Lymph % (Auto) [place] % (Auto) Eos % (Auto) Baso % (Auto) Neut # (Auto) Lymph # (Auto) [place] # (Auto) Eos # (Auto) Baso # (Auto) Differential Comment APTT Sodium 137 Potassium 4.3 Chloride 107 Carbon Dioxide 17.2 L Anion Gap 13 BUN 34 H Creatinine 1.67 H Estimated GFR 29 L POC Glucose 176 H Random Glucose 157 H Calcium 7.8 L Prot Corrected Calcium Total Protein Blood Type Antibody Screen MTS Gel Crossmatch 02/19/18 02/19/18 02/19/18 14:28 17:54 23:46 WBC RBC Hgb Hct MCV MCH MCHC RDW Plt Count MPV Prelim Diff (Auto) Neut % (Auto) Lymph % (Auto) [place] % (Auto) Eos % (Auto) Baso % (Auto) Neut # (Auto) Lymph # (Auto) [place] # (Auto) Eos # (Auto) Baso # (Auto) Differential Comment APTT 24.3 Sodium Potassium Chloride Carbon Dioxide Anion Gap BUN Creatinine Estimated GFR POC Glucose 133 H 133 H Random Glucose Calcium Prot Corrected Calcium Total Protein Blood Type Antibody Screen MTS Gel Crossmatch 02/20/18 02/20/18 02/20/18 01:45 01:45 03:35 WBC 16.7 H RBC 2.54 L Hgb 7.6 L D Hct 22.5 L MCV 88.5 D MCH 30.1 MCHC 34.0 RDW 19.5 H D Plt Count 76 L MPV 8.8 Prelim Diff (Auto) Neut % (Auto) Lymph % (Auto) [place] % (Auto) Eos % (Auto) Baso % (Auto) Neut # (Auto) Lymph # (Auto) [place] # (Auto) Eos # (Auto) Baso # (Auto) Differential Comment APTT Sodium 136 Potassium 4.1 Chloride 108 H Carbon Dioxide 19.9 L Anion Gap 8 BUN 34 H Creatinine 1.26 H Estimated GFR 41 L POC Glucose Random Glucose 146 H Calcium 7.3 L* Prot Corrected Calcium 8.6 Total Protein 4.8 L Blood Type Antibody Screen MTS Gel Crossmatch See Detail 02/20/18 02/20/18 02/20/18 08:15 10:26 10:26 WBC 15.9 H RBC 2.95 L Hgb 9.2 L Hct 26.2 L MCV 88.8 MCH 31.1 MCHC 35.0 RDW 17.6 H Plt Count 77 L MPV 8.8 Prelim Diff (Auto) Slide review pending Neut % (Auto) 89.9 H Lymph % (Auto) 6.[address] [place] % (Auto) 3.9 Eos % (Auto) 0.1 Baso % (Auto) 0.1 Neut # (Auto) 14.3 H Lymph # (Auto) 0.[address] [place] # (Auto) 0.6 Eos # (Auto) 0.0 Baso # (Auto) 0.0 Differential Comment . APTT Sodium Potassium Chloride Carbon Dioxide Anion Gap BUN Creatinine Estimated GFR POC Glucose 154 H Random Glucose Calcium Prot Corrected Calcium Total Protein Blood Type O Positive Antibody Screen Negative MTS Gel Crossmatch See Detail Review/Management - Review/Management Plan: imp r mca cva some worse overnoc had large penumbra at risk and robb still does left hip fx unfortunately time of onset too uncertain for tpa yest keep ivf and bp up hob down iv hep on ? mi? 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 cw cardioembolic is for xarelto post op although some hemorrhagic changes on mri in r mca cva so check ct will be at inc risk bleeding probably 1/2 dose xarelto instead of full better due to this and should have loop placed by cards unless she stays on anticoag rest of life watch plt
--- NOTE | 2018-02-20 11:34 | XR ---
EXAM DATE: 02/20/2018 11:23 AM EST AGE/SEX: 82 years / Female INDICATIONS: Surgical repair, intertrochanteric nail placement. CLINICAL DATA: This is the patient's initial encounter. Patient reports that signs and symptoms have been present for 1 day and indicates a pain score of Nonresponsive. MEDICAL/SURGICAL HISTORY: Non-responsive. Non-responsive. COMPARISON: C, HIP LEFT W AP PELVIS 2V, 02/17/2018. . FINDINGS: 5 images from the OR have been obtained. There is a long intramedullary tai/nail seen. This is secure d distally with 2 screws. There is a helical blade seen through the femoral neck and head. Hardware appears well placed. The enteroenteric femoral neck fracture is successfully reduced. There is a separate fracture fragment at the lesser trochanter. CONCLUSION: Successful ORIF. Electronically signed by: Chris Saezn MD 02/20/2018 11:32 AM EST
--- NOTE | 2018-02-20 11:42 | OTSOAPIP ---
PATIENT OFF FLOOR FOR ORTHO SURGERY. WILL FOLLOW UP 02/21/18. JT Therapist: Anne Lopez Signature on file
[2018-02-20 11:43] LABS: Burr Cells 1+; Lymphocytes 3 % (9-44); Monocytes 4 % (0-8); Ovalocytes 1+; Tallied Nucleated RBC 1 (0-0)
[2018-02-20] MEDS: Pantoprazole Inj 40 MG Vial IV.PUSH SCH (11:46)
[2018-02-20] MEDS: Senna/Docusate Sodium 8.6/50 MG Tablet PO SCH ×2 (11:47→21:40)
--- NOTE | 2018-02-20 13:23 | MP ---
cc: ,Chandler Carrillo DATE OF OPERATION: 02/20/2018 PREOPERATIVE DIAGNOSIS: Left hip intertrochanteric femur fracture. POSTOPERATIVE DIAGNOSIS: Left hip intertrochanteric femur fracture. OPERATION PERFORMED: Left hip open reduction internal fixation with intramedullary nail implant. SURGEON: Chandler Carrillo MD SUPERINTENDENT HORTICULTURE: Gab Paniagua PA-C ANESTHESIA: General. ESTIMATED BLOOD LOSS: 100 mL. SPECIMENS: None. FLUIDS: Per anesthesia record. URINE OUTPUT: Per anesthesia record. TOURNIQUET: Not used. COMPLICATIONS: None. IMPLANTS: Synthes TFN-A nail size 12 mm x 320 mm, with a 95 mm helical blade. INDICATIONS FOR PROCEDURE: Please see history and physical for complete details. In summary, Mrs. 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 She was admitted to the [facility] unit for evaluation of her CVA. Additionally, she sustained a left intertrochanteric femur fracture. Orthopedic surgery consultation was requested. We discussed with her family and her regarding our recommendations for open reduction and internal fixation. We awaited medical optimization and clearance by both Neurology and Hospitalist Medicine team. She was subsequently discontinued from her Heparin and taken back to the operating room and was facilitated at the earliest available surgical opportunity. Relevant risks, benefits, expected postoperative course of surgical management were reviewed. Risks include but are not limited to, damage to surrounding blood vessels and nerves, infection, wound healing issues, hardware failure, continued pain, nonunion, malunion, and need for future surgery. Ample opportunity was offered for questions to be answered and all her questions were answered to her apparent satisfaction. She agreed to proceed with surgery as per consent. DESCRIPTION OF PROCEDURE: The patient was identified in the preoperative holding area and the operative site was marked. The patient was then brought back to the operating room under the care of the anesthesiology team and positioned supine on the fracture table. All bony prominences were padded. A per protocol timeout was performed during which the patient's identity, site, side and nature of procedure was confirmed. General anesthesia was then induced without untoward effect and endotracheal intubation was performed. The fracture boots were then placed and the patient was placed in traction with a reduction being performed of the left intertrochanteric femur fracture. Provisional C-arm fluoroscopy was then obtained, which confirmed excellent reduction of the fracture. The left lower extremity was then prepped and draped in routine strict and sterile fashion using triple prep solution and occlusive draping. A guidewire was used to identify the lateral border of the hip, along with the trajectory for the greater trochanter. A posterolateral hip incision was made, longitudinally. Blunt dissection was continued through the subcutaneous tissues. A guidewire was then advanced to the tip of the trochanter being just medial to the tip of the greater trochanter. AP and lateral fluoroscopic imaging confirmed excellent position of the guidewire. This was then advanced within the intramedullary canal and overreamed with use of an opening reamer. The guidewire was then removed and a long guidewire was then placed intramedullary down to the proximal aspect of the patella. This was then measured and measured a size 320 mm length. Reaming was then begun, starting with a size 10 mm reamer advancing to a size 14 mm reamer. There was appropriate endosteal chatter with a size 40 mm reamer and as such, a size 12 nail was selected. The nail was opened on the back table and assembled to the proximal jig and then inserted over the guidewire. It was gently impacted into position. The lateral cannula lateral cannula for the dynamic hip screw was then placed. Resection was carried through skin and IT band. The cannula was then advanced to the lateral aspect of the femoral cortex. Once this was secured, a guidewire was then advanced up the cannula. AP and lateral fluoroscopic imaging confirmed excellent position of the guidewire for the helical blade. This was then measured which measured a size 95 mm. The helical blade was then opened and inserted and impacted gently into position. Repeat AP, lateral and around the world imaging demonstrated excellent position in a center-center point of the femoral neck with an appropriate tip to apex distance. It was then sent a compression mode gently and traction was released. Compression was then performed of the intertrochanteric femur fracture. The nail was locked in position and then reversed 1/2 turn to allow for dynamic settings. The proximal assembly jig was then removed. Attention was turned distally. Perfect circles were then obtained, using a C-arm fluoroscopy and then 2 interlocking screws of appropriate length were then selected and placed in the distal interlocking holes. Final fluoroscopic imaging was obtained at this point in time. AP and lateral of the femur were obtained as well as the hip. This demonstrated uncomplicated hardware placement. The interlocking screws were appropriately positioned. There was no evidence of hardware complication. The fracture was adequately reduced with near anatomic confucianism. All wounds were thoroughly irrigated with normal saline solution. Attention was then turned to closure. The wound was closed with 2-0 Vicryl in the subcutaneous tissue, followed by hilary. A dry sterile dressing consisting of Xeroform, 4 x 4 gauze, and ABD pad were then placed. This completed the case. At the conclusion of the case, all sponge and needle counts were correct x 2. I was present for the entire duration of the case. DISPOSITION: The patient was reversed from anesthesia and transferred to bed and transferred to the PACU in stable condition. POSTOPERATIVE RECOMMENDATIONS: 1. Weightbearing as tolerated to the left lower extremity. 2. PT/OT consultation. 3. Multimodal pain control. 4. She may resume Xarelto 24 hours postoperatively. This will be for the treatment of her CVA, but will also serve purposes for DVT prophylaxis. 5. Percocet, dispense #42, has been provided for discharge. 6. Patient will follow up with Dr. Carrillo in 2-3 weeks for repeat x-rays and for a dressing change and staple removal. In the interim, her dressings may remain intact. Her dressings are waterproof. She may shower. If her dressings do become soaked, they may be changed with Xeroform, 4 x 4 gauze and an ABD pad. All questions and concerns were addressed with the family at bedside. Gab Paniagua PA-C was present during the entire procedure to include patient positioning and the procedure. The medical necessity of the TATE-Maksim was indicated in this case due to complexity of the case itself. During the surgical case, the office machine technician was working the back table while the TATE-C was directly assisting me. Chandler Carrillo MD, CM/agusto , 10:22 AM , 10:36 AM TRISTEN
--- NOTE | 2018-02-20 14:19 | HM ---
Date Performed: 02/18/2018 Time Performed: 14:30:00 HOOKUP DATE: 02/18/18 02:30:00 PM Fri ANALYSIS START TIME: 02/18/2018 2:35:00 PM ANALYSIS END TIME: 02/19/2018 12:47:44 PM PATIENT AGE: 82 PATIENT HEIGHT: 62 PATIENT WEIGHT: 130 DRUG LIST: ROOM 1304 PATIENT DIAGNOSIS: NEURO TEST NARRATIVE: The patient's average heart rate was 100 BPM. Heart rates greater than 120 BPM were noted 4% of the time. No episodes of bradycardia were noted. No pauses exceeding 2.0 se conds were noted. 2 ventricular ectopics, which represented < 1% of the total beat count, were no maikel. The highest ventricular ectopic frequency occurred from 09:00 AM to 10:00 AM Sat. During this time 1 VE(s) occurred. Ventricular ectopics were observed as 2 isolated beat(s) only. No couplets o r runs were noted. 32 supraventricular ectopics, which represented < 1% of the total beat count, were noted. The highest supraventricular ectopic frequency occurred from 01:00 AM to 02:00 AM Sat. During this time 5 SVE(s) occurred. Multiple episodes of ST depression (defined as -1.0 mm or mor e) were noted in channel 1. The maximum depression of -1.8 mm occurred at 09:38:35 AM Sat. Multipl e episodes of ST depression (defined as -1.0 mm or more) were noted in channel 2. The maximum depre ssion of -1.7 mm occurred at 09:38:35 AM Sat. Multiple episodes of ST depression (defined as -1.0 mm or more) were noted in channel 3. The maximum depression of -1.9 mm occurred at 09:38:35 AM Sat. N O DIARY ENTRIES WERE RECORDED BY PATIENT TEST INTERPRETATION: Patient monitored for 22 hours and 13 minutes. Patient was in normal Sinus rhythm at 100 bpm. Minimum heart rate 76 bpm, periods of sinus tachycardia to 129 bpm. 2 PVCs, 29 PACs Signed by : Michele Cummings
[2018-02-20] MEDS: ceFAZolin 2 GM Premix Inj 2 GM/50 ML PIGGYBACK IV.SIG SCH ×2 (15:41→23:36)
[2018-02-20] MEDS: Morphine Sulfate Inj 2 MG/ML Vial IV.PUSH PRN (15:42)
[2018-02-20 17:14] LABS: Calcium 7.5 mg/dL (8.5-10.1); Carbon Dioxide 19.9 meq/L (21.0-32.0); Potassium 4.3 meq/L (3.5-5.1)
[2018-02-21] MEDS: levETIRAcetam 1000mg/100mL Inj 100 ML IV.SIG SCH ×2 (01:02→12:27)
[2018-02-21 03:29] LABS: Baso % (Auto) 0.1 % (0.0-2.0); Lymph # (Auto) 0.5 th/mm3 (1.0-4.8); Lymph % (Auto) 3.8 % (9.0-44.0); Mean Corpuscular HGB Conc 34.3 % (32.0-36.0); Mean Corpuscular Hemoglobin 30.1 pg (27.0-34.0); Mean Corpuscular Volume 87.7 fL (80.0-100.0); Mean Platelet Volume 8.8 fL (7.0-11.0); Mono # (Auto) 0.7 th/mm3 (0.0-0.9); Mono % (Auto) 5.2 % (0.0-8.0); Neut # (Auto) 12.4 th/mm3 (1.8-7.7); Neut % (Auto) 90.9 % (16.0-70.0); Platelet Count 79 th/mm3 (150-450); Red Blood Count 2.28 mil/mm3 (4.00-5.30); Red Cell Distribution Width 17.4 % (11.6-17.2); White Blood Count 13.6 th/mm3 (4.0-11.0)
[2018-02-21 03:35] LABS: Hemoglobin 6.9 gm/dL (11.6-15.3)
[2018-02-21 04:09] LABS: Lymphocytes 4 % (9-44); Monocytes 3 % (0-8); Tallied Nucleated RBC 1 (0-0)
[2018-02-21 04:10] LABS: Platelet Morphology Normal (Normal)
[2018-02-21 04:11] LABS: Polychromasia 2.5 % (0.0-1.9)
[2018-02-21 04:12] LABS: Calcium 7.2 mg/dL (8.5-10.1); Carbon Dioxide 19.5 meq/L (21.0-32.0); Ovalocytes 1+; Pappenheimer Bodies Present; Potassium 3.9 meq/L (3.5-5.1)
[2018-02-21 04:14] LABS: Acanthocytes Occ
[2018-02-21 04:26] LABS: Calcium-Albumin Corrected 8.6 mg/dL (8.5-10.1); Total Protein 4.6 g/dL (6.4-8.2)
[2018-02-21] MEDS ORDERED: Sodium Chlor 0.9% Inj 250 ML IV.SIG SCH (05:00)
--- NOTE | 2018-02-21 05:39 | CT ---
EXAM DATE: 02/21/2018 5:05 AM EST AGE/SEX: 82 years / Female INDICATIONS: Follow up hemorrhage. CLINICAL DATA: This is the patient's subsequent encounter. Patient reports that signs and symptoms h ave been present for 3 days and indicates a pain score of Nonresponsive. MEDICAL/SURGICAL HISTORY: Hypertension. Carcinoma, head and neck. None. RADIATION DOSE: 31.96 CTDI (mGy) [place] [facility] [place]18[place]. . TECHNIQUE: CT of the head without contrast. Using automated exposure control and adjustment of the mA and/or kV according to patient size, radiation dose was kept as low as reasonably achievable to ob tain optimal diagnostic quality images. DICOM format image data is available electronically for revi ew and comparison. FINDINGS: Cerebrum: There is an evolving wedge-shaped infarct in the posterior right MCA distribution involvin g primarily the right temporal and occipital lobes extending into the parietal lobe. There is no sign ificant mass effect or shift. No hemorrhage. No hydrocephalus. Posterior Fossa: The cerebellum and brainstem are intact. The 4th ventricle is midline. The cerebe llopontine angle is unremarkable. Extracranial: The visualized portion of the orbits is intact. Skull: The calvaria is intact. No evidence of skull fracture. CONCLUSION: 1. Evolving infarct on the right as above. No new hemorrhage or mass effect. . Electronically signed by: Clark Amezcua MD 02/21/2018 5:37 AM EST
[2018-02-21] MEDS: Chlorhexidine Gluconate 2% 1 Pack (2 Cloths) TOPICAL SCH (05:45)
[2018-02-21] MEDS: Insulin NovoLOG Aspart Correctional Sugar Inj SQ SCH ×3 (06:26→18:06)
--- NOTE | 2018-02-21 08:27 | P.PNCC ---
Subjective Subjective Remarks/Hospital Course: 02/17: This is an 82-year-old female. [place] speaking understanding [place]. Date of admission 02/17/2003 past medical includes hypertension, hyperlipidemia, anxiety and low back pain. 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 Patient was seen by her primary care physician on Wednesday according to she was a "stroke waiting to happen". She is currently on propranolol 10 mg and amlodipine 5 mg daily. She is on buspirone 5 mg daily for anxiety. Today, she is brought in by EMS to [facility] post fall 3:30 PM today. On arrival also evaluated the patient appears that she is not crossing the midline and she has a fixed gaze to the right. She appears confused and her left side is more ataxic on the left upper extremity and cannot see on the left visual field. According to record, family friends are here reporting that they went to check on her around 4:00 and she has stated that she has just fallen in the bathroom 5 minutes prior to arrival. Her also reported that she was sleeping yesterday all day. CT brain revealed no acute intracranial findings. CT Angi0 of the brain revealed M2 branch occluded 1 cm distally to the bifurcation. CT CT revealed right temporoparietal CVA acute. Due to the unknown timing of the stroke she was not considered to be a candidate for stent retrieval. She started on a heparin drip currently at 700 units an hour/lie flat and given aspirin 300 mg p.o. daily. Neurology/Dr. Hanley is following. MRI brain in a.m. 02/18. Patient has a acute comminuted left intertrochanteric fracture. She will be followed by orthopedics and they have been notified. Troponin is slightly elevated 0.35. EKG is currently pending. Echocardiogram is been ordered. 02/18: Resting comfortably in bed. Had a seizure earlier. Follows commands. Opens her mouth and sticks out her tongue. Keeping her eyes closed. 02/19: Patient has tachycardia with decreasing blood pressure. Hemoglobin this morning is 5.8, a decline of almost 2 g. I suspect she has bled around the fracture site, hopefully stopped. We will start by transfusing 2 units of packed cells but need to consider discontinuing her systemic anticoagulation if this trend continues. 02/20: Patient has considerable swelling in left hip. Bleeding into fracture site greater than normal because she was on heparin simultaneously for treatment of her acute ischemic stroke. Heparin has been stopped for about 20 hours now and her vital signs have been acceptable. Renal function continues to improve and urine output is acceptable. She is a reasonable risk for surgery today from a critical care standpoint, albeit increased because of her age, recent stroke, acute blood loss from fracture. 02/21: Another hemoglobin drop following surgery requiring transfusion. There has been no evidence of another source aside from the acute fracture in the left hip. For completeness we will test her stool for occult blood. Need to start making arrangements for her to get to a rehab facility following her stroke and hip fracture. Objective Vital Signs / I&O: Vital Signs 02/20/18 09:00 02/20/18 10:15 02/20/18 10:30 Temperature 97.1 F L Pulse Rate 96 H 98 H 94 H Respiratory Rate 16 12 Blood Pressure 123/64 107/54 L Pulse Oximetry 93 L 99 02/20/18 10:45 02/20/18 10:51 02/20/18 11:00 Temperature 97.3 F L Pulse Rate 92 H 90 88 Respiratory Rate 14 13 Blood Pressure 103/54 L Pulse Oximetry 98 02/20/18 11:09 02/20/18 11:34 02/20/18 11:40 Temperature Pulse Rate 85 88 86 Respiratory Rate 11 L 22 29 H Blood Pressure 119/55 L 112/56 L 105/52 L Pulse Oximetry 99 98 69 L 02/20/18 12:00 02/20/18 12:20 02/20/18 12:40 Temperature 98.1 F Pulse Rate 98 H 81 81 Respiratory Rate 38 H 17 17 Blood Pressure 126/60 119/58 L 134/60 Pulse Oximetry 100 02/20/18 13:00 02/20/18 13:20 02/20/18 13:40 Temperature Pulse Rate 92 H 82 77 Respiratory Rate 23 13 13 Blood Pressure 111/56 L 125/55 L 118/53 L Pulse Oximetry 99 100 02/20/18 14:00 02/20/18 14:20 02/20/18 14:51 Temperature Pulse Rate 82 93 H 92 H Respiratory Rate 19 16 35 H Blood Pressure 125/57 L 108/54 L 110/56 L Pulse Oximetry 97 98 100 02/20/18 15:00 02/20/18 15:20 02/20/18 15:40 Temperature Pulse Rate 93 H 100 H 101 H Respiratory Rate 18 29 H 26 H Blood Pressure 117/58 L 112/53 L 121/58 L Pulse Oximetry 100 86 L 98 02/20/18 16:00 02/20/18 16:20 02/20/18 16:40 Temperature Pulse Rate 100 H 102 H 103 H Respiratory Rate 32 H 44 H 33 H Blood Pressure 127/56 L 132/60 123/59 L Pulse Oximetry 100 93 L 95 02/20/18 17:00 02/20/18 17:20 02/20/18 17:40 Temperature 99.1 F Pulse Rate 99 H 92 H 90 Respiratory Rate 20 18 20 Blood Pressure 122/58 L 98/53 L 109/53 L Pulse Oximetry 100 100 100 02/20/18 19:00 02/20/18 19:40 02/20/18 20:00 Temperature 98.6 F Pulse Rate 97 H 91 H 99 H Respiratory Rate 20 22 20 Blood Pressure 92/52 L Pulse Oximetry 99 100 99 02/20/18 20:20 02/20/18 21:00 02/20/18 22:00 Temperature Pulse Rate 94 H 97 H Respiratory Rate 23 22 Blood Pressure 115/56 L 97/65 L 110/53 L Pulse Oximetry 97 95 02/20/18 22:20 02/20/18 22:40 02/20/18 23:00 Temperature Pulse Rate 101 H 106 H 101 H Respiratory Rate 23 29 H 18 Blood Pressure 102/54 L 117/55 L 115/54 L Pulse Oximetry 96 95 96 02/21/18 00:00 02/21/18 01:00 02/21/18 01:03 Temperature 98 F Pulse Rate 95 H 94 H Respiratory Rate 14 24 23 Blood Pressure 102/51 L 98/54 L Pulse Oximetry 98 94 L 02/21/18 02:00 02/21/18 03:00 02/21/18 04:00 Temperature 98.9 F Pulse Rate 90 98 H 90 Respiratory Rate 16 21 27 H Blood Pressure 95/50 L 94/54 L 103/51 L Pulse Oximetry 95 94 L 92 L 02/21/18 05:00 02/21/18 05:29 02/21/18 05:40 Temperature 98.8 F Pulse Rate 98 H 91 H 86 Respiratory Rate 25 H 19 12 Blood Pressure 114/55 L 104/56 L 102/51 L Pulse Oximetry 95 94 L 95 02/21/18 05:55 02/21/18 06:00 02/21/18 06:51 Temperature 98.8 F 98.5 F Pulse Rate 97 H 98 H 98 H Respiratory Rate 24 22 Blood Pressure 113/51 L 114/57 L 128/60 Pulse Oximetry 97 94 L 02/21/18 07:24 Temperature Pulse Rate Respiratory Rate Blood Pressure Pulse Oximetry 95 Intake & Output 02/20/18 02/21/18 02/21/18 18:59 06:59 18:59 Intake Total 1430 / 1430 2009 Output Total 200 / 200 825 / 825 Balance 1230 / 1230 1185 / 1185 Weight 70.3 kg Intake: IV 250 / 250 1150 / 1150 NS Inj 1,000 ML @ 100 mls/hr IV 1000 / 1000 .CONT .Q10H [facility] Rx#:[id number] Ancef 1 GM Premix Inj 2 gm In 100 / 100 100 ml @ 0 mls/hr IV.SIG .STK- [facility] Rx#:[id number] Ancef 2 GM Premix Inj 2 gm In 50 / 50 50 / 50 50 ml @ 100 mls/hr IV.SIG Q8H [facility] Rx#:[id number] Keppra 1000 mg/100 mL Premix 100 / 100 100 / 100 100 ML @ 400 mls/hr IV.SIG Q12H [facility] Rx#:[id number] Oral 280 / 280 360 / 360 Anesthesia Amount 900 / 900 Other 100 / 100 Rbc As-3 Leukoreduced Unit 100 / 100 [id number] Intake (Blood Product) Amt 400 / 400 Rbc As-3 Leukoreduced Unit 0 / 0 [id number] Rbc As-3 Leukoreduced Unit 400 / 400 [id number] Output: Urine 100 / 100 Stool 0 / 0 Estimated Blood Loss 100 / 100 Urine Amount (Catheter) 825 / 825 Straight 825 / 825 Other: # Bowel Movements 0 Result Diagrams: 02/21/18 03:05 02/21/18 03:05 Objective Remarks: HEENT/Neuro: Some language difficulty. Appears to respond to questions. Occasionally responds by answering yes or no. Opens her mouth, sticks her tongue out. Right approximately weakness. Limited mobility left lower extremity secondary to acute hip fracture. Neck: Airway widely patent, no obstructive noises. Chest/pulmonary: Clear, comfortable respiratory pattern, no adventitious sounds. Acceptably strong cough. Cardiovascular: S1-S2 regular no gallop or murmur, no JVD. GI/abdomen: Soft, nontender, bowel sounds present. No guarding. Extremities: Warm bilaterally, no edema. Dry dressing left hip Assessment and Plan - Problem List (1) Right-sided cerebrovascular accident (CVA) Code(s): I63.9 - Cerebral infarction, unspecified Status: Acute (2) Essential hypertension Code(s): I10 - Essential (primary) hypertension Status: Chronic (3) Hyperlipidemia Code(s): E78.5 - Hyperlipidemia, unspecified Status: Chronic (4) Hyperglycemia Code(s): R73.9 - Hyperglycemia, unspecified Status: Acute (5) Hyponatremia Code(s): E87.1 - Hypo-osmolality and hyponatremia Status: Acute (6) Elevated troponin Code(s): R74.8 - Abnormal levels of other serum enzymes Status: Acute (7) Leukocytosis Code(s): D72.829 - Elevated white blood cell count, unspecified Status: Acute (8) Fracture, intertrochanteric, left femur Code(s): S72.142A - Displaced intertrochanteric fracture of left femur, initial encounter for closed fracture Status: Acute - Assessment and Plan Plan: Neuro/Psych: Acute right temporal parietal CVA Occlusion of the M2 branch MCA CT brain on admission no acute intracranial findings. CT angiogram revealed an M2 branch occluded [address] CAD revealed right temporal CVA acute. Size is approximately 3 x [address] Hanley/neurology recommended aspirin and heparin drip. Head of bed flat. MRI of brain in a.m. 02/18 PT/OT/ST evaluate and treat Acetaminophen 650 mg p.o. every 6 hours as needed fever Hydrocodone/acetaminophen 325/5 1 tablet every 4 hours as needed pain 1-5 Morphine sulfate 2 mg IV every 2 hours. Pain 6 - 10 Decreasing hemoglobin, hold anticoagulation 02/19 and transfused 2 units packed red blood cells Transfuse 1 additional unit packed red blood cells 02/20 Transfuse again today 02/21 CV: Essential hypertension Hyperlipidemia Elevated troponin Currently on as needed labetalol/nicardipine drip to maintain systolic blood pressure less than 20/diastolic pressure less than 120 Medications are amlodipine 5 mg daily propanolol 20 mg daily. Started on pravastatin 40 mg daily for dyslipidemia. Lipid panel pending EKG pending. Initial troponin 0 0.35. Every 6 hours x2 ordered. Echocardiogram ordered. Cardiology consulted. Holding anticoagulation with heparin due to left hip bleeding. Continue aspirin Resp: Nasal cannula to maintain saturations greater than or equal to 92% Incentive spirometry while awake Albuterol/ipratropium aerosols every 4 hours with albuterol aerosols every 2 hours as needed dyspnea GI: Currently n.p.o. status Pantoprazole for GI prophylaxis Docusate sodium/senna 1 tablet twice daily for bowel regimen Test stool for occult blood : Straight catheterization as needed Endo: Acute hyperglycemia Sliding scale insulin aspart insulin Accu-Cheks every 6 hours to maintain euglycemia/low regimen Check TSH Check hemoglobin A1c Renal: Creatinine currently within normal limits Monitor urine output Accurate I's and O's Heme: Leukocytosis/acute Monitor CBC daily. Follow trends. No indication for transfusion of blood products at this time. Hemoglobin 5.8 this morning, acute change, likely reflects blood loss. Corrected yesterday. Down again today mostly to dilution. ID: Monitor for signs and symptomatology infection MSK: Acute comminuted IT fracture left femur Chronic Low back pain X-ray of the hip revealed acute comminuted IT fracture of the left femur. Nondisplaced. Orthopedics consultation-discussed with Dr. Berger. Deferred surgery for hip fracture to Wednesday following discussion with Dr. Hanley due to acute stroke/ seizure. FEN: Hyponatremia/acute Replace electrolytes as clinically indicated per ICU electrolyte protocol Access -Utilize peripheral IV. Central line if indicated Prophylaxis -GI -pantoprazole -DVT -SCD/holding heparin drip starting 02/19 Overall impression: This woman was critically ill following a recent ischemic stroke and left hip fracture. Heparin anticoagulation instituted for treatment of the stroke has produced larger than normal bleeding in the left hip. The heparin was stopped and her hemodynamics have improved. She tolerated hip fracture surgery well and was extubated immediately thereafter. She has presently received 4 units and transfusion and our assumption is that it is all from the left hip complicated by heparin drip. Stool for occult blood is ordered just in case there is another source of blood loss. (3) Hyperlipidemia Qualifiers: Hyperlipidemia type: unspecified Qualified Code(s): E78.5 - Hyperlipidemia, unspecified (7) Leukocytosis Qualifiers: Leukocytosis type: unspecified Qualified Code(s): D72.829 - Elevated white blood cell count, unspecified (8) Fracture, intertrochanteric, left femur Qualifiers: Encounter type: initial encounter Fracture type: closed Fracture alignment: nondisplaced Qualified Code(s): S72.145A - Nondisplaced intertrochanteric fracture of left femur, initial encounter for closed fracture
[2018-02-21] MEDS: ceFAZolin 2 GM Premix Inj 2 GM/50 ML PIGGYBACK IV.SIG SCH (08:33)
[2018-02-21] MEDS: Sod Chloride 0.9% Inj 1,000 ML IV.CONT SCH ×4 (08:33→21:10)
[2018-02-21] MEDS: Senna/Docusate Sodium 8.6/50 MG Tablet PO SCH ×2 (08:33→21:02)
[2018-02-21] MEDS: Pantoprazole Inj 40 MG Vial IV.PUSH SCH (08:34)
--- NOTE | 2018-02-21 08:46 | P.PNNEU ---
Subjective Active Medications: Active Medications Acetaminophen (Tylenol) 650 mg PO Q6H PRN PRN Reason: FEVER Hydrocodone Bitart/Acetaminophen ([place] 5/325) 1 tab PO Q4H PRN PRN Reason: PAIN SCALE 1 TO 5 Last Admin: 02/21/18 06:49 Dose: 1 tab Al Hydroxide/Mg Hydroxide (Milk Of Magnfabrice Liq) 30 ml PO Q12H PRN PRN Reason: Mild Constipation Albuterol (Albuterol Neb (Prn)) 2.5 mg NEB Q2HR NEB PRN PRN Reason: SHORTNESS OF BREATH/WHEEZING Albuterol (Duoneb Neb (Isidoro)) 1 ampul NEB Q4HR NEB [facility] Last Admin: 02/21/18 07:24 Dose: Not Given Aspirin (Aspirin Chew) 81 mg PO DAILY [facility] Last Admin: 02/21/18 08:33 Dose: 81 mg Bisacodyl (Dulcolax Supp) 10 mg RECTAL DAILY PRN PRN Reason: SEVERE CONSITIPATION Buspirone HCl (Buspar) 5 mg PO DAILY [facility] Last Admin: 02/21/18 08:33 Dose: 5 mg Chlorhexidine Gluconate (Chlorhexidine 2% Cloth) 3 pack TOPICAL DAILY@0400 [facility] Stop: 02/23/18 03:59 Last Admin: 02/21/18 05:45 Dose: 3 pack Chlorhexidine Gluconate (Chlorhexidine 2% Cloth) 3 pack TOPICAL DAILY@0400 PRN PRN Reason: Extra cloth needed Stop: 02/23/18 03:59 Dextrose (D50w Vial) 50 ml IV.PUSH UNSCH PRN PRN Reason: PER HYPOGLYCEMIA PROTOCOL Glucagon (Glucagon Inj) 1 mg OTHER PRN PRN PRN Reason: for Hypoglycemia Protocol Sodium Chloride (Ns Inj) 1,000 mls @ 70 mls/hr IV.CONT .[id number] [facility] Last Admin: 02/20/18 21:40 Dose: Not Given Heparin Sodium/Dextrose (Heparin/D5w 25,000 U/250 Ml) 25,000 unit in 250 mls @ 0 mls/hr IV.CONT TITRATE PRN; Protocol PRN Reason: Per Protocol Last Titration: 02/19/18 18:51 Dose: Infused Sodium Chloride (Ns Inj) 1,000 mls @ 100 mls/hr IV.CONT .Q10H [facility] Last Admin: 02/21/18 08:33 Dose: 100 mls/hr Magnesium Sulfate 4 gm/ Sodium (Chloride) 100 mls @ 50 mls/hr IV.SIG UNSCH PRN PRN Reason: For Magnesium 0.9 - 1.1 mg/dL Magnesium Sulfate 2 gm/ Sodium (Chloride) 100 mls @ 50 mls/hr IV.SIG UNSCH PRN PRN Reason: For Magnesium 1.2 - 1.6 mg/dL Potassium Chloride (Kcl 40 Meq Premix Inj) 40 meq in 100 mls @ 25 mls/hr IV.SIG Q2H PRN PRN Reason: For Potassium 2.8 - 3.2 mEq/L Potassium Chloride (Kcl 20 Meq Premix Inj) 20 meq in 100 mls @ 50 mls/hr IV.SIG Q2H PRN PRN Reason: For Potassium 3.3 - 3.5 mEq/L Potassium Chloride (Kcl 20 Meq Premix Inj) 20 meq in 100 mls @ 50 mls/hr IV.SIG Q2H PRN PRN Reason: For Potassium 2.8 - 3.2 mEq/L Potassium Phosphate 30 mmol/ (Sodium Chloride) 260 mls @ 42 mls/hr IV.SIG UNSCH PRN PRN Reason: SEE LABEL COMMENTS Sodium Phosphate 30 mmol/ (Sodium Chloride) 260 mls @ 42 mls/hr IV.SIG UNSCH PRN PRN Reason: For Phosphorus < 2.5 mg/dL Potassium Chloride (Kcl 40 Meq Premix Inj) 40 meq in 100 mls @ 25 mls/hr IV.SIG UNSCH PRN PRN Reason: For Potassium 3.3 - 3.5 mEq/L Nicardipine HCl 25 mg/ Sodium (Chloride) 250 mls @ 50 mls/hr IV.CONT TITRATE PRN; Protocol PRN Reason: Per Protocol Levetiracetam (Keppra 1000 Mg/100 Ml Premix) 100 mls @ 400 mls/hr IV.SIG Q12H [facility] Last Infusion: 02/21/18 01:20 Dose: Infused Phenylephrine HCl 40 mg/ (Sodium Chloride) 500 mls @ 30 mls/hr IV.CONT TITRATE PRN; Protocol PRN Reason: See Protocol Sodium Chloride (Ns Inj) 250 mls @ 15 mls/hr IV.SIG ONCE [facility] Stop: 02/21/18 21:39 Last Admin: 02/21/18 05:45 Dose: 15 mls/hr Insulin Aspart (Novolog Insulin Correctional Sugar Inj) 0 unit SQ Q6HR [facility]; Protocol Last Admin: 02/21/18 06:26 Dose: Not Given Labetalol HCl (Trandate Inj) 10 mg IV.PUSH Q2H PRN PRN Reason: For SBP > 220 or DBP > 120 Lactulose (Lactulose Liq) 30 ml PO DAILY PRN PRN Reason: SEVERE CONSITIPATION Magnesium Oxide (Mag-Ox) 800 mg PO UNSCH PRN PRN Reason: For Magnesium 1.2 - 1.6 mg/dL Miscellaneous Information ([facility] Nursing Information) 1 each OTHER UNSCH PRN PRN Reason: SEE LABEL COMMENTS Stop: 02/21/18 10:17 Morphine Sulfate (Morphine Inj) 1 mg IV.PUSH Q2H PRN PRN Reason: PAIN SCALE 6 TO 10 Last Admin: 02/20/18 15:42 Dose: 1 mg Ondansetron HCl (Zofran Inj) 4 mg IV.PUSH Q6H PRN PRN Reason: NAUSEA OR VOMITING Pantoprazole Sodium (Protonix Inj) 40 mg IV.PUSH DAILY [facility] Last Admin: 02/21/18 08:34 Dose: 40 mg Potassium Bicarb/Potassium Chloride (K-Lyte Cl Eff) 50 meq PO UNSCH PRN PRN Reason: For Potassium 3.3 - 3.5 mEq/L Potassium Phosphate (K-Phos Original) 2,000 mg PO Q4H PRN PRN Reason: Phosphorus Less Than 2.5 mg/dL Potassium Phosphate (K-Phos Original) 2,000 mg PO UNSCH PRN PRN Reason: SEE LABEL COMMENTS Pravastatin Sodium (Pravachol) 40 mg PO HS [facility] Last Admin: 02/20/18 21:40 Dose: 40 mg Senna/Docusate Sodium (Janice-Colace) 1 tab PO BID [facility] Last Admin: 02/21/18 08:33 Dose: 1 tab Sennosides (Senokot) 17.2 mg PO Q12H PRN PRN Reason: Moderate Constipation Sodium Chloride (Ns Flush) 2 ml IV.FLUSH BID [facility] Last Admin: 02/21/18 08:33 Dose: 2 ml Sodium Chloride (Ns Flush) 2 ml IV.FLUSH PRN PRN PRN Reason: FLUSH AFTER USING IV ACCESS Terbutaline Sulfate (Brethine Inj) 1 mg SQ UNSCH PRN PRN Reason: For Extravasation Allergies/Adverse Reactions: Allergies Allergy/AdvReac Type Severity Reaction Status Date / Time No Known Allergies Allergy Uncoded 05/09/12 18:20 Physical Exam Vital signs: Vital Signs 02/20/18 09:00 02/20/18 10:15 02/20/18 10:30 Temperature 97.1 F L Pulse Rate 96 H 98 H 94 H Respiratory Rate 16 12 Blood Pressure 123/64 107/54 L Pulse Oximetry 93 L 99 02/20/18 10:45 02/20/18 10:51 02/20/18 11:00 Temperature 97.3 F L Pulse Rate 92 H 90 88 Respiratory Rate 14 13 Blood Pressure 103/54 L Pulse Oximetry 98 02/20/18 11:09 02/20/18 11:34 02/20/18 11:40 Temperature Pulse Rate 85 88 86 Respiratory Rate 11 L 22 29 H Blood Pressure 119/55 L 112/56 L 105/52 L Pulse Oximetry 99 98 69 L 02/20/18 12:00 02/20/18 12:20 02/20/18 12:40 Temperature 98.1 F Pulse Rate 98 H 81 81 Respiratory Rate 38 H 17 17 Blood Pressure 126/60 119/58 L 134/60 Pulse Oximetry 100 02/20/18 13:00 02/20/18 13:20 02/20/18 13:40 Temperature Pulse Rate 92 H 82 77 Respiratory Rate 23 13 13 Blood Pressure 111/56 L 125/55 L 118/53 L Pulse Oximetry 99 100 02/20/18 14:00 02/20/18 14:20 02/20/18 14:51 Temperature Pulse Rate 82 93 H 92 H Respiratory Rate 19 16 35 H Blood Pressure 125/57 L 108/54 L 110/56 L Pulse Oximetry 97 98 100 02/20/18 15:00 02/20/18 15:20 02/20/18 15:40 Temperature Pulse Rate 93 H 100 H 101 H Respiratory Rate 18 29 H 26 H Blood Pressure 117/58 L 112/53 L 121/58 L Pulse Oximetry 100 86 L 98 02/20/18 16:00 02/20/18 16:20 02/20/18 16:40 Temperature Pulse Rate 100 H 102 H 103 H Respiratory Rate 32 H 44 H 33 H Blood Pressure 127/56 L 132/60 123/59 L Pulse Oximetry 100 93 L 95 02/20/18 17:00 02/20/18 17:20 02/20/18 17:40 Temperature 99.1 F Pulse Rate 99 H 92 H 90 Respiratory Rate 20 18 20 Blood Pressure 122/58 L 98/53 L 109/53 L Pulse Oximetry 100 100 100 02/20/18 19:00 02/20/18 19:40 02/20/18 20:00 Temperature 98.6 F Pulse Rate 97 H 91 H 99 H Respiratory Rate 20 22 20 Blood Pressure 92/52 L Pulse Oximetry 99 100 99 02/20/18 20:20 02/20/18 21:00 02/20/18 22:00 Temperature Pulse Rate 94 H 97 H Respiratory Rate 23 22 Blood Pressure 115/56 L 97/65 L 110/53 L Pulse Oximetry 97 95 02/20/18 22:20 02/20/18 22:40 02/20/18 23:00 Temperature Pulse Rate 101 H 106 H 101 H Respiratory Rate 23 29 H 18 Blood Pressure 102/54 L 117/55 L 115/54 L Pulse Oximetry 96 95 96 02/21/18 00:00 02/21/18 01:00 02/21/18 01:03 Temperature 98 F Pulse Rate 95 H 94 H Respiratory Rate 14 24 23 Blood Pressure 102/51 L 98/54 L Pulse Oximetry 98 94 L 02/21/18 02:00 02/21/18 03:00 02/21/18 04:00 Temperature 98.9 F Pulse Rate 90 98 H 90 Respiratory Rate 16 21 27 H Blood Pressure 95/50 L 94/54 L 103/51 L Pulse Oximetry 95 94 L 92 L 02/21/18 05:00 02/21/18 05:29 02/21/18 05:40 Temperature 98.8 F Pulse Rate 98 H 91 H 86 Respiratory Rate 25 H 19 12 Blood Pressure 114/55 L 104/56 L 102/51 L Pulse Oximetry 95 94 L 95 02/21/18 05:55 02/21/18 06:00 02/21/18 06:51 Temperature 98.8 F 98.5 F Pulse Rate 97 H 98 H 98 H Respiratory Rate 24 22 Blood Pressure 113/51 L 114/57 L 128/60 Pulse Oximetry 97 94 L 02/21/18 07:24 Temperature Pulse Rate Respiratory Rate Blood Pressure Pulse Oximetry 95 Intake & Output 02/20/18 02/21/18 02/21/18 18:59 06:59 18:59 Intake Total 1430 / 1430 2009 1000 / 1000 Output Total 200 / 200 825 / 825 Balance 1230 / 1230 1185 / 1185 1000 / 1000 Weight 70.3 kg Intake: IV 250 / 250 1150 / 1150 1000 / 1000 NS Inj 1,000 ML @ 100 mls/hr IV 1000 / 1000 1000 / 1000 .CONT .Q10H [facility] Rx#:[id number] Ancef 1 GM Premix Inj 2 gm In 100 / 100 100 ml @ 0 mls/hr IV.SIG .STK- MED ONE Rx#:[id number] Ancef 2 GM Premix Inj 2 gm In 50 / 50 50 / 50 50 ml @ 100 mls/hr IV.SIG Q8H [facility] Rx#:[id number] Keppra 1000 mg/100 mL Premix 100 / 100 100 / 100 100 ML @ 400 mls/hr IV.SIG Q12H [facility] Rx#:[id number] Oral 280 / 280 360 / 360 Anesthesia Amount 900 / 900 Other 100 / 100 Rbc As-3 Leukoreduced Unit 100 / 100 [id number] Intake (Blood Product) Amt 400 / 400 Rbc As-3 Leukoreduced Unit 0 / 0 [id number] Rbc As-3 Leukoreduced Unit 400 / 400 [id number] Output: Urine 100 / 100 Stool 0 / 0 Estimated Blood Loss 100 / 100 Urine Amount (Catheter) 825 / 825 Straight 825 / 825 Other: # Bowel Movements 0 Narrative: still left neglect but eyes open this am not moving lle much but lue nl left hh - Urinary Catheter Management Straight Cath placed during this visit: yes, but has since been removed by the nurse Reason for continuing: Not indwelling catheter Insertion date: 02/20/18 Insertion time: 20:00 Removal date: 02/20/18 Removal time: 20:28 Objective Laboratory Results - last 24 hr 02/20/18 02/20/18 02/20/18 08:10 08:15 10:26 WBC RBC Hgb Hct MCV MCH MCHC RDW Plt Count MPV Prelim Diff (Auto) Neut % (Auto) Lymph % (Auto) [place] % (Auto) Eos % (Auto) Baso % (Auto) Neut # (Auto) Lymph # (Auto) [place] # (Auto) Eos # (Auto) Baso # (Auto) WBC Differential Seg Neuts % (Manual) Band Neuts % (Manual) Lymphocytes % (Manual) Monocytes % (Manual) Abs Neuts (Manual) Nucleated RBCs/100 WBC Differential Comment Platelet Estimate Platelet Morphology Polychromasia Pappenheimer Bodies Ovalocytes [place] Cells Acanthocytes (Spur) Sodium Potassium Chloride Carbon Dioxide Anion Gap BUN Creatinine Estimated GFR POC Glucose 154 H Random Glucose Calcium Prot Corrected Calcium Total Protein Blood Type O Positive Antibody Screen Negative MTS Gel Crossmatch See Detail Bld Prod Order Comment Cancelled 02/20/18 02/20/18 02/20/18 10:26 12:59 15:50 WBC 15.9 H RBC 2.95 L Hgb 9.2 L 8.8 L Hct 26.2 L MCV 88.8 MCH 31.1 MCHC 35.0 RDW 17.6 H Plt Count 77 L MPV 8.8 Prelim Diff (Auto) Slide review pending Neut % (Auto) 89.9 H Lymph % (Auto) 6.0 L [place] % (Auto) 3.9 Eos % (Auto) 0.1 Baso % (Auto) 0.1 Neut # (Auto) 14.3 H Lymph # (Auto) 0.9 L [place] # (Auto) 0.6 Eos # (Auto) 0.0 Baso # (Auto) 0.0 WBC Differential Manual diff final Seg Neuts % (Manual) 85 H Band Neuts % (Manual) 8 H Lymphocytes % (Manual) 3 L Monocytes % (Manual) 4 Abs Neuts (Manual) 14.8 H Nucleated RBCs/100 WBC 1 H Differential Comment . Platelet Estimate Low L Platelet Morphology Enlarged H Polychromasia Pappenheimer Bodies Ovalocytes 1+ H [place] Cells 1+ H Acanthocytes (Spur) Sodium Potassium Chloride Carbon Dioxide Anion Gap BUN Creatinine Estimated GFR POC Glucose 125 H Random Glucose Calcium Prot Corrected Calcium Total Protein Blood Type Antibody Screen MTS Gel Crossmatch Bld Prod Order Comment 02/20/18 02/20/18 02/20/18 15:50 18:43 18:45 WBC RBC Hgb Hct MCV MCH MCHC RDW Plt Count MPV Prelim Diff (Auto) Neut % (Auto) Lymph % (Auto) [place] % (Auto) Eos % (Auto) Baso % (Auto) Neut # (Auto) Lymph # (Auto) [place] # (Auto) Eos # (Auto) Baso # (Auto) WBC Differential Seg Neuts % (Manual) Band Neuts % (Manual) Lymphocytes % (Manual) Monocytes % (Manual) Abs Neuts (Manual) Nucleated RBCs/100 WBC Differential Comment Platelet Estimate Platelet Morphology Polychromasia Pappenheimer Bodies Ovalocytes Dot Cells Acanthocytes (Spur) Sodium 137 Potassium 4.3 Chloride 110 H Carbon Dioxide 19.9 L Anion Gap 7 BUN 31 H Creatinine 0.91 Estimated GFR 59 L POC Glucose 172 H 151 H Random Glucose 156 H Calcium 7.5 L Prot Corrected Calcium Total Protein Blood Type Antibody Screen MTS Gel Crossmatch Bld Prod Order Comment 02/20/18 02/21/18 02/21/18 23:31 03:05 03:05 WBC RBC Hgb Cancelled Hct MCV MCH MCHC RDW Plt Count MPV Prelim Diff (Auto) Neut % (Auto) Lymph % (Auto) [place] % (Auto) Eos % (Auto) Baso % (Auto) Neut # (Auto) Lymph # (Auto) [place] # (Auto) Eos # (Auto) Baso # (Auto) WBC Differential Seg Neuts % (Manual) Band Neuts % (Manual) Lymphocytes % (Manual) Monocytes % (Manual) Abs Neuts (Manual) Nucleated RBCs/100 WBC Differential Comment Platelet Estimate Platelet Morphology Polychromasia Pappenheimer Bodies Ovalocytes Dot Cells Acanthocytes (Spur) Sodium 135 L Potassium 3.9 Chloride 108 H Carbon Dioxide 19.5 L Anion Gap 8 BUN 30 H Creatinine 0.96 Estimated GFR 56 L POC Glucose 203 H Random Glucose 142 H Calcium 7.2 L* Prot Corrected Calcium 8.6 Total Protein 4.6 L Blood Type Antibody Screen MTS Gel Crossmatch Bld Prod Order Comment 02/21/18 02/21/18 03:05 04:01 WBC 13.6 H RBC 2.28 L Hgb 6.9 L* Hct 20.0 L* MCV 87.7 MCH 30.1 MCHC 34.3 RDW 17.4 H Plt Count 79 L MPV 8.8 Prelim Diff (Auto) Slide review pending Neut % (Auto) 90.9 H Lymph % (Auto) 3.8 L [place] % (Auto) 5.2 Eos % (Auto) 0.0 Baso % (Auto) 0.1 Neut # (Auto) 12.4 H Lymph # (Auto) 0.5 L [place] # (Auto) 0.7 Eos # (Auto) 0.0 Baso # (Auto) 0.0 WBC Differential Manual diff final Seg Neuts % (Manual) 89 H Band Neuts % (Manual) 4 Lymphocytes % (Manual) 4 L Monocytes % (Manual) 3 Abs Neuts (Manual) 12.6 H Nucleated RBCs/100 WBC 1 H Differential Comment . 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 mi? 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
[2018-02-21] MEDS: Morphine Sulfate Inj 2 MG/ML Vial IV.PUSH PRN (19:19)
[2018-02-22] MEDS: Insulin NovoLOG Aspart Correctional Sugar Inj SQ SCH ×4 (01:17→17:56)
[2018-02-22] MEDS: levETIRAcetam 1000mg/100mL Inj 100 ML IV.SIG SCH ×2 (01:21→13:15)
[2018-02-22] MEDS: Chlorhexidine Gluconate 2% 1 Pack (2 Cloths) TOPICAL SCH (06:14)
[2018-02-22] MEDS: Sod Chloride 0.9% Inj 1,000 ML IV.CONT SCH ×4 (06:14→22:55)
--- NOTE | 2018-02-22 07:45 | P.PNNEU ---
Subjective Active Medications: Active Medications Acetaminophen (Tylenol) 650 mg PO Q6H PRN PRN Reason: FEVER Hydrocodone Bitart/Acetaminophen (Twain 5/325) 1 tab PO Q4H PRN PRN Reason: PAIN SCALE 1 TO 5 Last Admin: 02/21/18 21:17 Dose: 1 tab Al Hydroxide/Mg Hydroxide (Milk Of Lora Liq) 30 ml PO Q12H PRN PRN Reason: Mild Constipation Albuterol (Albuterol Neb (Prn)) 2.5 mg NEB Q2HR NEB PRN PRN Reason: SHORTNESS OF BREATH/WHEEZING Aspirin (Aspirin Chew) 81 mg PO DAILY [facility] Last Admin: 02/21/18 08:33 Dose: 81 mg Bisacodyl (Dulcolax Supp) 10 mg RECTAL DAILY PRN PRN Reason: SEVERE CONSITIPATION Buspirone HCl (Buspar) 5 mg PO DAILY [facility] Last Admin: 02/21/18 08:33 Dose: 5 mg Chlorhexidine Gluconate (Chlorhexidine 2% Cloth) 3 pack TOPICAL DAILY@0400 [facility] Stop: 02/23/18 03:59 Last Admin: 02/22/18 06:14 Dose: 3 pack Chlorhexidine Gluconate (Chlorhexidine 2% Cloth) 3 pack TOPICAL DAILY@0400 PRN PRN Reason: Extra cloth needed Stop: 02/23/18 03:59 Dextrose (D50w Vial) 50 ml IV.PUSH UNSCH PRN PRN Reason: PER HYPOGLYCEMIA PROTOCOL Diphenhydramine HCl (Benadryl Inj) 25 mg IV.PUSH Q6H PRN PRN Reason: ITCHING Last Admin: 02/21/18 17:38 Dose: 25 mg Glucagon (Glucagon Inj) 1 mg OTHER PRN PRN PRN Reason: for Hypoglycemia Protocol Sodium Chloride (Ns Inj) 1,000 mls @ 70 mls/hr IV.CONT .[id number] [facility] Last Admin: 02/22/18 06:14 Dose: Not Given Heparin Sodium/Dextrose (Heparin/D5w 25,000 U/250 Ml) 25,000 unit in 250 mls @ 0 mls/hr IV.CONT TITRATE PRN; Protocol PRN Reason: Per Protocol Last Titration: 02/19/18 18:51 Dose: Infused Sodium Chloride (Ns Inj) 1,000 mls @ 100 mls/hr IV.CONT .Q10H [facility] Last Admin: 02/21/18 21:10 Dose: 100 mls/hr Magnesium Sulfate 4 gm/ Sodium (Chloride) 100 mls @ 50 mls/hr IV.SIG UNSCH PRN PRN Reason: For Magnesium 0.9 - 1.1 mg/dL Magnesium Sulfate 2 gm/ Sodium (Chloride) 100 mls @ 50 mls/hr IV.SIG UNSCH PRN PRN Reason: For Magnesium 1.2 - 1.6 mg/dL Potassium Chloride (Kcl 40 Meq Premix Inj) 40 meq in 100 mls @ 25 mls/hr IV.SIG Q2H PRN PRN Reason: For Potassium 2.8 - 3.2 mEq/L Potassium Chloride (Kcl 20 Meq Premix Inj) 20 meq in 100 mls @ 50 mls/hr IV.SIG Q2H PRN PRN Reason: For Potassium 3.3 - 3.5 mEq/L Potassium Chloride (Kcl 20 Meq Premix Inj) 20 meq in 100 mls @ 50 mls/hr IV.SIG Q2H PRN PRN Reason: For Potassium 2.8 - 3.2 mEq/L Potassium Phosphate 30 mmol/ (Sodium Chloride) 260 mls @ 42 mls/hr IV.SIG UNSCH PRN PRN Reason: SEE LABEL COMMENTS Sodium Phosphate 30 mmol/ (Sodium Chloride) 260 mls @ 42 mls/hr IV.SIG UNSCH PRN PRN Reason: For Phosphorus < 2.5 mg/dL Potassium Chloride (Kcl 40 Meq Premix Inj) 40 meq in 100 mls @ 25 mls/hr IV.SIG UNSCH PRN PRN Reason: For Potassium 3.3 - 3.5 mEq/L Nicardipine HCl 25 mg/ Sodium (Chloride) 250 mls @ 50 mls/hr IV.CONT TITRATE PRN; Protocol PRN Reason: Per Protocol Levetiracetam (Keppra 1000 Mg/100 Ml Premix) 100 mls @ 400 mls/hr IV.SIG Q12H [facility] Last Infusion: 02/22/18 01:36 Dose: Infused Phenylephrine HCl 40 mg/ (Sodium Chloride) 500 mls @ 30 mls/hr IV.CONT TITRATE PRN; Protocol PRN Reason: See Protocol Insulin Aspart (Novolog Insulin Correctional Sugar Inj) 0 unit SQ Q6HR [facility]; Protocol Last Admin: 02/22/18 01:17 Dose: Not Given Labetalol HCl (Trandate Inj) 10 mg IV.PUSH Q2H PRN PRN Reason: For SBP > 220 or DBP > 120 Lactulose (Lactulose Liq) 30 ml PO DAILY PRN PRN Reason: SEVERE CONSITIPATION Magnesium Oxide (Mag-Ox) 800 mg PO UNSCH PRN PRN Reason: For Magnesium 1.2 - 1.6 mg/dL Morphine Sulfate (Morphine Inj) 1 mg IV.PUSH Q2H PRN PRN Reason: PAIN SCALE 6 TO 10 Last Admin: 02/21/18 19:19 Dose: 1 mg Ondansetron HCl (Zofran Inj) 4 mg IV.PUSH Q6H PRN PRN Reason: NAUSEA OR VOMITING Pantoprazole Sodium (Protonix Inj) 40 mg IV.PUSH DAILY [facility] Last Admin: 02/21/18 08:34 Dose: 40 mg Potassium Bicarb/Potassium Chloride (K-Lyte Cl Eff) 50 meq PO UNSCH PRN PRN Reason: For Potassium 3.3 - 3.5 mEq/L Potassium Phosphate (K-Phos Original) 2,000 mg PO Q4H PRN PRN Reason: Phosphorus Less Than 2.5 mg/dL Potassium Phosphate (K-Phos Original) 2,000 mg PO UNSCH PRN PRN Reason: SEE LABEL COMMENTS Pravastatin Sodium (Pravachol) 40 mg PO HS [facility] Last Admin: 02/21/18 21:02 Dose: 40 mg Senna/Docusate Sodium (Janice-Colace) 1 tab PO BID [facility] Last Admin: 02/21/18 21:02 Dose: 1 tab Sennosides (Senokot) 17.2 mg PO Q12H PRN PRN Reason: Moderate Constipation Sodium Chloride (Ns Flush) 2 ml IV.FLUSH BID [facility] Last Admin: 02/22/18 00:36 Dose: Not Given Sodium Chloride (Ns Flush) 2 ml IV.FLUSH PRN PRN PRN Reason: FLUSH AFTER USING IV ACCESS Terbutaline Sulfate (Brethine Inj) 1 mg SQ UNSCH PRN PRN Reason: For Extravasation Allergies/Adverse Reactions: Allergies Allergy/AdvReac Type Severity Reaction Status Date / Time No Known Allergies Allergy Uncoded 05/09/12 18:20 Physical Exam Vital signs: Vital Signs 02/21/18 07:47 02/21/18 08:00 02/21/18 08:02 Temperature Pulse Rate 97 H 93 H 92 H Respiratory Rate 34 H 13 13 Blood Pressure 153/65 H 113/65 122/60 Pulse Oximetry 92 L 96 96 02/21/18 08:17 02/21/18 08:32 02/21/18 08:47 Temperature Pulse Rate 93 H 95 H 89 Respiratory Rate 26 H 36 H 14 Blood Pressure 124/59 L 131/64 118/55 L Pulse Oximetry 96 97 96 02/21/18 09:00 02/21/18 09:02 02/21/18 09:17 Temperature Pulse Rate 93 H 95 H 90 Respiratory Rate 31 H 25 H 12 Blood Pressure 136/64 128/59 L Pulse Oximetry 98 91 L 02/21/18 09:32 02/21/18 09:47 02/21/18 10:00 Temperature Pulse Rate 91 H 88 87 Respiratory Rate 16 26 H 15 Blood Pressure 136/61 130/60 Pulse Oximetry 02/21/18 10:17 02/21/18 10:32 02/21/18 10:47 Temperature Pulse Rate 96 H 95 H 85 Respiratory Rate 31 H 41 H 18 Blood Pressure 121/59 L 124/65 120/66 Pulse Oximetry 94 L 95 94 L 02/21/18 11:00 02/21/18 11:02 02/21/18 11:12 Temperature Pulse Rate 87 85 91 H Respiratory Rate 18 16 37 H Blood Pressure 119/58 L 112/59 L Pulse Oximetry 95 95 95 02/21/18 11:17 02/21/18 11:32 02/21/18 11:47 Temperature Pulse Rate 87 85 87 Respiratory Rate 32 H 29 H 23 Blood Pressure 125/59 L 133/63 151/70 H Pulse Oximetry 94 L 97 02/21/18 12:00 02/21/18 12:02 02/21/18 12:17 Temperature Pulse Rate 86 88 92 H Respiratory Rate 31 H 30 H 46 H Blood Pressure 138/63 146/70 H Pulse Oximetry 97 97 86 L 02/21/18 12:32 02/21/18 12:47 02/21/18 13:00 Temperature Pulse Rate 90 80 87 Respiratory Rate 31 H 13 37 H Blood Pressure 151/67 H 131/63 Pulse Oximetry 92 L 96 95 02/21/18 13:02 02/21/18 13:17 02/21/18 13:32 Temperature Pulse Rate 92 H 92 H 94 H Respiratory Rate 32 H 37 H 57 H Blood Pressure 119/58 L 123/61 146/63 H Pulse Oximetry 93 L 92 L 92 L 02/21/18 13:47 02/21/18 14:00 02/21/18 14:02 Temperature Pulse Rate 82 82 81 Respiratory Rate 13 16 12 Blood Pressure 123/60 125/62 Pulse Oximetry 94 L 91 L 94 L 02/21/18 14:17 02/21/18 14:32 02/21/18 14:47 Temperature Pulse Rate 81 82 89 Respiratory Rate 13 13 29 H Blood Pressure 121/60 130/58 L 140/66 Pulse Oximetry 95 96 91 L 02/21/18 15:00 02/21/18 15:02 02/21/18 15:17 Temperature Pulse Rate 85 87 87 Respiratory Rate 26 H 39 H 34 H Blood Pressure 143/62 H 142/66 H Pulse Oximetry 95 94 L 84 L 02/21/18 15:32 02/21/18 15:47 02/21/18 16:00 Temperature Pulse Rate 90 105 H 84 Respiratory Rate 17 45 H 14 Blood Pressure 155/70 H 142/84 H Pulse Oximetry 96 80 L 96 02/21/18 16:02 02/21/18 18:00 02/21/18 19:00 Temperature Pulse Rate 86 97 H 93 H Respiratory Rate 17 24 Blood Pressure 145/82 H 149/69 H Pulse Oximetry 96 02/21/18 20:00 02/21/18 22:00 02/21/18 23:17 Temperature 98.0 F Pulse Rate 90 84 Respiratory Rate 15 Blood Pressure 153/95 H 155/71 H Pulse Oximetry 96 02/21/18 23:32 02/22/18 00:00 02/22/18 02:00 Temperature 98.2 F Pulse Rate 82 83 99 H Respiratory Rate 24 13 Blood Pressure 142/68 H Pulse Oximetry 95 02/22/18 03:10 02/22/18 04:00 02/22/18 06:00 Temperature 98.4 F Pulse Rate 80 81 Respiratory Rate 18 Blood Pressure 161/91 H 127/60 Pulse Oximetry 95 Intake & Output 02/21/18 02/22/18 02/22/18 18:59 06:59 18:59 Intake Total 2910 / 2910 1460 / 1460 Output Total 1100 / 1100 800 / 800 Balance 1810 / 1810 660 / 660 Weight 68.6 kg Intake: IV 2150 / 2150 1100 / 1100 NS Inj 1,000 ML @ 100 mls/hr IV 1999 / 1999 1000 / 1000 .CONT .Q10H [facility] Rx#:[id number] Ancef 2 GM Premix Inj 2 gm In 50 / 50 50 ml @ 100 mls/hr IV.SIG Q8H [facility] Rx#:[id number] Keppra 1000 mg/100 mL Premix 100 / 100 100 / 100 100 ML @ 400 mls/hr IV.SIG Q12H [facility] Rx#:[id number] Oral 360 / 360 360 / 360 Intake (Blood Product) Amt 400 / 400 Rbc As-3 Leukoreduced Unit 400 / 400 [id number] Output: Urine 1100 / 1100 800 / 800 Other: # Voids 2 # Bowel Movements 0 Narrative: nicki now - Urinary Catheter Management Straight Cath placed during this visit: yes, but has since been removed by the nurse Reason for continuing: Not indwelling catheter Insertion date: 02/20/18 Insertion time: 20:00 Removal date: 02/20/18 Removal time: 20:28 Objective Laboratory Results - last 24 hr 02/20/18 02/21/18 02/21/18 08:15 12:30 13:13 Hgb 11.0 L D POC Glucose 163 H MTS Gel Crossmatch See Detail 02/21/18 02/22/18 02/22/18 17:44 00:41 03:04 Hgb 9.5 L POC Glucose 153 H 122 H MTS Gel Crossmatch 02/22/18 06:42 Hgb POC Glucose 102 MTS Gel Crossmatch Review/Management - Review/Management Plan: imp r mca cva some worse overnoc had large penumbra at risk and robb still does left hip fx unfortunately time of onset too uncertain for tpa yest keep ivf and bp up hob down iv hep on ? mi? 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 cw cardioembolic is for xarelto post op although some hemorrhagic changes on mri in r mca cva so check ct will be at inc risk bleeding probably 1/2 dose xarelto instead of full better due to this and should have loop placed by cards unless she stays on anticoag rest of life watch plt 02/21/18 mri shows some blood changes in cva no blood on ct seen plan is 1/2 dose xarelto for 10 days then inc to full dose oob ok cards felt no mi but certainly cardioembolic this bilat cva can dc asa when on xarelto ------- 02/22/18 i dw son she was moving lue well this am awake and alert stood yest w PT should be on 1/2 dose xarelto ? today from ortho and can go to rehab neurowise later today or tomorrow change keppra to po we rowena lchange to full dose xarelto in 10 days
[2018-02-22] MEDS: Senna/Docusate Sodium 8.6/50 MG Tablet PO SCH ×2 (08:33→21:06)
[2018-02-22] MEDS: Pantoprazole Inj 40 MG Vial IV.PUSH SCH (08:33)
[2018-02-22] MEDS: Morphine Sulfate Inj 2 MG/ML Vial IV.PUSH PRN ×2 (11:39→15:39)
--- NOTE | 2018-02-22 12:13 | P.PN ---
Physical Exam Vital signs: Vital Signs 02/21/18 12:17 02/21/18 12:32 02/21/18 12:47 Temperature Pulse Rate 92 H 90 80 Respiratory Rate 46 H 31 H 13 Blood Pressure 146/70 H 151/67 H 131/63 Pulse Oximetry 86 L 92 L 96 02/21/18 13:00 02/21/18 13:02 02/21/18 13:17 Temperature Pulse Rate 87 92 H 92 H Respiratory Rate 37 H 32 H 37 H Blood Pressure 119/58 L 123/61 Pulse Oximetry 95 93 L 92 L 02/21/18 13:32 02/21/18 13:47 02/21/18 14:00 Temperature Pulse Rate 94 H 82 82 Respiratory Rate 57 H 13 16 Blood Pressure 146/63 H 123/60 Pulse Oximetry 92 L 94 L 91 L 02/21/18 14:02 02/21/18 14:17 02/21/18 14:32 Temperature Pulse Rate 81 81 82 Respiratory Rate 12 13 13 Blood Pressure 125/62 121/60 130/58 L Pulse Oximetry 94 L 95 96 02/21/18 14:47 02/21/18 15:00 02/21/18 15:02 Temperature Pulse Rate 89 85 87 Respiratory Rate 29 H 26 H 39 H Blood Pressure 140/66 143/62 H Pulse Oximetry 91 L 95 94 L 02/21/18 15:17 02/21/18 15:32 02/21/18 15:47 Temperature Pulse Rate 87 90 105 H Respiratory Rate 34 H 17 45 H Blood Pressure 142/66 H 155/70 H 142/84 H Pulse Oximetry 84 L 96 80 L 02/21/18 16:00 02/21/18 16:02 02/21/18 18:00 Temperature Pulse Rate 84 86 97 H Respiratory Rate 14 17 Blood Pressure 145/82 H Pulse Oximetry 96 96 02/21/18 19:00 02/21/18 20:00 02/21/18 22:00 Temperature 98.0 F Pulse Rate 93 H 90 84 Respiratory Rate 24 15 Blood Pressure 149/69 H 153/95 H Pulse Oximetry 96 02/21/18 23:17 02/21/18 23:32 02/22/18 00:00 Temperature 98.2 F Pulse Rate 82 83 Respiratory Rate 24 13 Blood Pressure 155/71 H 142/68 H Pulse Oximetry 95 02/22/18 02:00 02/22/18 03:10 02/22/18 04:00 Temperature 98.4 F Pulse Rate 99 H 80 Respiratory Rate 18 Blood Pressure 161/91 H 127/60 Pulse Oximetry 95 02/22/18 06:00 02/22/18 06:10 02/22/18 07:00 Temperature Pulse Rate 81 80 82 Respiratory Rate 24 18 Blood Pressure 152/67 H Pulse Oximetry 02/22/18 07:10 02/22/18 08:00 02/22/18 09:00 Temperature 97.7 F Pulse Rate 91 H 82 92 H Respiratory Rate 25 H 14 25 H Blood Pressure 157/65 H 119/77 Pulse Oximetry 92 L 02/22/18 09:10 02/22/18 10:00 Temperature Pulse Rate 91 H 86 Respiratory Rate 15 Blood Pressure 119/77 Pulse Oximetry Intake & Output 02/21/18 02/22/18 02/22/18 18:59 06:59 18:59 Intake Total 2910 / 2910 1460 / 1460 Output Total 1100 / 1100 800 / 800 Balance 1810 / 1810 660 / 660 Weight 68.6 kg Intake: IV 2150 / 2150 1100 / 1100 NS Inj 1,000 ML @ 100 mls/hr IV 2000 / 2000 1000 / 1000 .CONT .Q10H [facility] Rx#:[id number] Ancef 2 GM Premix Inj 2 gm In 50 / 50 50 ml @ 100 mls/hr IV.SIG Q8H [facility] Rx#:[id number] Keppra 1000 mg/100 mL Premix 100 / 100 100 / 100 100 ML @ 400 mls/hr IV.SIG Q12H [facility] Rx#:[id number] Oral 360 / 360 360 / 360 Intake (Blood Product) Amt 400 / 400 Rbc As-3 Leukoreduced Unit 400 / 400 [id number] Output: Urine 1100 / 1100 800 / 800 Other: # Voids 2 # Bowel Movements 0 - Urinary Catheter Management Straight Cath placed during this visit: yes, but has since been removed by the nurse Reason for continuing: Not indwelling catheter Insertion date: 02/20/18 Insertion time: 20:00 Removal date: 02/20/18 Removal time: 20:28 Results - Labs CBC & Chem 7: 02/22/18 03:04 02/21/18 03:05 Laboratory Results - last 24 hr 02/20/18 02/21/18 02/21/18 08:15 12:30 13:13 Hgb 11.0 L D POC Glucose 163 H MTS Gel Crossmatch See Detail 02/21/18 02/22/18 02/22/18 17:44 00:41 03:04 Hgb 9.5 L POC Glucose 153 H 122 H MTS Gel Crossmatch 02/22/18 06:42 Hgb POC Glucose 102 MTS Gel Crossmatch
[2018-02-22] MEDS ORDERED: Amiodarone Inj 150 MG in Dextrose 5% in Water Inj 97 ML IV.SIG ONE ×2 (13:00)
[2018-02-22] MEDS ORDERED: Potassium Chloride Inj 20 MEQ/10 ML Vial IV.SIG SCH (14:00)
--- NOTE | 2018-02-22 14:22 | P.PNCC ---
Subjective Subjective Remarks/Hospital Course: 02/17: This is an 82-year-old female. Syriac speaking understanding [place]. Date of admission 02/17/2003 past medical includes hypertension, hyperlipidemia, anxiety and low back pain. 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 Patient was seen by her primary care physician on Wednesday according to she was a "stroke waiting to happen". She is currently on propranolol 10 mg and amlodipine 5 mg daily. She is on buspirone 5 mg daily for anxiety. Today, she is brought in by EMS to [facility] post fall 3:30 PM today. On arrival also evaluated the patient appears that she is not crossing the midline and she has a fixed gaze to the right. She appears confused and her left side is more ataxic on the left upper extremity and cannot see on the left visual field. According to record, family friends are here reporting that they went to check on her around 4:00 and she has stated that she has just fallen in the bathroom 5 minutes prior to arrival. Her also reported that she was sleeping yesterday all day. CT brain revealed no acute intracranial findings. CT Angi0 of the brain revealed M2 branch occluded 1 cm distally to the bifurcation. CT CT revealed right temporoparietal CVA acute. Due to the unknown timing of the stroke she was not considered to be a candidate for stent retrieval. She started on a heparin drip currently at 700 units an hour/lie flat and given aspirin 300 mg p.o. daily. Neurology/Dr. Hanley is following. MRI brain in a.m. 02/18. Patient has a acute comminuted left intertrochanteric fracture. She will be followed by orthopedics and they have been notified. Troponin is slightly elevated 0.35. EKG is currently pending. Echocardiogram is been ordered. 02/18: Resting comfortably in bed. Had a seizure earlier. Follows commands. Opens her mouth and sticks out her tongue. Keeping her eyes closed. 02/19: Patient has tachycardia with decreasing blood pressure. Hemoglobin this morning is 5.8, a decline of almost 2 g. I suspect she has bled around the fracture site, hopefully stopped. We will start by transfusing 2 units of packed cells but need to consider discontinuing her systemic anticoagulation if this trend continues. 02/20: Patient has considerable swelling in left hip. Bleeding into fracture site greater than normal because she was on heparin simultaneously for treatment of her acute ischemic stroke. Heparin has been stopped for about 20 hours now and her vital signs have been acceptable. Renal function continues to improve and urine output is acceptable. She is a reasonable risk for surgery today from a critical care standpoint, albeit increased because of her age, recent stroke, acute blood loss from fracture. 02/21: Another hemoglobin drop following surgery requiring transfusion. There has been no evidence of another source aside from the acute fracture in the left hip. For completeness we will test her stool for occult blood. Need to start making arrangements for her to get to a rehab facility following her stroke and hip fracture. 02/22: Patient in new onset atrial fibrillation, now better rate control on amiodarone infusion. Recent ischemic stroke likely embolic in nature and recent hip surgery complicated by fracture site bleeding preoperatively. For multiple reasons this woman and a platelet therapy plus anticoagulation. For many reason she is a high risk for bleeding. Dr. Hanley has suggested half dose Xarelto until standard dose approved by orthopedic service. Given the new atrial fibrillation and other comorbid conditions for clot formation were going to need to start something. I will start with Xarelto 5 mg twice daily and hold her aspirin. I am fine if Dr. Dunbar feels strongly about continuing her aspirin in view of recent brain and heart events. Objective Vital Signs / I&O: Vital Signs 02/21/18 14:17 02/21/18 14:32 02/21/18 14:47 Temperature Pulse Rate 81 82 89 Respiratory Rate 13 13 29 H Blood Pressure 121/60 130/58 L 140/66 Pulse Oximetry 95 96 91 L 02/21/18 15:00 02/21/18 15:02 02/21/18 15:17 Temperature Pulse Rate 85 87 87 Respiratory Rate 26 H 39 H 34 H Blood Pressure 143/62 H 142/66 H Pulse Oximetry 95 94 L 84 L 02/21/18 15:32 02/21/18 15:47 02/21/18 16:00 Temperature Pulse Rate 90 105 H 84 Respiratory Rate 17 45 H 14 Blood Pressure 155/70 H 142/84 H Pulse Oximetry 96 80 L 96 02/21/18 16:02 02/21/18 18:00 02/21/18 19:00 Temperature Pulse Rate 86 97 H 93 H Respiratory Rate 17 24 Blood Pressure 145/82 H 149/69 H Pulse Oximetry 96 02/21/18 20:00 02/21/18 22:00 02/21/18 23:17 Temperature 98.0 F Pulse Rate 90 84 Respiratory Rate 15 Blood Pressure 153/95 H 155/71 H Pulse Oximetry 96 02/21/18 23:32 02/22/18 00:00 02/22/18 02:00 Temperature 98.2 F Pulse Rate 82 83 99 H Respiratory Rate 24 13 Blood Pressure 142/68 H Pulse Oximetry 95 02/22/18 03:10 02/22/18 04:00 02/22/18 06:00 Temperature 98.4 F Pulse Rate 80 81 Respiratory Rate 18 Blood Pressure 161/91 H 127/60 Pulse Oximetry 95 02/22/18 06:10 02/22/18 07:00 02/22/18 07:10 Temperature Pulse Rate 80 82 91 H Respiratory Rate 24 18 25 H Blood Pressure 152/67 H 157/65 H Pulse Oximetry 02/22/18 08:00 02/22/18 09:00 02/22/18 09:10 Temperature 97.7 F Pulse Rate 82 92 H 91 H Respiratory Rate 14 25 H 15 Blood Pressure 119/77 119/77 Pulse Oximetry 92 L 02/22/18 10:00 02/22/18 10:10 02/22/18 11:00 Temperature Pulse Rate 87 85 85 Respiratory Rate 15 15 14 Blood Pressure 165/74 H Pulse Oximetry 94 L 94 L 94 L 02/22/18 11:10 02/22/18 12:00 02/22/18 12:18 Temperature 97.5 F L Pulse Rate 134 H 149 H 115 H Respiratory Rate 15 38 H 16 Blood Pressure 152/71 H 92/58 L 92/58 L Pulse Oximetry 94 L 94 L 02/22/18 13:00 02/22/18 13:30 Temperature Pulse Rate 116 H 112 H Respiratory Rate 18 16 Blood Pressure 109/55 L Pulse Oximetry Intake & Output 02/21/18 02/22/18 02/22/18 18:59 06:59 18:59 Intake Total 2910 / 2910 1460 / 1460 1000 / 1000 Output Total 1100 / 1100 800 / 800 Balance 1810 / 1810 660 / 660 1000 / 1000 Weight 68.6 kg Intake: IV 2150 / 2150 1100 / 1100 1000 / 1000 NS Inj 1,000 ML @ 100 mls/hr IV 2000 / 2000 1000 / 1000 1000 / 1000 .CONT .Q10H [facility] Rx#:[id number] Ancef 2 GM Premix Inj 2 gm In 50 / 50 50 ml @ 100 mls/hr IV.SIG Q8H [facility] Rx#:[id number] Keppra 1000 mg/100 mL Premix 100 / 100 100 / 100 100 ML @ 400 mls/hr IV.SIG Q12H [facility] Rx#:[id number] Oral 360 / 360 360 / 360 Intake (Blood Product) Amt 400 / 400 Rbc As-3 Leukoreduced Unit 400 / 400 [id number] Output: Urine 1100 / 1100 800 / 800 Other: # Voids 2 # Bowel Movements 0 Result Diagrams: 02/22/18 03:04 02/21/18 03:05 Objective Remarks: HEENT/Neuro: Interactive earlier today, less responsive now. Moves 4 limbs to stimulation. Neck: Airway widely patent, no obstructive noises. Chest/pulmonary: Clear, comfortable respiratory pattern, no adventitious sounds. Acceptably strong cough. Cardiovascular: Irregular irregular, no JVD. GI/abdomen: Soft, nontender, bowel sounds present. No guarding. Extremities: Warm bilaterally, no edema. Dry dressing left hip, well-perfused limbs. Assessment and Plan - Problem List (1) Right-sided cerebrovascular accident (CVA) Code(s): I63.9 - Cerebral infarction, unspecified Status: Acute (2) Essential hypertension Code(s): I10 - Essential (primary) hypertension Status: Chronic (3) Hyperlipidemia Code(s): E78.5 - Hyperlipidemia, unspecified Status: Chronic (4) Hyperglycemia Code(s): R73.9 - Hyperglycemia, unspecified Status: Acute (5) Hyponatremia Code(s): E87.1 - Hypo-osmolality and hyponatremia Status: Acute (6) Elevated troponin Code(s): R74.8 - Abnormal levels of other serum enzymes Status: Acute (7) Leukocytosis Code(s): D72.829 - Elevated white blood cell count, unspecified Status: Acute (8) Fracture, intertrochanteric, left femur Code(s): S72.142A - Displaced intertrochanteric fracture of left femur, initial encounter for closed fracture Status: Acute - Assessment and Plan Plan: Neuro/Psych: Acute right temporal parietal CVA Occlusion of the M2 branch MCA CT brain on admission no acute intracranial findings. CT angiogram revealed an M2 branch occluded [address] CAD revealed right temporal CVA acute. Size is approximately 3 x [address] Hanley/neurology recommended aspirin and heparin drip. Head of bed flat. MRI of brain in a.m. 02/18 PT/OT/ST evaluate and treat Acetaminophen 650 mg p.o. every 6 hours as needed fever Hydrocodone/acetaminophen 325/5 1 tablet every 4 hours as needed pain 1-5 Morphine sulfate 2 mg IV every 2 hours. Pain 6 - 10 Decreasing hemoglobin, hold anticoagulation 02/19 and transfused 2 units packed red blood cells Transfuse 1 additional unit packed red blood cells 02/20 Transfuse again today 02/21 CV: Essential hypertension Hyperlipidemia Elevated troponin Currently on as needed labetalol/nicardipine drip to maintain systolic blood pressure less than 20/diastolic pressure less than 120 Medications are amlodipine 5 mg daily propanolol 20 mg daily. Started on pravastatin 40 mg daily for dyslipidemia. Lipid panel pending EKG pending. Initial troponin 0 0.35. Every 6 hours x2 ordered. Paroxysmal atrial fibrillation. Start half dose Xarelto today, hold aspirin. Resp: Nasal cannula to maintain saturations greater than or equal to 92% Incentive spirometry while awake Albuterol/ipratropium aerosols every 4 hours with albuterol aerosols every 2 hours as needed dyspnea GI: Currently n.p.o. status Pantoprazole for GI prophylaxis Docusate sodium/senna 1 tablet twice daily for bowel regimen Test stool for occult blood : Straight catheterization as needed Endo: Acute hyperglycemia Sliding scale insulin aspart insulin Accu-Cheks every 6 hours to maintain euglycemia/low regimen Check TSH Check hemoglobin A1c Renal: Creatinine currently within normal limits Monitor urine output Accurate I's and O's Heme: Leukocytosis/acute Monitor CBC daily. Follow trends. No indication for transfusion of blood products at this time. Hemoglobin 5.8 this morning, acute change, likely reflects blood loss. Corrected yesterday. Down again today mostly to dilution. ID: Monitor for signs and symptomatology infection MSK: Acute comminuted IT fracture left femur Chronic Low back pain X-ray of the hip revealed acute comminuted IT fracture of the left femur. ORIF 02/20 FEN: Hyponatremia/acute Replace electrolytes as clinically indicated per ICU electrolyte protocol Access -Utilize peripheral IV. Central line if indicated Prophylaxis -GI -pantoprazole -DVT -SCD -Xarelto 5 mg p.o. twice daily start 02/22 Overall impression: This woman was critically ill following a recent ischemic stroke and left hip fracture. Heparin anticoagulation instituted for treatment of the stroke has produced larger than normal bleeding in the left hip. The heparin was stopped and her hemodynamics have improved. She tolerated hip fracture surgery well and was extubated immediately thereafter. She has presently received 4 units and transfusion and our assumption is that it is all from the left hip complicated by heparin drip. Stool for occult blood is ordered just in case there is another source of blood loss. Paroxysmal atrial fibrillation with rapid ventricular response today, amiodarone started. (3) Hyperlipidemia Qualifiers: Hyperlipidemia type: unspecified Qualified Code(s): E78.5 - Hyperlipidemia, unspecified (7) Leukocytosis Qualifiers: Leukocytosis type: unspecified Qualified Code(s): D72.829 - Elevated white blood cell count, unspecified (8) Fracture, intertrochanteric, left femur Qualifiers: Encounter type: initial encounter Fracture type: closed Fracture alignment: nondisplaced Qualified Code(s): S72.145A - Nondisplaced intertrochanteric fracture of left femur, initial encounter for closed fracture
[2018-02-22] MEDS: Rivaroxaban 10 MG Tablet PO SCH (14:59)
[2018-02-22] MEDS: Mag Sulf 1 gm/100 ml Premix 100 ML IV.SIG SCH ×2 (14:59→16:02)
--- NOTE | 2018-02-22 15:02 | XR ---
EXAM DATE: 02/22/2018 2:58 PM EST AGE/SEX: 82 years / Female INDICATIONS: Short of breath. CLINICAL DATA: This is the patient's initial encounter. Patient reports that signs and symptoms have been present for 3 days and indicates a pain score of 0/10. MEDICAL/SURGICAL HISTORY: Carcinoma, head and neck. Hypertension. throat cancer. Hysterectomy . COMPARISON: [facility], CHEST SINGLE AP, 07/23/2013. . FINDINGS: The heart is normal in size. There are areas of consolidated infiltrate seen in the perihilar region bilaterally. These are new compared to previous dated 07/23/2013. There is no significant pleural effu gale. The bony structures are intact. CONCLUSION: Bilateral perihilar infiltrates. Underlying pneumonia is not excluded. Electronically signed by: Oscar Dial MD 02/22/2018 3:01 PM EST
[2018-02-23] MEDS: levETIRAcetam 1000mg/100mL Inj 100 ML IV.SIG SCH ×2 (00:35→14:19)
[2018-02-23] MEDS: Insulin NovoLOG Aspart Correctional Sugar Inj SQ SCH ×4 (04:43→18:58)
--- NOTE | 2018-02-23 08:07 | P.PNCA ---
Subjective Interval history: Not able to elicit complaints Medications and Allergies Active Medications: Active Medications Acetaminophen (Tylenol) 650 mg PO Q6H PRN PRN Reason: FEVER Hydrocodone Bitart/Acetaminophen ([place] 5/325) 1 tab PO Q4H PRN PRN Reason: PAIN SCALE 1 TO 5 Last Admin: 02/23/18 02:37 Dose: 1 tab Al Hydroxide/Mg Hydroxide (Milk Of Lora Mclean) 30 ml PO Q12H PRN PRN Reason: Mild Constipation Albuterol (Albuterol Neb (Prn)) 2.5 mg NEB Q2HR NEB PRN PRN Reason: SHORTNESS OF BREATH/WHEEZING Amiodarone HCl (Cordarone) 400 mg PO Q12HR [facility] Aspirin (Aspirin Chew) 81 mg PO DAILY [facility] Last Admin: 02/22/18 08:33 Dose: 81 mg Bisacodyl (Dulcolax Supp) 10 mg RECTAL DAILY PRN PRN Reason: SEVERE CONSITIPATION Buspirone HCl (Buspar) 5 mg PO DAILY [facility] Last Admin: 02/22/18 08:33 Dose: 5 mg Dextrose (D50w Vial) 50 ml IV.PUSH UNSCH PRN PRN Reason: PER HYPOGLYCEMIA PROTOCOL Diphenhydramine HCl (Benadryl Inj) 25 mg IV.PUSH Q6H PRN PRN Reason: ITCHING Last Admin: 02/21/18 17:38 Dose: 25 mg Glucagon (Glucagon Inj) 1 mg OTHER PRN PRN PRN Reason: for Hypoglycemia Protocol Sodium Chloride (Ns Inj) 1,000 mls @ 70 mls/hr IV.CONT .[id number] [facility] Last Admin: 02/22/18 15:39 Dose: Not Given Sodium Chloride (Ns Inj) 1,000 mls @ 100 mls/hr IV.CONT .Q10H [facility] Last Admin: 02/22/18 22:55 Dose: 100 mls/hr Magnesium Sulfate 4 gm/ Sodium (Chloride) 100 mls @ 50 mls/hr IV.SIG UNSCH PRN PRN Reason: For Magnesium 0.9 - 1.1 mg/dL Magnesium Sulfate 2 gm/ Sodium (Chloride) 100 mls @ 50 mls/hr IV.SIG UNSCH PRN PRN Reason: For Magnesium 1.2 - 1.6 mg/dL Potassium Chloride (Kcl 40 Meq Premix Inj) 40 meq in 100 mls @ 25 mls/hr IV.SIG Q2H PRN PRN Reason: For Potassium 2.8 - 3.2 mEq/L Potassium Chloride (Kcl 20 Meq Premix Inj) 20 meq in 100 mls @ 50 mls/hr IV.SIG Q2H PRN PRN Reason: For Potassium 2.8 - 3.2 mEq/L Potassium Phosphate 30 mmol/ (Sodium Chloride) 260 mls @ 42 mls/hr IV.SIG UNSCH PRN PRN Reason: SEE LABEL COMMENTS Sodium Phosphate 30 mmol/ (Sodium Chloride) 260 mls @ 42 mls/hr IV.SIG UNSCH PRN PRN Reason: For Phosphorus < 2.5 mg/dL Potassium Chloride (Kcl 40 Meq Premix Inj) 40 meq in 100 mls @ 25 mls/hr IV.SIG UNSCH PRN PRN Reason: For Potassium 3.3 - 3.5 mEq/L Nicardipine HCl 25 mg/ Sodium (Chloride) 250 mls @ 50 mls/hr IV.CONT TITRATE PRN; Protocol PRN Reason: Per Protocol Levetiracetam (Keppra 1000 Mg/100 Ml Premix) 100 mls @ 400 mls/hr IV.SIG Q12H [facility] Last Infusion: 02/23/18 00:50 Dose: Infused Phenylephrine HCl 40 mg/ (Sodium Chloride) 500 mls @ 30 mls/hr IV.CONT TITRATE PRN; Protocol PRN Reason: See Protocol Amiodarone HCl 450 mg/ (Dextrose) 250 mls @ 33.33 mls/hr IV.CONT TITRATE PRN; Protocol PRN Reason: Per Protocol Last Admin: 02/22/18 22:57 Dose: 0.5 mg/min, 17 mls/hr Insulin Aspart (Novolog Insulin Correctional Sugar Inj) 0 unit SQ Q6HR [facility]; Protocol Last Admin: 02/23/18 04:43 Dose: Not Given Labetalol HCl (Trandate Inj) 10 mg IV.PUSH Q2H PRN PRN Reason: SBP>180, DBP>100, HR>65 Lactulose (Lactulose Liq) 30 ml PO DAILY PRN PRN Reason: SEVERE CONSITIPATION Last Admin: 02/22/18 22:15 Dose: 30 ml Magnesium Oxide (Mag-Ox) 800 mg PO UNSCH PRN PRN Reason: For Magnesium 1.2 - 1.6 mg/dL Morphine Sulfate (Morphine Inj) 1 mg IV.PUSH Q2H PRN PRN Reason: PAIN SCALE 6 TO 10 Last Admin: 02/22/18 15:39 Dose: 1 mg Ondansetron HCl (Zofran Inj) 4 mg IV.PUSH Q6H PRN PRN Reason: NAUSEA OR VOMITING Pantoprazole Sodium (Protonix Inj) 40 mg IV.PUSH DAILY [facility] Last Admin: 02/22/18 08:33 Dose: 40 mg Potassium Bicarb/Potassium Chloride (K-Lyte Cl Eff) 50 meq PO UNSCH PRN PRN Reason: For Potassium 3.3 - 3.5 mEq/L Potassium Phosphate (K-Phos Original) 2,000 mg PO Q4H PRN PRN Reason: Phosphorus Less Than 2.5 mg/dL Potassium Phosphate (K-Phos Original) 2,000 mg PO UNSCH PRN PRN Reason: SEE LABEL COMMENTS Pravastatin Sodium (Pravachol) 40 mg PO [facility] Last Admin: 02/22/18 21:06 Dose: 40 mg Rivaroxaban (Xarelto) 5 mg PO DAILY [facility] Last Admin: 02/22/18 14:59 Dose: 5 mg Senna/Docusate Sodium (Janice-Colace) 1 tab PO BID [facility] Last Admin: 02/22/18 21:06 Dose: 1 tab Sennosides (Senokot) 17.2 mg PO Q12H PRN PRN Reason: Moderate Constipation Sodium Chloride (Ns Flush) 2 ml IV.FLUSH BID [facility] Last Admin: 02/22/18 21:06 Dose: Not Given Sodium Chloride (Ns Flush) 2 ml IV.FLUSH PRN PRN PRN Reason: FLUSH AFTER USING IV ACCESS Terbutaline Sulfate (Brethine Inj) 1 mg SQ UNSCH PRN PRN Reason: For Extravasation Allergies Allergy/AdvReac Type Severity Reaction Status Date / Time No Known Allergies Allergy Uncoded 05/09/12 18:20 Home Medications Medication Instructions Recorded Confirmed Type amlodipine 5 mg PO DAILY 02/17/18 02/17/18 History buspirone 5 mg PO DAILY 02/17/18 02/17/18 History propranolol 20 mg PO DAILY 02/17/18 02/17/18 History Physical Exam Vital signs: Vital Signs 02/22/18 09:00 02/22/18 09:10 02/22/18 10:00 Temperature Pulse Rate 92 H 91 H 87 Respiratory Rate 25 H 15 15 Blood Pressure 119/77 Pulse Oximetry 94 L 02/22/18 10:10 02/22/18 11:00 02/22/18 11:10 Temperature Pulse Rate 85 85 134 H Respiratory Rate 15 14 15 Blood Pressure 165/74 H 152/71 H Pulse Oximetry 94 L 94 L 94 L 02/22/18 12:00 02/22/18 12:18 02/22/18 13:00 Temperature 97.5 F L Pulse Rate 149 H 115 H 116 H Respiratory Rate 38 H 16 18 Blood Pressure 92/58 L 92/58 L Pulse Oximetry 94 L 02/22/18 13:30 02/22/18 14:00 02/22/18 14:30 Temperature Pulse Rate 112 H 99 H 101 H Respiratory Rate 16 17 14 Blood Pressure 109/55 L 96/57 L 115/58 L Pulse Oximetry 83 L 96 02/22/18 15:00 02/22/18 15:30 02/22/18 16:00 Temperature 97.4 F L Pulse Rate 100 H 104 H 97 H Respiratory Rate 14 25 H 14 Blood Pressure 104/59 L 103/59 L 112/60 Pulse Oximetry 97 95 02/22/18 16:30 02/22/18 18:00 02/22/18 19:00 Temperature Pulse Rate 92 H 94 H 102 H Respiratory Rate 15 19 Blood Pressure 105/59 L Pulse Oximetry 95 02/22/18 19:15 02/22/18 19:30 02/22/18 19:45 Temperature Pulse Rate 93 H 101 H 95 H Respiratory Rate 17 22 16 Blood Pressure 125/60 Pulse Oximetry 95 94 L 95 02/22/18 20:00 02/22/18 20:15 02/22/18 20:30 Temperature 97.5 F L Pulse Rate 99 H 94 H 99 H Respiratory Rate 14 12 12 Blood Pressure 137/65 117/59 L Pulse Oximetry 94 L 96 02/22/18 20:45 02/22/18 21:00 02/22/18 21:15 Temperature Pulse Rate 99 H 99 H 107 H Respiratory Rate 17 15 23 Blood Pressure 117/67 Pulse Oximetry 94 L 94 L 96 02/22/18 21:30 02/22/18 21:45 02/22/18 22:00 Temperature Pulse Rate 101 H 95 H 78 Respiratory Rate 20 17 23 Blood Pressure 128/63 Pulse Oximetry 94 L 93 L 02/22/18 22:15 02/22/18 22:30 02/22/18 22:45 Temperature Pulse Rate 77 78 77 Respiratory Rate 17 23 23 Blood Pressure 145/65 H 169/71 H Pulse Oximetry 94 L 92 L 02/22/18 23:00 02/22/18 23:15 02/22/18 23:27 Temperature Pulse Rate 77 76 81 Respiratory Rate 16 15 21 Blood Pressure 145/67 H 145/67 H 135/57 L Pulse Oximetry 91 L 94 L 91 L 02/22/18 23:30 02/22/18 23:42 02/22/18 23:45 Temperature Pulse Rate 84 76 Respiratory Rate 29 H 26 H Blood Pressure 135/57 L 149/69 H 149/69 H Pulse Oximetry 91 L 02/22/18 23:57 02/23/18 00:00 02/23/18 00:12 Temperature 97.8 F Pulse Rate 77 76 78 Respiratory Rate 26 H 21 16 Blood Pressure 144/67 H 156/70 H Pulse Oximetry 91 L 90 L 92 L 02/23/18 00:15 02/23/18 00:27 02/23/18 00:30 Temperature Pulse Rate 77 76 78 Respiratory Rate 17 14 14 Blood Pressure 148/68 H Pulse Oximetry 94 L 90 L 95 02/23/18 00:42 02/23/18 00:45 02/23/18 00:57 Temperature Pulse Rate 78 79 81 Respiratory Rate 15 15 19 Blood Pressure 164/72 H 147/69 H Pulse Oximetry 93 L 92 L 95 02/23/18 01:00 02/23/18 01:12 02/23/18 01:14 Temperature Pulse Rate 79 80 81 Respiratory Rate 19 22 Blood Pressure 183/74 H 165/72 H Pulse Oximetry 92 L 92 L 02/23/18 01:15 02/23/18 01:27 02/23/18 01:30 Temperature Pulse Rate 80 77 77 Respiratory Rate 24 15 15 Blood Pressure 159/67 H Pulse Oximetry 95 94 L 92 L 02/23/18 01:44 02/23/18 01:45 02/23/18 02:00 Temperature Pulse Rate 77 77 77 Respiratory Rate 16 15 16 Blood Pressure 144/67 H 144/67 H 155/77 H Pulse Oximetry 93 L 95 94 L 02/23/18 02:15 02/23/18 02:30 02/23/18 02:45 Temperature Pulse Rate 76 78 80 Respiratory Rate 16 14 19 Blood Pressure 134/63 150/66 H 168/74 H Pulse Oximetry 92 L 90 L 92 L 02/23/18 03:00 02/23/18 03:15 02/23/18 03:30 Temperature Pulse Rate 79 73 72 Respiratory Rate 19 14 14 Blood Pressure 157/72 H 139/64 128/59 L Pulse Oximetry 94 L 94 L 91 L 02/23/18 04:00 02/23/18 04:15 02/23/18 04:30 Temperature Pulse Rate 72 73 71 Respiratory Rate 15 20 13 Blood Pressure 109/58 L 122/60 122/58 L Pulse Oximetry 92 L 93 L 92 L 02/23/18 04:45 02/23/18 05:00 02/23/18 05:15 Temperature Pulse Rate 70 70 70 Respiratory Rate 14 13 15 Blood Pressure 120/60 134/65 127/60 Pulse Oximetry 94 L 90 L 92 L 02/23/18 05:30 02/23/18 05:45 02/23/18 06:00 Temperature Pulse Rate 69 70 70 Respiratory Rate 13 13 14 Blood Pressure 128/62 129/63 127/62 Pulse Oximetry 94 L 91 L 92 L 02/23/18 06:15 02/23/18 06:30 02/23/18 06:45 Temperature Pulse Rate 69 70 69 Respiratory Rate 13 15 14 Blood Pressure 122/58 L 127/60 125/63 Pulse Oximetry 92 L 93 L 92 L 02/23/18 07:00 Temperature Pulse Rate 70 Respiratory Rate 14 Blood Pressure 135/64 Pulse Oximetry 92 L Intake & Output 02/22/18 02/23/18 02/23/18 18:59 06:59 18:59 Intake Total 1400 / 1400 1670 / 1670 Output Total 800 / 800 900 / 900 Balance 600 / 600 770 / 770 Intake: IV 1400 / 1400 1350 / 1350 Cordarone Inj 450 MG In D5W Inj 250 / 250 241 ML @ 1 MG/MIN 33.33 mls/hr IV.CONT TITRATE PRN Rx#: [id number] NS Inj 1,000 ML @ 100 mls/hr IV 1000 / 1000 1000 / 1000 .CONT .Q10H [facility] Rx#:[id number] Cordarone Inj 150 MG In D5W Inj 100 / 100 97 ML @ 100 mls/hr IV.SIG ONCE ONE Rx#:[id number] Magnesium Sulfate 1 gm/D5W 100 200 / 200 ml Premix 100 ML @ 100 mls/hr IV.SIG Q1H [facility] Rx#:[id number] Keppra 1000 mg/100 mL Premix 100 / 100 100 / 100 100 ML @ 400 mls/hr IV.SIG Q12H [facility] Rx#:[id number] Oral 320 / 320 Output: Urine 800 / 800 Urine Amount (Catheter) 900 / 900 Straight 900 / 900 Other: # Bowel Movements 0 Narrative: Asleep on my rounds Tele Afib RVR [id number] yesterday. On IV amio since yesterday chest clear anteriorly CV S1S2 RRR no edema - Urinary Catheter Management Straight Cath placed during this visit: yes, but has since been removed by the nurse Reason for continuing: Not indwelling catheter Insertion date: 02/20/18 Insertion time: 20:00 Removal date: 02/20/18 Removal time: 20:28 Results 02/22/18 03:04 02/21/18 03:05 CBC 02/21/18 02/22/18 Range/Units 13:13 03:04 Hgb 11.0 L D 9.5 L (11.6-15.3) gm/dL Intake and Output 02/22/18 02/23/18 02/23/18 22:59 06:59 14:59 Intake Total 1450 / 1450 420 / 420 Output Total 800 / 800 900 / 900 Balance 650 / 650 -480 / -480 Intake: IV 1450 / 1450 100 / 100 Cordarone Inj 450 MG In D5W Inj 250 / 250 241 ML @ 1 MG/MIN 33.33 mls/hr IV.CONT TITRATE PRN Rx#: [id number] NS Inj 1,000 ML @ 100 mls/hr IV 1000 / 1000 .CONT .Q10H [facility] Rx#:[id number] Magnesium Sulfate 1 gm/D5W 100 200 / 200 ml Premix 100 ML @ 100 mls/hr IV.SIG Q1H [facility] Rx#:[id number] Keppra 1000 mg/100 mL Premix 100 / 100 100 ML @ 400 mls/hr IV.SIG Q12H [facility] Rx#:[id number] Oral 320 / 320 Output: Urine 800 / 800 Urine Amount (Catheter) 900 / 900 Straight 900 / 900 Other: # Bowel Movements 0 - Imaging and Cardiology Imaging: Impressions Chest X-Ray 02/22/18 00:00 CONCLUSION: Bilateral perihilar infiltrates. Underlying pneumonia is not excluded. Assessment and Plan - Assessment (1) Anemia Code(s): D64.9 - Anemia, unspecified Status: Acute Plan: IV heparin per Dr. Hanley (2) Right-sided cerebrovascular accident (CVA) Code(s): I63.9 - Cerebral infarction, unspecified Status: Acute (3) Elevated troponin Code(s): R74.8 - Abnormal levels of other serum enzymes Status: Acute Plan: Most likely from CVA. Repeat EKG but no evidence so far of NE (4) Paroxysmal atrial fibrillation Code(s): I48.0 - Paroxysmal atrial fibrillation Status: Acute Plan: This likely cause of embolic CVA. Cont amio, start PO loading to maintain SR. Needs anticoagulation when neuro thinks it can be done safely.
[2018-02-23] MEDS: Sod Chloride 0.9% Inj 1,000 ML IV.CONT SCH ×4 (08:10→22:53)
[2018-02-23] MEDS: Amiodarone 200 MG Tablet PO SCH ×2 (09:15→22:51)
[2018-02-23] MEDS: Rivaroxaban 10 MG Tablet PO SCH (09:16)
[2018-02-23] MEDS: Senna/Docusate Sodium 8.6/50 MG Tablet PO SCH ×2 (09:16→22:52)
[2018-02-23] MEDS: Pantoprazole Inj 40 MG Vial IV.PUSH SCH (09:16)
--- NOTE | 2018-02-23 12:30 | ECG ---
Date Performed: 02/23/2018 Time Performed: 11:46:45 PTAGE: 82 years EKG: Sinus rhythm INFERIOR MYOCARDIAL INFARCTION , PROBABLY OLD ABNORMAL ECG PREVIOUS TRACING : 02/22/2018 12.01 DOCTOR: Bertram Motley Interpretating Date/Time 02/23/2018 12:29:45
--- NOTE | 2018-02-23 12:46 | ECG ---
Date Performed: 02/22/2018 Time Performed: 12:01:54 PTAGE: 82 years EKG: Atrial fibrillation with rapid ventricular response. Possible inferior infarct - age undete rmined Ant/septal and lateral ST-T changes may be due to myocardial ischemia Abnormal ECG NO PREVIOUS TRACING DOCTOR: Bertram Motley Interpretating Date/Time 02/23/2018 12:45:25
--- NOTE | 2018-02-23 12:46 | P.PNIM ---
Subjective Interval history: 02/17: This is an 82-year-old female. [place] speaking understanding Romanian. Date of admission 02/17/2003 past medical includes hypertension, hyperlipidemia, anxiety and low back pain. 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 Patient was seen by her primary care physician on Wednesday according to she was a "stroke waiting to happen". She is currently on propranolol 10 mg and amlodipine 5 mg daily. She is on buspirone 5 mg daily for anxiety. Today, she is brought in by EMS to [facility] post fall 3:30 PM today. On arrival also evaluated the patient appears that she is not crossing the midline and she has a fixed gaze to the right. She appears confused and her left side is more ataxic on the left upper extremity and cannot see on the left visual field. According to record, family friends are here reporting that they went to check on her around 4:00 and she has stated that she has just fallen in the bathroom 5 minutes prior to arrival. Her also reported that she was sleeping yesterday all day. CT brain revealed no acute intracranial findings. CT Angi0 of the brain revealed M2 branch occluded 1 cm distally to the bifurcation. CT CT revealed right temporoparietal CVA acute. Due to the unknown timing of the stroke she was not considered to be a candidate for stent retrieval. She started on a heparin drip currently at 700 units an hour/lie flat and given aspirin 300 mg p.o. daily. Neurology/Dr. Hanley is following. MRI brain in a.m. 02/18. Patient has a acute comminuted left intertrochanteric fracture. She will be followed by orthopedics and they have been notified. Troponin is slightly elevated 0.35. EKG is currently pending. Echocardiogram is been ordered. 02/18: Resting comfortably in bed. Had a seizure earlier. Follows commands. Opens her mouth and sticks out her tongue. Keeping her eyes closed. 02/19: Patient has tachycardia with decreasing blood pressure. Hemoglobin this morning is 5.8, a decline of almost 2 g. I suspect she has bled around the fracture site, hopefully stopped. We will start by transfusing 2 units of packed cells but need to consider discontinuing her systemic anticoagulation if this trend continues. 02/20: Patient has considerable swelling in left hip. Bleeding into fracture site greater than normal because she was on heparin simultaneously for treatment of her acute ischemic stroke. Heparin has been stopped for about 20 hours now and her vital signs have been acceptable. Renal function continues to improve and urine output is acceptable. She is a reasonable risk for surgery today from a critical care standpoint, albeit increased because of her age, recent stroke, acute blood loss from fracture. 02/21: Another hemoglobin drop following surgery requiring transfusion. There has been no evidence of another source aside from the acute fracture in the left hip. For completeness we will test her stool for occult blood. Need to start making arrangements for her to get to a rehab facility following her stroke and hip fracture. 02/22: Patient in new onset atrial fibrillation, now better rate control on amiodarone infusion. Recent ischemic stroke likely embolic in nature and recent hip surgery complicated by fracture site bleeding preoperatively. For multiple reasons this woman and a platelet therapy plus anticoagulation. For many reason she is a high risk for bleeding. Dr. Hanley has suggested half dose Xarelto until standard dose approved by orthopedic service. Given the new atrial fibrillation and other comorbid conditions for clot formation were going to need to start something. I will start with Xarelto 5 mg twice daily and hold her aspirin. I am fine if Dr. Dunbar feels strongly about continuing her aspirin in view of recent brain and heart events. 02-23 TRANSFERRED TO OUR CARE THIS AM MEDS ADJUSTED BY CARDIOLOGY JEN RN AND PT CHART REVIEWED TRANSFER OUT OF ICU TO PCU Physical Exam Vital signs: Vital Signs 02/22/18 13:00 02/22/18 13:30 02/22/18 14:00 Temperature Pulse Rate 116 H 112 H 99 H Respiratory Rate 18 16 17 Blood Pressure 109/55 L 96/57 L Pulse Oximetry 83 L 02/22/18 14:30 02/22/18 15:00 02/22/18 15:30 Temperature Pulse Rate 101 H 100 H 104 H Respiratory Rate 14 14 25 H Blood Pressure 115/58 L 104/59 L 103/59 L Pulse Oximetry 96 97 02/22/18 16:00 02/22/18 16:30 02/22/18 18:00 Temperature 97.4 F L Pulse Rate 97 H 92 H 94 H Respiratory Rate 14 15 Blood Pressure 112/60 105/59 L Pulse Oximetry 95 95 02/22/18 19:00 02/22/18 19:15 02/22/18 19:30 Temperature Pulse Rate 102 H 93 H 101 H Respiratory Rate 19 17 22 Blood Pressure 125/60 Pulse Oximetry 95 94 L 02/22/18 19:45 02/22/18 20:00 02/22/18 20:15 Temperature 97.5 F L Pulse Rate 95 H 99 H 94 H Respiratory Rate 16 14 12 Blood Pressure 137/65 Pulse Oximetry 95 94 L 96 02/22/18 20:30 02/22/18 20:45 02/22/18 21:00 Temperature Pulse Rate 99 H 99 H 99 H Respiratory Rate 12 17 15 Blood Pressure 117/59 L 117/67 Pulse Oximetry 94 L 94 L 02/22/18 21:15 02/22/18 21:30 02/22/18 21:45 Temperature Pulse Rate 107 H 101 H 95 H Respiratory Rate 23 20 17 Blood Pressure 128/63 Pulse Oximetry 96 94 L 02/22/18 22:00 02/22/18 22:15 02/22/18 22:30 Temperature Pulse Rate 78 77 78 Respiratory Rate 23 17 23 Blood Pressure 145/65 H Pulse Oximetry 93 L 94 L 02/22/18 22:45 02/22/18 23:00 02/22/18 23:15 Temperature Pulse Rate 77 77 76 Respiratory Rate 23 16 15 Blood Pressure 169/71 H 145/67 H 145/67 H Pulse Oximetry 92 L 91 L 94 L 02/22/18 23:27 02/22/18 23:30 02/22/18 23:42 Temperature Pulse Rate 81 84 Respiratory Rate 21 29 H Blood Pressure 135/57 L 135/57 L 149/69 H Pulse Oximetry 91 L 91 L 02/22/18 23:45 02/22/18 23:57 02/23/18 00:00 Temperature Pulse Rate 76 77 76 Respiratory Rate 26 H 26 H 21 Blood Pressure 149/69 H 144/67 H Pulse Oximetry 91 L 90 L 02/23/18 00:12 02/23/18 00:15 02/23/18 00:27 Temperature 97.8 F Pulse Rate 78 77 76 Respiratory Rate 16 17 14 Blood Pressure 156/70 H 148/68 H Pulse Oximetry 92 L 94 L 90 L 02/23/18 00:30 02/23/18 00:42 02/23/18 00:45 Temperature Pulse Rate 78 78 79 Respiratory Rate 14 15 15 Blood Pressure 164/72 H Pulse Oximetry 95 93 L 92 L 02/23/18 00:57 02/23/18 01:00 02/23/18 01:12 Temperature Pulse Rate 81 79 80 Respiratory Rate 19 19 22 Blood Pressure 147/69 H 183/74 H Pulse Oximetry 95 92 L 92 L 02/23/18 01:14 02/23/18 01:15 02/23/18 01:27 Temperature Pulse Rate 81 80 77 Respiratory Rate 24 15 Blood Pressure 165/72 H 159/67 H Pulse Oximetry 95 94 L 02/23/18 01:30 02/23/18 01:44 02/23/18 01:45 Temperature Pulse Rate 77 77 77 Respiratory Rate 15 16 15 Blood Pressure 144/67 H 144/67 H Pulse Oximetry 92 L 93 L 95 02/23/18 02:00 02/23/18 02:15 02/23/18 02:30 Temperature Pulse Rate 77 76 78 Respiratory Rate 16 16 14 Blood Pressure 155/77 H 134/63 150/66 H Pulse Oximetry 94 L 92 L 90 L 02/23/18 02:45 02/23/18 03:00 02/23/18 03:15 Temperature Pulse Rate 80 79 73 Respiratory Rate 19 19 14 Blood Pressure 168/74 H 157/72 H 139/64 Pulse Oximetry 92 L 94 L 94 L 02/23/18 03:30 02/23/18 04:00 02/23/18 04:15 Temperature Pulse Rate 72 72 73 Respiratory Rate 14 15 20 Blood Pressure 128/59 L 109/58 L 122/60 Pulse Oximetry 91 L 92 L 93 L 02/23/18 04:30 02/23/18 04:45 02/23/18 05:00 Temperature Pulse Rate 71 70 70 Respiratory Rate 13 14 13 Blood Pressure 122/58 L 120/60 134/65 Pulse Oximetry 92 L 94 L 90 L 02/23/18 05:15 02/23/18 05:30 02/23/18 05:45 Temperature Pulse Rate 70 69 70 Respiratory Rate 15 13 13 Blood Pressure 127/60 128/62 129/63 Pulse Oximetry 92 L 94 L 91 L 02/23/18 06:00 02/23/18 06:15 02/23/18 06:30 Temperature Pulse Rate 70 69 70 Respiratory Rate 14 13 15 Blood Pressure 127/62 122/58 L 127/60 Pulse Oximetry 92 L 92 L 93 L 02/23/18 06:45 02/23/18 07:00 02/23/18 07:15 Temperature Pulse Rate 69 70 69 Respiratory Rate 14 14 13 Blood Pressure 125/63 135/64 131/63 Pulse Oximetry 92 L 92 L 89 L 02/23/18 07:30 02/23/18 07:45 02/23/18 08:00 Temperature Pulse Rate 69 71 70 Respiratory Rate 15 14 17 Blood Pressure 143/65 H 136/63 143/64 H Pulse Oximetry 91 L 91 L 91 L 02/23/18 08:15 02/23/18 08:30 02/23/18 08:45 Temperature Pulse Rate 69 70 69 Respiratory Rate 15 14 14 Blood Pressure 140/68 135/64 134/68 Pulse Oximetry 90 L 90 L 89 L 02/23/18 09:00 02/23/18 09:15 02/23/18 09:30 Temperature 99.1 F Pulse Rate 72 71 73 Respiratory Rate 20 17 22 Blood Pressure 149/73 H 140/71 153/78 H Pulse Oximetry 91 L 90 L 89 L 02/23/18 09:45 02/23/18 10:00 02/23/18 10:15 Temperature Pulse Rate 76 71 72 Respiratory Rate 26 H 23 15 Blood Pressure 163/78 H 147/75 H 154/74 H Pulse Oximetry 90 L 90 L 91 L 02/23/18 10:30 02/23/18 10:45 02/23/18 11:00 Temperature Pulse Rate 73 73 73 Respiratory Rate 14 14 15 Blood Pressure 142/72 H 148/71 H 151/72 H Pulse Oximetry 91 L 91 L 91 L 02/23/18 11:15 02/23/18 11:30 02/23/18 11:44 Temperature Pulse Rate 73 75 74 Respiratory Rate 14 23 18 Blood Pressure 133/62 133/63 Pulse Oximetry 89 L 88 L 89 L 02/23/18 11:45 Temperature Pulse Rate Respiratory Rate Blood Pressure 162/70 H Pulse Oximetry Intake & Output 02/22/18 02/23/18 02/23/18 18:59 06:59 18:59 Intake Total 1400 / 1400 1670 / 1670 1000 / 1000 Output Total 800 / 800 900 / 900 Balance 600 / 600 770 / 770 1000 / 1000 Intake: IV 1400 / 1400 1350 / 1350 1000 / 1000 Cordarone Inj 450 MG In D5W Inj 250 / 250 241 ML @ 1 MG/MIN 33.33 mls/hr IV.CONT TITRATE PRN Rx#: [id number] NS Inj 1,000 ML @ 100 mls/hr IV 1000 / 1000 1000 / 1000 1000 / 1000 .CONT .Q10H [facility] Rx#:[id number] Cordarone Inj 150 MG In D5W Inj 100 / 100 97 ML @ 100 mls/hr IV.SIG ONCE ONE Rx#:[id number] Magnesium Sulfate 1 gm/D5W 100 200 / 200 ml Premix 100 ML @ 100 mls/hr IV.SIG Q1H [facility] Rx#:[id number] Keppra 1000 mg/100 mL Premix 100 / 100 100 / 100 100 ML @ 400 mls/hr IV.SIG Q12H [facility] Rx#:[id number] Oral 320 / 320 Output: Urine 800 / 800 Urine Amount (Catheter) 900 / 900 Straight 900 / 900 Other: # Bowel Movements 0 Narrative: GENERAL: Awake alert and oriented x3 talkative and cooperative slow to answer due to having to translate from Romanian to [place] and back-answers appropriately SKIN: Warm and dry. HEAD: Atraumatic. Normocephalic. EYES: Pupils equal and round. No scleral icterus. No injection or drainage. EOMI ENT: No nasal bleeding or discharge. Mucous membranes pink and moist. Tongue is midline NECK: Trachea midline. No JVD. Supple CARDIOVASCULAR: IRRegular rate and rhythm. S1-S2 no S3 or S4 RESPIRATORY: No accessory muscle use. Clear to auscultation. Breath sounds equal bilaterally. GASTROINTESTINAL: Abdomen soft, non-tender, nondistended. Hepatic and splenic margins not palpable. MUSCULOSKELETAL: Extremities without clubbing, cyanosis, or edema. No obvious deformities. NEUROLOGICAL: Awake and alert. No obvious cranial nerve deficits. Motor grossly within normal limits. Five out of 5 muscle strength in the arms and legs. Normal speech. PSYCHIATRIC: Appropriate mood and affect; insight and judgment normal. - Urinary Catheter Management Straight Cath placed during this visit: yes, but has since been removed by the nurse Reason for continuing: Not indwelling catheter Insertion date: 02/20/18 Insertion time: 20:00 Removal date: 02/20/18 Removal time: 20:28 Results - Labs CBC & Chem 7: 02/22/18 03:04 02/21/18 03:05 Laboratory Results - last 24 hr 02/22/18 02/22/18 02/23/18 12:48 17:55 00:40 POC Glucose 111 H 146 H 132 H 02/23/18 02/23/18 05:53 08:57 POC Glucose 106 110 - Imaging Impressions Chest X-Ray 02/22/18 00:00 CONCLUSION: Bilateral perihilar infiltrates. Underlying pneumonia is not excluded. - Procedures DATE OF OPERATION: 02/20/2018 PREOPERATIVE DIAGNOSIS: Left hip intertrochanteric femur fracture. POSTOPERATIVE DIAGNOSIS: Left hip intertrochanteric femur fracture. OPERATION PERFORMED: Left hip open reduction internal fixation with intramedullary nail implant. SURGEON: Chandler Carrillo MD CONTINUITY WRITER: Gab Paniagua PA-C ANESTHESIA: General. ESTIMATED BLOOD LOSS: 100 mL. SPECIMENS: None. FLUIDS: Per anesthesia record. URINE OUTPUT: Per anesthesia record. TOURNIQUET: Not used. COMPLICATIONS: None. IMPLANTS: Synthes TFN-A nail size 12 mm x 320 mm, with a 95 mm helical blade. INDICATIONS FOR PROCEDURE: Please see history and physical for complete details. In summary, Mrs. 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 She was admitted to the [facility] unit for evaluation of her CVA. Additionally, she sustained a left intertrochanteric femur fracture. Orthopedic surgery consultation was requested. We discussed with her family and her regarding our recommendations for open reduction and internal fixation. We awaited medical optimization and clearance by both Neurology and Hospitalist Medicine team. She was subsequently discontinued from her Heparin and taken back to the operating room and was facilitated at the earliest available surgical opportunity. Relevant risks, benefits, expected postoperative course of surgical management were reviewed. Risks include but are not limited to, damage to surrounding blood vessels and nerves, infection, wound healing issues, hardware failure, continued pain, nonunion, malunion, and need for future surgery. Ample opportunity was offered for questions to be answered and all her questions were answered to her apparent satisfaction. She agreed to proceed with surgery as per consent. DESCRIPTION OF PROCEDURE: The patient was identified in the preoperative holding area and the operative site was marked. The patient was then brought back to the operating room under the care of the anesthesiology team and positioned supine on the fracture table. All bony prominences were padded. A per protocol timeout was performed during which the patient's identity, site, side and nature of procedure was confirmed. General anesthesia was then induced without untoward effect and endotracheal intubation was performed. The fracture boots were then placed and the patient was placed in traction with a reduction being performed of the left intertrochanteric femur fracture. Provisional C-arm fluoroscopy was then obtained, which confirmed excellent reduction of the fracture. The left lower extremity was then prepped and draped in routine strict and sterile fashion using triple prep solution and occlusive draping. A guidewire was used to identify the lateral border of the hip, along with the trajectory for the greater trochanter. A posterolateral hip incision was made, longitudinally. Blunt dissection was continued through the subcutaneous tissues. A guidewire was then advanced to the tip of the trochanter being just medial to the tip of the greater trochanter. AP and lateral fluoroscopic imaging confirmed excellent position of the guidewire. This was then advanced within the intramedullary canal and overreamed with use of an opening reamer. The guidewire was then removed and a long guidewire was then placed intramedullary down to the proximal aspect of the patella. This was then measured and measured a size 320 mm length. Reaming was then begun, starting with a size 10 mm reamer advancing to a size 14 mm reamer. There was appropriate endosteal chatter with a size 40 mm reamer and as such, a size 12 nail was selected. The nail was opened on the back table and assembled to the proximal jig and then inserted over the guidewire. It was gently impacted into position. The lateral cannula lateral cannula for the dynamic hip screw was then placed. Resection was carried through skin and IT band. The cannula was then advanced to the lateral aspect of the femoral cortex. Once this was secured, a guidewire was then advanced up the cannula. AP and lateral fluoroscopic imaging confirmed excellent position of the guidewire for the helical blade. This was then measured which measured a size 95 mm. The helical blade was then opened and inserted and impacted gently into position. Repeat AP, lateral and around the world imaging demonstrated excellent position in a center-center point of the femoral neck with an appropriate tip to apex distance. It was then sent a compression mode gently and traction was released. Compression was then performed of the intertrochanteric femur fracture. The nail was locked in position and then reversed 1/2 turn to allow for dynamic settings. The proximal assembly jig was then removed. Attention was turned distally. Perfect circles were then obtained, using a C-arm fluoroscopy and then 2 interlocking screws of appropriate length were then selected and placed in the distal interlocking holes. Final fluoroscopic imaging was obtained at this point in time. AP and lateral of the femur were obtained as well as the hip. This demonstrated uncomplicated hardware placement. The interlocking screws were appropriately positioned. There was no evidence of hardware complication. The fracture was adequately reduced with near anatomic mu-ism. All wounds were thoroughly irrigated with normal saline solution. Attention was then turned to closure. The wound was closed with 2-0 Vicryl in the subcutaneous tissue, followed by hilary. A dry sterile dressing consisting of Xeroform, 4 x 4 gauze, and ABD pad were then placed. This completed the case. At the conclusion of the case, all sponge and needle counts were correct x 2. I was present for the entire duration of the case. DISPOSITION: The patient was reversed from anesthesia and transferred to bed and transferred to the PACU in stable condition. POSTOPERATIVE RECOMMENDATIONS: 1. Weightbearing as tolerated to the left lower extremity. 2. PT/OT consultation. 3. Multimodal pain control. 4. She may resume Xarelto 24 hours postoperatively. This will be for the treatment of her CVA, but will also serve purposes for DVT prophylaxis. 5. Percocet, dispense #42, has been provided for discharge. 6. Patient will follow up with Dr. Carrillo in 2-3 weeks for repeat x-rays and for a dressing change and staple removal. In the interim, her dressings may remain intact. Her dressings are waterproof. She may shower. If her dressings do become soaked, they may be changed with Xeroform, 4 x 4 gauze and an ABD pad. All questions and concerns were addressed with the family at bedside. Gab Paniagua PA-C was present during the entire procedure to include patient positioning and the procedure. The medical necessity of the DINO was indicated in this case due to complexity of the case itself. During the surgical case, the pharmacy order entry technician was working the back table while the YONIC was directly assisting me. Chandler Carrillo MD, CM/agusto , 10:22 AM Assessment and Plan - Plan Plan: Neuro/Psych: Acute right temporal parietal CVA Occlusion of the M2 branch MCA CT brain on admission no acute intracranial findings. CT angiogram revealed an M2 branch occluded [address] CAD revealed right temporal CVA acute. Size is approximately 3 x [address] Hanley/neurology recommended aspirin and heparin drip. Head of bed flat. MRI of brain in a.m. 02/18 PT/OT/ST evaluate and treat Acetaminophen 650 mg p.o. every 6 hours as needed fever Hydrocodone/acetaminophen 325/5 1 tablet every 4 hours as needed pain 1-5 Morphine sulfate 2 mg IV every 2 hours. Pain 6 - 10 Decreasing hemoglobin, hold anticoagulation 02/19 and transfused 2 units packed red blood cells Transfuse 1 additional unit packed red blood cells 02/20 Transfuse again today 02/21 On Xarelto 5 mg p.o. daily since February 22 CV: Essential hypertension Hyperlipidemia Elevated troponin Currently on as needed labetalol/nicardipine drip to maintain systolic blood pressure less than 20/diastolic pressure less than 120 Medications are amlodipine 5 mg daily propanolol 20 mg daily. Started on pravastatin 40 mg daily for dyslipidemia. Lipid panel pending EKG pending. Initial troponin 0 0.35. Every 6 hours x2 ordered. Paroxysmal atrial fibrillation. Start half dose Xarelto 02-22, hold aspirin. Resp: Nasal cannula to maintain saturations greater than or equal to 92% Incentive spirometry while awake Albuterol/ipratropium aerosols every 4 hours with albuterol aerosols every 2 hours as needed dyspnea GI: Currently n.p.o. status Pantoprazole for GI prophylaxis Docusate sodium/senna 1 tablet twice daily for bowel regimen Test stool for occult blood : Straight catheterization as needed Endo: Acute hyperglycemia Sliding scale insulin aspart insulin Accu-Cheks every 6 hours to maintain euglycemia/low regimen Check TSH Check hemoglobin A1c Renal: Creatinine currently within normal limits Monitor urine output Accurate I's and O's Heme: Leukocytosis/acute Monitor CBC daily. Follow trends. No indication for transfusion of blood products at this time. Hemoglobin 5.8 this morning, acute change, likely reflects blood loss. Corrected yesterday. Down again today mostly to dilution. ID: Monitor for signs and symptomatology infection MSK: Acute comminuted IT fracture left femur Chronic Low back pain X-ray of the hip revealed acute comminuted IT fracture of the left femur. ORIF 02/20 FEN: Hyponatremia/acute Replace electrolytes as clinically indicated per ICU electrolyte protocol Access -Utilize peripheral IV. Central line if indicated Prophylaxis -GI -pantoprazole -DVT -SCD -Xarelto 5 mg p.o. twice daily start 02/22 Overall impression: This woman was critically ill following a recent ischemic stroke and left hip fracture. Heparin anticoagulation instituted for treatment of the stroke has produced larger than normal bleeding in the left hip. The heparin was stopped and her hemodynamics have improved. She tolerated hip fracture surgery well and was extubated immediately thereafter. She has presently received 4 units and transfusion and our assumption is that it is all from the left hip complicated by heparin drip. Stool for occult blood is ordered just in case there is another source of blood loss. Paroxysmal atrial fibrillation with rapid ventricular response today, amiodarone started. Try to wean off drips and transferred out if able to home later today Switch to p.o. medications by cardiology Code Status: Full code Discussed Condition With: RN and patient Discharge Planning: Once rate is controlled and is able to move better may need SNF
[2018-02-23 14:14] LABS: Magnesium 2.2 mg/dL (1.5-2.5)
[2018-02-23 14:23] LABS: Phosphorus 1.4 mg/dL (2.5-4.9); Thyroid Stimulating Hormone 3.04 uIU/mL (0.358-3.740)
[2018-02-23 16:13] LABS: Hemoglobin A1c 5.4 % (4.3-6.0)
--- NOTE | 2018-02-23 18:27 | P.CONREH ---
History of Present Illness Service: Physical Medicine and Rehabilitation Reason for Consult: Comprehensive Rehabilitation Evaluation Primary Care Provider: UNKNOWN Chief Complaint: Stroke; left hip fracture History of Present Illness: Shirley Funez is an 82-year-old [id number] female admitted to [facility] 01/28/18 with right gaze preference, confusion, left visual field loss and left ataxia. Head CT was negative. CTA showed distal right MCA occlusion. She was also found to have acute comminuted intertrochanteric fracture of the left femur. She was noted to have possible seizure 02/18/18. She required transfusion 02/19 and 02/21/18. On 02/20/18 she underwent ORIF with IM nail fixation of the left femur fracture. On 02/22/18 she developed new onset atrial fibrillation was treated with amiodarone. Review of Systems unobtainable due to mental condition Constitutional: Denies headache(s) Eyes: Reports change in vision, Reports loss of vision Ears, Nose, Mouth, and Throat: Reports abnormal hearing, Denies difficulty swallowing Cardiovascular: Denies chest pain Respiratory: Denies shortness of breath Gastrointestinal: Denies abdominal pain Musculoskeletal: Reports muscle weakness PMFSH - History History Provided By: Patient, Family Member, Friend - Medical History Medical History: Medical History (Last Reviewed 02/28/18 @ 15:52 by Lashaun Javier MD) Anxiety Essential hypertension Hyperlipidemia Medical history unknown Throat cancer - Surgical History Surgical History: Surgical History (Last Reviewed 02/28/18 @ 15:52 by Lashaun Javier MD) H/O neck surgery - Family History Family History: Family History (Last Reviewed 02/28/18 @ 07:51 by Flora Sewell) Other No pertinent family history - Social History I have reviewed the patient's Social History: Yes - Tobacco History Second Hand Smoke Exposure: No Tobacco Use In Past 30 Days: No Smoking Status: Never smoker - Alcohol History How Often Do You Have a Drink Containing Alcohol: Monthly or less - Substance Use History Substance History: No History of Abuse - Travel History Recent Travel in the [facility] Within the Last 8 Weeks: No Recent Travel Out of the Country Within the Last 8 Weeks: No - Immunization History Tetanus Immunization: <5 Years Hx Influenza Vaccine This Season: Unable to Assess Medications and Allergies Active Medications: Active Medications Acetaminophen (Tylenol) 650 mg PO Q6H PRN PRN Reason: FEVER Hydrocodone Bitart/Acetaminophen ([place] 5/325) 1 tab PO Q4H PRN PRN Reason: PAIN SCALE 1 TO 5 Last Admin: 02/23/18 02:37 Dose: 1 tab Al Hydroxide/Mg Hydroxide (Milk Of Lora Mclean) 30 ml PO Q12H PRN PRN Reason: Mild Constipation Albuterol (Albuterol Neb (Prn)) 2.5 mg NEB Q2HR NEB PRN PRN Reason: SHORTNESS OF BREATH/WHEEZING Amiodarone HCl (Cordarone) 400 mg PO Q12HR [facility] Last Admin: 02/23/18 09:15 Dose: 400 mg Aspirin (Aspirin Chew) 81 mg PO DAILY [facility] Last Admin: 02/22/18 08:33 Dose: 81 mg Bisacodyl (Dulcolax Supp) 10 mg RECTAL DAILY PRN PRN Reason: SEVERE CONSITIPATION Buspirone HCl (Buspar) 5 mg PO DAILY [facility] Last Admin: 02/22/18 08:33 Dose: 5 mg Dextrose (D50w Vial) 50 ml IV.PUSH UNSCH PRN PRN Reason: PER HYPOGLYCEMIA PROTOCOL Diphenhydramine HCl (Benadryl Inj) 25 mg IV.PUSH Q6H PRN PRN Reason: ITCHING Last Admin: 02/21/18 17:38 Dose: 25 mg Glucagon (Glucagon Inj) 1 mg OTHER PRN PRN PRN Reason: for Hypoglycemia Protocol Sodium Chloride (Ns Inj) 1,000 mls @ 70 mls/hr IV.CONT .[id number] [facility] Last Admin: 02/23/18 08:10 Dose: 70 mls/hr Sodium Chloride (Ns Inj) 1,000 mls @ 100 mls/hr IV.CONT .Q10H [facility] Last Admin: 02/23/18 08:38 Dose: 100 mls/hr Magnesium Sulfate 4 gm/ Sodium (Chloride) 100 mls @ 50 mls/hr IV.SIG UNSCH PRN PRN Reason: For Magnesium 0.9 - 1.1 mg/dL Magnesium Sulfate 2 gm/ Sodium (Chloride) 100 mls @ 50 mls/hr IV.SIG UNSCH PRN PRN Reason: For Magnesium 1.2 - 1.6 mg/dL Potassium Chloride (Kcl 40 Meq Premix Inj) 40 meq in 100 mls @ 25 mls/hr IV.SIG Q2H PRN PRN Reason: For Potassium 2.8 - 3.2 mEq/L Potassium Chloride (Kcl 20 Meq Premix Inj) 20 meq in 100 mls @ 50 mls/hr IV.SIG Q2H PRN PRN Reason: For Potassium 2.8 - 3.2 mEq/L Potassium Phosphate 30 mmol/ (Sodium Chloride) 260 mls @ 42 mls/hr IV.SIG UNSCH PRN PRN Reason: SEE LABEL COMMENTS Sodium Phosphate 30 mmol/ (Sodium Chloride) 260 mls @ 42 mls/hr IV.SIG UNSCH PRN PRN Reason: For Phosphorus < 2.5 mg/dL Potassium Chloride (Kcl 40 Meq Premix Inj) 40 meq in 100 mls @ 25 mls/hr IV.SIG UNSCH PRN PRN Reason: For Potassium 3.3 - 3.5 mEq/L Nicardipine HCl 25 mg/ Sodium (Chloride) 250 mls @ 50 mls/hr IV.CONT TITRATE PRN; Protocol PRN Reason: Per Protocol Levetiracetam (Keppra 1000 Mg/100 Ml Premix) 100 mls @ 400 mls/hr IV.SIG Q12H [facility] Last Admin: 02/23/18 14:19 Dose: 400 mls/hr Phenylephrine HCl 40 mg/ (Sodium Chloride) 500 mls @ 30 mls/hr IV.CONT TITRATE PRN; Protocol PRN Reason: See Protocol Insulin Aspart (Novolog Insulin Correctional Sugar Inj) 0 unit SQ Q6HR [facility]; Protocol Last Admin: 02/23/18 14:17 Dose: Not Given Labetalol HCl (Trandate Inj) 10 mg IV.PUSH Q2H PRN PRN Reason: SBP>180, DBP>100, HR>65 Lactulose (Lactulose Liq) 30 ml PO DAILY PRN PRN Reason: SEVERE CONSITIPATION Last Admin: 02/22/18 22:15 Dose: 30 ml Magnesium Oxide (Mag-Ox) 800 mg PO UNSCH PRN PRN Reason: For Magnesium 1.2 - 1.6 mg/dL Morphine Sulfate (Morphine Inj) 1 mg IV.PUSH Q2H PRN PRN Reason: PAIN SCALE 6 TO 10 Last Admin: 02/22/18 15:39 Dose: 1 mg Ondansetron HCl (Zofran Inj) 4 mg IV.PUSH Q6H PRN PRN Reason: NAUSEA OR VOMITING Pantoprazole Sodium (Protonix Inj) 40 mg IV.PUSH DAILY [facility] Last Admin: 02/23/18 09:16 Dose: 40 mg Potassium Bicarb/Potassium Chloride (K-Lyte Cl Eff) 50 meq PO UNSCH PRN PRN Reason: For Potassium 3.3 - 3.5 mEq/L Potassium Phosphate (K-Phos Original) 2,000 mg PO Q4H PRN PRN Reason: Phosphorus Less Than 2.5 mg/dL Potassium Phosphate (K-Phos Original) 2,000 mg PO UNSCH PRN PRN Reason: SEE LABEL COMMENTS Pravastatin Sodium (Pravachol) 40 mg PO HS [facility] Last Admin: 02/22/18 21:06 Dose: 40 mg Rivaroxaban (Xarelto) 5 mg PO DAILY [facility] Last Admin: 02/23/18 09:16 Dose: 5 mg Senna/Docusate Sodium (Janice-Colace) 1 tab PO BID [facility] Last Admin: 02/23/18 09:16 Dose: 1 tab Sennosides (Senokot) 17.2 mg PO Q12H PRN PRN Reason: Moderate Constipation Sodium Chloride (Ns Flush) 2 ml IV.FLUSH BID [facility] Last Admin: 02/23/18 09:15 Dose: 2 ml Sodium Chloride (Ns Flush) 2 ml IV.FLUSH PRN PRN PRN Reason: FLUSH AFTER USING IV ACCESS Terbutaline Sulfate (Brethine Inj) 1 mg SQ UNSCH PRN PRN Reason: For Extravasation Allergies Allergy/AdvReac Type Severity Reaction Status Date / Time No Known Allergies Allergy Uncoded 05/09/12 18:20 Home Medications Medication Instructions Recorded Confirmed Type amlodipine 5 mg PO DAILY 02/17/18 02/17/18 History buspirone 5 mg PO DAILY 02/17/18 02/17/18 History propranolol 20 mg PO DAILY 02/17/18 02/17/18 History Exam - Physical Examination Vital Signs / I&O: Vital Signs 02/22/18 19:00 02/22/18 19:15 02/22/18 19:30 Temperature Pulse Rate 102 H 93 H 101 H Respiratory Rate 22 Blood Pressure 125/60 Pulse Oximetry 95 94 L 02/22/18 19:45 02/22/18 20:00 02/22/18 20:15 Temperature 97.5 F L Pulse Rate 95 H 99 H 94 H Respiratory Rate 16 14 12 Blood Pressure 137/65 Pulse Oximetry 95 94 L 96 02/22/18 20:30 02/22/18 20:45 02/22/18 21:00 Temperature Pulse Rate 99 H 99 H 99 H Respiratory Rate 12 17 15 Blood Pressure 117/59 L 117/67 Pulse Oximetry 94 L 94 L 02/22/18 21:15 02/22/18 21:30 02/22/18 21:45 Temperature Pulse Rate 107 H 101 H 95 H Respiratory Rate 23 20 17 Blood Pressure 128/63 Pulse Oximetry 96 94 L 02/22/18 22:00 02/22/18 22:15 02/22/18 22:30 Temperature Pulse Rate 78 77 78 Respiratory Rate 23 17 23 Blood Pressure 145/65 H Pulse Oximetry 93 L 94 L 02/22/18 22:45 02/22/18 23:00 02/22/18 23:15 Temperature Pulse Rate 77 77 76 Respiratory Rate 23 16 15 Blood Pressure 169/71 H 145/67 H 145/67 H Pulse Oximetry 92 L 91 L 94 L 02/22/18 23:27 02/22/18 23:30 02/22/18 23:42 Temperature Pulse Rate 81 84 Respiratory Rate 21 29 H Blood Pressure 135/57 L 135/57 L 149/69 H Pulse Oximetry 91 L 91 L 02/22/18 23:45 02/22/18 23:57 02/23/18 00:00 Temperature Pulse Rate 76 77 76 Respiratory Rate 26 H 26 H 21 Blood Pressure 149/69 H 144/67 H Pulse Oximetry 91 L 90 L 02/23/18 00:12 02/23/18 00:15 02/23/18 00:27 Temperature 97.8 F Pulse Rate 78 77 76 Respiratory Rate 16 17 14 Blood Pressure 156/70 H 148/68 H Pulse Oximetry 92 L 94 L 90 L 02/23/18 00:30 02/23/18 00:42 02/23/18 00:45 Temperature Pulse Rate 78 78 79 Respiratory Rate 14 15 15 Blood Pressure 164/72 H Pulse Oximetry 95 93 L 92 L 02/23/18 00:57 02/23/18 01:00 02/23/18 01:12 Temperature Pulse Rate 81 79 80 Respiratory Rate 19 19 22 Blood Pressure 147/69 H 183/74 H Pulse Oximetry 95 92 L 92 L 02/23/18 01:14 02/23/18 01:15 02/23/18 01:27 Temperature Pulse Rate 81 80 77 Respiratory Rate 24 15 Blood Pressure 165/72 H 159/67 H Pulse Oximetry 95 94 L 02/23/18 01:30 02/23/18 01:44 02/23/18 01:45 Temperature Pulse Rate 77 77 77 Respiratory Rate 15 16 15 Blood Pressure 144/67 H 144/67 H Pulse Oximetry 92 L 93 L 95 02/23/18 02:00 02/23/18 02:15 02/23/18 02:30 Temperature Pulse Rate 77 76 78 Respiratory Rate 16 16 14 Blood Pressure 155/77 H 134/63 150/66 H Pulse Oximetry 94 L 92 L 90 L 02/23/18 02:45 02/23/18 03:00 02/23/18 03:15 Temperature Pulse Rate 80 79 73 Respiratory Rate 19 19 14 Blood Pressure 168/74 H 157/72 H 139/64 Pulse Oximetry 92 L 94 L 94 L 02/23/18 03:30 02/23/18 04:00 02/23/18 04:15 Temperature Pulse Rate 72 72 73 Respiratory Rate 14 15 20 Blood Pressure 128/59 L 109/58 L 122/60 Pulse Oximetry 91 L 92 L 93 L 02/23/18 04:30 02/23/18 04:45 02/23/18 05:00 Temperature Pulse Rate 71 70 70 Respiratory Rate 13 14 13 Blood Pressure 122/58 L 120/60 134/65 Pulse Oximetry 92 L 94 L 90 L 02/23/18 05:15 02/23/18 05:30 02/23/18 05:45 Temperature Pulse Rate 70 69 70 Respiratory Rate 15 13 13 Blood Pressure 127/60 128/62 129/63 Pulse Oximetry 92 L 94 L 91 L 02/23/18 06:00 02/23/18 06:15 02/23/18 06:30 Temperature Pulse Rate 70 69 70 Respiratory Rate 14 13 15 Blood Pressure 127/62 122/58 L 127/60 Pulse Oximetry 92 L 92 L 93 L 02/23/18 06:45 02/23/18 07:00 02/23/18 07:15 Temperature Pulse Rate 69 70 69 Respiratory Rate 14 14 13 Blood Pressure 125/63 135/64 131/63 Pulse Oximetry 92 L 92 L 89 L 02/23/18 07:30 02/23/18 07:45 02/23/18 08:00 Temperature Pulse Rate 69 71 70 Respiratory Rate 15 14 17 Blood Pressure 143/65 H 136/63 143/64 H Pulse Oximetry 91 L 91 L 91 L 02/23/18 08:15 02/23/18 08:30 02/23/18 08:45 Temperature Pulse Rate 69 70 69 Respiratory Rate 15 14 14 Blood Pressure 140/68 135/64 134/68 Pulse Oximetry 90 L 90 L 89 L 02/23/18 09:00 02/23/18 09:15 02/23/18 09:30 Temperature 99.1 F Pulse Rate 72 71 73 Respiratory Rate 20 17 22 Blood Pressure 149/73 H 140/71 153/78 H Pulse Oximetry 91 L 90 L 89 L 02/23/18 09:45 02/23/18 10:00 02/23/18 10:15 Temperature Pulse Rate 76 74 72 Respiratory Rate 26 H 23 15 Blood Pressure 163/78 H 147/75 H 154/74 H Pulse Oximetry 90 L 90 L 91 L 02/23/18 10:30 02/23/18 10:45 02/23/18 11:00 Temperature Pulse Rate 73 73 73 Respiratory Rate 14 14 15 Blood Pressure 142/72 H 148/71 H 151/72 H Pulse Oximetry 91 L 91 L 91 L 02/23/18 11:15 02/23/18 11:30 02/23/18 11:44 Temperature Pulse Rate 73 75 74 Respiratory Rate 14 23 18 Blood Pressure 133/62 133/63 Pulse Oximetry 89 L 88 L 89 L 02/23/18 11:45 02/23/18 11:50 02/23/18 12:00 Temperature Pulse Rate 74 73 73 Respiratory Rate 17 16 16 Blood Pressure 162/70 H 145/64 H 144/68 H Pulse Oximetry 89 L 89 L 89 L 02/23/18 12:15 02/23/18 12:30 02/23/18 12:45 Temperature 97.9 F Pulse Rate 73 82 74 Respiratory Rate 16 30 H 18 Blood Pressure 151/70 H 160/72 H 152/67 H Pulse Oximetry 90 L 89 L 88 L 02/23/18 13:00 02/23/18 13:15 02/23/18 13:30 Temperature Pulse Rate 75 74 74 Respiratory Rate 19 18 23 Blood Pressure 152/69 H 150/62 H 159/68 H Pulse Oximetry 89 L 89 L 89 L 02/23/18 13:40 02/23/18 13:45 02/23/18 13:49 Temperature Pulse Rate 77 80 80 Respiratory Rate 32 H 29 H 27 H Blood Pressure 166/79 H 172/77 H 169/76 H Pulse Oximetry 89 L 89 L 89 L 02/23/18 14:00 02/23/18 14:04 02/23/18 14:27 Temperature Pulse Rate 80 91 H 79 Respiratory Rate 33 H 21 Blood Pressure 167/79 H Pulse Oximetry 02/23/18 14:31 02/23/18 15:00 02/23/18 16:00 Temperature Pulse Rate 78 82 93 H Respiratory Rate 20 24 39 H Blood Pressure 158/80 H Pulse Oximetry 92 L 93 L 02/23/18 17:00 02/23/18 17:03 02/23/18 17:06 Temperature Pulse Rate 78 77 80 Respiratory Rate 16 17 25 H Blood Pressure 174/81 H 170/76 H Pulse Oximetry Intake & Output 02/22/18 02/23/18 02/23/18 18:59 06:59 18:59 Intake Total 1400 / 1400 1670 / 1670 1000 / 1000 Output Total 800 / 800 900 / 900 Balance 600 / 600 770 / 770 1000 / 1000 Weight 70.5 kg Intake: IV 1400 / 1400 1350 / 1350 1000 / 1000 Cordarone Inj 450 MG In D5W Inj 250 / 250 241 ML @ 1 MG/MIN 33.33 mls/hr IV.CONT TITRATE PRN Rx#: [id number] NS Inj 1,000 ML @ 100 mls/hr IV 1000 / 1000 1000 / 1000 1000 / 1000 .CONT .Q10H [facility] Rx#:[id number] Cordarone Inj 150 MG In D5W Inj 100 / 100 97 ML @ 100 mls/hr IV.SIG ONCE ONE Rx#:[id number] Magnesium Sulfate 1 gm/D5W 100 200 / 200 ml Premix 100 ML @ 100 mls/hr IV.SIG Q1H [facility] Rx#:[id number] Keppra 1000 mg/100 mL Premix 100 / 100 100 / 100 100 ML @ 400 mls/hr IV.SIG Q12H [facility] Rx#:[id number] Oral 320 / 320 Output: Urine 800 / 800 Urine Amount (Catheter) 900 / 900 Straight 900 / 900 Other: # Bowel Movements 0 Intake & Output 02/21/18 02/22/18 02/23/18 02/24/18 06:59 06:59 06:59 06:59 Intake Total 3440 / 3440 4385 / 4385 3070 / 3070 1000 / 1000 Output Total 1025 / 1025 1900 / 1900 1700 / 1700 Balance 2415 / 2415 2485 / 2485 1370 / 1370 1000 / 1000 Weight 70.3 kg 68.6 kg 70.5 kg General: No acute distress Respiratory: Lungs CTA, Non-labored respirations, BS equal Gastrointestinal: Positive bowel sounds, Non-distended, Non-tender Cardiovascular: Normal rate, No edema, Irregular rhythm Skin: Incision (Dressing in place) Psychiatric: Cooperative - Neurologic Orientation: oriented to: Self, Place, Situation, disoriented to: Time Neurologic: Visual frank (Appears to have left visual field cut), Facial symmetry (Left facial droop), Speech (Mild dysarthria but intelligible) Motor: Right Upper Extremity (5/5), Left Upper Extremity (Grossly 5/5), Right Lower Extremity (Follows commands and appears to be intact), Left Lower Extremity (Limited testing but able to move ankle and toes to command) Sensory: Deferred Clonus: Negative Results - Labs CBC & Chem 7: 02/25/18 05:56 02/28/18 04:09 Labs: Laboratory Results - last 24 hr 02/23/18 02/23/18 02/23/18 00:40 05:53 08:57 POC Glucose 132 H 106 110 Phosphorus Magnesium TSH Free T4 02/23/18 02/23/18 02/23/18 13:16 13:30 13:30 POC Glucose 115 H Phosphorus 1.4 L Magnesium 2.2 TSH 3.040 Free T4 1.03 Assessment and Plan (1) Acute right arterial ischemic stroke, MCA (middle cerebral artery) Status: Acute Code(s): I63.511 - Cerebral infarction due to unspecified occlusion or stenosis of right middle cerebral artery - Plan Assessment: 1. 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 Acute comminuted left intertrochanteric femur fracture 3. Impaired mobility and ADLs due to above 4. Hypertension 5. Hyperlipidemia 6. Anxiety 7. Low back pain 8. History of head and neck cancer status post surgical intervention and radiation Recommendations: 1. PT mobilizing and mod-max assist for transfers and gait 2 feet with RW 2. ST has evaluated swallow and tolerating mechanical soft diet with thin liquids 3. OT addressing ADL's and max to dependent for ADL's 4. Case management addressing discharge planning for skilled facility 5. Will follow while hospitalized and at discharge Thank you for this consult
[2018-02-24] MEDS: Insulin NovoLOG Aspart Correctional Sugar Inj SQ SCH ×4 (00:05→18:00)
[2018-02-24] MEDS: Sod Chloride 0.9% Inj 1,000 ML IV.CONT SCH ×4 (01:00→23:58)
[2018-02-24] MEDS: levETIRAcetam 1000mg/100mL Inj 100 ML IV.SIG SCH ×2 (01:18→12:07)
[2018-02-24 08:04] LABS: Baso % (Auto) 0.1 % (0.0-2.0); Eos # (Auto) 0.1 th/mm3 (0.0-0.4); Eos % (Auto) 1.4 % (0.0-4.0); Hematocrit 28.6 % (35.0-46.0); Hemoglobin 9.8 gm/dL (11.6-15.3); Lymph # (Auto) 0.6 th/mm3 (1.0-4.8); Mean Corpuscular HGB Conc 34.2 % (32.0-36.0); Mean Corpuscular Hemoglobin 31.1 pg (27.0-34.0); Mean Corpuscular Volume 90.9 fL (80.0-100.0); Mean Platelet Volume 8.3 fL (7.0-11.0); Mono # (Auto) 1.1 th/mm3 (0.0-0.9); Mono % (Auto) 13.3 % (0.0-8.0); Neut # (Auto) 6.4 th/mm3 (1.8-7.7); Neut % (Auto) 78.2 % (16.0-70.0); Platelet Count 153 th/mm3 (150-450); Red Blood Count 3.15 mil/mm3 (4.00-5.30); Red Cell Distribution Width 16.6 % (11.6-17.2); White Blood Count 8.2 th/mm3 (4.0-11.0)
[2018-02-24] MEDS: Rivaroxaban 10 MG Tablet PO SCH (08:42)
[2018-02-24] MEDS: Senna/Docusate Sodium 8.6/50 MG Tablet PO SCH ×2 (08:43→20:42)
[2018-02-24] MEDS: Amiodarone 200 MG Tablet PO SCH ×2 (08:43→20:42)
[2018-02-24 08:47] LABS: Alanine Aminotransferase 136 U/L (10-53); Alkaline Phosphatase 46 U/L (45-117); Anion Gap 8 meq/L (5-15); Aspartate Aminotransferase 91 U/L (15-37); Blood Urea Nitrogen 12 mg/dL (7-18); Calcium 7.4 mg/dL (8.5-10.1); Chloride 109 meq/L (98-107); Glomerular Filtration Rate Greater Than 89 mL/min (>89); Glucose,Random 77 mg/dL (74-106); Potassium 3.1 meq/L (3.5-5.1); Sodium 136 meq/L (136-145); Total Protein 4.7 g/dL (6.4-8.2)
--- NOTE | 2018-02-24 08:51 | P.PNCA ---
Subjective Interval history: Not verbal this AM Medications and Allergies Active Medications: Active Medications Acetaminophen (Tylenol) 650 mg PO Q6H PRN PRN Reason: FEVER Hydrocodone Bitart/Acetaminophen ([place] 5/325) 1 tab PO Q4H PRN PRN Reason: PAIN SCALE 1 TO 5 Last Admin: 02/24/18 02:12 Dose: 1 tab Al Hydroxide/Mg Hydroxide (Milk Of Lora Contrerasq) 30 ml PO Q12H PRN PRN Reason: Mild Constipation Albuterol (Albuterol Neb (Prn)) 2.5 mg NEB Q2HR NEB PRN PRN Reason: SHORTNESS OF BREATH/WHEEZING Amiodarone HCl (Cordarone) 400 mg PO Q12HR [facility] Last Admin: 02/24/18 08:43 Dose: 400 mg Aspirin (Aspirin Chew) 81 mg PO DAILY [facility] Last Admin: 02/22/18 08:33 Dose: 81 mg Bisacodyl (Dulcolax Supp) 10 mg RECTAL DAILY PRN PRN Reason: SEVERE CONSITIPATION Buspirone HCl (Buspar) 5 mg PO DAILY [facility] Last Admin: 02/22/18 08:33 Dose: 5 mg Clonidine HCl (Catapres) 0.1 mg PO Q6H PRN PRN Reason: SBP>160, DBP>90 Last Admin: 02/23/18 18:50 Dose: 0.1 mg Dextrose (D50w Vial) 50 ml IV.PUSH UNSCH PRN PRN Reason: PER HYPOGLYCEMIA PROTOCOL Diphenhydramine HCl (Benadryl Inj) 25 mg IV.PUSH Q6H PRN PRN Reason: ITCHING Last Admin: 02/24/18 02:12 Dose: 25 mg Glucagon (Glucagon Inj) 1 mg OTHER PRN PRN PRN Reason: for Hypoglycemia Protocol Sodium Chloride (Ns Inj) 1,000 mls @ 70 mls/hr IV.CONT .[id number] [facility] Last Admin: 02/23/18 22:52 Dose: 70 mls/hr Sodium Chloride (Ns Inj) 1,000 mls @ 100 mls/hr IV.CONT .Q10H [facility] Last Admin: 02/24/18 01:00 Dose: 100 mls/hr Magnesium Sulfate 4 gm/ Sodium (Chloride) 100 mls @ 50 mls/hr IV.SIG UNSCH PRN PRN Reason: For Magnesium 0.9 - 1.1 mg/dL Magnesium Sulfate 2 gm/ Sodium (Chloride) 100 mls @ 50 mls/hr IV.SIG UNSCH PRN PRN Reason: For Magnesium 1.2 - 1.6 mg/dL Potassium Chloride (Kcl 40 Meq Premix Inj) 40 meq in 100 mls @ 25 mls/hr IV.SIG Q2H PRN PRN Reason: For Potassium 2.8 - 3.2 mEq/L Potassium Chloride (Kcl 20 Meq Premix Inj) 20 meq in 100 mls @ 50 mls/hr IV.SIG Q2H PRN PRN Reason: For Potassium 2.8 - 3.2 mEq/L Potassium Phosphate 30 mmol/ (Sodium Chloride) 260 mls @ 42 mls/hr IV.SIG UNSCH PRN PRN Reason: SEE LABEL COMMENTS Sodium Phosphate 30 mmol/ (Sodium Chloride) 260 mls @ 42 mls/hr IV.SIG UNSCH PRN PRN Reason: For Phosphorus < 2.5 mg/dL Potassium Chloride (Kcl 40 Meq Premix Inj) 40 meq in 100 mls @ 25 mls/hr IV.SIG UNSCH PRN PRN Reason: For Potassium 3.3 - 3.5 mEq/L Nicardipine HCl 25 mg/ Sodium (Chloride) 250 mls @ 50 mls/hr IV.CONT TITRATE PRN; Protocol PRN Reason: Per Protocol Levetiracetam (Keppra 1000 Mg/100 Ml Premix) 100 mls @ 400 mls/hr IV.SIG Q12H [facility] Last Infusion: 02/24/18 06:26 Dose: Infused Phenylephrine HCl 40 mg/ (Sodium Chloride) 500 mls @ 30 mls/hr IV.CONT TITRATE PRN; Protocol PRN Reason: See Protocol Insulin Aspart (Novolog Insulin Correctional Sugar Inj) 0 unit SQ Q6HR [facility]; Protocol Last Admin: 02/24/18 06:25 Dose: Not Given Labetalol HCl (Trandate Inj) 10 mg IV.PUSH Q2H PRN PRN Reason: SBP>180, DBP>100, HR>65 Lactulose (Lactulose Liq) 30 ml PO DAILY PRN PRN Reason: SEVERE CONSITIPATION Last Admin: 02/22/18 22:15 Dose: 30 ml Magnesium Oxide (Mag-Ox) 800 mg PO UNSCH PRN PRN Reason: For Magnesium 1.2 - 1.6 mg/dL Morphine Sulfate (Morphine Inj) 1 mg IV.PUSH Q2H PRN PRN Reason: PAIN SCALE 6 TO 10 Last Admin: 02/22/18 15:39 Dose: 1 mg Ondansetron HCl (Zofran Inj) 4 mg IV.PUSH Q6H PRN PRN Reason: NAUSEA OR VOMITING Pantoprazole Sodium (Protonix Inj) 40 mg IV.PUSH DAILY [facility] Last Admin: 02/23/18 09:16 Dose: 40 mg Potassium Bicarb/Potassium Chloride (K-Lyte Cl Eff) 50 meq PO UNSCH PRN PRN Reason: For Potassium 3.3 - 3.5 mEq/L Potassium Phosphate (K-Phos Original) 2,000 mg PO Q4H PRN PRN Reason: Phosphorus Less Than 2.5 mg/dL Potassium Phosphate (K-Phos Original) 2,000 mg PO UNSCH PRN PRN Reason: SEE LABEL COMMENTS Pravastatin Sodium (Pravachol) 40 mg PO [facility] Last Admin: 02/23/18 22:51 Dose: 40 mg Rivaroxaban (Xarelto) 5 mg PO DAILY [facility] Last Admin: 02/24/18 08:42 Dose: 5 mg Senna/Docusate Sodium (Janice-Colace) 1 tab PO BID [facility] Last Admin: 02/24/18 08:43 Dose: 1 tab Sennosides (Senokot) 17.2 mg PO Q12H PRN PRN Reason: Moderate Constipation Sodium Chloride (Ns Flush) 2 ml IV.FLUSH BID [facility] Last Admin: 02/23/18 22:52 Dose: 2 ml Sodium Chloride (Ns Flush) 2 ml IV.FLUSH PRN PRN PRN Reason: FLUSH AFTER USING IV ACCESS Terbutaline Sulfate (Brethine Inj) 1 mg SQ UNSCH PRN PRN Reason: For Extravasation Allergies Allergy/AdvReac Type Severity Reaction Status Date / Time No Known Allergies Allergy Uncoded 05/09/12 18:20 Home Medications Medication Instructions Recorded Confirmed Type amlodipine 5 mg PO DAILY 02/17/18 02/17/18 History buspirone 5 mg PO DAILY 02/17/18 02/17/18 History propranolol 20 mg PO DAILY 02/17/18 02/17/18 History Physical Exam Vital signs: Vital Signs 02/23/18 09:00 02/23/18 09:15 02/23/18 09:30 Temperature 99.1 F Pulse Rate 72 71 73 Respiratory Rate 20 17 22 Blood Pressure 149/73 H 140/71 153/78 H Pulse Oximetry 91 L 90 L 89 L 02/23/18 09:45 02/23/18 10:00 02/23/18 10:15 Temperature Pulse Rate 76 74 72 Respiratory Rate 26 H 23 15 Blood Pressure 163/78 H 147/75 H 154/74 H Pulse Oximetry 90 L 90 L 91 L 02/23/18 10:30 02/23/18 10:45 02/23/18 11:00 Temperature Pulse Rate 73 73 73 Respiratory Rate 14 14 15 Blood Pressure 142/72 H 148/71 H 151/72 H Pulse Oximetry 91 L 91 L 91 L 02/23/18 11:15 02/23/18 11:30 02/23/18 11:44 Temperature Pulse Rate 73 75 74 Respiratory Rate 14 23 18 Blood Pressure 133/62 133/63 Pulse Oximetry 89 L 88 L 89 L 02/23/18 11:45 02/23/18 11:50 02/23/18 12:00 Temperature Pulse Rate 74 73 73 Respiratory Rate 17 16 16 Blood Pressure 162/70 H 145/64 H 144/68 H Pulse Oximetry 89 L 89 L 89 L 02/23/18 12:15 02/23/18 12:30 02/23/18 12:45 Temperature 97.9 F Pulse Rate 73 82 74 Respiratory Rate 16 30 H 18 Blood Pressure 151/70 H 160/72 H 152/67 H Pulse Oximetry 90 L 89 L 88 L 02/23/18 13:00 02/23/18 13:15 02/23/18 13:30 Temperature Pulse Rate 75 74 74 Respiratory Rate 19 18 23 Blood Pressure 152/69 H 150/62 H 159/68 H Pulse Oximetry 89 L 89 L 89 L 02/23/18 13:40 02/23/18 13:45 02/23/18 13:49 Temperature Pulse Rate 77 80 80 Respiratory Rate 32 H 29 H 27 H Blood Pressure 166/79 H 172/77 H 169/76 H Pulse Oximetry 89 L 89 L 89 L 02/23/18 14:00 02/23/18 14:04 02/23/18 14:27 Temperature Pulse Rate 80 91 H 79 Respiratory Rate 33 H 21 Blood Pressure 167/79 H Pulse Oximetry 02/23/18 14:31 02/23/18 15:00 02/23/18 16:00 Temperature Pulse Rate 78 82 93 H Respiratory Rate 20 24 39 H Blood Pressure 158/80 H Pulse Oximetry 92 L 93 L 02/23/18 17:00 02/23/18 17:03 02/23/18 17:06 Temperature Pulse Rate 78 77 80 Respiratory Rate 16 17 25 H Blood Pressure 174/81 H 170/76 H Pulse Oximetry 02/23/18 17:22 02/23/18 17:42 02/23/18 17:44 Temperature Pulse Rate 77 80 78 Respiratory Rate 16 23 24 Blood Pressure 166/80 H 185/74 H 178/74 H Pulse Oximetry 98 99 02/23/18 18:00 02/23/18 18:02 02/23/18 18:22 Temperature 97.9 F Pulse Rate 78 78 79 Respiratory Rate 19 17 18 Blood Pressure 176/75 H 167/77 H Pulse Oximetry 99 99 99 02/23/18 18:42 02/23/18 19:00 02/23/18 20:00 Temperature 98.7 F Pulse Rate 78 80 78 Respiratory Rate 18 20 18 Blood Pressure 173/75 H 169/79 H 167/74 H Pulse Oximetry 99 100 100 02/23/18 21:00 02/23/18 22:00 02/23/18 23:00 Temperature Pulse Rate 74 76 80 Respiratory Rate 20 21 26 H Blood Pressure 143/66 H 131/82 154/72 H Pulse Oximetry 98 95 95 02/24/18 00:00 02/24/18 01:00 02/24/18 02:00 Temperature 98.9 F Pulse Rate 80 76 78 Respiratory Rate 20 18 Blood Pressure 150/71 H 158/78 H Pulse Oximetry 96 98 02/24/18 03:00 02/24/18 04:00 02/24/18 05:00 Temperature 98.0 F Pulse Rate 74 76 70 Respiratory Rate 18 Blood Pressure 135/89 Pulse Oximetry 98 02/24/18 06:00 02/24/18 07:00 Temperature 98.3 F Pulse Rate 74 117 H Respiratory Rate 16 Blood Pressure 120/64 Pulse Oximetry 96 Intake & Output 02/23/18 02/24/18 02/24/18 18:59 06:59 18:59 Intake Total 1830 / 1830 2340 / 2340 Output Total 150 / 150 Balance 1830 / 1830 2190 / 2190 Weight 69 kg Intake: IV 1350 / 1350 2100 / 2100 Cordarone Inj 450 MG In D5W Inj 250 / 250 241 ML @ 1 MG/MIN 33.33 mls/hr IV.CONT TITRATE PRN Rx#: [id number] NS Inj 1,000 ML @ 70 mls/hr IV. 1000 / 1000 2000 / 2000 CONT .[id number] [facility] Rx#:[id number] Keppra 1000 mg/100 mL Premix 100 / 100 100 / 100 100 ML @ 400 mls/hr IV.SIG Q12H [facility] Rx#:[id number] Oral 480 / 480 240 / 240 Output: Urine 150 / 150 Other: # Voids 3 # Bowel Movements 0 Narrative: GENERAL: awake alert SKIN: Warm and dry. HEAD: Atraumatic. Normocephalic. EYES: Pupils equal and round. No scleral icterus. No injection or drainage. EOMI ENT: No nasal bleeding or discharge. Mucous membranes pink and moist. Tongue is midline NECK: Trachea midline. No JVD. Supple CARDIOVASCULAR: IRRegular rate and rhythm. S1-S2 no S3 or S4, Tele back in AF again. RESPIRATORY: No accessory muscle use. Clear to auscultation. Breath sounds equal bilaterally. GASTROINTESTINAL: Abdomen soft, non-tender, nondistended. Hepatic and splenic margins not palpable. MUSCULOSKELETAL: Extremities without clubbing, cyanosis, or edema. - Urinary Catheter Management Straight Cath placed during this visit: yes, but has since been removed by the nurse Reason for continuing: Not indwelling catheter Insertion date: 02/20/18 Insertion time: 20:00 Removal date: 02/20/18 Removal time: 20:28 Results 02/24/18 06:11 02/21/18 03:05 CBC 02/24/18 Range/Units 06:11 WBC 8.2 (4.0-11.0) th/mm3 RBC 3.15 L (4.00-5.30) mil/mm3 Hgb 9.8 L (11.6-15.3) gm/dL Hct 28.6 L (35.0-46.0) % Plt Count 153 D (150-450) th/mm3 Neut # (Auto) 6.4 (1.8-7.7) th/mm3 Lymph # (Auto) 0.6 L (1.0-4.8) th/mm3 [place] # (Auto) 1.1 H (0.0-0.9) th/mm3 Eos # (Auto) 0.1 (0.0-0.4) th/mm3 Baso # (Auto) 0.0 (0.0-0.2) th/mm3 Intake and Output 02/23/18 02/24/18 02/24/18 22:59 06:59 14:59 Intake Total 2480 / 2480 340 / 340 Output Total 150 / 150 Balance 2480 / 2480 190 / 190 Intake: IV 1999 100 / 100 NS Inj 1,000 ML @ 70 mls/hr IV. 1999 CONT .[id number] [facility] Rx#:[id number] Keppra 1000 mg/100 mL Premix 100 / 100 100 ML @ 400 mls/hr IV.SIG Q12H [facility] Rx#:[id number] Oral 480 / 480 240 / 240 Output: Urine 150 / 150 Other: # Voids 3 # Bowel Movements 0 Weight 69 kg - Imaging and Cardiology Imaging: Impressions Chest X-Ray 02/22/18 00:00 CONCLUSION: Bilateral perihilar infiltrates. Underlying pneumonia is not excluded. Assessment and Plan - Assessment (1) Anemia Code(s): D64.9 - Anemia, unspecified Status: Acute Plan: IV heparin per Dr. Hanlye (2) Right-sided cerebrovascular accident (CVA) Code(s): I63.9 - Cerebral infarction, unspecified Status: Acute (3) Elevated troponin Code(s): R74.8 - Abnormal levels of other serum enzymes Status: Acute Plan: Most likely from CVA. Repeat EKG but no evidence so far of [place] (4) Paroxysmal atrial fibrillation Code(s): I48.0 - Paroxysmal atrial fibrillation Status: Acute Plan: This likely cause of embolic CVA. Cont amio, start PO loading to maintain SR. Needs anticoagulation when neuro thinks it can be done safely. Continue amiodarone in attempt to preserve sinus rhythm.
[2018-02-24] MEDS: Pantoprazole Inj 40 MG Vial IV.PUSH SCH (08:54)
--- NOTE | 2018-02-24 11:02 | P.PNNEU ---
Subjective Active Medications: Active Medications Acetaminophen (Tylenol) 650 mg PO Q6H PRN PRN Reason: FEVER Hydrocodone Bitart/Acetaminophen ([place] 5/325) 1 tab PO Q4H PRN PRN Reason: PAIN SCALE 1 TO 5 Last Admin: 02/24/18 02:12 Dose: 1 tab Al Hydroxide/Mg Hydroxide (Milk Of Lora Contrerasq) 30 ml PO Q12H PRN PRN Reason: Mild Constipation Albuterol (Albuterol Neb (Prn)) 2.5 mg NEB Q2HR NEB PRN PRN Reason: SHORTNESS OF BREATH/WHEEZING Amiodarone HCl (Cordarone) 400 mg PO Q12HR [facility] Last Admin: 02/24/18 08:43 Dose: 400 mg Aspirin (Aspirin Chew) 81 mg PO DAILY [facility] Last Admin: 02/22/18 08:33 Dose: 81 mg Bisacodyl (Dulcolax Supp) 10 mg RECTAL DAILY PRN PRN Reason: SEVERE CONSITIPATION Buspirone HCl (Buspar) 5 mg PO DAILY [facility] Last Admin: 02/22/18 08:33 Dose: 5 mg Clonidine HCl (Catapres) 0.1 mg PO Q6H PRN PRN Reason: SBP>160, DBP>90 Last Admin: 02/23/18 18:50 Dose: 0.1 mg Dextrose (D50w Vial) 50 ml IV.PUSH UNSCH PRN PRN Reason: PER HYPOGLYCEMIA PROTOCOL Diphenhydramine HCl (Benadryl Inj) 25 mg IV.PUSH Q6H PRN PRN Reason: ITCHING Last Admin: 02/24/18 02:12 Dose: 25 mg Glucagon (Glucagon Inj) 1 mg OTHER PRN PRN PRN Reason: for Hypoglycemia Protocol Sodium Chloride (Ns Inj) 1,000 mls @ 70 mls/hr IV.CONT .[id number] [facility] Last Admin: 02/23/18 22:52 Dose: 70 mls/hr Sodium Chloride (Ns Inj) 1,000 mls @ 100 mls/hr IV.CONT .Q10H [facility] Last Admin: 02/24/18 01:00 Dose: 100 mls/hr Magnesium Sulfate 4 gm/ Sodium (Chloride) 100 mls @ 50 mls/hr IV.SIG UNSCH PRN PRN Reason: For Magnesium 0.9 - 1.1 mg/dL Magnesium Sulfate 2 gm/ Sodium (Chloride) 100 mls @ 50 mls/hr IV.SIG UNSCH PRN PRN Reason: For Magnesium 1.2 - 1.6 mg/dL Potassium Chloride (Kcl 40 Meq Premix Inj) 40 meq in 100 mls @ 25 mls/hr IV.SIG Q2H PRN PRN Reason: For Potassium 2.8 - 3.2 mEq/L Potassium Chloride (Kcl 20 Meq Premix Inj) 20 meq in 100 mls @ 50 mls/hr IV.SIG Q2H PRN PRN Reason: For Potassium 2.8 - 3.2 mEq/L Potassium Phosphate 30 mmol/ (Sodium Chloride) 260 mls @ 42 mls/hr IV.SIG UNSCH PRN PRN Reason: SEE LABEL COMMENTS Sodium Phosphate 30 mmol/ (Sodium Chloride) 260 mls @ 42 mls/hr IV.SIG UNSCH PRN PRN Reason: For Phosphorus < 2.5 mg/dL Potassium Chloride (Kcl 40 Meq Premix Inj) 40 meq in 100 mls @ 25 mls/hr IV.SIG UNSCH PRN PRN Reason: For Potassium 3.3 - 3.5 mEq/L Nicardipine HCl 25 mg/ Sodium (Chloride) 250 mls @ 50 mls/hr IV.CONT TITRATE PRN; Protocol PRN Reason: Per Protocol Levetiracetam (Keppra 1000 Mg/100 Ml Premix) 100 mls @ 400 mls/hr IV.SIG Q12H [facility] Last Infusion: 02/24/18 06:26 Dose: Infused Phenylephrine HCl 40 mg/ (Sodium Chloride) 500 mls @ 30 mls/hr IV.CONT TITRATE PRN; Protocol PRN Reason: See Protocol Insulin Aspart (Novolog Insulin Correctional Sugar Inj) 0 unit SQ Q6HR [facility]; Protocol Last Admin: 02/24/18 06:25 Dose: Not Given Labetalol HCl (Trandate Inj) 10 mg IV.PUSH Q2H PRN PRN Reason: SBP>180, DBP>100, HR>65 Lactulose (Lactulose Liq) 30 ml PO DAILY PRN PRN Reason: SEVERE CONSITIPATION Last Admin: 02/24/18 08:58 Dose: 30 ml Magnesium Oxide (Mag-Ox) 800 mg PO UNSCH PRN PRN Reason: For Magnesium 1.2 - 1.6 mg/dL Morphine Sulfate (Morphine Inj) 1 mg IV.PUSH Q2H PRN PRN Reason: PAIN SCALE 6 TO 10 Last Admin: 02/22/18 15:39 Dose: 1 mg Ondansetron HCl (Zofran Inj) 4 mg IV.PUSH Q6H PRN PRN Reason: NAUSEA OR VOMITING Pantoprazole Sodium (Protonix Inj) 40 mg IV.PUSH DAILY [facility] Last Admin: 02/24/18 08:54 Dose: 40 mg Potassium Bicarb/Potassium Chloride (K-Lyte Cl Eff) 50 meq PO UNSCH PRN PRN Reason: For Potassium 3.3 - 3.5 mEq/L Potassium Phosphate (K-Phos Original) 2,000 mg PO Q4H PRN PRN Reason: Phosphorus Less Than 2.5 mg/dL Potassium Phosphate (K-Phos Original) 2,000 mg PO UNSCH PRN PRN Reason: SEE LABEL COMMENTS Pravastatin Sodium (Pravachol) 40 mg PO HS [facility] Last Admin: 02/23/18 22:51 Dose: 40 mg Rivaroxaban (Xarelto) 5 mg PO DAILY [facility] Last Admin: 02/24/18 08:42 Dose: 5 mg Senna/Docusate Sodium (Janice-Colace) 1 tab PO BID [facility] Last Admin: 02/24/18 08:43 Dose: 1 tab Sennosides (Senokot) 17.2 mg PO Q12H PRN PRN Reason: Moderate Constipation Sodium Chloride (Ns Flush) 2 ml IV.FLUSH BID [facility] Last Admin: 02/24/18 08:54 Dose: 2 ml Sodium Chloride (Ns Flush) 2 ml IV.FLUSH PRN PRN PRN Reason: FLUSH AFTER USING IV ACCESS Terbutaline Sulfate (Brethine Inj) 1 mg SQ UNSCH PRN PRN Reason: For Extravasation Allergies/Adverse Reactions: Allergies Allergy/AdvReac Type Severity Reaction Status Date / Time No Known Allergies Allergy Uncoded 05/09/12 18:20 Physical Exam Vital signs: Vital Signs 02/23/18 11:00 02/23/18 11:15 02/23/18 11:30 Temperature Pulse Rate 73 73 75 Respiratory Rate 15 14 23 Blood Pressure 151/72 H 133/62 133/63 Pulse Oximetry 91 L 89 L 88 L 02/23/18 11:44 02/23/18 11:45 11/28/18 11:50 Temperature Pulse Rate 74 74 73 Respiratory Rate 18 17 16 Blood Pressure 162/70 H 145/64 H Pulse Oximetry 89 L 89 L 89 L 02/23/18 12:00 02/23/18 12:15 02/23/18 12:30 Temperature 97.9 F Pulse Rate 73 73 82 Respiratory Rate 16 16 30 H Blood Pressure 144/68 H 151/70 H 160/72 H Pulse Oximetry 89 L 90 L 89 L 02/23/18 12:45 02/23/18 13:00 02/23/18 13:15 Temperature Pulse Rate 74 75 74 Respiratory Rate 18 19 18 Blood Pressure 152/67 H 152/69 H 150/62 H Pulse Oximetry 88 L 89 L 89 L 02/23/18 13:30 02/23/18 13:40 02/23/18 13:45 Temperature Pulse Rate 74 77 80 Respiratory Rate 23 32 H 29 H Blood Pressure 159/68 H 166/79 H 172/77 H Pulse Oximetry 89 L 89 L 89 L 02/23/18 13:49 02/23/18 14:00 02/23/18 14:04 Temperature Pulse Rate 80 80 91 H Respiratory Rate 27 H 33 H Blood Pressure 169/76 H Pulse Oximetry 89 L 02/23/18 14:27 02/23/18 14:31 02/23/18 15:00 Temperature Pulse Rate 79 78 82 Respiratory Rate 21 20 24 Blood Pressure 167/79 H 158/80 H Pulse Oximetry 92 L 93 L 02/23/18 16:00 02/23/18 17:00 02/23/18 17:03 Temperature Pulse Rate 93 H 78 77 Respiratory Rate 39 H 16 17 Blood Pressure 174/81 H Pulse Oximetry 02/23/18 17:06 02/23/18 17:22 02/23/18 17:42 Temperature Pulse Rate 80 77 80 Respiratory Rate 25 H 16 23 Blood Pressure 170/76 H 166/80 H 185/74 H Pulse Oximetry 98 02/23/18 17:44 02/23/18 18:00 02/23/18 18:02 Temperature Pulse Rate 78 78 78 Respiratory Rate 24 19 17 Blood Pressure 178/74 H 176/75 H Pulse Oximetry 99 99 99 02/23/18 18:22 02/23/18 18:42 02/23/18 19:00 Temperature 97.9 F 98.7 F Pulse Rate 79 78 80 Respiratory Rate 18 18 20 Blood Pressure 167/77 H 173/75 H 169/79 H Pulse Oximetry 99 99 100 02/23/18 20:00 02/23/18 21:00 02/23/18 22:00 Temperature Pulse Rate 78 74 76 Respiratory Rate 18 20 21 Blood Pressure 167/74 H 143/66 H 131/82 Pulse Oximetry 100 98 95 02/23/18 23:00 02/24/18 00:00 02/24/18 01:00 Temperature 98.9 F Pulse Rate 80 80 76 Respiratory Rate 26 H 20 18 Blood Pressure 154/72 H 150/71 H 158/78 H Pulse Oximetry 95 96 98 02/24/18 02:00 02/24/18 03:00 02/24/18 04:00 Temperature 98.0 F Pulse Rate 78 74 76 Respiratory Rate 18 Blood Pressure 135/89 Pulse Oximetry 98 02/24/18 05:00 02/24/18 06:00 02/24/18 07:00 Temperature 98.3 F Pulse Rate 70 74 75 Respiratory Rate 16 Blood Pressure 120/64 Pulse Oximetry 96 02/24/18 08:00 02/24/18 09:00 02/24/18 10:00 Temperature Pulse Rate 120 H 136 H 120 H Respiratory Rate Blood Pressure Pulse Oximetry Intake & Output 02/23/18 02/24/18 02/24/18 18:59 06:59 18:59 Intake Total 1830 / 1830 2340 / 2340 Output Total 150 / 150 Balance 1830 / 1830 2190 / 2190 Weight 69 kg Intake: IV 1350 / 1350 2100 / 2100 Cordarone Inj 450 MG In D5W Inj 250 / 250 241 ML @ 1 MG/MIN 33.33 mls/hr IV.CONT TITRATE PRN Rx#: [id number] NS Inj 1,000 ML @ 70 mls/hr IV. 1000 / 1000 1999 / 1999 CONT .[id number] [facility] Rx#:[id number] Keppra 1000 mg/100 mL Premix 100 / 100 100 / 100 100 ML @ 400 mls/hr IV.SIG Q12H [facility] Rx#:[id number] Oral 480 / 480 240 / 240 Output: Urine 150 / 150 Other: # Voids 3 # Bowel Movements 0 Narrative: sleepiing but easily awakens counts fingers to r moves bue well and lifts left knee off bed 2+/5 and wiggle left foot voice strong knows [facility] - Urinary Catheter Management Straight Cath placed during this visit: yes, but has since been removed by the nurse Reason for continuing: Not indwelling catheter Insertion date: 02/20/18 Insertion time: 20:00 Removal date: 02/20/18 Removal time: 20:28 Objective Laboratory Results - last 24 hr 02/23/18 02/23/18 02/23/18 13:16 13:30 13:30 WBC RBC Hgb Hct MCV MCH MCHC RDW Plt Count MPV Neut % (Auto) Lymph % (Auto) [place] % (Auto) Eos % (Auto) Baso % (Auto) Neut # (Auto) Lymph # (Auto) [place] # (Auto) Eos # (Auto) Baso # (Auto) WBC Differential Differential Comment Sodium Potassium Chloride Carbon Dioxide Anion Gap BUN Creatinine Estimated GFR POC Glucose 115 H Random Glucose Hemoglobin A1c 5.4 Calcium Calcium Adj for Albumin Phosphorus Magnesium Total Bilirubin AST ALT Alkaline Phosphatase Total Protein Albumin TSH Free T4 1.03 02/23/18 02/23/18 02/24/18 13:30 18:26 00:01 WBC RBC Hgb Hct MCV MCH MCHC RDW Plt Count MPV Neut % (Auto) Lymph % (Auto) [place] % (Auto) Eos % (Auto) Baso % (Auto) Neut # (Auto) Lymph # (Auto) [place] # (Auto) Eos # (Auto) Baso # (Auto) WBC Differential Differential Comment Sodium Potassium Chloride Carbon Dioxide Anion Gap BUN Creatinine Estimated GFR POC Glucose 104 101 Random Glucose Hemoglobin A1c Calcium Calcium Adj for Albumin Phosphorus 1.4 L Magnesium 2.2 Total Bilirubin AST ALT Alkaline Phosphatase Total Protein Albumin TSH 3.040 Free T4 02/24/18 02/24/18 02/24/18 06:10 06:11 06:11 WBC 8.2 RBC 3.15 L Hgb 9.8 L Hct 28.6 L MCV 90.9 MCH 31.1 MCHC 34.2 RDW 16.6 Plt Count 153 D MPV 8.3 Neut % (Auto) 78.2 H Lymph % (Auto) 7.0 L [place] % (Auto) 13.3 H Eos % (Auto) 1.4 Baso % (Auto) 0.1 Neut # (Auto) 6.4 Lymph # (Auto) 0.6 L [place] # (Auto) 1.1 H Eos # (Auto) 0.1 Baso # (Auto) 0.0 WBC Differential . Differential Comment Auto diff final Sodium 136 Potassium 3.1 L Chloride 109 H Carbon Dioxide 19.0 L Anion Gap 8 BUN 12 Creatinine 0.48 L Estimated GFR Greater than 89 POC Glucose 87 Random Glucose 77 Hemoglobin A1c Calcium 7.4 L* Calcium Adj for Albumin 8.8 Phosphorus Magnesium 2.0 Total Bilirubin 1.5 H AST 91 H ALT 136 H Alkaline Phosphatase 46 Total Protein 4.7 L Albumin 2.0 L TSH Free T4 Review/Management - Review/Management Plan: imp r mca cva some worse overnoc had large penumbra at risk and robb still does left hip fx unfortunately time of onset too uncertain for tpa yest keep ivf and bp up hob down iv hep on ? mi? 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 cw cardioembolic is for xarelto post op although some hemorrhagic changes on mri in r mca cva so check ct will be at inc risk bleeding probably 1/2 dose xarelto instead of full better due to this and should have loop placed by cards unless she stays on anticoag rest of life watch plt 02/21/18 mri shows some blood changes in cva no blood on ct seen plan is 1/2 dose xarelto for 10 days then inc to full dose oob ok cards felt no mi but certainly cardioembolic this bilat cva can dc asa when on xarelto ------- 02/22/18 i dw son she was moving lue well this am awake and alert stood yest w PT should be on 1/2 dose xarelto ? today from ortho and can go to rehab neurowise later today or tomorrow change keppra to po we rowena lchange to full dose xarelto in 10 days 02/24/18 went into AFIB on xarelto 5 bid with blood in the r mca cva stable neuro ready for rehab needs oob and inc po intake will inc to full dose xarelto in 7 days
--- NOTE | 2018-02-24 11:17 | P.PNIM ---
Subjective Interval history: 02/17: This is an 82-year-old female. Ecuadorean speaking understanding Occitan. Date of admission 02/17/2003 past medical includes hypertension, hyperlipidemia, anxiety and low back pain. 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 Patient was seen by her primary care physician on Wednesday according to she was a "stroke waiting to happen". She is currently on propranolol 10 mg and amlodipine 5 mg daily. She is on buspirone 5 mg daily for anxiety. Today, she is brought in by EMS to [facility] post fall 3:30 PM today. On arrival also evaluated the patient appears that she is not crossing the midline and she has a fixed gaze to the right. She appears confused and her left side is more ataxic on the left upper extremity and cannot see on the left visual field. According to record, family friends are here reporting that they went to check on her around 4:00 and she has stated that she has just fallen in the bathroom 5 minutes prior to arrival. Her also reported that she was sleeping yesterday all day. CT brain revealed no acute intracranial findings. CT Angi0 of the brain revealed M2 branch occluded 1 cm distally to the bifurcation. CT CT revealed right temporoparietal CVA acute. Due to the unknown timing of the stroke she was not considered to be a candidate for stent retrieval. She started on a heparin drip currently at 700 units an hour/lie flat and given aspirin 300 mg p.o. daily. Neurology/Dr. Hanley is following. MRI brain in a.m. 02/18. Patient has a acute comminuted left intertrochanteric fracture. She will be followed by orthopedics and they have been notified. Troponin is slightly elevated 0.35. EKG is currently pending. Echocardiogram is been ordered. 02/18: Resting comfortably in bed. Had a seizure earlier. Follows commands. Opens her mouth and sticks out her tongue. Keeping her eyes closed. 02/19: Patient has tachycardia with decreasing blood pressure. Hemoglobin this morning is 5.8, a decline of almost 2 g. I suspect she has bled around the fracture site, hopefully stopped. We will start by transfusing 2 units of packed cells but need to consider discontinuing her systemic anticoagulation if this trend continues. 02/20: Patient has considerable swelling in left hip. Bleeding into fracture site greater than normal because she was on heparin simultaneously for treatment of her acute ischemic stroke. Heparin has been stopped for about 20 hours now and her vital signs have been acceptable. Renal function continues to improve and urine output is acceptable. She is a reasonable risk for surgery today from a critical care standpoint, albeit increased because of her age, recent stroke, acute blood loss from fracture. 02/21: Another hemoglobin drop following surgery requiring transfusion. There has been no evidence of another source aside from the acute fracture in the left hip. For completeness we will test her stool for occult blood. Need to start making arrangements for her to get to a rehab facility following her stroke and hip fracture. 02/22: Patient in new onset atrial fibrillation, now better rate control on amiodarone infusion. Recent ischemic stroke likely embolic in nature and recent hip surgery complicated by fracture site bleeding preoperatively. For multiple reasons this woman and a platelet therapy plus anticoagulation. For many reason she is a high risk for bleeding. Dr. Hanley has suggested half dose Xarelto until standard dose approved by orthopedic service. Given the new atrial fibrillation and other comorbid conditions for clot formation were going to need to start something. I will start with Xarelto 5 mg twice daily and hold her aspirin. I am fine if Dr. Dunbar feels strongly about continuing her aspirin in view of recent brain and heart events. 02-23 TRANSFERRED TO OUR CARE THIS AM MEDS ADJUSTED BY CARDIOLOGY JEN RN AND PT CHART REVIEWED TRANSFER OUT OF ICU TO PCU 02-24 IN AND OUT OF AFIB MEDS ADJUSTED BY CARDIOLOGY WILL NEED SNF AT DC INCREASE ACTIVITY PT AND OT WILL NEED SNF AT DC WILL NEED TO GO TO FULL DOSE ON XARELTO IN 1 WEEK Physical Exam Vital signs: Vital Signs 02/23/18 11:15 02/23/18 11:30 02/23/18 11:44 Temperature Pulse Rate 73 75 74 Respiratory Rate 14 23 18 Blood Pressure 133/62 133/63 Pulse Oximetry 89 L 88 L 89 L 02/23/18 11:45 02/23/18 11:50 02/23/18 12:00 Temperature Pulse Rate 74 73 73 Respiratory Rate 17 16 16 Blood Pressure 162/70 H 145/64 H 144/68 H Pulse Oximetry 89 L 89 L 89 L 02/23/18 12:15 02/23/18 12:30 02/23/18 12:45 Temperature 97.9 F Pulse Rate 73 82 74 Respiratory Rate 16 30 H 18 Blood Pressure 151/70 H 160/72 H 152/67 H Pulse Oximetry 90 L 89 L 88 L 02/23/18 13:00 02/23/18 13:15 02/23/18 13:30 Temperature Pulse Rate 75 74 74 Respiratory Rate 19 18 23 Blood Pressure 152/69 H 150/62 H 159/68 H Pulse Oximetry 89 L 89 L 89 L 02/23/18 13:40 02/23/18 13:45 02/23/18 13:49 Temperature Pulse Rate 77 80 80 Respiratory Rate 32 H 29 H 27 H Blood Pressure 166/79 H 172/77 H 169/76 H Pulse Oximetry 89 L 89 L 89 L 02/23/18 14:00 02/23/18 14:04 02/23/18 14:27 Temperature Pulse Rate 80 91 H 79 Respiratory Rate 33 H 21 Blood Pressure 167/79 H Pulse Oximetry 02/23/18 14:31 02/23/18 15:00 02/23/18 16:00 Temperature Pulse Rate 78 82 93 H Respiratory Rate 20 24 39 H Blood Pressure 158/80 H Pulse Oximetry 92 L 93 L 02/23/18 17:00 02/23/18 17:03 02/23/18 17:06 Temperature Pulse Rate 78 77 80 Respiratory Rate 16 17 25 H Blood Pressure 174/81 H 170/76 H Pulse Oximetry 02/23/18 17:22 02/23/18 17:42 02/23/18 17:44 Temperature Pulse Rate 77 80 78 Respiratory Rate 16 23 24 Blood Pressure 166/80 H 185/74 H 178/74 H Pulse Oximetry 98 99 02/23/18 18:00 02/23/18 18:02 02/23/18 18:22 Temperature 97.9 F Pulse Rate 78 78 79 Respiratory Rate 19 17 18 Blood Pressure 176/75 H 167/77 H Pulse Oximetry 99 99 99 02/23/18 18:42 02/23/18 19:00 02/23/18 20:00 Temperature 98.7 F Pulse Rate 78 80 78 Respiratory Rate 18 20 18 Blood Pressure 173/75 H 169/79 H 167/74 H Pulse Oximetry 99 100 100 02/23/18 21:00 02/23/18 22:00 02/23/18 23:00 Temperature Pulse Rate 74 76 80 Respiratory Rate 20 21 26 H Blood Pressure 143/66 H 131/82 154/72 H Pulse Oximetry 98 95 95 02/24/18 00:00 02/24/18 01:00 02/24/18 02:00 Temperature 98.9 F Pulse Rate 80 76 78 Respiratory Rate 20 18 Blood Pressure 150/71 H 158/78 H Pulse Oximetry 96 98 02/24/18 03:00 02/24/18 04:00 02/24/18 05:00 Temperature 98.0 F Pulse Rate 74 76 70 Respiratory Rate 18 Blood Pressure 135/89 Pulse Oximetry 98 02/24/18 06:00 02/24/18 07:00 02/24/18 08:00 Temperature 98.3 F Pulse Rate 74 75 120 H Respiratory Rate 16 Blood Pressure 120/64 Pulse Oximetry 96 96 02/24/18 09:00 02/24/18 10:00 02/24/18 11:00 Temperature 98.3 F Pulse Rate 136 H 120 H 89 Respiratory Rate 16 Blood Pressure 128/71 Pulse Oximetry 96 Intake & Output 02/23/18 02/24/18 02/24/18 18:59 06:59 18:59 Intake Total 1830 / 1830 2340 / 2340 Output Total 150 / 150 Balance 1830 / 1830 2190 / 2190 Weight 69 kg Intake: IV 1350 / 1350 2100 / 2100 Cordarone Inj 450 MG In D5W Inj 250 / 250 241 ML @ 1 MG/MIN 33.33 mls/hr IV.CONT TITRATE PRN Rx#: [id number] NS Inj 1,000 ML @ 70 mls/hr IV. 1000 / 1000 1999 / 1999 CONT .[id number] [facility] Rx#:[id number] Keppra 1000 mg/100 mL Premix 100 / 100 100 / 100 100 ML @ 400 mls/hr IV.SIG Q12H [facility] Rx#:[id number] Oral 480 / 480 240 / 240 Output: Urine 150 / 150 Other: # Voids 3 # Bowel Movements 0 Narrative: GENERAL: Awake alert and oriented x3 talkative and cooperative slow to answer due to having to translate from Occitan to Ecuadorean and back-answers appropriately SKIN: Warm and dry. HEAD: Atraumatic. Normocephalic. EYES: Pupils equal and round. No scleral icterus. No injection or drainage. EOMI ENT: No nasal bleeding or discharge. Mucous membranes pink and moist. Tongue is midline NECK: Trachea midline. No JVD. Supple CARDIOVASCULAR: IRRegular rate and rhythm. S1-S2 no S3 or S4 RESPIRATORY: No accessory muscle use. Clear to auscultation. Breath sounds equal bilaterally. GASTROINTESTINAL: Abdomen soft, non-tender, nondistended. Hepatic and splenic margins not palpable. MUSCULOSKELETAL: Extremities without clubbing, cyanosis, or edema. No obvious deformities. NEUROLOGICAL: Awake and alert. No obvious cranial nerve deficits. Motor grossly within normal limits. Five out of 5 muscle strength in the arms and legs. Normal speech. PSYCHIATRIC: Appropriate mood and affect; insight and judgment normal. - Urinary Catheter Management Straight Cath placed during this visit: yes, but has since been removed by the nurse Reason for continuing: Not indwelling catheter Insertion date: 02/20/18 Insertion time: 20:00 Removal date: 02/20/18 Removal time: :28 Results - Labs CBC & Chem 7: 02/24/18 06:11 02/24/18 06:11 Laboratory Results - last 24 hr 02/23/18 02/23/18 02/23/18 13:16 13:30 13:30 WBC RBC Hgb Hct MCV MCH MCHC RDW Plt Count MPV Neut % (Auto) Lymph % (Auto) [place] % (Auto) Eos % (Auto) Baso % (Auto) Neut # (Auto) Lymph # (Auto) [place] # (Auto) Eos # (Auto) Baso # (Auto) WBC Differential Differential Comment Sodium Potassium Chloride Carbon Dioxide Anion Gap BUN Creatinine Estimated GFR POC Glucose 115 H Random Glucose Hemoglobin A1c 5.4 Calcium Calcium Adj for Albumin Phosphorus Magnesium Total Bilirubin AST ALT Alkaline Phosphatase Total Protein Albumin TSH Free T4 1.03 02/23/18 02/23/18 02/24/18 13:30 18:26 00:01 WBC RBC Hgb Hct MCV MCH MCHC RDW Plt Count MPV Neut % (Auto) Lymph % (Auto) [place] % (Auto) Eos % (Auto) Baso % (Auto) Neut # (Auto) Lymph # (Auto) [place] # (Auto) Eos # (Auto) Baso # (Auto) WBC Differential Differential Comment Sodium Potassium Chloride Carbon Dioxide Anion Gap BUN Creatinine Estimated GFR POC Glucose 104 101 Random Glucose Hemoglobin A1c Calcium Calcium Adj for Albumin Phosphorus 1.4 L Magnesium 2.2 Total Bilirubin AST ALT Alkaline Phosphatase Total Protein Albumin TSH 3.040 Free T4 02/24/18 02/24/18 02/24/18 06:10 06:11 06:11 WBC 8.2 RBC 3.15 L Hgb 9.8 L Hct 28.6 L MCV 90.9 MCH 31.1 MCHC 34.2 RDW 16.6 Plt Count 153 D MPV 8.3 Neut % (Auto) 78.2 H Lymph % (Auto) 7.0 L [place] % (Auto) 13.3 H Eos % (Auto) 1.4 Baso % (Auto) 0.1 Neut # (Auto) 6.4 Lymph # (Auto) 0.6 L [place] # (Auto) 1.1 H Eos # (Auto) 0.1 Baso # (Auto) 0.0 WBC Differential . Differential Comment Auto diff final Sodium 136 Potassium 3.1 L Chloride 109 H Carbon Dioxide 19.0 L Anion Gap 8 BUN 12 Creatinine 0.48 L Estimated GFR Greater than 89 POC Glucose 87 Random Glucose 77 Hemoglobin A1c Calcium 7.4 L* Calcium Adj for Albumin 8.8 Phosphorus Magnesium 2.0 Total Bilirubin 1.5 H AST 91 H ALT 136 H Alkaline Phosphatase 46 Total Protein 4.7 L Albumin 2.0 L TSH Free T4 - Imaging ITS Impressions Head CTA 02/17/18 19:56 CONCLUSION: Focal occlusion distally in the right middle cerebral artery distribution as described. Report was called by [ ] Neck CTA 02/17/18 19:56 CONCLUSION: 1. Bilateral carotid bifurcation atherosclerosis. Associated short segment 30% or less narrowing of the proximal right internal carotid artery. No associated narrowing on the left. No hemodynamically significant stenoses are demonstrated. 2. Patent vertebrobasilar system. CT CAD 02/17/18 20:08 CONCLUSION: RAPID analysis as above. Focal right temporoparietal cortical and subcortical ischemia. The decision for consideration of therapy is multi factorial and multi disciplinary relying on subjective and objective clinical data. This data is not construed or intended to be the sole determinant of treatment eligibility. Lumbar Spine CT 02/18/18 00:02 CONCLUSION: Degenerative changes in the lumbar spine. No acute bony findings. Head MRA 02/19/18 00:00 CONCLUSION: Diminished flow including their thrombosis at the right M2 cerebral arteries. The patient has a right MCA infarct seen on the MRI. Head MRI 02/19/18 10:04 CONCLUSION: 1. Large area of acute infarction involving the right temporal and occipital mid to high convexities corresponding to the inferior posterior right MCA territories. Scattered susceptibility artifact may reflect evolving infarct versus focal hemorrhage. 2. Very small focal acute infarctions in the anterior left parietal mid convexities. Hip X-Ray 02/20/18 00:00 CONCLUSION: Successful ORIF. Head CT 02/21/18 05:00 CONCLUSION: 1. Evolving infarct on the right as above. No new hemorrhage or mass effect. . Chest X-Ray 02/22/18 00:00 CONCLUSION: Bilateral perihilar infiltrates. Underlying pneumonia is not excluded. - Procedures DATE OF OPERATION: 02/20/2018 PREOPERATIVE DIAGNOSIS: Left hip intertrochanteric femur fracture. POSTOPERATIVE DIAGNOSIS: Left hip intertrochanteric femur fracture. OPERATION PERFORMED: Left hip open reduction internal fixation with intramedullary nail implant. SURGEON: Chandler Carrillo MD WASHING MACHINE ASSEMBLER: Gab Paniagua PA-C ANESTHESIA: General. ESTIMATED BLOOD LOSS: 100 mL. SPECIMENS: None. FLUIDS: Per anesthesia record. URINE OUTPUT: Per anesthesia record. TOURNIQUET: Not used. COMPLICATIONS: None. IMPLANTS: Synthes TFN-A nail size 12 mm x 320 mm, with a 95 mm helical blade. INDICATIONS FOR PROCEDURE: Please see history and physical for complete details. In summary, Mrs. 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 She was admitted to the [facility] unit for evaluation of her CVA. Additionally, she sustained a left intertrochanteric femur fracture. Orthopedic surgery consultation was requested. We discussed with her family and her regarding our recommendations for open reduction and internal fixation. We awaited medical optimization and clearance by both Neurology and Hospitalist Medicine team. She was subsequently discontinued from her Heparin and taken back to the operating room and was facilitated at the earliest available surgical opportunity. Relevant risks, benefits, expected postoperative course of surgical management were reviewed. Risks include but are not limited to, damage to surrounding blood vessels and nerves, infection, wound healing issues, hardware failure, continued pain, nonunion, malunion, and need for future surgery. Ample opportunity was offered for questions to be answered and all her questions were answered to her apparent satisfaction. She agreed to proceed with surgery as per consent. DESCRIPTION OF PROCEDURE: The patient was identified in the preoperative holding area and the operative site was marked. The patient was then brought back to the operating room under the care of the anesthesiology team and positioned supine on the fracture table. All bony prominences were padded. A per protocol timeout was performed during which the patient's identity, site, side and nature of procedure was confirmed. General anesthesia was then induced without untoward effect and endotracheal intubation was performed. The fracture boots were then placed and the patient was placed in traction with a reduction being performed of the left intertrochanteric femur fracture. Provisional C-arm fluoroscopy was then obtained, which confirmed excellent reduction of the fracture. The left lower extremity was then prepped and draped in routine strict and sterile fashion using triple prep solution and occlusive draping. A guidewire was used to identify the lateral border of the hip, along with the trajectory for the greater trochanter. A posterolateral hip incision was made, longitudinally. Blunt dissection was continued through the subcutaneous tissues. A guidewire was then advanced to the tip of the trochanter being just medial to the tip of the greater trochanter. AP and lateral fluoroscopic imaging confirmed excellent position of the guidewire. This was then advanced within the intramedullary canal and overreamed with use of an opening reamer. The guidewire was then removed and a long guidewire was then placed intramedullary down to the proximal aspect of the patella. This was then measured and measured a size 320 mm length. Reaming was then begun, starting with a size 10 mm reamer advancing to a size 14 mm reamer. There was appropriate endosteal chatter with a size 40 mm reamer and as such, a size 12 nail was selected. The nail was opened on the back table and assembled to the proximal jig and then inserted over the guidewire. It was gently impacted into position. The lateral cannula lateral cannula for the dynamic hip screw was then placed. Resection was carried through skin and IT band. The cannula was then advanced to the lateral aspect of the femoral cortex. Once this was secured, a guidewire was then advanced up the cannula. AP and lateral fluoroscopic imaging confirmed excellent position of the guidewire for the helical blade. This was then measured which measured a size 95 mm. The helical blade was then opened and inserted and impacted gently into position. Repeat AP, lateral and around the world imaging demonstrated excellent position in a center-center point of the femoral neck with an appropriate tip to apex distance. It was then sent a compression mode gently and traction was released. Compression was then performed of the intertrochanteric femur fracture. The nail was locked in position and then reversed 1/2 turn to allow for dynamic settings. The proximal assembly jig was then removed. Attention was turned distally. Perfect circles were then obtained, using a C-arm fluoroscopy and then 2 interlocking screws of appropriate length were then selected and placed in the distal interlocking holes. Final fluoroscopic imaging was obtained at this point in time. AP and lateral of the femur were obtained as well as the hip. This demonstrated uncomplicated hardware placement. The interlocking screws were appropriately positioned. There was no evidence of hardware complication. The fracture was adequately reduced with near anatomic tenriism. All wounds were thoroughly irrigated with normal saline solution. Attention was then turned to closure. The wound was closed with 2-0 Vicryl in the subcutaneous tissue, followed by hilary. A dry sterile dressing consisting of Xeroform, 4 x 4 gauze, and ABD pad were then placed. This completed the case. At the conclusion of the case, all sponge and needle counts were correct x 2. I was present for the entire duration of the case. DISPOSITION: The patient was reversed from anesthesia and transferred to bed and transferred to the PACU in stable condition. POSTOPERATIVE RECOMMENDATIONS: 1. Weightbearing as tolerated to the left lower extremity. 2. PT/OT consultation. 3. Multimodal pain control. 4. She may resume Xarelto 24 hours postoperatively. This will be for the treatment of her CVA, but will also serve purposes for DVT prophylaxis. 5. Percocet, dispense #42, has been provided for discharge. 6. Patient will follow up with Dr. Carrillo in 2-3 weeks for repeat x-rays and for a dressing change and staple removal. In the interim, her dressings may remain intact. Her dressings are waterproof. She may shower. If her dressings do become soaked, they may be changed with Xeroform, 4 x 4 gauze and an ABD pad. All questions and concerns were addressed with the family at bedside. Gab Paniagua PA-C was present during the entire procedure to include patient positioning and the procedure. The medical necessity of the DINO was indicated in this case due to complexity of the case itself. During the surgical case, the surgical supervisor was working the back table while the DINO was directly assisting me. Chandler Carrillo MD, CM/agusto , 10:22 AM Assessment and Plan - Plan Plan: Neuro/Psych: Acute right temporal parietal CVA Occlusion of the M2 branch MCA CT brain on admission no acute intracranial findings. CT angiogram revealed an M2 branch occluded [address] CAD revealed right temporal CVA acute. Size is approximately 3 x [address] Hanley/neurology recommended aspirin and heparin drip. Head of bed flat. MRI of brain in a.m. 02/18 PT/OT/ST evaluate and treat Acetaminophen 650 mg p.o. every 6 hours as needed fever Hydrocodone/acetaminophen 325/5 1 tablet every 4 hours as needed pain 1-5 Morphine sulfate 2 mg IV every 2 hours. Pain 6 - 10 Decreasing hemoglobin, hold anticoagulation 02/19 and transfused 2 units packed red blood cells Transfuse 1 additional unit packed red blood cells 02/20 Transfuse again today 02/21 On Xarelto 5 mg p.o. daily since February 22 CV: Essential hypertension Hyperlipidemia Elevated troponin Currently on as needed labetalol/nicardipine drip to maintain systolic blood pressure less than 20/diastolic pressure less than 120 Medications are amlodipine 5 mg daily propanolol 20 mg daily. Started on pravastatin 40 mg daily for dyslipidemia. Lipid panel pending EKG pending. Initial troponin 0 0.35. Every 6 hours x2 ordered. Paroxysmal atrial fibrillation. Start half dose Xarelto 02-22, hold aspirin. Resp: Nasal cannula to maintain saturations greater than or equal to 92% Incentive spirometry while awake Albuterol/ipratropium aerosols every 4 hours with albuterol aerosols every 2 hours as needed dyspnea GI: Currently n.p.o. status Pantoprazole for GI prophylaxis Docusate sodium/senna 1 tablet twice daily for bowel regimen Test stool for occult blood : Straight catheterization as needed Endo: Acute hyperglycemia Sliding scale insulin aspart insulin Accu-Cheks every 6 hours to maintain euglycemia/low regimen Check TSH Check hemoglobin A1c Renal: Creatinine currently within normal limits Monitor urine output Accurate I's and O's Heme: Leukocytosis/acute Monitor CBC daily. Follow trends. No indication for transfusion of blood products at this time. Hemoglobin 5.8 this morning, acute change, likely reflects blood loss. Corrected yesterday. Down again today mostly to dilution. ID: Monitor for signs and symptomatology infection MSK: Acute comminuted IT fracture left femur Chronic Low back pain X-ray of the hip revealed acute comminuted IT fracture of the left femur. ORIF 02/20 FEN: Hyponatremia/acute Replace electrolytes as clinically indicated per ICU electrolyte protocol Access -Utilize peripheral IV. Central line if indicated Prophylaxis -GI -pantoprazole -DVT -SCD -Xarelto 5 mg p.o. twice daily start 02/22 Overall impression: This woman was critically ill following a recent ischemic stroke and left hip fracture. Heparin anticoagulation instituted for treatment of the stroke has produced larger than normal bleeding in the left hip. The heparin was stopped and her hemodynamics have improved. She tolerated hip fracture surgery well and was extubated immediately thereafter. She has presently received 4 units and transfusion and our assumption is that it is all from the left hip complicated by heparin drip. Stool for occult blood is ordered just in case there is another source of blood loss. Paroxysmal atrial fibrillation with rapid ventricular response today, amiodarone started. Try to wean off drips and transferred out if able to home later today Switch to p.o. medications by cardiology HYPONATREMIA WILL REPLACE JEN RN AM LABS Code Status: FULL CODE Discussed Condition With: JEN HOANG AND PATIENT Discharge Planning: Once rate is controlled and is able to move better may need SNF
[2018-02-24] MEDS: Morphine Sulfate Inj 2 MG/ML Vial IV.PUSH PRN (19:47)
[2018-02-24] MEDS: Labetalol HCl Inj 100 MG/20 ML Vial IV.PUSH PRN (23:14)
[2018-02-25] MEDS: levETIRAcetam 1000mg/100mL Inj 100 ML IV.SIG SCH ×2 (01:15→14:56)
[2018-02-25] MEDS: Sod Chloride 0.9% Inj 1,000 ML IV.CONT SCH ×5 (01:15→19:01)
[2018-02-25] MEDS: Insulin NovoLOG Aspart Correctional Sugar Inj SQ SCH ×4 (01:15→18:11)
[2018-02-25] MEDS: Morphine Sulfate Inj 2 MG/ML Vial IV.PUSH PRN ×3 (02:56→20:58)
[2018-02-25 06:41] LABS: Albumin 2.3 g/dL (3.4-5.0); Anion Gap 9 meq/L (5-15); Aspartate Aminotransferase 62 U/L (15-37); Blood Urea Nitrogen 12 mg/dL (7-18); Calcium 7.6 mg/dL (8.5-10.1); Carbon Dioxide 19.7 meq/L (21.0-32.0); Chloride 109 meq/L (98-107); Glomerular Filtration Rate Greater Than 89 mL/min (>89); Glucose,Random 90 mg/dL (74-106); Magnesium 1.9 mg/dL (1.5-2.5); Phosphorus 1.7 mg/dL (2.5-4.9); Potassium 3.4 meq/L (3.5-5.1); Sodium 138 meq/L (136-145)
[2018-02-25 06:44] LABS: Alanine Aminotransferase 112 U/L (10-53); Alkaline Phosphatase 55 U/L (45-117); Total Protein 5.3 g/dL (6.4-8.2)
[2018-02-25 07:14] LABS: Baso % (Auto) 0.5 % (0.0-2.0); Eos # (Auto) 0.1 th/mm3 (0.0-0.4); Eos % (Auto) 1.6 % (0.0-4.0); Hematocrit 32.3 % (35.0-46.0); Hemoglobin 10.8 gm/dL (11.6-15.3); Lymph # (Auto) 0.7 th/mm3 (1.0-4.8); Lymph % (Auto) 8.5 % (9.0-44.0); Mean Corpuscular HGB Conc 33.6 % (32.0-36.0); Mean Corpuscular Hemoglobin 30.4 pg (27.0-34.0); Mean Corpuscular Volume 90.4 fL (80.0-100.0); Mean Platelet Volume 8.7 fL (7.0-11.0); Mono % (Auto) 12.2 % (0.0-8.0); Neut # (Auto) 6.6 th/mm3 (1.8-7.7); Neut % (Auto) 77.2 % (16.0-70.0); Platelet Count 192 th/mm3 (150-450); Red Blood Count 3.57 mil/mm3 (4.00-5.30); Red Cell Distribution Width 16.8 % (11.6-17.2); White Blood Count 8.5 th/mm3 (4.0-11.0)
[2018-02-25] MEDS: Labetalol HCl Inj 100 MG/20 ML Vial IV.PUSH PRN (07:18)
--- NOTE | 2018-02-25 07:22 | P.PNNEU ---
Subjective Active Medications: Active Medications Acetaminophen (Tylenol) 650 mg PO Q6H PRN PRN Reason: FEVER Hydrocodone Bitart/Acetaminophen ([place] 5/325) 1 tab PO Q4H PRN PRN Reason: PAIN SCALE 1 TO 5 Last Admin: 02/24/18 20:42 Dose: 1 tab Al Hydroxide/Mg Hydroxide (Milk Of Lora Liq) 30 ml PO Q12H PRN PRN Reason: Mild Constipation Albuterol (Albuterol Neb (Prn)) 2.5 mg NEB Q2HR NEB PRN PRN Reason: SHORTNESS OF BREATH/WHEEZING Amiodarone HCl (Cordarone) 400 mg PO Q12HR [facility] Last Admin: 02/24/18 20:42 Dose: 400 mg Aspirin (Aspirin Chew) 81 mg PO DAILY [facility] Last Admin: 02/22/18 08:33 Dose: 81 mg Bisacodyl (Dulcolax Supp) 10 mg RECTAL DAILY PRN PRN Reason: SEVERE CONSITIPATION Buspirone HCl (Buspar) 5 mg PO DAILY [facility] Last Admin: 02/22/18 08:33 Dose: 5 mg Clonidine HCl (Catapres) 0.1 mg PO Q6H PRN PRN Reason: SBP>160, DBP>90 Last Admin: 02/23/18 18:50 Dose: 0.1 mg Dextrose (D50w Vial) 50 ml IV.PUSH UNSCH PRN PRN Reason: PER HYPOGLYCEMIA PROTOCOL Diphenhydramine HCl (Benadryl Inj) 25 mg IV.PUSH Q6H PRN PRN Reason: ITCHING Last Admin: 02/24/18 20:41 Dose: 25 mg Glucagon (Glucagon Inj) 1 mg OTHER PRN PRN PRN Reason: for Hypoglycemia Protocol Sodium Chloride (Ns Inj) 1,000 mls @ 70 mls/hr IV.CONT .[id number] [facility] Last Admin: 02/25/18 01:15 Dose: Not Given Sodium Chloride (Ns Inj) 1,000 mls @ 100 mls/hr IV.CONT .Q10H [facility] Last Admin: 02/25/18 06:32 Dose: 100 mls/hr Magnesium Sulfate 4 gm/ Sodium (Chloride) 100 mls @ 50 mls/hr IV.SIG UNSCH PRN PRN Reason: For Magnesium 0.9 - 1.1 mg/dL Magnesium Sulfate 2 gm/ Sodium (Chloride) 100 mls @ 50 mls/hr IV.SIG UNSCH PRN PRN Reason: For Magnesium 1.2 - 1.6 mg/dL Potassium Chloride (Kcl 40 Meq Premix Inj) 40 meq in 100 mls @ 25 mls/hr IV.SIG Q2H PRN PRN Reason: For Potassium 2.8 - 3.2 mEq/L Potassium Chloride (Kcl 20 Meq Premix Inj) 20 meq in 100 mls @ 50 mls/hr IV.SIG Q2H PRN PRN Reason: For Potassium 2.8 - 3.2 mEq/L Potassium Phosphate 30 mmol/ (Sodium Chloride) 260 mls @ 42 mls/hr IV.SIG UNSCH PRN PRN Reason: SEE LABEL COMMENTS Sodium Phosphate 30 mmol/ (Sodium Chloride) 260 mls @ 42 mls/hr IV.SIG UNSCH PRN PRN Reason: For Phosphorus < 2.5 mg/dL Potassium Chloride (Kcl 40 Meq Premix Inj) 40 meq in 100 mls @ 25 mls/hr IV.SIG UNSCH PRN PRN Reason: For Potassium 3.3 - 3.5 mEq/L Nicardipine HCl 25 mg/ Sodium (Chloride) 250 mls @ 50 mls/hr IV.CONT TITRATE PRN; Protocol PRN Reason: Per Protocol Levetiracetam (Keppra 1000 Mg/100 Ml Premix) 100 mls @ 400 mls/hr IV.SIG Q12H [facility] Last Infusion: 02/25/18 01:49 Dose: Infused Phenylephrine HCl 40 mg/ (Sodium Chloride) 500 mls @ 30 mls/hr IV.CONT TITRATE PRN; Protocol PRN Reason: See Protocol Insulin Aspart (Novolog Insulin Correctional Sugar Inj) 0 unit SQ Q6HR [facility]; Protocol Last Admin: 02/25/18 06:11 Dose: Not Given Labetalol HCl (Trandate Inj) 10 mg IV.PUSH Q2H PRN PRN Reason: SBP>180, DBP>100, HR>65 Last Admin: 02/25/18 07:18 Dose: 10 mg Lactulose (Lactulose Liq) 30 ml PO DAILY PRN PRN Reason: SEVERE CONSITIPATION Last Admin: 02/24/18 08:58 Dose: 30 ml Magnesium Oxide (Mag-Ox) 800 mg PO UNSCH PRN PRN Reason: For Magnesium 1.2 - 1.6 mg/dL Morphine Sulfate (Morphine Inj) 1 mg IV.PUSH Q2H PRN PRN Reason: PAIN SCALE 6 TO 10 Last Admin: 02/25/18 02:56 Dose: 1 mg Ondansetron HCl (Zofran Inj) 4 mg IV.PUSH Q6H PRN PRN Reason: NAUSEA OR VOMITING Pantoprazole Sodium (Protonix Inj) 40 mg IV.PUSH DAILY [facility] Last Admin: 02/24/18 08:54 Dose: 40 mg Potassium Bicarb/Potassium Chloride (K-Lyte Cl Eff) 50 meq PO UNSCH PRN PRN Reason: For Potassium 3.3 - 3.5 mEq/L Potassium Phosphate (K-Phos Original) 2,000 mg PO Q4H PRN PRN Reason: Phosphorus Less Than 2.5 mg/dL Potassium Phosphate (K-Phos Original) 2,000 mg PO UNSCH PRN PRN Reason: SEE LABEL COMMENTS Pravastatin Sodium (Pravachol) 40 mg PO HS [facility] Last Admin: 02/24/18 20:42 Dose: 40 mg Rivaroxaban (Xarelto) 5 mg PO DAILY [facility] Last Admin: 02/24/18 08:42 Dose: 5 mg Senna/Docusate Sodium (Janice-Colace) 1 tab PO BID [facility] Last Admin: 02/24/18 20:42 Dose: 1 tab Sennosides (Senokot) 17.2 mg PO Q12H PRN PRN Reason: Moderate Constipation Sodium Chloride (Ns Flush) 2 ml IV.FLUSH BID [facility] Last Admin: 02/24/18 20:46 Dose: Not Given Sodium Chloride (Ns Flush) 2 ml IV.FLUSH PRN PRN PRN Reason: FLUSH AFTER USING IV ACCESS Terbutaline Sulfate (Brethine Inj) 1 mg SQ UNSCH PRN PRN Reason: For Extravasation Allergies/Adverse Reactions: Allergies Allergy/AdvReac Type Severity Reaction Status Date / Time No Known Allergies Allergy Uncoded 05/09/12 18:20 Physical Exam Vital signs: Vital Signs 02/24/18 08:00 02/24/18 09:00 02/24/18 10:00 Temperature Pulse Rate 120 H 136 H 120 H Respiratory Rate Blood Pressure Pulse Oximetry 96 02/24/18 11:00 02/24/18 12:00 02/24/18 13:00 Temperature 98.3 F Pulse Rate 89 92 H 84 Respiratory Rate 16 Blood Pressure 128/71 Pulse Oximetry 96 02/24/18 14:00 02/24/18 15:00 02/24/18 16:00 Temperature 98.8 F Pulse Rate 80 84 84 Respiratory Rate 16 Blood Pressure 148/76 H Pulse Oximetry 99 02/24/18 17:00 02/24/18 18:00 02/24/18 19:00 Temperature 98.0 F Pulse Rate 82 86 85 Respiratory Rate 22 Blood Pressure 147/99 H Pulse Oximetry 99 02/24/18 20:00 02/24/18 21:00 02/24/18 22:00 Temperature Pulse Rate 82 88 86 Respiratory Rate Blood Pressure Pulse Oximetry 98 02/24/18 23:00 02/24/18 23:20 02/25/18 00:00 Temperature 98.2 F Pulse Rate 84 78 Respiratory Rate 20 Blood Pressure 189/87 H 129/67 Pulse Oximetry 99 02/25/18 01:00 02/25/18 02:00 02/25/18 02:58 Temperature 98.6 F Pulse Rate 77 80 89 Respiratory Rate 18 Blood Pressure 159/84 H Pulse Oximetry 98 02/25/18 03:00 02/25/18 04:00 02/25/18 05:00 Temperature Pulse Rate 78 78 80 Respiratory Rate Blood Pressure Pulse Oximetry 02/25/18 06:00 Temperature Pulse Rate 83 Respiratory Rate Blood Pressure Pulse Oximetry Intake & Output 02/24/18 02/25/18 02/25/18 18:59 06:59 18:59 Intake Total 580 / 580 1340 / 1340 Output Total 100 / 100 Balance 580 / 580 1240 / 1240 Weight 69.5 kg Intake: IV 100 / 100 1100 / 1100 NS Inj 1,000 ML @ 100 mls/hr IV 1000 / 1000 .CONT .Q10H [facility] Rx#:[id number] Keppra 1000 mg/100 mL Premix 100 / 100 100 / 100 100 ML @ 400 mls/hr IV.SIG Q12H [facility] Rx#:[id number] Oral 480 / 480 240 / 240 Output: Urine 100 / 100 Other: # Voids 3 # Incontinent Voids 2 Narrative: awkens and moves lue and r side some left foot wiggle jhurts when i lift up knee - Urinary Catheter Management Straight Cath placed during this visit: yes, but has since been removed by the nurse Reason for continuing: Not indwelling catheter Insertion date: 02/20/18 Insertion time: 20:00 Removal date: 02/20/18 Removal time: 20:28 Objective Laboratory Results - last 24 hr 02/24/18 02/24/18 02/24/18 06:11 06:11 11:33 WBC 8.2 RBC 3.15 L Hgb 9.8 L Hct 28.6 L MCV 90.9 MCH 31.1 MCHC 34.2 RDW 16.6 Plt Count 153 D MPV 8.3 Neut % (Auto) 78.2 H Lymph % (Auto) 7.0 L [place] % (Auto) 13.3 H Eos % (Auto) 1.4 Baso % (Auto) 0.1 Neut # (Auto) 6.4 Lymph # (Auto) 0.6 L [place] # (Auto) 1.1 H Eos # (Auto) 0.1 Baso # (Auto) 0.0 WBC Differential . Differential Comment Auto diff final Sodium 136 Potassium 3.1 L Chloride 109 H Carbon Dioxide 19.0 L Anion Gap 8 BUN 12 Creatinine 0.48 L Estimated GFR Greater than 89 POC Glucose 127 H Random Glucose 77 Calcium 7.4 L* Calcium Adj for Albumin 8.8 Phosphorus Magnesium 2.0 Total Bilirubin 1.5 H AST 91 H ALT 136 H Alkaline Phosphatase 46 Total Protein 4.7 L Albumin 2.0 L 02/24/18 02/25/18 02/25/18 17:45 01:14 05:08 WBC RBC Hgb Hct MCV MCH MCHC RDW Plt Count MPV Neut % (Auto) Lymph % (Auto) [place] % (Auto) Eos % (Auto) Baso % (Auto) Neut # (Auto) Lymph # (Auto) [place] # (Auto) Eos # (Auto) Baso # (Auto) WBC Differential Differential Comment Sodium Potassium Chloride Carbon Dioxide Anion Gap BUN Creatinine Estimated GFR POC Glucose 152 H 102 98 Random Glucose Calcium Calcium Adj for Albumin Phosphorus Magnesium Total Bilirubin AST ALT Alkaline Phosphatase Total Protein Albumin 02/25/18 02/25/18 05:56 05:56 WBC 8.5 RBC 3.57 L Hgb 10.8 L Hct 32.3 L MCV 90.4 MCH 30.4 MCHC 33.6 RDW 16.8 Plt Count 192 MPV 8.7 Neut % (Auto) 77.2 H Lymph % (Auto) 8.5 L [place] % (Auto) 12.2 H Eos % (Auto) 1.6 Baso % (Auto) 0.5 Neut # (Auto) 6.6 Lymph # (Auto) 0.7 L [place] # (Auto) 1.0 H Eos # (Auto) 0.1 Baso # (Auto) 0.0 WBC Differential . Differential Comment Auto diff final Sodium 138 Potassium 3.4 L Chloride 109 H Carbon Dioxide 19.7 L Anion Gap 9 BUN 12 Creatinine 0.58 Estimated GFR Greater than 89 POC Glucose Random Glucose 90 Calcium 7.6 L Calcium Adj for Albumin Phosphorus 1.7 L Magnesium 1.9 Total Bilirubin 1.7 H AST 62 H ALT 112 H Alkaline Phosphatase 55 Total Protein 5.3 L D Albumin 2.3 L Review/Management - Review/Management Plan: imp r mca cva some worse overnoc had large penumbra at risk and robb still does left hip fx unfortunately time of onset too uncertain for tpa yest keep ivf and bp up hob down iv hep on ? mi? 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 cw cardioembolic is for xarelto post op although some hemorrhagic changes on mri in r mca cva so check ct will be at inc risk bleeding probably 1/2 dose xarelto instead of full better due to this and should have loop placed by cards unless she stays on anticoag rest of life watch plt 02/21/18 mri shows some blood changes in cva no blood on ct seen plan is 1/2 dose xarelto for 10 days then inc to full dose oob ok cards felt no mi but certainly cardioembolic this bilat cva can dc asa when on xarelto ------- 02/22/18 i dw son she was moving lue well this am awake and alert stood yest w PT should be on 1/2 dose xarelto ? today from ortho and can go to rehab neurowise later today or tomorrow change keppra to po we rowena lchange to full dose xarelto in 10 days 02/24/18 went into AFIB on xarelto 5 bid with blood in the r mca cva stable neuro ready for rehab needs oob and inc po intake will inc to full dose xarelto in 7 days 02/25/18 stable neuro she needs daily PT over weekend oob inc lle movement
--- NOTE | 2018-02-25 08:04 | P.PN ---
Subjective Interval history: telemetry in SR- started on po Amiodarone yesterday 02/24 d/w Dr. Hanley- 10 mg Xarelto daily then increase to full dose in 7 days- 20 mg seen with staff nurse at bedside awake and alert - states some low back pain ff all commands Physical Exam Vital signs: Vital Signs 02/24/18 09:00 02/24/18 10:00 02/24/18 11:00 Temperature 98.3 F Pulse Rate 136 H 120 H 89 Respiratory Rate 16 Blood Pressure 128/71 Pulse Oximetry 96 02/24/18 12:00 02/24/18 13:00 02/24/18 14:00 Temperature Pulse Rate 92 H 84 80 Respiratory Rate Blood Pressure Pulse Oximetry 02/24/18 15:00 02/24/18 16:00 02/24/18 17:00 Temperature 98.8 F Pulse Rate 84 84 82 Respiratory Rate 16 Blood Pressure 148/76 H Pulse Oximetry 99 02/24/18 18:00 02/24/18 19:00 02/24/18 20:00 Temperature 98.0 F Pulse Rate 86 85 82 Respiratory Rate 22 Blood Pressure 147/99 H Pulse Oximetry 99 98 02/24/18 21:00 02/24/18 22:00 02/24/18 23:00 Temperature 98.2 F Pulse Rate 88 86 84 Respiratory Rate 20 Blood Pressure 189/87 H Pulse Oximetry 99 02/24/18 23:20 02/25/18 00:00 02/25/18 01:00 Temperature Pulse Rate 78 77 Respiratory Rate Blood Pressure 129/67 Pulse Oximetry 02/25/18 02:00 02/25/18 02:58 02/25/18 03:00 Temperature 98.6 F Pulse Rate 80 89 78 Respiratory Rate 18 Blood Pressure 159/84 H Pulse Oximetry 98 02/25/18 04:00 02/25/18 05:00 02/25/18 06:00 Temperature Pulse Rate 78 80 83 Respiratory Rate Blood Pressure Pulse Oximetry Intake & Output 02/24/18 02/25/18 02/25/18 18:59 06:59 18:59 Intake Total 580 / 580 1340 / 1340 Output Total 100 / 100 Balance 580 / 580 1240 / 1240 Weight 69.5 kg Intake: IV 100 / 100 1100 / 1100 NS Inj 1,000 ML @ 100 mls/hr IV 1000 / 1000 .CONT .Q10H [facility] Rx#:[id number] Keppra 1000 mg/100 mL Premix 100 / 100 100 / 100 100 ML @ 400 mls/hr IV.SIG Q12H [facility] Rx#:[id number] Oral 480 / 480 240 / 240 Output: Urine 100 / 100 Other: # Voids 3 # Incontinent Voids 2 Narrative: awake and alert, ff all commands anicteric neck supple regularr hythm abdomen soft, nntender some ecchymoses pubic area extremties - left hip/thigh post op dressing in place, mild swelling motor- some mild left sided weakness foot- strong motor exam - Urinary Catheter Management Straight Cath placed during this visit: yes, but has since been removed by the nurse Reason for continuing: Not indwelling catheter Insertion date: 02/20/18 Insertion time: 20:00 Removal date: 02/20/18 Removal time: 20:28 Results - Labs CBC & Chem 7: 02/25/18 05:56 02/25/18 05:56 Laboratory Results - last 24 hr 02/24/18 02/24/18 02/24/18 06:11 06:11 11:33 WBC 8.2 RBC 3.15 L Hgb 9.8 L Hct 28.6 L MCV 90.9 MCH 31.1 MCHC 34.2 RDW 16.6 Plt Count 153 D MPV 8.3 Neut % (Auto) 78.2 H Lymph % (Auto) 7.0 L [place] % (Auto) 13.3 H Eos % (Auto) 1.4 Baso % (Auto) 0.1 Neut # (Auto) 6.4 Lymph # (Auto) 0.6 L [place] # (Auto) 1.1 H Eos # (Auto) 0.1 Baso # (Auto) 0.0 WBC Differential . Differential Comment Auto diff final Sodium 136 Potassium 3.1 L Chloride 109 H Carbon Dioxide 19.0 L Anion Gap 8 BUN 12 Creatinine 0.48 L Estimated GFR Greater than 89 POC Glucose 127 H Random Glucose 77 Calcium 7.4 L* Calcium Adj for Albumin 8.8 Phosphorus Magnesium 2.0 Total Bilirubin 1.5 H AST 91 H ALT 136 H Alkaline Phosphatase 46 Total Protein 4.7 L Albumin 2.0 L 02/24/18 02/25/18 02/25/18 17:45 01:14 05:08 WBC RBC Hgb Hct MCV MCH MCHC RDW Plt Count MPV Neut % (Auto) Lymph % (Auto) [place] % (Auto) Eos % (Auto) Baso % (Auto) Neut # (Auto) Lymph # (Auto) [place] # (Auto) Eos # (Auto) Baso # (Auto) WBC Differential Differential Comment Sodium Potassium Chloride Carbon Dioxide Anion Gap BUN Creatinine Estimated GFR POC Glucose 152 H 102 98 Random Glucose Calcium Calcium Adj for Albumin Phosphorus Magnesium Total Bilirubin AST ALT Alkaline Phosphatase Total Protein Albumin 02/25/18 02/25/18 05:56 05:56 WBC 8.5 RBC 3.57 L Hgb 10.8 L Hct 32.3 L MCV 90.4 MCH 30.4 MCHC 33.6 RDW 16.8 Plt Count 192 MPV 8.7 Neut % (Auto) 77.2 H Lymph % (Auto) 8.5 L [place] % (Auto) 12.2 H Eos % (Auto) 1.6 Baso % (Auto) 0.5 Neut # (Auto) 6.6 Lymph # (Auto) 0.7 L [place] # (Auto) 1.0 H Eos # (Auto) 0.1 Baso # (Auto) 0.0 WBC Differential . Differential Comment Auto diff final Sodium 138 Potassium 3.4 L Chloride 109 H Carbon Dioxide 19.7 L Anion Gap 9 BUN 12 Creatinine 0.58 Estimated GFR Greater than 89 POC Glucose Random Glucose 90 Calcium 7.6 L Calcium Adj for Albumin Phosphorus 1.7 L Magnesium 1.9 Total Bilirubin 1.7 H AST 62 H ALT 112 H Alkaline Phosphatase 55 Total Protein 5.3 L D Albumin 2.3 L - Procedures 02/20 Left hip open reduction internal fixation with intramedullary nail implant. 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 CT angiogram revealed an M2 branch occluded [address] CAD revealed right temporal CVA acute. Size is approximately 3 x [address] Hanley/neurology recommended aspirin and heparin drip. Head of bed flat. PT/OT/ST evaluate and treat- 7 days a week Hydrocodone/acetaminophen 325/5 1 tablet every 4 hours as needed pain 1-5 Morphine sulfate 2 mg IV every 2 hours. Pain 6 - 10 Decreasing hemoglobin, hold anticoagulation 02/19 and transfused 2 units packed red blood cells Transfuse 1 additional unit packed red blood cells 02/20 Transfuse again today 02/21 On Xarelto 5 mg p.o. daily since February 22- increase to 10 mg daily today - d/w Dr. Hanley ff CBC CV: Essential hypertension Hyperlipidemia Elevated troponin Paroxysmal atrial fibrillation- currently in SR BP 140/70 - sinus amlodipine 5 mg daily propanolol 20 mg daily. Started on pravastatin 40 mg daily for dyslipidemia. Increase xarelto to 10 mg today 02/25 - increase to full dose in 1 week- d/w Dr. Hanley started on Amiodarone [address] Dunbar ff Resp: Nasal cannula to maintain saturations greater than or equal to 92% Incentive spirometry while awake Albuterol/ipratropium aerosols every 4 hours with albuterol aerosols every 2 hours as needed dyspnea GI: Currently mechanical soft diet- needs to be encouraged Pantoprazole for GI prophylaxis Docusate sodium/senna 1 tablet twice daily for bowel regimen Test stool for occult blood : Straight catheterization as needed- [place] in place Endo: Acute hyperglycemia Sliding scale insulin aspart insulin Accu-Cheks every 6 hours to maintain euglycemia/low regimen Check TSH Check hemoglobin A1c Renal: Creatinine currently within normal limits Monitor urine output Accurate I's and O's Heme: Leukocytosis acute anemia- likely from bleeding into fracture site S/P transfusion Monitor CBC daily. H and H improved and stable Acute comminuted IT fracture left femur S/P ORIF 02/20 Chronic Low back pain X-ray of the hip revealed acute comminuted IT fracture of the left femur. Ortho ff PT daily 7 days a week FEN: Hyponatremia/acute- improved Replace electrolytes as clinically indicated per ICU electrolyte protocol Access -Utilize peripheral IV. Central line if indicated Prophylaxis -GI -pantoprazole -DVT -SCD -Xarelto 5 mg p.o. twice daily start 02/22 per previous notes but now - curretnly just on 5 mg daily- increase to 10 mg daily today 02/25
--- NOTE | 2018-02-25 08:27 | P.PNCA ---
Subjective Interval history: No new complaints discernible Medications and Allergies Active Medications: Active Medications Acetaminophen (Tylenol) 650 mg PO Q6H PRN PRN Reason: FEVER Hydrocodone Bitart/Acetaminophen ([place]callister 5/325) 1 tab PO Q4H PRN PRN Reason: PAIN SCALE 1 TO 5 Last Admin: 02/24/18 20:42 Dose: 1 tab Al Hydroxide/Mg Hydroxide (Milk Of Lora Liq) 30 ml PO Q12H PRN PRN Reason: Mild Constipation Albuterol (Albuterol Neb (Prn)) 2.5 mg NEB Q2HR NEB PRN PRN Reason: SHORTNESS OF BREATH/WHEEZING Amiodarone HCl (Cordarone) 400 mg PO Q12HR [facility] Last Admin: 02/24/18 20:42 Dose: 400 mg Aspirin (Aspirin Chew) 81 mg PO DAILY [facility] Last Admin: 02/22/18 08:33 Dose: 81 mg Bisacodyl (Dulcolax Supp) 10 mg RECTAL DAILY PRN PRN Reason: SEVERE CONSITIPATION Buspirone HCl (Buspar) 5 mg PO DAILY [facility] Last Admin: 02/22/18 08:33 Dose: 5 mg Clonidine HCl (Catapres) 0.1 mg PO Q6H PRN PRN Reason: SBP>160, DBP>90 Last Admin: 02/23/18 18:50 Dose: 0.1 mg Dextrose (D50w Vial) 50 ml IV.PUSH UNSCH PRN PRN Reason: PER HYPOGLYCEMIA PROTOCOL Diphenhydramine HCl (Benadryl Inj) 25 mg IV.PUSH Q6H PRN PRN Reason: ITCHING Last Admin: 02/24/18 20:41 Dose: 25 mg Glucagon (Glucagon Inj) 1 mg OTHER PRN PRN PRN Reason: for Hypoglycemia Protocol Sodium Chloride (Ns Inj) 1,000 mls @ 70 mls/hr IV.CONT .[id number] [facility] Last Admin: 02/25/18 01:15 Dose: Not Given Sodium Chloride (Ns Inj) 1,000 mls @ 100 mls/hr IV.CONT .Q10H [facility] Last Admin: 02/25/18 06:32 Dose: 100 mls/hr Magnesium Sulfate 4 gm/ Sodium (Chloride) 100 mls @ 50 mls/hr IV.SIG UNSCH PRN PRN Reason: For Magnesium 0.9 - 1.1 mg/dL Magnesium Sulfate 2 gm/ Sodium (Chloride) 100 mls @ 50 mls/hr IV.SIG UNSCH PRN PRN Reason: For Magnesium 1.2 - 1.6 mg/dL Potassium Chloride (Kcl 40 Meq Premix Inj) 40 meq in 100 mls @ 25 mls/hr IV.SIG Q2H PRN PRN Reason: For Potassium 2.8 - 3.2 mEq/L Potassium Chloride (Kcl 20 Meq Premix Inj) 20 meq in 100 mls @ 50 mls/hr IV.SIG Q2H PRN PRN Reason: For Potassium 2.8 - 3.2 mEq/L Potassium Phosphate 30 mmol/ (Sodium Chloride) 260 mls @ 42 mls/hr IV.SIG UNSCH PRN PRN Reason: SEE LABEL COMMENTS Sodium Phosphate 30 mmol/ (Sodium Chloride) 260 mls @ 42 mls/hr IV.SIG UNSCH PRN PRN Reason: For Phosphorus < 2.5 mg/dL Potassium Chloride (Kcl 40 Meq Premix Inj) 40 meq in 100 mls @ 25 mls/hr IV.SIG UNSCH PRN PRN Reason: For Potassium 3.3 - 3.5 mEq/L Nicardipine HCl 25 mg/ Sodium (Chloride) 250 mls @ 50 mls/hr IV.CONT TITRATE PRN; Protocol PRN Reason: Per Protocol Levetiracetam (Keppra 1000 Mg/100 Ml Premix) 100 mls @ 400 mls/hr IV.SIG Q12H [facility] Last Infusion: 02/25/18 01:49 Dose: Infused Phenylephrine HCl 40 mg/ (Sodium Chloride) 500 mls @ 30 mls/hr IV.CONT TITRATE PRN; Protocol PRN Reason: See Protocol Insulin Aspart (Novolog Insulin Correctional Sugar Inj) 0 unit SQ Q6HR [facility]; Protocol Last Admin: 02/25/18 06:11 Dose: Not Given Labetalol HCl (Trandate Inj) 10 mg IV.PUSH Q2H PRN PRN Reason: SBP>180, DBP>100, HR>65 Last Admin: 02/25/18 07:18 Dose: 10 mg Lactulose (Lactulose Liq) 30 ml PO DAILY PRN PRN Reason: SEVERE CONSITIPATION Last Admin: 02/24/18 08:58 Dose: 30 ml Magnesium Oxide (Mag-Ox) 800 mg PO UNSCH PRN PRN Reason: For Magnesium 1.2 - 1.6 mg/dL Morphine Sulfate (Morphine Inj) 1 mg IV.PUSH Q2H PRN PRN Reason: PAIN SCALE 6 TO 10 Last Admin: 02/25/18 02:56 Dose: 1 mg Ondansetron HCl (Zofran Inj) 4 mg IV.PUSH Q6H PRN PRN Reason: NAUSEA OR VOMITING Pantoprazole Sodium (Protonix Inj) 40 mg IV.PUSH DAILY [facility] Last Admin: 02/24/18 08:54 Dose: 40 mg Potassium Bicarb/Potassium Chloride (K-Lyte Cl Eff) 50 meq PO UNSCH PRN PRN Reason: For Potassium 3.3 - 3.5 mEq/L Potassium Phosphate (K-Phos Original) 2,000 mg PO Q4H PRN PRN Reason: Phosphorus Less Than 2.5 mg/dL Potassium Phosphate (K-Phos Original) 2,000 mg PO UNSCH PRN PRN Reason: SEE LABEL COMMENTS Pravastatin Sodium (Pravachol) 40 mg PO [facility] Last Admin: 02/24/18 20:42 Dose: 40 mg Rivaroxaban (Xarelto) 5 mg PO DAILY [facility] Last Admin: 02/24/18 08:42 Dose: 5 mg Senna/Docusate Sodium (Janice-Colace) 1 tab PO BID [facility] Last Admin: 02/24/18 20:42 Dose: 1 tab Sennosides (Senokot) 17.2 mg PO Q12H PRN PRN Reason: Moderate Constipation Sodium Chloride (Ns Flush) 2 ml IV.FLUSH BID [facility] Last Admin: 02/24/18 20:46 Dose: Not Given Sodium Chloride (Ns Flush) 2 ml IV.FLUSH PRN PRN PRN Reason: FLUSH AFTER USING IV ACCESS Terbutaline Sulfate (Brethine Inj) 1 mg SQ UNSCH PRN PRN Reason: For Extravasation Allergies Allergy/AdvReac Type Severity Reaction Status Date / Time No Known Allergies Allergy Uncoded 05/09/12 18:20 Home Medications Medication Instructions Recorded Confirmed Type amlodipine 5 mg PO DAILY 02/17/18 02/17/18 History buspirone 5 mg PO DAILY 02/17/18 02/17/18 History propranolol 20 mg PO DAILY 02/17/18 02/17/18 History Physical Exam Vital signs: Vital Signs 02/24/18 09:00 02/24/18 10:00 02/24/18 11:00 Temperature 98.3 F Pulse Rate 136 H 120 H 89 Respiratory Rate 16 Blood Pressure 128/71 Pulse Oximetry 96 02/24/18 12:00 02/24/18 13:00 02/24/18 14:00 Temperature Pulse Rate 92 H 84 80 Respiratory Rate Blood Pressure Pulse Oximetry 02/24/18 15:00 02/24/18 16:00 02/24/18 17:00 Temperature 98.8 F Pulse Rate 84 84 82 Respiratory Rate 16 Blood Pressure 148/76 H Pulse Oximetry 99 02/24/18 18:00 02/24/18 19:00 02/24/18 20:00 Temperature 98.0 F Pulse Rate 86 85 82 Respiratory Rate 22 Blood Pressure 147/99 H Pulse Oximetry 99 98 02/24/18 21:00 02/24/18 22:00 02/24/18 23:00 Temperature 98.2 F Pulse Rate 88 86 84 Respiratory Rate 20 Blood Pressure 189/87 H Pulse Oximetry 99 02/24/18 23:20 02/25/18 00:00 02/25/18 01:00 Temperature Pulse Rate 78 77 Respiratory Rate Blood Pressure 129/67 Pulse Oximetry 02/25/18 02:00 02/25/18 02:58 02/25/18 03:00 Temperature 98.6 F Pulse Rate 80 89 78 Respiratory Rate 18 Blood Pressure 159/84 H Pulse Oximetry 98 02/25/18 04:00 02/25/18 05:00 02/25/18 06:00 Temperature Pulse Rate 78 80 83 Respiratory Rate Blood Pressure Pulse Oximetry 02/25/18 08:00 Temperature 97.2 F L Pulse Rate 85 Respiratory Rate 20 Blood Pressure 187/93 H Pulse Oximetry 100 Intake & Output 02/24/18 02/25/18 02/25/18 18:59 06:59 18:59 Intake Total 580 / 580 1340 / 1340 Output Total 100 / 100 Balance 580 / 580 1240 / 1240 Weight 69.5 kg Intake: IV 100 / 100 1100 / 1100 NS Inj 1,000 ML @ 100 mls/hr IV 1000 / 1000 .CONT .Q10H [facility] Rx#:[id number] Keppra 1000 mg/100 mL Premix 100 / 100 100 / 100 100 ML @ 400 mls/hr IV.SIG Q12H [facility] Rx#:[id number] Oral 480 / 480 240 / 240 Output: Urine 100 / 100 Other: # Voids 3 # Incontinent Voids 2 Narrative: lethargic, Tele shows patient went back into sinus rhythm. exam unchanged - Urinary Catheter Management Straight Cath placed during this visit: yes, but has since been removed by the nurse Reason for continuing: Not indwelling catheter Insertion date: 02/20/18 Insertion time: 20:00 Removal date: 02/20/18 Removal time: 20:28 Results 02/25/18 05:56 02/28/18 04:09 Cardiac Enzymes 02/24/18 02/25/18 Range/Units 06:11 05:56 AST 91 H 62 H (15-37) U/L CBC 02/24/18 02/25/18 Range/Units 06:11 05:56 WBC 8.2 8.5 (4.0-11.0) th/mm3 RBC 3.15 L 3.57 L (4.00-5.30) mil/mm3 Hgb 9.8 L 10.8 L (11.6-15.3) gm/dL Hct 28.6 L 32.3 L (35.0-46.0) % Plt Count 153 D 192 (150-450) th/mm3 Neut # (Auto) 6.4 6.6 (1.8-7.7) th/mm3 Lymph # (Auto) 0.6 L 0.7 L (1.0-4.8) th/mm3 Coal # (Auto) 1.1 H 1.0 H (0.0-0.9) th/mm3 Eos # (Auto) 0.1 0.1 (0.0-0.4) th/mm3 Baso # (Auto) 0.0 0.0 (0.0-0.2) th/mm3 Comprehensive Metabolic Panel 02/24/18 02/25/18 Range/Units 06:11 05:56 Sodium 136 138 (136-145) meq/L Potassium 3.1 L 3.4 L (3.5-5.1) meq/L Chloride 109 H 109 H (98-107) meq/L Carbon Dioxide 19.0 L 19.7 L (21.0-32.0) meq/L BUN 12 12 (7-18) mg/dL Creatinine 0.48 L 0.58 (0.50-1.00) mg/dL Calcium 7.4 L* 7.6 L (8.5-10.1) mg/dL AST 91 H 62 H (15-37) U/L ALT 136 H 112 H (10-53) U/L Alkaline Phosphatase 46 55 (45-117) U/L Total Protein 4.7 L 5.3 L D (6.4-8.2) g/dL Albumin 2.0 L 2.3 L (3.4-5.0) g/dL Intake and Output 02/24/18 02/25/18 02/25/18 22:59 06:59 14:59 Intake Total 480 / 480 1340 / 1340 Output Total 100 / 100 Balance 480 / 480 1240 / 1240 Intake: IV 1100 / 1100 NS Inj 1,000 ML @ 100 mls/hr IV 1000 / 1000 .CONT .Q10H [facility] Rx#:[id number] Keppra 1000 mg/100 mL Premix 100 / 100 100 ML @ 400 mls/hr IV.SIG Q12H [facility] Rx#:[id number] Oral 480 / 480 240 / 240 Output: Urine 100 / 100 Other: # Voids 3 # Incontinent Voids 2 Weight 69.5 kg Assessment and Plan - Assessment (1) Anemia Code(s): D64.9 - Anemia, unspecified Status: Acute Plan: IV heparin per Dr. Hanley (2) Right-sided cerebrovascular accident (CVA) Code(s): I63.9 - Cerebral infarction, unspecified Status: Acute (3) Elevated troponin Code(s): R74.8 - Abnormal levels of other serum enzymes Status: Acute Plan: Most likely from CVA. Repeat EKG but no evidence so far of DE (4) Paroxysmal atrial fibrillation Code(s): I48.0 - Paroxysmal atrial fibrillation Status: Acute Plan: This likely cause of embolic CVA. Cont amio, start PO loading to maintain SR. Needs anticoagulation when neuro thinks it can be done safely. Continue amiodarone in attempt to preserve sinus rhythm. - Plan 02/25/18 CVA almost certainly embolic from PAF. On amio loading to try to prevent further AF. nticoagulation had to be reduced for bleeding.
[2018-02-25] MEDS: Senna/Docusate Sodium 8.6/50 MG Tablet PO SCH ×2 (09:32→21:06)
[2018-02-25] MEDS: Amiodarone 200 MG Tablet PO SCH ×2 (09:32→21:05)
[2018-02-25] MEDS: Pantoprazole Inj 40 MG Vial IV.PUSH SCH (09:33)
--- NOTE | 2018-02-25 11:08 | P.DIET ---
Nutritional Evaluation Type of nutrition evaluation: initial Nutrition consult regarding: Diet Evaluation Nutrition screening: Poor PO Intake Screening comments: 02/25 MDC for poor PO intake Subjective Subjective Comments: Pt has a poor appetite. Objective - Diagnosis CVA, left hip fx - Objective Body Mass Index: 26.3 % IBW: 127 (IBW 120lb) Body Weight Used for Calculations: Actual (69.5kg) Energy Needs - Lower Range (kCal/kg): 25 Energy Needs - Upper Range (kCal/kg): 30 Lower Limit kCal/kg (kCals): 1,737 Upper Limit kCal/kg (kCals): 2,085 Lower Limit Protein Factor (Grams per Kg): 1.1 Upper Limit Protein Factor (Grams per Kg): 1.3 Lower Protein Needs (Protein): 76 Upper Protein Needs (Protein): 90 Dietitian Reviewed in Medical Record: Current diet, Curent medications, Intake & Output, Labs, Medical history Diet Order: cardiac Oral Diet Intake Amount: Poor <50% Speech Therapy Recommendations: Yes (mech soft, thin liquids) Objective Comments: PMH: essential HTN, HLD, throat CA Labs: random glucose 127 152 98, A1c 5.4% Assessment Assessment: Pt currently at nutritional risk r/t reported poor PO intake. ST recs reviewed, pt is on mech soft, thin liquid diet. Pt has a poor appetite overall, only consuming 0-25% of most meals. RD to recommend Ensure Enlive TID for pt as PO supplement for additional nutrition. Encourage PO intake and assist in feeding as necessary. Labs reviewed, dietitian following. Recommendations: 1. ST recs reviewed, pt is on mech soft, thin liquid diet 2. RD to recommend Ensure Enlive TID for pt as PO supplement for additional nutrition 3. Encourage PO intake and assist in feeding as necessary 4. Dietitian following Dietitian to Monitor: Lab values, Supplement acceptance, Intake & Output, Diet tolerance, PO Intake, Medical course
[2018-02-25] MEDS: Rivaroxaban 10 MG Tablet PO SCH (15:39)
[2018-02-25] MEDS: amLODIPine 5 MG Tablet PO SCH (15:40)
--- NOTE | 2018-02-25 19:52 | P.PNOP ---
Subjective Interval history: No acute overnight events. Notes her pain is well controlled at bedside this evening. Has been having difficulty mobilizing with physical therapy secondary to pain. Physical Exam Vital signs: Vital Signs 02/24/18 20:00 02/24/18 21:00 02/24/18 22:00 Temperature Pulse Rate 82 88 86 Respiratory Rate Blood Pressure Pulse Oximetry 98 02/24/18 23:00 02/24/18 23:20 02/25/18 00:00 Temperature 98.2 F Pulse Rate 84 78 Respiratory Rate 20 Blood Pressure 189/87 H 129/67 Pulse Oximetry 99 02/25/18 01:00 02/25/18 02:00 02/25/18 02:58 Temperature 98.6 F Pulse Rate 77 80 89 Respiratory Rate 18 Blood Pressure 159/84 H Pulse Oximetry 98 02/25/18 03:00 02/25/18 04:00 02/25/18 05:00 Temperature Pulse Rate 78 78 80 Respiratory Rate Blood Pressure Pulse Oximetry 02/25/18 06:00 02/25/18 07:00 02/25/18 08:00 Temperature 97.2 F L Pulse Rate 83 84 86 Respiratory Rate 20 Blood Pressure 187/93 H Pulse Oximetry 100 02/25/18 09:00 02/25/18 10:00 02/25/18 11:00 Temperature 97.3 F L Pulse Rate 82 86 82 Respiratory Rate 20 Blood Pressure 179/92 H Pulse Oximetry 100 02/25/18 11:31 02/25/18 12:00 02/25/18 13:00 Temperature Pulse Rate 82 78 Respiratory Rate Blood Pressure Pulse Oximetry 100 02/25/18 14:00 02/25/18 15:00 02/25/18 16:00 Temperature 98.2 F Pulse Rate 82 80 18 L Respiratory Rate 18 Blood Pressure 199/99 H Pulse Oximetry 100 02/25/18 17:00 02/25/18 18:00 Temperature Pulse Rate 90 88 Respiratory Rate Blood Pressure Pulse Oximetry Intake & Output 02/25/18 02/25/18 02/26/18 06:59 18:59 06:59 Intake Total 1340 / 1340 1600 / 1600 Output Total 100 / 100 1000 / 1000 Balance 1240 / 1240 600 / 600 Weight 69.5 kg Intake: IV 1100 / 1100 1000 / 1000 NS Inj 1,000 ML @ 100 mls/hr IV 1000 / 1000 1000 / 1000 .CONT .Q10H [facility] Rx#:[id number] Keppra 1000 mg/100 mL Premix 100 / 100 100 ML @ 400 mls/hr IV.SIG Q12H [facility] Rx#:[id number] Oral 240 / 240 600 / 600 Output: Urine 100 / 100 1000 / 1000 Other: # Voids 3 Date of Last Bowel Movement 02/17/18 - Constitutional no acute distress - Routine Extremities Exam Comments: Focused evaluation of the left lower extremity demonstrates hip incisions, clean dry and intact. [place] in place. Sensation intact to the dorsal and volar surface of the foot. Positive EHL/FHL/tibialis anterior/gastroc. 2+ DP pulse. - Urinary Catheter Management Straight Cath placed during this visit: yes, but has since been removed by the nurse Reason for continuing: Not indwelling catheter Insertion date: 02/20/18 Insertion time: 20:00 Removal date: 02/20/18 Removal time: 20:28 Results - Labs CBC & Chem 7: 02/25/18 05:56 02/25/18 05:56 Laboratory Results - last 24 hr 02/25/18 02/25/18 02/25/18 01:14 05:08 05:56 WBC 8.5 RBC 3.57 L Hgb 10.8 L Hct 32.3 L MCV 90.4 MCH 30.4 MCHC 33.6 RDW 16.8 Plt Count 192 MPV 8.7 Neut % (Auto) 77.2 H Lymph % (Auto) 8.5 L [place] % (Auto) 12.2 H Eos % (Auto) 1.6 Baso % (Auto) 0.5 Neut # (Auto) 6.6 Lymph # (Auto) 0.7 L [place] # (Auto) 1.0 H Eos # (Auto) 0.1 Baso # (Auto) 0.0 WBC Differential . Differential Comment Auto diff final Sodium Potassium Chloride Carbon Dioxide Anion Gap BUN Creatinine Estimated GFR POC Glucose 102 98 Random Glucose Calcium Phosphorus Magnesium Total Bilirubin AST ALT Alkaline Phosphatase Total Protein Albumin 02/25/18 02/25/18 02/25/18 05:56 12:39 15:38 WBC RBC Hgb Hct MCV MCH MCHC RDW Plt Count MPV Neut % (Auto) Lymph % (Auto) [place] % (Auto) Eos % (Auto) Baso % (Auto) Neut # (Auto) Lymph # (Auto) [place] # (Auto) Eos # (Auto) Baso # (Auto) WBC Differential Differential Comment Sodium 138 Potassium 3.4 L Chloride 109 H Carbon Dioxide 19.7 L Anion Gap 9 BUN 12 Creatinine 0.58 Estimated GFR Greater than 89 POC Glucose 85 116 H Random Glucose 90 Calcium 7.6 L Phosphorus 1.7 L Magnesium 1.9 Total Bilirubin 1.7 H AST 62 H ALT 112 H Alkaline Phosphatase 55 Total Protein 5.3 L D Albumin 2.3 L - Procedures 02/20 Left hip open reduction internal fixation with intramedullary nail implant. Assessment and Plan - Assessment and Plan 82-year-old female presents status post syncopal fall with CVA/middle cerebral artery infarct. Resulting left-sided hemineglect. Status post left hip open reduction internal fixation with intramedullary nail implant for intertrochanteric femur fracture on 02/20. 1. Weightbearing as tolerated to the left lower extremity. 2. PT/OT 3. Multimodal pain control. 4. DVT ppx 5. Percocet, dispense #42, has been provided for discharge. 6. Orthopedics to continue to follow patient in the periphery. Patient will follow up with Dr. Carrillo in 2-3 weeks for repeat x-rays and for a dressing change and staple removal. In the interim, her dressings may remain intact. All questions and concerns were addressed with the family at bedside.
[2018-02-25] MEDS ORDERED: levETIRAcetam 500 MG Tablet PO SCH ×2 (21:00)
[2018-02-26] MEDS: Insulin NovoLOG Aspart Correctional Sugar Inj SQ SCH ×4 (01:11→17:25)
[2018-02-26] MEDS: Morphine Sulfate Inj 2 MG/ML Vial IV.PUSH PRN ×2 (01:24→06:34)
[2018-02-26] MEDS: Sod Chloride 0.9% Inj 1,000 ML IV.CONT SCH (06:36)
[2018-02-26] MEDS: Pantoprazole Inj 40 MG Vial IV.PUSH SCH (08:13)
[2018-02-26] MEDS: Senna/Docusate Sodium 8.6/50 MG Tablet PO SCH ×2 (08:14→21:25)
[2018-02-26] MEDS: amLODIPine 5 MG Tablet PO SCH (08:14)
[2018-02-26] MEDS: Amiodarone 200 MG Tablet PO SCH ×2 (08:14→21:24)
[2018-02-26] MEDS: Rivaroxaban 10 MG Tablet PO SCH (08:20)
--- NOTE | 2018-02-26 14:24 | P.PNCA ---
Subjective Interval history: Follow up for Dr. Dunbar Confusion seems to wax and wane per nursing Attempting to get up with physical therapy, but weak and painful Medications and Allergies Active Medications: Active Medications Acetaminophen (Tylenol) 650 mg PO Q6H PRN PRN Reason: FEVER Hydrocodone Bitart/Acetaminophen ([place] 5/325) 1 tab PO Q4H PRN PRN Reason: PAIN SCALE 1 TO 5 Last Admin: 02/26/18 08:15 Dose: 1 tab Al Hydroxide/Mg Hydroxide (Milk Of Lora Mclean) 30 ml PO Q12H PRN PRN Reason: Mild Constipation Albuterol (Albuterol Neb (Prn)) 2.5 mg NEB Q2HR NEB PRN PRN Reason: SHORTNESS OF BREATH/WHEEZING Amiodarone HCl (Cordarone) 400 mg PO Q12HR [facility] Last Admin: 02/26/18 08:14 Dose: 400 mg Amlodipine Besylate (Norvasc) 5 mg PO DAILY [facility] Last Admin: 02/26/18 08:14 Dose: 5 mg Aspirin (Aspirin Chew) 81 mg PO DAILY [facility] Last Admin: 02/22/18 08:33 Dose: 81 mg Bisacodyl (Dulcolax Supp) 10 mg RECTAL DAILY PRN PRN Reason: SEVERE CONSITIPATION Buspirone HCl (Buspar) 5 mg PO DAILY [facility] Last Admin: 02/22/18 08:33 Dose: 5 mg Clonidine HCl (Catapres) 0.1 mg PO Q6H PRN PRN Reason: SBP>160, DBP>90 Last Admin: 02/23/18 18:50 Dose: 0.1 mg Dextrose (D50w Vial) 50 ml IV.PUSH UNSCH PRN PRN Reason: PER HYPOGLYCEMIA PROTOCOL Diphenhydramine HCl (Benadryl Inj) 25 mg IV.PUSH Q6H PRN PRN Reason: ITCHING Last Admin: 02/24/18 20:41 Dose: 25 mg Glucagon (Glucagon Inj) 1 mg OTHER PRN PRN PRN Reason: for Hypoglycemia Protocol Sodium Chloride (Ns Inj) 1,000 mls @ 50 mls/hr IV.CONT .Q20H [facility] Last Admin: 02/26/18 06:36 Dose: 50 mls/hr Magnesium Sulfate 4 gm/ Sodium (Chloride) 100 mls @ 50 mls/hr IV.SIG UNSCH PRN PRN Reason: For Magnesium 0.9 - 1.1 mg/dL Magnesium Sulfate 2 gm/ Sodium (Chloride) 100 mls @ 50 mls/hr IV.SIG UNSCH PRN PRN Reason: For Magnesium 1.2 - 1.6 mg/dL Potassium Chloride (Kcl 40 Meq Premix Inj) 40 meq in 100 mls @ 25 mls/hr IV.SIG Q2H PRN PRN Reason: For Potassium 2.8 - 3.2 mEq/L Potassium Chloride (Kcl 20 Meq Premix Inj) 20 meq in 100 mls @ 50 mls/hr IV.SIG Q2H PRN PRN Reason: For Potassium 2.8 - 3.2 mEq/L Potassium Phosphate 30 mmol/ (Sodium Chloride) 260 mls @ 42 mls/hr IV.SIG UNSCH PRN PRN Reason: SEE LABEL COMMENTS Sodium Phosphate 30 mmol/ (Sodium Chloride) 260 mls @ 42 mls/hr IV.SIG UNSCH PRN PRN Reason: For Phosphorus < 2.5 mg/dL Potassium Chloride (Kcl 40 Meq Premix Inj) 40 meq in 100 mls @ 25 mls/hr IV.SIG UNSCH PRN PRN Reason: For Potassium 3.3 - 3.5 mEq/L Nicardipine HCl 25 mg/ Sodium (Chloride) 250 mls @ 50 mls/hr IV.CONT TITRATE PRN; Protocol PRN Reason: Per Protocol Phenylephrine HCl 40 mg/ (Sodium Chloride) 500 mls @ 30 mls/hr IV.CONT TITRATE PRN; Protocol PRN Reason: See Protocol Insulin Aspart (Novolog Insulin Correctional Sugar Inj) 0 unit SQ Q6HR [facility]; Protocol Last Admin: 02/26/18 11:45 Dose: Not Given Labetalol HCl (Trandate Inj) 10 mg IV.PUSH Q2H PRN PRN Reason: SBP>180, DBP>100, HR>65 Last Admin: 02/25/18 07:18 Dose: 10 mg Lactulose (Lactulose Liq) 30 ml PO DAILY PRN PRN Reason: SEVERE CONSITIPATION Last Admin: 02/24/18 08:58 Dose: 30 ml Levetiracetam (Keppra Liq) 1,000 mg NG/OG BID [facility] Last Admin: 02/26/18 08:15 Dose: 1,000 mg Magnesium Oxide (Mag-Ox) 800 mg PO UNSCH PRN PRN Reason: For Magnesium 1.2 - 1.6 mg/dL Morphine Sulfate (Morphine Inj) 1 mg IV.PUSH Q2H PRN PRN Reason: PAIN SCALE 6 TO 10 Last Admin: 02/26/18 06:34 Dose: 1 mg Ondansetron HCl (Zofran Inj) 4 mg IV.PUSH Q6H PRN PRN Reason: NAUSEA OR VOMITING Pantoprazole Sodium (Protonix Inj) 40 mg IV.PUSH DAILY [facility] Last Admin: 02/26/18 08:13 Dose: 40 mg Potassium Bicarb/Potassium Chloride (K-Lyte Cl Eff) 50 meq PO UNSCH PRN PRN Reason: For Potassium 3.3 - 3.5 mEq/L Potassium Phosphate (K-Phos Original) 2,000 mg PO Q4H PRN PRN Reason: Phosphorus Less Than 2.5 mg/dL Potassium Phosphate (K-Phos Original) 2,000 mg PO UNSCH PRN PRN Reason: SEE LABEL COMMENTS Pravastatin Sodium (Pravachol) 40 mg PO [facility] Last Admin: 02/25/18 21:05 Dose: 40 mg Rivaroxaban (Xarelto) 10 mg PO DAILY [facility] Last Admin: 02/26/18 08:20 Dose: 10 mg Senna/Docusate Sodium (Janice-Colace) 1 tab PO BID [facility] Last Admin: 02/26/18 08:14 Dose: 1 tab Sennosides (Senokot) 17.2 mg PO Q12H PRN PRN Reason: Moderate Constipation Sodium Chloride (Ns Flush) 2 ml IV.FLUSH BID [facility] Last Admin: 02/26/18 08:14 Dose: 2 ml Sodium Chloride (Ns Flush) 2 ml IV.FLUSH PRN PRN PRN Reason: FLUSH AFTER USING IV ACCESS Terbutaline Sulfate (Brethine Inj) 1 mg SQ UNSCH PRN PRN Reason: For Extravasation Allergies Allergy/AdvReac Type Severity Reaction Status Date / Time No Known Allergies Allergy Uncoded 05/09/12 18:20 Home Medications Medication Instructions Recorded Confirmed Type amlodipine 5 mg PO DAILY 02/17/18 02/17/18 History buspirone 5 mg PO DAILY 02/17/18 02/17/18 History propranolol 20 mg PO DAILY 02/17/18 02/17/18 History Physical Exam Vital signs: Vital Signs 02/25/18 15:00 11/30/18 16:00 02/25/18 17:00 Temperature 98.2 F Pulse Rate 80 18 L 90 Respiratory Rate 18 Blood Pressure 199/99 H Pulse Oximetry 100 02/25/18 18:00 02/25/18 19:00 02/25/18 20:00 Temperature 97.5 F L Pulse Rate 88 90 92 H Respiratory Rate 20 Blood Pressure 153/85 H Pulse Oximetry 97 02/25/18 20:35 02/25/18 21:00 02/25/18 22:00 Temperature Pulse Rate 128 H 96 H Respiratory Rate Blood Pressure Pulse Oximetry 96 02/25/18 23:00 02/26/18 00:00 02/26/18 01:00 Temperature Pulse Rate 95 H 64 62 Respiratory Rate 20 Blood Pressure 157/92 H Pulse Oximetry 98 02/26/18 02:00 02/26/18 03:00 02/26/18 04:00 Temperature Pulse Rate 82 80 92 H Respiratory Rate 20 Blood Pressure 157/78 H Pulse Oximetry 96 02/26/18 05:00 02/26/18 06:00 02/26/18 07:00 Temperature 97.8 F Pulse Rate 96 H 90 92 H Respiratory Rate Blood Pressure 140/88 Pulse Oximetry 99 02/26/18 08:00 02/26/18 09:00 02/26/18 10:00 Temperature Pulse Rate 90 82 74 Respiratory Rate Blood Pressure Pulse Oximetry 99 02/26/18 10:41 02/26/18 11:00 02/26/18 12:00 Temperature 99 F Pulse Rate 79 76 83 Respiratory Rate 18 Blood Pressure 121/55 L Pulse Oximetry 98 02/26/18 13:00 Temperature Pulse Rate 74 Respiratory Rate Blood Pressure Pulse Oximetry Intake & Output 02/25/18 02/26/18 02/26/18 18:59 06:59 18:59 Intake Total 1600 / 1600 2240 / 2240 Output Total 1000 / 1000 1350 / 1350 Balance 600 / 600 890 / 890 Weight 70 kg Intake: IV 1000 / 1000 1999 / 1999 NS Inj 1,000 ML @ 50 mls/hr IV. 1000 / 1000 1999 CONT .Q20H [facility] Rx#:[id number] Oral 600 / 600 240 / 240 Output: Urine 1000 / 1000 1350 / 1350 Other: Date of Last Bowel Movement 02/17/18 02/17/18 02/24/18 Narrative: awake and alert, ff all commands anicteric neck supple regularr hythm abdomen soft, nntender some ecchymoses pubic area extremties - left hip/thigh post op dressing in place, mild swelling motor- some mild left sided weakness foot- strong motor exam - Urinary Catheter Management Straight Cath placed during this visit: yes, but has since been removed by the nurse Reason for continuing: Not indwelling catheter Insertion date: 02/20/18 Insertion time: 20:00 Removal date: 02/20/18 Removal time: 20:28 Results 02/25/18 05:56 02/25/18 05:56 Cardiac Enzymes 02/25/18 Range/Units 05:56 AST 62 H (15-37) U/L CBC 02/25/18 Range/Units 05:56 WBC 8.5 (4.0-11.0) th/mm3 RBC 3.57 L (4.00-5.30) mil/mm3 Hgb 10.8 L (11.6-15.3) gm/dL Hct 32.3 L (35.0-46.0) % Plt Count 192 (150-450) th/mm3 Neut # (Auto) 6.6 (1.8-7.7) th/mm3 Lymph # (Auto) 0.7 L (1.0-4.8) th/mm3 Kay # (Auto) 1.0 H (0.0-0.9) th/mm3 Eos # (Auto) 0.1 (0.0-0.4) th/mm3 Baso # (Auto) 0.0 (0.0-0.2) th/mm3 Comprehensive Metabolic Panel 02/25/18 Range/Units 05:56 Sodium 138 (136-145) meq/L Potassium 3.4 L (3.5-5.1) meq/L Chloride 109 H (98-107) meq/L Carbon Dioxide 19.7 L (21.0-32.0) meq/L BUN 12 (7-18) mg/dL Creatinine 0.58 (0.50-1.00) mg/dL Calcium 7.6 L (8.5-10.1) mg/dL AST 62 H (15-37) U/L ALT 112 H (10-53) U/L Alkaline Phosphatase 55 (45-117) U/L Total Protein 5.3 L D (6.4-8.2) g/dL Albumin 2.3 L (3.4-5.0) g/dL Intake and Output 02/25/18 02/26/18 02/26/18 22:59 06:59 14:59 Intake Total 2600 / 2600 1240 / 1240 Output Total 1000 / 1000 1350 / 1350 Balance 1600 / 1600 -110 / -110 Intake: IV 1999 1000 / 1000 NS Inj 1,000 ML @ 50 mls/hr IV. 1999 1000 / 1000 CONT .Q20H [facility] Rx#:[id number] Oral 600 / 600 240 / 240 Output: Urine 999 1350 / 1350 Other: Date of Last Bowel Movement 02/17/18 02/17/18 02/24/18 Weight 70 kg Assessment and Plan - Assessment (1) Anemia Code(s): D64.9 - Anemia, unspecified Status: Acute (2) Right-sided cerebrovascular accident (CVA) Code(s): I63.9 - Cerebral infarction, unspecified Status: Acute (3) Elevated troponin Code(s): R74.8 - Abnormal levels of other serum enzymes Status: Acute (4) Paroxysmal atrial fibrillation Code(s): I48.0 - Paroxysmal atrial fibrillation Status: Acute - Plan 1) AFib Placed on Amiodarone load, will continue for now to try to stay in sinus rhythm Amiodarone 400mg BID for 1 week, then decrease to 200mg daily Consideration of attempting to switch to AV renu jaswinder in 4-6 weeks to get off Amiodarone [employer] 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
--- NOTE | 2018-02-26 18:41 | P.PN ---
Subjective Interval history: awake and alert, telemetry in SR Physical Exam Vital signs: Vital Signs 02/25/18 19:00 02/25/18 20:00 02/25/18 20:35 Temperature 97.5 F L Pulse Rate 90 92 H Respiratory Rate 20 Blood Pressure 153/85 H Pulse Oximetry 97 96 02/25/18 21:00 02/25/18 22:00 02/25/18 23:00 Temperature Pulse Rate 128 H 96 H 95 H Respiratory Rate 20 Blood Pressure 157/92 H Pulse Oximetry 98 02/26/18 00:00 02/26/18 01:00 02/26/18 02:00 Temperature Pulse Rate 64 62 82 Respiratory Rate Blood Pressure Pulse Oximetry 02/26/18 03:00 02/26/18 04:00 02/26/18 05:00 Temperature Pulse Rate 80 92 H 96 H Respiratory Rate 20 Blood Pressure 157/78 H Pulse Oximetry 96 02/26/18 06:00 02/26/18 07:00 02/26/18 08:00 Temperature 97.8 F Pulse Rate 90 92 H 90 Respiratory Rate Blood Pressure 140/88 Pulse Oximetry 99 99 02/26/18 09:00 02/26/18 10:00 02/26/18 10:41 Temperature 99 F Pulse Rate 82 74 79 Respiratory Rate 18 Blood Pressure 121/55 L Pulse Oximetry 98 02/26/18 11:00 02/26/18 12:00 02/26/18 13:00 Temperature Pulse Rate 76 83 74 Respiratory Rate Blood Pressure Pulse Oximetry 02/26/18 14:00 02/26/18 14:45 02/26/18 15:00 Temperature 97.7 F Pulse Rate 76 94 H 76 Respiratory Rate 18 Blood Pressure 148/75 H Pulse Oximetry 95 02/26/18 16:00 02/26/18 16:09 02/26/18 17:00 Temperature Pulse Rate 80 88 Respiratory Rate Blood Pressure Pulse Oximetry 97 02/26/18 18:00 Temperature Pulse Rate 87 Respiratory Rate Blood Pressure Pulse Oximetry Intake & Output 02/25/18 02/26/18 02/26/18 18:59 06:59 18:59 Intake Total 1600 / 1600 2240 / 2240 560 / 560 Output Total 1000 / 1000 1350 / 1350 900 / 900 Balance 600 / 600 890 / 890 -340 / -340 Weight 70 kg Intake: IV 1000 / 1000 2000 / 1999 NS Inj 1,000 ML @ 50 mls/hr IV. 1000 / 1000 1999 CONT .Q20H [facility] Rx#:[id number] Oral 600 / 600 240 / 240 560 / 560 Output: Urine 1000 / 1000 1350 / 1350 900 / 900 Other: Date of Last Bowel Movement 02/17/18 02/17/18 02/24/18 # Bowel Movements 0 Narrative: awake and alert, ff all commands anicteric neck supple regular rhythm abdomen soft, nontender some ecchymoses pubic area extremties - left hip/thigh post op dressing in place, mild swelling motor- some mild left sided weakness foot- strong motor exam - Urinary Catheter Management Straight Cath placed during this visit: yes, but has since been removed by the nurse Reason for continuing: Not indwelling catheter Insertion date: 02/20/18 Insertion time: 20:00 Removal date: 02/20/18 Removal time: 20:28 Results - Labs CBC & Chem 7: 02/25/18 05:56 02/25/18 05:56 Laboratory Results - last 24 hr 02/26/18 02/26/18 02/26/18 00:56 06:14 11:20 POC Glucose 99 114 H 114 H 02/26/18 17:14 POC Glucose 105 - Procedures 02/20 Left hip open reduction internal fixation with intramedullary nail implant. 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 CT angiogram revealed an M2 branch occluded [address] CAD revealed right temporal CVA acute. Size is approximately 3 x [address] Hanley/neurology recommended aspirin and heparin drip. Head of bed flat. PT/OT/ST evaluate and treat- 7 days a week Hydrocodone/acetaminophen 325/5 1 tablet every 4 hours as needed pain 1-5 Morphine sulfate 2 mg IV every 2 hours. Pain 6 - 10 Decreasing hemoglobin, hold anticoagulation 02/19 and transfused 2 units packed red blood cells Transfuse 1 additional unit packed red blood cells 02/20 Transfuse again today 02/21 On Xarelto 5 mg p.o. daily since February 22- increase to 10 mg daily today - d/w Dr. Hanley ff CBC CV: Essential hypertension Hyperlipidemia Elevated troponin Paroxysmal atrial fibrillation- currently in SR BP 140/70 - sinus amlodipine 5 mg daily propanolol 20 mg daily. Started on pravastatin 40 mg daily for dyslipidemia. Increase xarelto to 10 mg today 02/25 - increase to full dose in 1 week- d/w Dr. Hanley started on Amiodarone [address] Dunbar ff Resp: Nasal cannula to maintain saturations greater than or equal to 92% Incentive spirometry while awake Albuterol/ipratropium aerosols every 4 hours with albuterol aerosols every 2 hours as needed dyspnea GI: Currently mechanical soft diet- needs to be encouraged Pantoprazole for GI prophylaxis Docusate sodium/senna 1 tablet twice daily for bowel regimen Test stool for occult blood : Straight catheterization as needed- [place] in place Endo: Acute hyperglycemia Sliding scale insulin aspart insulin Accu-Cheks every 6 hours to maintain euglycemia/low regimen Check TSH Check hemoglobin A1c Renal: Creatinine currently within normal limits Monitor urine output Accurate I's and O's Heme: Leukocytosis acute anemia- likely from bleeding into fracture site S/P transfusion Monitor CBC daily. H and H improved and stable Acute comminuted IT fracture left femur S/P ORIF 02/20 Chronic Low back pain X-ray of the hip revealed acute comminuted IT fracture of the left femur. Ortho ff PT daily 7 days a week FEN: Hyponatremia/acute- improved Replace electrolytes as clinically indicated per ICU electrolyte protocol Access -Utilize peripheral IV. Central line if indicated Prophylaxis -GI -pantoprazole -DVT -SCD -Xarelto 5 mg p.o. twice daily start 02/22 per previous notes but now - dain just on 5 mg daily- increase to 10 mg daily today 02/25
[2018-02-27] MEDS: Sod Chloride 0.9% Inj 1,000 ML IV.CONT SCH ×2 (03:04→20:42)
[2018-02-27] MEDS: Insulin NovoLOG Aspart Correctional Sugar Inj SQ SCH ×4 (03:04→19:24)
[2018-02-27] MEDS: Amiodarone 200 MG Tablet PO SCH ×2 (09:25→20:40)
[2018-02-27] MEDS: Pantoprazole Inj 40 MG Vial IV.PUSH SCH (09:25)
[2018-02-27] MEDS: Rivaroxaban 10 MG Tablet PO SCH (09:25)
[2018-02-27] MEDS: amLODIPine 5 MG Tablet PO SCH (09:25)
[2018-02-27] MEDS: Senna/Docusate Sodium 8.6/50 MG Tablet PO SCH ×2 (09:25→20:41)
[2018-02-27] MEDS: Morphine Sulfate Inj 2 MG/ML Vial IV.PUSH PRN (11:35)
--- NOTE | 2018-02-27 13:01 | P.PNCA ---
Subjective Interval history: No events overnight Appears more awake today Medications and Allergies Active Medications: Active Medications Acetaminophen (Tylenol) 650 mg PO Q6H PRN PRN Reason: FEVER Hydrocodone Bitart/Acetaminophen ([place] 5/325) 1 tab PO Q4H PRN PRN Reason: PAIN SCALE 1 TO 5 Last Admin: 02/27/18 05:32 Dose: 1 tab Al Hydroxide/Mg Hydroxide (Milk Of Lora Liq) 30 ml PO Q12H PRN PRN Reason: Mild Constipation Albuterol (Albuterol Neb (Prn)) 2.5 mg NEB Q2HR NEB PRN PRN Reason: SHORTNESS OF BREATH/WHEEZING Amiodarone HCl (Cordarone) 400 mg PO Q12HR [facility] Last Admin: 02/27/18 09:25 Dose: 400 mg Amlodipine Besylate (Norvasc) 5 mg PO DAILY [facility] Last Admin: 02/27/18 09:25 Dose: 5 mg Aspirin (Aspirin Chew) 81 mg PO DAILY [facility] Last Admin: 02/22/18 08:33 Dose: 81 mg Bisacodyl (Dulcolax Supp) 10 mg RECTAL DAILY PRN PRN Reason: SEVERE CONSITIPATION Buspirone HCl (Buspar) 5 mg PO DAILY [facility] Last Admin: 02/22/18 08:33 Dose: 5 mg Clonidine HCl (Catapres) 0.1 mg PO Q6H PRN PRN Reason: SBP>160, DBP>90 Last Admin: 02/23/18 18:50 Dose: 0.1 mg Dextrose (D50w Vial) 50 ml IV.PUSH UNSCH PRN PRN Reason: PER HYPOGLYCEMIA PROTOCOL Diphenhydramine HCl (Benadryl Inj) 25 mg IV.PUSH Q6H PRN PRN Reason: ITCHING Last Admin: 02/24/18 20:41 Dose: 25 mg Glucagon (Glucagon Inj) 1 mg OTHER PRN PRN PRN Reason: for Hypoglycemia Protocol Sodium Chloride (Ns Inj) 1,000 mls @ 50 mls/hr IV.CONT .Q20H [facility] Last Admin: 02/27/18 03:04 Dose: 50 mls/hr Magnesium Sulfate 4 gm/ Sodium (Chloride) 100 mls @ 50 mls/hr IV.SIG UNSCH PRN PRN Reason: For Magnesium 0.9 - 1.1 mg/dL Magnesium Sulfate 2 gm/ Sodium (Chloride) 100 mls @ 50 mls/hr IV.SIG UNSCH PRN PRN Reason: For Magnesium 1.2 - 1.6 mg/dL Potassium Chloride (Kcl 40 Meq Premix Inj) 40 meq in 100 mls @ 25 mls/hr IV.SIG Q2H PRN PRN Reason: For Potassium 2.8 - 3.2 mEq/L Potassium Chloride (Kcl 20 Meq Premix Inj) 20 meq in 100 mls @ 50 mls/hr IV.SIG Q2H PRN PRN Reason: For Potassium 2.8 - 3.2 mEq/L Potassium Phosphate 30 mmol/ (Sodium Chloride) 260 mls @ 42 mls/hr IV.SIG UNSCH PRN PRN Reason: SEE LABEL COMMENTS Sodium Phosphate 30 mmol/ (Sodium Chloride) 260 mls @ 42 mls/hr IV.SIG UNSCH PRN PRN Reason: For Phosphorus < 2.5 mg/dL Potassium Chloride (Kcl 40 Meq Premix Inj) 40 meq in 100 mls @ 25 mls/hr IV.SIG UNSCH PRN PRN Reason: For Potassium 3.3 - 3.5 mEq/L Nicardipine HCl 25 mg/ Sodium (Chloride) 250 mls @ 50 mls/hr IV.CONT TITRATE PRN; Protocol PRN Reason: Per Protocol Phenylephrine HCl 40 mg/ (Sodium Chloride) 500 mls @ 30 mls/hr IV.CONT TITRATE PRN; Protocol PRN Reason: See Protocol Insulin Aspart (Novolog Insulin Correctional Sugar Inj) 0 unit SQ Q6HR [facility]; Protocol Last Admin: 02/27/18 07:19 Dose: Not Given Labetalol HCl (Trandate Inj) 10 mg IV.PUSH Q2H PRN PRN Reason: SBP>180, DBP>100, HR>65 Last Admin: 02/25/18 07:18 Dose: 10 mg Lactulose (Lactulose Liq) 30 ml PO DAILY PRN PRN Reason: SEVERE CONSITIPATION Last Admin: 02/24/18 08:58 Dose: 30 ml Levetiracetam (Keppra Liq) 1,000 mg NG/OG BID [facility] Last Admin: 02/27/18 09:25 Dose: 1,000 mg Magnesium Oxide (Mag-Ox) 800 mg PO UNSCH PRN PRN Reason: For Magnesium 1.2 - 1.6 mg/dL Morphine Sulfate (Morphine Inj) 1 mg IV.PUSH Q2H PRN PRN Reason: PAIN SCALE 6 TO 10 Last Admin: 02/27/18 11:35 Dose: 1 mg Ondansetron HCl (Zofran Inj) 4 mg IV.PUSH Q6H PRN PRN Reason: NAUSEA OR VOMITING Pantoprazole Sodium (Protonix Inj) 40 mg IV.PUSH DAILY [facility] Last Admin: 02/27/18 09:25 Dose: 40 mg Potassium Bicarb/Potassium Chloride (K-Lyte Cl Eff) 50 meq PO UNSCH PRN PRN Reason: For Potassium 3.3 - 3.5 mEq/L Potassium Phosphate (K-Phos Original) 2,000 mg PO Q4H PRN PRN Reason: Phosphorus Less Than 2.5 mg/dL Potassium Phosphate (K-Phos Original) 2,000 mg PO UNSCH PRN PRN Reason: SEE LABEL COMMENTS Pravastatin Sodium (Pravachol) 40 mg PO HS [facility] Last Admin: 02/26/18 21:24 Dose: 40 mg Rivaroxaban (Xarelto) 10 mg PO DAILY [facility] Last Admin: 02/27/18 09:25 Dose: 10 mg Senna/Docusate Sodium (Janice-Colace) 1 tab PO BID [facility] Last Admin: 02/27/18 09:25 Dose: 1 tab Sennosides (Senokot) 17.2 mg PO Q12H PRN PRN Reason: Moderate Constipation Sodium Chloride (Ns Flush) 2 ml IV.FLUSH BID [facility] Last Admin: 02/27/18 09:26 Dose: 2 ml Sodium Chloride (Ns Flush) 2 ml IV.FLUSH PRN PRN PRN Reason: FLUSH AFTER USING IV ACCESS Terbutaline Sulfate (Brethine Inj) 1 mg SQ UNSCH PRN PRN Reason: For Extravasation Allergies Allergy/AdvReac Type Severity Reaction Status Date / Time No Known Allergies Allergy Uncoded 05/09/12 18:20 Home Medications Medication Instructions Recorded Confirmed Type amlodipine 5 mg PO DAILY 02/17/18 02/17/18 History buspirone 5 mg PO DAILY 02/17/18 02/17/18 History propranolol 20 mg PO DAILY 02/17/18 02/17/18 History Physical Exam Vital signs: Vital Signs 02/26/18 14:00 02/26/18 14:45 02/26/18 15:00 Temperature 97.7 F Pulse Rate 76 94 H 76 Respiratory Rate 18 Blood Pressure 148/75 H Pulse Oximetry 95 02/26/18 16:00 02/26/18 16:09 02/26/18 17:00 Temperature Pulse Rate 80 88 Respiratory Rate Blood Pressure Pulse Oximetry 97 02/26/18 18:00 02/26/18 19:00 02/26/18 20:00 Temperature 98.7 F Pulse Rate 87 83 78 Respiratory Rate 16 Blood Pressure 107/55 L Pulse Oximetry 94 L 02/26/18 21:00 02/26/18 22:00 02/26/18 23:00 Temperature 99.5 F Pulse Rate 78 84 86 Respiratory Rate 14 Blood Pressure 131/72 Pulse Oximetry 96 02/27/18 00:00 02/27/18 01:00 02/27/18 02:00 Temperature Pulse Rate 82 84 106 H Respiratory Rate Blood Pressure Pulse Oximetry 02/27/18 03:00 02/27/18 04:00 02/27/18 05:00 Temperature 99.0 F Pulse Rate 112 H 97 H 82 Respiratory Rate 16 Blood Pressure 94/57 L Pulse Oximetry 95 02/27/18 06:00 02/27/18 07:00 02/27/18 07:05 Temperature 98.6 F Pulse Rate 81 86 Respiratory Rate 18 Blood Pressure 95/51 L 102/47 L Pulse Oximetry 95 02/27/18 11:53 Temperature Pulse Rate Respiratory Rate Blood Pressure Pulse Oximetry 95 Intake & Output 02/26/18 02/27/18 02/27/18 18:59 06:59 18:59 Intake Total 560 / 560 1280 / 1280 Output Total 900 / 900 325 / 325 Balance -340 / -340 955 / 955 Weight 69.4 kg Intake: IV 1000 / 1000 NS Inj 1,000 ML @ 50 mls/hr IV. 1000 / 1000 CONT .Q20H [facility] Rx#:[id number] Oral 560 / 560 280 / 280 Output: Urine 900 / 900 325 / 325 Other: Date of Last Bowel Movement 02/24/18 # Bowel Movements 0 Narrative: awake and alert, ff all commands anicteric neck supple regular rhythm abdomen soft, nontender some ecchymoses pubic area extremties - left hip/thigh post op dressing in place, mild swelling motor- some mild left sided weakness foot- strong motor exam - Urinary Catheter Management Straight Cath placed during this visit: yes, but has since been removed by the nurse Reason for continuing: Not indwelling catheter Insertion date: 02/20/18 Insertion time: 20:00 Removal date: 02/20/18 Removal time: 20:28 Results 02/25/18 05:56 02/25/18 05:56 Intake and Output 02/26/18 02/27/18 02/27/18 22:59 06:59 14:59 Intake Total 560 / 560 1280 / 1280 Output Total 900 / 900 325 / 325 Balance -340 / -340 955 / 955 Intake: IV 1000 / 1000 NS Inj 1,000 ML @ 50 mls/hr IV. 1000 / 1000 CONT .Q20H [facility] Rx#:[id number] Oral 560 / 560 280 / 280 Output: Urine 900 / 900 325 / 325 Other: # Bowel Movements 0 Weight 69.4 kg Assessment and Plan - Assessment (1) Anemia Code(s): D64.9 - Anemia, unspecified Status: Acute (2) Right-sided cerebrovascular accident (CVA) Code(s): I63.9 - Cerebral infarction, unspecified Status: Acute (3) Elevated troponin Code(s): R74.8 - Abnormal levels of other serum enzymes Status: Acute (4) Paroxysmal atrial fibrillation Code(s): I48.0 - Paroxysmal atrial fibrillation Status: Acute - Plan 1) AFib Placed on Amiodarone load, will continue for now to try to stay in sinus rhythm Amiodarone 400mg BID for 1 week, then decrease to 200mg daily Consideration of attempting to switch to AV renu jaswinder in 4-6 weeks to get off Amiodarone [employer]term[employer] continuous churn 2) Hip fracture s/p ORIF 3) CVA Per neuro, Xarelto 10mg for 1 week then switch to full strength 4) Elevated troponins Secondary to CVA No ischemia work up with recent CVA 5) Physical therapy Consideration of [facility] due to acuity 6) Discussed with family at the bedside
--- NOTE | 2018-02-27 13:29 | P.PN ---
Subjective Interval history: telemetry in awake and alert interactive complains of left calf pain Physical Exam Vital signs: Vital Signs 02/26/18 14:00 02/26/18 14:45 02/26/18 15:00 Temperature 97.7 F Pulse Rate 76 94 H 76 Respiratory Rate 18 Blood Pressure 148/75 H Pulse Oximetry 95 02/26/18 16:00 02/26/18 16:09 02/26/18 17:00 Temperature Pulse Rate 80 88 Respiratory Rate Blood Pressure Pulse Oximetry 97 02/26/18 18:00 02/26/18 19:00 02/26/18 20:00 Temperature 98.7 F Pulse Rate 87 83 78 Respiratory Rate 16 Blood Pressure 107/55 L Pulse Oximetry 94 L 02/26/18 21:00 02/26/18 22:00 02/26/18 23:00 Temperature 99.5 F Pulse Rate 78 84 86 Respiratory Rate 14 Blood Pressure 131/72 Pulse Oximetry 96 02/27/18 00:00 02/27/18 01:00 02/27/18 02:00 Temperature Pulse Rate 82 84 106 H Respiratory Rate Blood Pressure Pulse Oximetry 02/27/18 03:00 02/27/18 04:00 02/27/18 05:00 Temperature 99.0 F Pulse Rate 112 H 97 H 82 Respiratory Rate 16 Blood Pressure 94/57 L Pulse Oximetry 95 02/27/18 06:00 02/27/18 07:00 02/27/18 07:05 Temperature 98.6 F Pulse Rate 81 86 Respiratory Rate 18 Blood Pressure 95/51 L 102/47 L Pulse Oximetry 95 02/27/18 11:53 Temperature Pulse Rate Respiratory Rate Blood Pressure Pulse Oximetry 95 Intake & Output 02/26/18 02/27/18 02/27/18 18:59 06:59 18:59 Intake Total 560 / 560 1280 / 1280 Output Total 900 / 900 325 / 325 Balance -340 / -340 955 / 955 Weight 69.4 kg Intake: IV 1000 / 1000 NS Inj 1,000 ML @ 50 mls/hr IV. 1000 / 1000 CONT .Q20H [facility] Rx#:[id number] Oral 560 / 560 280 / 280 Output: Urine 900 / 900 325 / 325 Other: Date of Last Bowel Movement 02/24/18 # Bowel Movements 0 Narrative: awake and alert, ff all commands anicteric neck supple regular rhythm abdomen soft, nontender some ecchymoses pubic area extremities - left hip/thigh post op dressing in place, mild swelling lower leg- mild ecchymoses- medial aspect motor- some mild left sided weakness foot- strong motor exam - Urinary Catheter Management Straight Cath placed during this visit: yes, but has since been removed by the nurse Reason for continuing: Not indwelling catheter Insertion date: 02/20/18 Insertion time: 20:00 Removal date: 02/20/18 Removal time: 20:28 Results - Labs CBC & Chem 7: 02/25/18 05:56 02/25/18 05:56 Laboratory Results - last 24 hr 02/26/18 02/26/18 02/27/18 17:14 21:33 02:59 POC Glucose 105 127 H 133 H 02/27/18 02/27/18 06:17 12:42 POC Glucose 141 H 180 H - Procedures 02/20 Left hip open reduction internal fixation with intramedullary nail implant. 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 CT angiogram revealed an M2 branch occluded [address] CAD revealed right temporal CVA acute. Size is approximately 3 x [address] Hanley/neurology recommended aspirin and heparin drip. Head of bed flat. PT/OT/ST evaluate and treat- 7 days a week Hydrocodone/acetaminophen 325/5 1 tablet every 4 hours as needed pain 1-5 Morphine sulfate 2 mg IV every 2 hours. Pain 6 - 10 Decreasing hemoglobin, hold anticoagulation 02/19 and transfused 2 units packed red blood cells Transfuse 1 additional unit packed red blood cells 02/20 Transfuse again today 02/21 On Xarelto 5 mg p.o. daily since February 22- increase to 10 mg daily today - d/w Dr. Hanley ff CBC CV: Essential hypertension Hyperlipidemia Elevated troponin Paroxysmal atrial fibrillation- currently in SR BP 140/70 - sinus amlodipine 5 mg daily propanolol 20 mg daily. Started on pravastatin 40 mg daily for dyslipidemia. Increase xarelto to 10 mg today 02/25 - increase to full dose in 1 week- d/w Dr. Hanley started on Amiodarone [address] Manjinder andrew Resp: Nasal cannula to maintain saturations greater than or equal to 92% Incentive spirometry while awake Albuterol/ipratropium aerosols every 4 hours with albuterol aerosols every 2 hours as needed dyspnea GI: Currently mechanical soft diet- needs to be encouraged Pantoprazole for GI prophylaxis Docusate sodium/senna 1 tablet twice daily for bowel regimen Test stool for occult blood : Straight catheterization as needed- [place] in place Endo: Acute hyperglycemia Sliding scale insulin aspart insulin Accu-Cheks every 6 hours to maintain euglycemia/low regimen Check TSH Check hemoglobin A1c Renal: Creatinine currently within normal limits Monitor urine output Accurate I's and O's Heme: Leukocytosis acute anemia- likely from bleeding into fracture site S/P transfusion Monitor CBC daily. H and H improved and stable Acute comminuted IT fracture left femur S/P ORIF 02/20 Chronic Low back pain X-ray of the hip revealed acute comminuted IT fracture of the left femur. Ortho ff PT daily 7 days a week get left leg doppler- check for DVT- patient already on Xarelto for a fib FEN: Hyponatremia/acute- improved Replace electrolytes as clinically indicated per ICU electrolyte protocol Access -Utilize peripheral IV. Central line if indicated Prophylaxis -GI -pantoprazole -DVT -SCD -Xarelto 5 mg p.o. twice daily start 02/22 per previous notes but now - dain just on 5 mg daily- increase to 10 mg daily today 02/25
--- NOTE | 2018-02-27 15:34 | US ---
EXAM DATE: 02/27/2018 3:27 PM EST AGE/SEX: 82 years / Female INDICATIONS: Left leg swelling. CLINICAL DATA: This is the patient's initial encounter. Patient reports that signs and symptoms have been present for 1 day and indicates a pain score of 6/10. MEDICAL/SURGICAL HISTORY: Hypertension. Anxiety. Hyperlipidemia. Throat cancer. . Neck surgery . COMPARISON: No prior exams available for comparison. TECHNIQUE: Venous ultrasound of both lower extremities was performed from the inguinal ligament to t he proximal calf. Real-time, color Doppler and spectral tracing, compression and augmentation techni ques were used. FINDINGS: Normal compression of the deep venous system from the inguinal region to the proximal calf . No echogenic clot is seen. Normal response of the venous system to augmentation and respiration. CONCLUSION: 1. The study is negative for lower extremity deep venous thrombosis. Electronically signed by: Fred Mondragon MD 02/27/2018 3:33 PM EST
[2018-02-27 15:36] LABS: Calcium 7.6 mg/dL (8.5-10.1); Carbon Dioxide 23.1 meq/L (21.0-32.0); Potassium 3.4 meq/L (3.5-5.1)
[2018-02-27] MEDS ORDERED: Potassium Chloride 20 MEQ Pwd Pkt PO ONE (17:15)
[2018-02-27] MEDS ORDERED: Potassium Chloride 25 MEQ Effervescent Tablet PO ONE (17:45)
[2018-02-28] MEDS: Insulin NovoLOG Aspart Correctional Sugar Inj SQ SCH ×4 (01:00→18:46)
[2018-02-28 04:51] LABS: Anion Gap 5 meq/L (5-15); Blood Urea Nitrogen 13 mg/dL (7-18); Calcium 7.9 mg/dL (8.5-10.1); Carbon Dioxide 24.9 meq/L (21.0-32.0); Chloride 104 meq/L (98-107); Glomerular Filtration Rate Greater Than 89 mL/min (>89); Glucose,Random 94 mg/dL (74-106); Potassium 3.5 meq/L (3.5-5.1); Sodium 134 meq/L (136-145)
[2018-02-28 04:52] LABS: Phosphorus 3.1 mg/dL (2.5-4.9)
--- NOTE | 2018-02-28 08:09 | P.PNNEU ---
Subjective Active Medications: Active Medications Acetaminophen (Tylenol) 650 mg PO Q6H PRN PRN Reason: FEVER Hydrocodone Bitart/Acetaminophen ([place] 5/325) 1 tab PO Q4H PRN PRN Reason: PAIN SCALE 1 TO 5 Last Admin: 02/27/18 23:04 Dose: 1 tab Albuterol (Albuterol Neb (Prn)) 2.5 mg NEB Q2HR NEB PRN PRN Reason: SHORTNESS OF BREATH/WHEEZING Amiodarone HCl (Cordarone) 400 mg PO Q12HR [facility] Last Admin: 02/27/18 20:40 Dose: 400 mg Amlodipine Besylate (Norvasc) 5 mg PO DAILY [facility] Last Admin: 02/27/18 09:25 Dose: 5 mg Aspirin (Aspirin Chew) 81 mg PO DAILY [facility] Last Admin: 02/22/18 08:33 Dose: 81 mg Bisacodyl (Dulcolax Supp) 10 mg RECTAL DAILY PRN PRN Reason: SEVERE CONSITIPATION Buspirone HCl (Buspar) 5 mg PO DAILY [facility] Last Admin: 02/22/18 08:33 Dose: 5 mg Clonidine HCl (Catapres) 0.1 mg PO Q6H PRN PRN Reason: SBP>160, DBP>90 Last Admin: 02/23/18 18:50 Dose: 0.1 mg Dextrose (D50w Vial) 50 ml IV.PUSH UNSCH PRN PRN Reason: PER HYPOGLYCEMIA PROTOCOL Diphenhydramine HCl (Benadryl Inj) 25 mg IV.PUSH Q6H PRN PRN Reason: ITCHING Last Admin: 02/24/18 20:41 Dose: 25 mg Glucagon (Glucagon Inj) 1 mg OTHER PRN PRN PRN Reason: for Hypoglycemia Protocol Sodium Chloride (Ns Inj) 1,000 mls @ 50 mls/hr IV.CONT .Q20H [facility] Last Admin: 02/27/18 20:42 Dose: Not Given Insulin Aspart (Novolog Insulin Correctional Sugar Inj) 0 unit SQ Q6HR [facility]; Protocol Last Admin: 02/28/18 07:06 Dose: Not Given Labetalol HCl (Trandate Inj) 10 mg IV.PUSH Q2H PRN PRN Reason: SBP>180, DBP>100, HR>65 Last Admin: 02/25/18 07:18 Dose: 10 mg Lactulose (Lactulose Liq) 30 ml PO DAILY PRN PRN Reason: SEVERE CONSITIPATION Last Admin: 02/24/18 08:58 Dose: 30 ml Levetiracetam (Keppra Liq) 1,000 mg NG/OG BID [facility] Last Admin: 02/27/18 20:39 Dose: 1,000 mg Rivaroxaban (Xarelto) 10 mg PO DAILY [facility] Last Admin: 02/27/18 09:25 Dose: 10 mg Senna/Docusate Sodium (Janice-Colace) 1 tab PO BID [facility] Last Admin: 02/27/18 20:41 Dose: 1 tab Sennosides (Senokot) 17.2 mg PO Q12H PRN PRN Reason: Moderate Constipation Sodium Chloride (Ns Flush) 2 ml IV.FLUSH BID [facility] Last Admin: 02/27/18 20:41 Dose: 2 ml Sodium Chloride (Ns Flush) 2 ml IV.FLUSH PRN PRN PRN Reason: FLUSH AFTER USING IV ACCESS Allergies/Adverse Reactions: Allergies Allergy/AdvReac Type Severity Reaction Status Date / Time No Known Allergies Allergy Uncoded 05/09/12 18:20 Physical Exam Vital signs: Vital Signs 02/27/18 09:00 02/27/18 10:00 02/27/18 11:00 Temperature 98.6 F Pulse Rate 80 86 81 Respiratory Rate 18 Blood Pressure 106/47 L Pulse Oximetry 98 02/27/18 11:53 02/27/18 12:00 02/27/18 13:00 Temperature Pulse Rate 86 78 Respiratory Rate Blood Pressure Pulse Oximetry 95 02/27/18 14:00 02/27/18 15:00 02/27/18 16:00 Temperature 98.8 F Pulse Rate 80 81 82 Respiratory Rate 18 Blood Pressure 126/64 Pulse Oximetry 96 02/27/18 17:00 02/27/18 18:00 02/27/18 19:00 Temperature 98.6 F Pulse Rate 82 81 85 Respiratory Rate 18 Blood Pressure 111/65 Pulse Oximetry 95 02/27/18 20:00 02/27/18 21:00 02/27/18 23:00 Temperature 97.8 F Pulse Rate 85 84 80 Respiratory Rate 18 Blood Pressure 146/67 H Pulse Oximetry 96 02/28/18 02:00 02/28/18 03:00 02/28/18 04:00 Temperature 97.6 F Pulse Rate 75 73 Respiratory Rate 16 16 Blood Pressure 143/68 H Pulse Oximetry 97 Intake & Output 02/27/18 02/28/18 02/28/18 18:59 06:59 18:59 Weight 69.4 kg Other: # Urine Diapers 2 Narrative: looking better to left now and moving lle better - Urinary Catheter Management Straight Cath placed during this visit: yes, but has since been removed by the nurse Reason for continuing: Not indwelling catheter Insertion date: 02/20/18 Insertion time: 20:00 Removal date: 02/20/18 Removal time: 20:28 Objective Laboratory Results - last 24 hr 02/27/18 02/27/18 02/27/18 12:42 14:52 18:50 Sodium 135 L Potassium 3.4 L Chloride 103 Carbon Dioxide 23.1 Anion Gap 9 BUN 16 Creatinine 0.71 Estimated GFR 79 L POC Glucose 180 H 116 H Random Glucose 127 H Calcium 7.6 L Phosphorus 02/28/18 02/28/18 02/28/18 01:29 04:09 06:54 Sodium 134 L Potassium 3.5 Chloride 104 Carbon Dioxide 24.9 Anion Gap 5 BUN 13 Creatinine 0.55 Estimated GFR Greater than 89 POC Glucose 113 H 108 Random Glucose 94 Calcium 7.9 L Phosphorus 3.1 Review/Management - Review/Management Plan: imp r mca cva some worse overnoc had large penumbra at risk and robb still does left hip fx unfortunately time of onset too uncertain for tpa yest keep ivf and bp up hob down iv hep on ? mi? have cards see echo 02/19/18 echo neg no valves noted however dr veliz clears her for surgery i dw him hep dced due to anemia and apparent bleeding inot left thigh robb completed her cva an dcould go to or tomorrow but need bp kept up over 110/ watch renal fx it has doubled since admission ok hob 30 degrees ok to eat check repeat mr today 02/20/18 sp hip surgery plt 77 off hep mri shows large r mca cva and small left cbllr and frontal cva cw cardioembolic is for xarelto post op although some hemorrhagic changes on mri in r mca cva so check ct will be at inc risk bleeding probably 1/2 dose xarelto instead of full better due to this and should have loop placed by cards unless she stays on anticoag rest of life watch plt 02/21/18 mri shows some blood changes in cva no blood on ct seen plan is 1/2 dose xarelto for 10 days then inc to full dose oob ok cards felt no mi but certainly cardioembolic this bilat cva can dc asa when on xarelto ------- 02/22/18 i dw son she was moving lue well this am awake and alert stood yest w PT should be on 1/2 dose xarelto ? today from ortho and can go to rehab neurowise later today or tomorrow change keppra to po we rowena lchange to full dose xarelto in 10 days 02/24/18 went into AFIB on xarelto 5 bid with blood in the r mca cva stable neuro ready for rehab needs oob and inc po intake will inc to full dose xarelto in 7 days 02/25/18 stable neuro she needs daily PT over weekend oob inc lle movement -------- 02/28/18 improving for inc dose xarelto in few days
[2018-02-28] MEDS: Amiodarone 200 MG Tablet PO SCH ×2 (09:36→21:12)
[2018-02-28] MEDS: amLODIPine 5 MG Tablet PO SCH (09:36)
[2018-02-28] MEDS: Rivaroxaban 10 MG Tablet PO SCH (09:36)
[2018-02-28] MEDS: Senna/Docusate Sodium 8.6/50 MG Tablet PO SCH ×2 (09:37→21:12)
[2018-02-28 09:39] VITALS: RESP 18
--- NOTE | 2018-02-28 16:04 | P.PNCA ---
Subjective Interval history: No events overnight Doing better Medications and Allergies Active Medications: Active Medications Acetaminophen (Tylenol) 650 mg PO Q6H PRN PRN Reason: FEVER Hydrocodone Bitart/Acetaminophen ([place] 5/325) 1 tab PO Q4H PRN PRN Reason: PAIN SCALE 1 TO 5 Last Admin: 02/28/18 09:35 Dose: 1 tab Albuterol (Albuterol Neb (Prn)) 2.5 mg NEB Q2HR NEB PRN PRN Reason: SHORTNESS OF BREATH/WHEEZING Amiodarone HCl (Cordarone) 400 mg PO Q12HR [facility] Last Admin: 02/28/18 09:36 Dose: 400 mg Amlodipine Besylate (Norvasc) 5 mg PO DAILY [facility] Last Admin: 02/28/18 09:36 Dose: 5 mg Aspirin (Aspirin Chew) 81 mg PO DAILY [facility] Last Admin: 02/22/18 08:33 Dose: 81 mg Bisacodyl (Dulcolax Supp) 10 mg RECTAL DAILY PRN PRN Reason: SEVERE CONSITIPATION Buspirone HCl (Buspar) 5 mg PO DAILY [facility] Last Admin: 02/22/18 08:33 Dose: 5 mg Clonidine HCl (Catapres) 0.1 mg PO Q6H PRN PRN Reason: SBP>160, DBP>90 Last Admin: 02/23/18 18:50 Dose: 0.1 mg Dextrose (D50w Vial) 50 ml IV.PUSH UNSCH PRN PRN Reason: PER HYPOGLYCEMIA PROTOCOL Diphenhydramine HCl (Benadryl Inj) 25 mg IV.PUSH Q6H PRN PRN Reason: ITCHING Last Admin: 02/24/18 20:41 Dose: 25 mg Glucagon (Glucagon Inj) 1 mg OTHER PRN PRN PRN Reason: for Hypoglycemia Protocol Sodium Chloride (Ns Inj) 1,000 mls @ 50 mls/hr IV.CONT .Q20H [facility] Last Admin: 02/27/18 20:42 Dose: Not Given Insulin Aspart (Novolog Insulin Correctional Sugar Inj) 0 unit SQ Q6HR [facility]; Protocol Last Admin: 02/28/18 13:37 Dose: Not Given Labetalol HCl (Trandate Inj) 10 mg IV.PUSH Q2H PRN PRN Reason: SBP>180, DBP>100, HR>65 Last Admin: 02/25/18 07:18 Dose: 10 mg Lactulose (Lactulose Liq) 30 ml PO DAILY PRN PRN Reason: SEVERE CONSITIPATION Last Admin: 02/24/18 08:58 Dose: 30 ml Levetiracetam (Keppra Liq) 1,000 mg NG/OG BID [facility] Last Admin: 02/28/18 09:37 Dose: 1,000 mg Rivaroxaban (Xarelto) 10 mg PO DAILY [facility] Last Admin: 02/28/18 09:36 Dose: 10 mg Senna/Docusate Sodium (Janice-Colace) 1 tab PO BID [facility] Last Admin: 02/28/18 09:37 Dose: 1 tab Sennosides (Senokot) 17.2 mg PO Q12H PRN PRN Reason: Moderate Constipation Sodium Chloride (Ns Flush) 2 ml IV.FLUSH BID [facility] Last Admin: 02/28/18 09:38 Dose: 2 ml Sodium Chloride (Ns Flush) 2 ml IV.FLUSH PRN PRN PRN Reason: FLUSH AFTER USING IV ACCESS Allergies Allergy/AdvReac Type Severity Reaction Status Date / Time No Known Allergies Allergy Uncoded 05/09/12 18:20 Home Medications Medication Instructions Recorded Confirmed Type amlodipine 5 mg PO DAILY 02/17/18 02/17/18 History buspirone 5 mg PO DAILY 02/17/18 02/17/18 History propranolol 20 mg PO DAILY 02/17/18 02/17/18 History Physical Exam Vital signs: Vital Signs 02/27/18 17:00 02/27/18 18:00 02/27/18 19:00 Temperature 98.6 F Pulse Rate 82 81 85 Respiratory Rate 18 Blood Pressure 111/65 Pulse Oximetry 95 02/27/18 20:00 02/27/18 21:00 02/27/18 23:00 Temperature 97.8 F Pulse Rate 85 84 80 Respiratory Rate 18 Blood Pressure 146/67 H Pulse Oximetry 96 02/28/18 02:00 02/28/18 03:00 02/28/18 04:00 Temperature 97.6 F Pulse Rate 75 73 Respiratory Rate 16 16 Blood Pressure 143/68 H Pulse Oximetry 97 02/28/18 08:45 02/28/18 11:30 02/28/18 13:37 Temperature 98.2 F 98 F Pulse Rate 83 88 Respiratory Rate 18 18 18 Blood Pressure 166/77 H 119/58 L Pulse Oximetry 96 97 Intake & Output 02/27/18 02/28/18 02/28/18 18:59 06:59 18:59 Weight 69.4 kg Other: # Urine Diapers 2 Date of Last Bowel Movement 02/28/18 Narrative: awake and alert, ff all commands anicteric neck supple regular rhythm abdomen soft, nontender some ecchymoses pubic area extremties - left hip/thigh post op dressing in place, mild swelling motor- some mild left sided weakness foot- strong motor exam - Urinary Catheter Management Straight Cath placed during this visit: yes, but has since been removed by the nurse Reason for continuing: Not indwelling catheter Insertion date: 02/20/18 Insertion time: 20:00 Removal date: 02/20/18 Removal time: 20:28 Results 02/25/18 05:56 02/28/18 04:09 Comprehensive Metabolic Panel 02/27/18 02/28/18 Range/Units 14:52 04:09 Sodium 135 L 134 L (136-145) meq/L Potassium 3.4 L 3.5 (3.5-5.1) meq/L Chloride 103 104 (98-107) meq/L Carbon Dioxide 23.1 24.9 (21.0-32.0) meq/L BUN 16 13 (7-18) mg/dL Creatinine 0.71 0.55 (0.50-1.00) mg/dL Calcium 7.6 L 7.9 L (8.5-10.1) mg/dL Intake and Output 02/28/18 02/28/18 02/28/18 06:59 14:59 22:59 Other: # Urine Diapers 2 Date of Last Bowel Movement 02/28/18 Weight 69.4 kg - Imaging and Cardiology Imaging: Impressions Venous Doppler Study 02/27/18 00:00 CONCLUSION: 1. The study is negative for lower extremity deep venous thrombosis. Assessment and Plan - Assessment (1) Anemia Code(s): D64.9 - Anemia, unspecified Status: Acute (2) Right-sided cerebrovascular accident (CVA) Code(s): I63.9 - Cerebral infarction, unspecified Status: Acute (3) Elevated troponin Code(s): R74.8 - Abnormal levels of other serum enzymes Status: Acute (4) Paroxysmal atrial fibrillation Code(s): I48.0 - Paroxysmal atrial fibrillation Status: Acute - Plan 1) AFib Placed on Amiodarone load, will continue for now to try to stay in sinus rhythm Amiodarone 400mg BID for 1 week, then decrease to 200mg daily Consideration of attempting to switch to AV renu jaswinder in 4-6 weeks to get off Amiodarone shelter 2) Hip fracture s/p ORIF 3) CVA Per neuro, Xarelto 10mg for 1 week then switch to full strength 4) Elevated troponins Secondary to CVA No ischemia work up with recent CVA 5) Physical therapy Consideration of [facility] due to acuity
--- NOTE | 2018-02-28 18:15 | P.PNIM ---
Subjective Interval history: Follow up CVA, PAF, hyperglycemia, leukocytosis Patient is resting in bed. She is reporting a dull, aching pain to her right hip area. She is accompanied by family members who are in the room. She has a poor appetite and has not been eating much. Denies cough, fevers or chills. Physical Exam Vital signs: Last Vital Signs Temp 98.3 F 02/28/18 14:40 Pulse 89 02/28/18 14:40 Resp 18 02/28/18 14:40 BP 140/64 02/28/18 14:40 Pulse Ox 95 02/28/18 14:40 Intake & Output 02/26/18 02/27/18 02/28/18 03/01/18 06:59 06:59 06:59 06:59 Intake Total 3840 / 3840 1840 / 1840 Output Total 2350 / 2350 1225 / 1225 Balance 1490 / 1490 615 / 615 Weight 70 kg 69.4 kg 69.4 kg Narrative: GENERAL: no acute distress, well developed, well nourished SKIN: Warm and dry. HEAD: Normocephalic, atraumatic EYES: No scleral icterus. No injection or drainage. NECK: Supple, trachea midline. No JVD or lymphadenopathy. CARDIOVASCULAR: Regular rate and rhythm without murmurs, gallops, or rubs. RESPIRATORY: Breath sounds equal bilaterally. No accessory muscle use. GASTROINTESTINAL: Abdomen soft, non-tender, nondistended. MUSCULOSKELETAL: No cyanosis, or edema. Left hip thigh dressing in place. Urinary Catheter Management Straight: Cath placed during this visit: yes, but has since been removed by the nurse Insertion date: 02/20/18 Insertion time: 20:00 Removal date: 02/20/18 Removal time: 20:28 Results Labs CBC & Chem 7: 02/25/18 05:56 02/28/18 04:09 Procedures Procedures: 02/20 Left hip open reduction internal fixation with intramedullary nail implant. 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 -CT angiogram revealed an M2 branch occluded 1 cm distal bifurcation. -CT CAD revealed right temporal CVA acute. Size is approximately 3 x 5 cm. -Evaluate Dr. Hanley/neurology recommended aspirin and heparin drip, now transitioned to Xarelto. -PT/OT/ST evaluate and treat- 7 days a week -continue pain meds PRN -Decreasing hemoglobin, held anticoagulation 02/19 and transfused 2 units packed red blood cells. Transfused 1 additional unit packed red blood cells and 02/21/18. - On Xarelto 5 mg p.o. daily since February 22- increased to 10 mg daily 02/25, Neurology following -monitor CBC Essential hypertension - evaluated 02/28/18, stable -continue current B/P meds -monitor vital signs per unit protocol Hyperlipidemia Elevated troponin Paroxysmal atrial fibrillation- currently in SR -Increase xarelto to 10 mg 02/25 - increase to full dose in 1 week- d/w Dr. Hanley -continue Amiodarone 400 mg q 12 -Dr. Dunbar ff Acute hyperglycemia -Sliding scale insulin aspart insulin Accu-Cheks every 6 hours to maintain euglycemia/low regimen --Check hemoglobin A1c Leukocytosis Acute anemia- likely from bleeding into fracture site -S/P transfusion -Monitor CBC daily. -H and H improved and stable Acute comminuted IT fracture left femur S/P ORIF 02/20 -Chronic Low back pain -X-ray of the hip revealed acute comminuted IT fracture of the left femur. -Ortho ff -PT daily 7 days a week -get left leg doppler- check for DVT- patient already on Xarelto for a fib Hyponatremia/acute- improved Progress Note: Quality VTE Deep Vein Thrombosis/Pulmonary Embolism Present on Admission: No
[2018-02-28] MEDS: Sod Chloride 0.9% Inj 1,000 ML IV.CONT SCH (18:45)
[2018-02-28 22:18] LABS: Hemoglobin A1c 5.3 % (4.3-6.0)
[2018-03-01] MEDS: Insulin NovoLOG Aspart Correctional Sugar Inj SQ SCH ×3 (00:51→14:49)
[2018-03-01] MEDS: Amiodarone 200 MG Tablet PO SCH (08:18)
[2018-03-01] MEDS: amLODIPine 5 MG Tablet PO SCH (08:18)
[2018-03-01] MEDS: Rivaroxaban 10 MG Tablet PO SCH (08:18)
[2018-03-01] MEDS: Senna/Docusate Sodium 8.6/50 MG Tablet PO SCH (08:18)
[2018-03-01 09:02] VITALS: O2SAT 95
[2018-03-01 13:35] VITALS: BP 115/59; PULSE 78; TEMP 98.4
[2018-03-01] MEDS: Sod Chloride 0.9% Inj 1,000 ML IV.CONT SCH (14:50)
--- NOTE | 2018-03-01 15:51 | P.PNCA ---
Subjective Interval history: No events overnight More awake today Medications and Allergies Active Medications: Active Medications Acetaminophen (Tylenol) 650 mg PO Q6H PRN PRN Reason: FEVER Hydrocodone Bitart/Acetaminophen ([place] 5/325) 1 tab PO Q4H PRN PRN Reason: PAIN SCALE 1 TO 5 Last Admin: 03/01/18 14:52 Dose: 1 tab Albuterol (Albuterol Neb (Prn)) 2.5 mg NEB Q2HR NEB PRN PRN Reason: SHORTNESS OF BREATH/WHEEZING Amiodarone HCl (Cordarone) 400 mg PO Q12HR [facility] Last Admin: 03/01/18 08:18 Dose: 400 mg Amlodipine Besylate (Norvasc) 5 mg PO DAILY [facility] Last Admin: 03/01/18 08:18 Dose: 5 mg Aspirin (Aspirin Chew) 81 mg PO DAILY [facility] Last Admin: 02/22/18 08:33 Dose: 81 mg Bisacodyl (Dulcolax Supp) 10 mg RECTAL DAILY PRN PRN Reason: SEVERE CONSITIPATION Buspirone HCl (Buspar) 5 mg PO DAILY [facility] Last Admin: 02/22/18 08:33 Dose: 5 mg Clonidine HCl (Catapres) 0.1 mg PO Q6H PRN PRN Reason: SBP>160, DBP>90 Last Admin: 02/23/18 18:50 Dose: 0.1 mg Dextrose (D50w Vial) 50 ml IV.PUSH UNSCH PRN PRN Reason: PER HYPOGLYCEMIA PROTOCOL Diphenhydramine HCl (Benadryl Inj) 25 mg IV.PUSH Q6H PRN PRN Reason: ITCHING Last Admin: 02/24/18 20:41 Dose: 25 mg Glucagon (Glucagon Inj) 1 mg OTHER PRN PRN PRN Reason: for Hypoglycemia Protocol Sodium Chloride (Ns Inj) 1,000 mls @ 50 mls/hr IV.CONT .Q20H [facility] Last Admin: 03/01/18 14:50 Dose: Not Given Insulin Aspart (Novolog Insulin Correctional Sugar Inj) 0 unit SQ Q6HR [facility]; Protocol Last Admin: 03/01/18 14:49 Dose: Not Given Labetalol HCl (Trandate Inj) 10 mg IV.PUSH Q2H PRN PRN Reason: SBP>180, DBP>100, HR>65 Last Admin: 02/25/18 07:18 Dose: 10 mg Lactulose (Lactulose Liq) 30 ml PO DAILY PRN PRN Reason: SEVERE CONSITIPATION Last Admin: 02/24/18 08:58 Dose: 30 ml Levetiracetam (Keppra Liq) 1,000 mg NG/OG BID [facility] Last Admin: 03/01/18 08:24 Dose: 1,000 mg Rivaroxaban (Xarelto) 10 mg PO DAILY [facility] Last Admin: 03/01/18 08:18 Dose: 10 mg Senna/Docusate Sodium (Janice-Colace) 1 tab PO BID [facility] Last Admin: 03/01/18 08:18 Dose: 1 tab Sennosides (Senokot) 17.2 mg PO Q12H PRN PRN Reason: Moderate Constipation Sodium Chloride (Ns Flush) 2 ml IV.FLUSH BID [facility] Last Admin: 03/01/18 08:18 Dose: 2 ml Sodium Chloride (Ns Flush) 2 ml IV.FLUSH PRN PRN PRN Reason: FLUSH AFTER USING IV ACCESS Allergies Allergy/AdvReac Type Severity Reaction Status Date / Time No Known Allergies Allergy Uncoded 05/09/12 18:20 Home Medications Medication Instructions Recorded Confirmed Type buspirone 5 mg PO DAILY 02/17/18 02/17/18 History Physical Exam Vital signs: Vital Signs 02/28/18 18:45 02/28/18 19:35 02/28/18 20:05 Temperature 98.7 F Pulse Rate 85 83 Respiratory Rate 18 18 Blood Pressure 131/60 Pulse Oximetry 95 02/28/18 21:24 02/28/18 23:55 03/01/18 01:00 Temperature 98.5 F Pulse Rate 83 82 Respiratory Rate 18 Blood Pressure 131/78 Pulse Oximetry 94 L 94 L 03/01/18 03:55 03/01/18 04:00 03/01/18 08:20 Temperature 98.9 F 98.7 F Pulse Rate 84 81 86 Respiratory Rate 18 18 Blood Pressure 130/61 158/76 H Pulse Oximetry 94 L 95 03/01/18 12:10 Temperature 98.4 F Pulse Rate 78 Respiratory Rate 18 Blood Pressure 115/59 L Pulse Oximetry 95 Intake & Output 02/28/18 03/01/18 03/01/18 18:59 06:59 18:59 Intake Total 480 / 480 200 / 200 Output Total 200 / 200 Balance 480 / 480 0 / 0 Weight 62.4 kg Intake: Oral 480 / 480 200 / 200 Output: Urine 200 / 200 Other: # Voids 950 Date of Last Bowel Movement 02/28/18 02/28/18 # Bowel Movements 0 Narrative: GENERAL: no acute distress, well developed, well nourished SKIN: Warm and dry. HEAD: Normocephalic, atraumatic EYES: No scleral icterus. No injection or drainage. NECK: Supple, trachea midline. No JVD or lymphadenopathy. CARDIOVASCULAR: Regular rate and rhythm without murmurs, gallops, or rubs. RESPIRATORY: Breath sounds equal bilaterally. No accessory muscle use. GASTROINTESTINAL: Abdomen soft, non-tender, nondistended. MUSCULOSKELETAL: No cyanosis, or edema. Left hip thigh dressing in place. - Urinary Catheter Management Straight Cath placed during this visit: yes, but has since been removed by the nurse Reason for continuing: Not indwelling catheter Insertion date: 02/20/18 Insertion time: 20:00 Removal date: 02/20/18 Removal time: 20:28 Results 02/25/18 05:56 02/28/18 04:09 Comprehensive Metabolic Panel 02/28/18 Range/Units 04:09 Sodium 134 L (136-145) meq/L Potassium 3.5 (3.5-5.1) meq/L Chloride 104 (98-107) meq/L Carbon Dioxide 24.9 (21.0-32.0) meq/L BUN 13 (7-18) mg/dL Creatinine 0.55 (0.50-1.00) mg/dL Calcium 7.9 L (8.5-10.1) mg/dL Intake and Output 03/01/18 03/01/18 03/01/18 06:59 14:59 22:59 Intake Total 200 / 200 Output Total 200 / 200 Balance 0 / 0 Intake: Oral 200 / 200 Output: Urine 200 / 200 Other: Date of Last Bowel Movement 02/28/18 # Bowel Movements 0 Weight 62.4 kg Assessment and Plan - Assessment (1) Anemia Code(s): D64.9 - Anemia, unspecified Status: Acute (2) Right-sided cerebrovascular accident (CVA) Code(s): I63.9 - Cerebral infarction, unspecified Status: Acute (3) Elevated troponin Code(s): R74.8 - Abnormal levels of other serum enzymes Status: Acute (4) Paroxysmal atrial fibrillation Code(s): I48.0 - Paroxysmal atrial fibrillation Status: Acute - Plan 1) AFib Placed on Amiodarone load, will continue for now to try to stay in sinus rhythm Amiodarone 400mg BID for 1 week, then decrease to 200mg daily Consideration of attempting to switch to AV renu jaswinder in 4-6 weeks to get off Amiodarone usp 2) Hip fracture s/p ORIF 3) CVA Per neuro, Xarelto 10mg for 1 week then switch to full strength 4) Elevated troponins Secondary to CVA No ischemia work up with recent CVA 5) Physical therapy Consideration of [facility] due to acuity 6) No further cardiovascular work up
== END 2018-03-01 17:50 ==
LOC: NEPC 19:37 → NEDA 21:54 → N03 22:45 → HCIS 02-24 00:44 → N06 02-27 22:10
PROVIDERS: ADMIT Internal Medicine; ATTEND Internal Medicine